=== PATIENT | male | born 1955 | race Caucasian/White ===

== ENCOUNTER 2018-10-18 09:00 | Inpatient (IN) ==
--- NOTE | 2018-10-17 10:58 | Anesthesiology Consultation ---
Date of Service October 17, 2018 Assessment & Plan (1) Encounter for pre-operative examination: History Surgery Operation Date: 10/18/18 11:25 Proposed Procedures p Left Femoral Posterior Tibial Bypass, Left Embolization of Popliteal Artery - Carlos Blunt MD Height/Weight Height: 5 ft 10 in Weight: 90.718 kg Allergies Allergy/AdvReac Type Severity Reaction Status Date / Time Penicillins Allergy Severe Rash Verified 10/17/18 08:18 Medications Home Medications Medication Instructions Recorded Confirmed Last Taken Black Berg 1 tab PO BID 10/17/18 Unknown apixaban [Eliquis] 10 mg PO BID 10/17/18 10/17/18 Unknown aspirin [Aspirin Low Dose] 81 mg PO QAM 10/17/18 10/17/18 Unknown echinacea 500 mg PO BID 10/17/18 10/17/18 Unknown esomeprazole magnesium [Nexium] 40 mg PO HS 10/17/18 10/17/18 Unknown ibuprofen [Motrin IB] 600 mg PO BID PRN 10/17/18 10/17/18 Unknown oxycodone-acetaminophen [Percocet] 1 tab PO Q4H PRN 10/17/18 10/17/18 Unknown sulfamethoxazole-trimethoprim 1 tab PO BID 10/17/18 10/17/18 Unknown [Bactrim DS] Past Medical History Medical History Anxiety FEAR OF [facility] AND HOSPITALS. GERD (gastroesophageal reflux disease) Hand trauma AGE 17, MISSING PART OF LEFT HAND Osteoarthritis Poor circulation TAKES ELIQUIS. Past Surgical History Surgical History H/O hand surgery FROM LEFT HAND TRAUMA AND PART OF HAND WAS CUT OFF. History of arthroscopy RIGHT KNEE CARTILAGE REPAIR Social History Smoking Status: Former smoker tobacco type: cigarettes Do You Dip or Chew Tobacco: No Smoking End Date: 10/10/18 Hx Alcohol Use: Yes Alcohol type: beer alcohol intake frequency: 0-2 drinks per day Hx Substance Use: Yes substance use type: prescription drug
[~2018-10-18 09:00] MED LIST: CLINDAMYCIN 600 MG/54 ML BAG IV SCH; LR 15ML/HR IV SCH; SODIUM CHLORIDE 0.9% 1000ML IV SCH
[2018-10-18 10:05] LABS: BUN Creatinine Ratio 13.3 (10-20); Calcium 8.1 mg/dl (8.5-10.1); Creatinine Clr Calc Pharmacy 138.4 ml/min; Est GFR (African American) 121.5; Est GFR (Non-African American) 104.8; Potassium 4.2 mmol/L (3.5-5.1)
--- NOTE | 2018-10-18 10:06 | XRay Report ---
XR chest 1V portable CLINICAL HISTORY: PREOPERATIVE EXAM COMPARISON STUDY: No previous studies for comparison. FINDINGS: The bones soft tissues and hemidiaphragms are normal. The cardiomediastinal silhouette is n ormal. The lungs are clear. The pulmonary vasculature is normal. IMPRESSION: Negative chest. The above report was generated using voice recognition software. It may contain grammatical, syntax or spelling errors. Electronically signed by: Moose Hdez M.D. 10/18/2018 10:04 AM
[2018-10-18] MEDS ORDERED: CEFAZOLIN 250 MG/ML 1 GM VIAL ONE (10:43)
[2018-10-18] MEDS ORDERED: HEPARIN (PORCINE) 1000 UNIT/ML 10 ML (CATH LAB USE ONLY) ONE (10:43)
[2018-10-18] MEDS ORDERED: PAPAVERINE HCL INJ 30 MG/ML 2 ML VIAL ONE (10:43)
[2018-10-18] MEDS ORDERED: IODIXANOL (VISIPAQUE) 270 MG/ML 50ML ONE (10:43)
[2018-10-18] MEDS ORDERED: LIDOCAINE HCL 1% 20 ML VIAL ONE (10:43)
[2018-10-18] MEDS ORDERED: THROMBIN 5000 UNITS KIT ONE (10:43)
[2018-10-18] MEDS ORDERED: BUPIVACAINE/EPINEPHRINE 0.5% MPF 1:200,000 30 ML VIAL ONE (10:43)
[2018-10-18] MEDS ORDERED: GELATIN SPONGE SZ 100 ONE (10:44)
[2018-10-18] MEDS ORDERED: ACETAMINOPHEN 325 MG TAB PO PRN (12:35)
[2018-10-18] MEDS ORDERED: IBUPROFEN 200 MG TAB PO PRN (12:40)
--- NOTE | 2018-10-18 12:43 | Communication Note ---
Date of Service: October 18, 2018 Surgery postponed till tuesday due to hyponatremia. Admitted for correcting his hyponatremia.
[2018-10-18] MEDS ORDERED: SODIUM CHLORIDE 0.9% 500 ML IV SCH (12:45)
--- NOTE | 2018-10-18 13:15 | Consultation ---
Addendum entered and electronically signed by Juanita Parada PA-C 10/18/18 15:34: Addendum (Blank) Addendum October 18, 2018 15:33 PVD - Pt was started on eliquis 10 mg BID and by vascular surgery on 10/16. 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 Blunt on board and plans for revascularization on 10/20/18 -Discussed with [place] - will also check for DM with chronic nonhealing foot wound, psychogenic polydipsia likely decreased glucose on PRP, will check A1C -Wound consulted -Pain control with morphine sulfate IV for now we will also order tramadol. Patient may benefit from additional agent such as gabapentin for nerve pain. (3) Osteoarthritis: - Continue percocet for severe pain. (4) GERD (gastroesophageal reflux disease): - Continue esomeprazole 40 mg HS (5) Anxiety: - Controlled currently, can consider hydroxyzine if needed for anxiety. (6) History of tobacco use: -Patient was previously smoking 2-3 packs/day x 40 years, stopped about 1 week ago when diagnosed with a popliteal aneurysm. - encouraged to stop smoking as well -Nicotine patch offered but patient declined Supervising Physician Co-Signing Physician Notes Pt seen/examined in conjunction with BISHNU Parada. Orders and additional evaluation formaulated with TOMER. Pt is admitted for L fem bypass and embolization of popliteal a. He was in the OR, however, labs returned with a sodium of 125. Surgery was delayed for correction therefore. He does not normally see and MD and would not know if he had HLD, DM or HTN. BP has been high in the hospital and Glu is mildly elevated. He has an extensive smoking histroy. He has no complaints aside for pain in his L leg and a nonhealing ulcer. Labs are notable for hyponatremia. OE AAO x 3 S1,2 R CTAB NT, ND No deficits Pulses are present on the R - cannot discern on L Shallow ulcer present on L foot P: As we would like to stratify him for surgery, we have ordered an A1C, fasting lipid profile, UA. An EKG did not provided evidence of ischemic injury. However, considering his PAD, we would presume there is a degree of CAD as well. We will make a decision AM if we would like to proceed with a card consult prior to this high risk procedure. Reg his low Na, we are providing IVF and have placed him on fluid restriction. We will obtain urine lytes. He states that he is on a new diet where he drinks a lot of water so that polydipsia may be the cause. The pt states he quit smoking 10 days ago. We wish him success in tis endeavor. History of Present Illness Reason for Consultation: Hyponatremia Requesting Physician: Dr. Blunt Attending Physician: Carlos Blunt MD History of Present Illness This is a 63 yo M with PMHx of PVD, anxiety, gerd, osteoarthritis, and recent history of tobacco use and cessation, who was scheduled for a left femoral popliteal, posterior tib bypass surgery and embolization of the popliteal artery on 10/[address] Blunt. Upon check of PRP the patient was found be hyponatremic with Na+ of 125. Patient has not followed with her PCP in the past 40 years, he is extremely terrified of doctors and hospitals. Patient reports that he has had a chronic left foot wound for about 1 year and was seen by esl teacher about 2 weeks ago due to increased pain, redness, swelling and difficulty with walking. At that appointment is 1 he was placed on Bactrim DS BID for a 10d course, and when vascular surgery was consulted due to poor pulses. 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 Patient was scheduled for a follow-up/surgical procedure on 10/[address] Blunt however patient deferred surgery due to his anxiety. In regards to hyponatremia: He has been drinking 15-20, 16oz cups of free water daily for the past 2-3 weeks and restricting all salt. He has not eaten well over the past 2 weeks. Patient also took 2 magnesium tablets due to his bowels not moving well on 10/15 and 10/16. Allergies Allergy/AdvReac Type Severity Reaction Status Date / Time Penicillins Allergy Severe Rash Verified 10/18/18 09:39 Home Medications Home Medications Medication Instructions Recorded Confirmed Type Black Berg 1 tab PO BID 10/17/18 10/18/18 History apixaban [Eliquis] 10 mg PO BID 10/17/18 10/18/18 History aspirin [Aspirin Low Dose] 81 mg PO QAM 10/17/18 10/18/18 History echinacea 500 mg PO BID 10/17/18 10/18/18 History esomeprazole magnesium [Nexium] 40 mg PO HS 10/17/18 10/18/18 History ibuprofen [Motrin IB] 600 mg PO BID PRN 10/17/18 10/18/18 History oxycodone-acetaminophen [Percocet] 1 tab PO Q4H PRN 10/17/18 10/18/18 History sulfamethoxazole-trimethoprim 1 tab PO BID 10/17/18 10/18/18 History [Bactrim DS] Patient History Medical History PVD (peripheral vascular disease) History of tobacco use Anxiety GERD (gastroesophageal reflux disease) Osteoarthritis Hyponatremia Anxiety FEAR OF [facility] AND HOSPITALS. GERD (gastroesophageal reflux disease) Hand trauma AGE 17, MISSING PART OF LEFT HAND Osteoarthritis Poor circulation TAKES ELIQUIS. Surgical History H/O hand surgery FROM LEFT HAND TRAUMA AND PART OF HAND WAS CUT OFF. History of arthroscopy RIGHT KNEE CARTILAGE REPAIR Social History Current Living Situation: Spouse Other Information That Helps Us Care for You: No Feels Safe at Home: Yes Safety Concerns: Feels Safe At This Time Smoking Status: Former smoker Tobacco Type: cigarettes Do You Dip or Chew Tobacco: No Smoking End Date: 10/10/18 Hx Alcohol Use: Yes Alcohol type: beer Alcohol Intake Frequency: 0-2 drinks per day Hx Substance Use: Yes substance use type: prescription drug Beliefs That Will Affect Care: None Preferred Language: Setswana Communication Ability: Effective Pharmacy Sales Assistant Required: No Review of Systems Constitutional: No fever, sweats or chills Eyes: No diplopia, no worsening or blurred vision ENT: normal hearing, no trouble swallowing Respiratory: No cough, sputum, dyspnea at rest or on exertion Cardiovascular: No chest pain, tightness or palpitations Abdomen: No pain, nausea, vomiting, diarrhea or constipation Musculoskeletal: + L foot pain, calf pain, swelling and erythema with multiple areas of broken skin along the plantar surface of foot. + Pain with light touch. Neurologic: +numbness/tingling which is significant in the left foot, + uses a cane to assist with ambulation, or balance problems Psychiatric: No anxiety or depression Skin: No rash or itch Physical Exam 2 Vital Signs (Past 24 Hours): Last Vital Signs Temp 36.6 C 10/18/18 09:50 Pulse 80 10/18/18 09:50 Resp 20 10/18/18 09:50 BP 169/93 H 10/18/18 09:50 Pulse Ox 95 10/18/18 09:50 Physical Exam: General: awake, alert, no apparent distress Head: Normocephalic, atraumatic ENT: PERRL, EOMI, no pharyngeal exudate, mucous membranes moist Chest: Clear to auscultation, on room air, no adventitious breath sounds Cardiac: Regular rate and rhythm, no murmur, no JVD, normal peripheral pulses, good capillary refill Abdominal: NABS x 4 quadrants, soft, nontender to palpation, no rebound, guarding or tenderness Extremities: LLE with chronic ulcerations, erythema, multiple areas of skin lesions, left plantar surface ulceration of the great toe with black eschar, no purulence, + significant pain with any palpation, L sided skin tear between third and fourth toe. R Lower extremity without erythema or edema. Pulses of the LLE are faintly palpable. R Calf without tenderness, not palpated on the left. 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 Psych: Anxious mood and affect Neuro: AAO x 3, strength intact bilaterally and related 5/5, no motor deficits, speech is clear, no peripheral sensory deficits Results & Data ECG Additional Comments: 18-OCT-2018 09:33:32 [facility] Sinus rhythm with 1st degree A-V block with Premature supraventricular complexes Otherwise normal ECG No previous ECGs available Vent. rate 82 BPM MA interval 222 ms QRS duration 86 ms QT/QTc 374/436 ms P-R-T axes -22 17 12
[2018-10-18] MEDS ORDERED: TRAMADOL HCL 50 MG TABLET PO PRN ×2 (14:10→15:23)
[2018-10-18] MEDS ORDERED: MoRPHine SULFATE 2 MG/ML CARP IV PRN (14:10)
[2018-10-18] MEDS ORDERED: IBUPROFEN 600 MG TAB PO PRN (15:30)
[2018-10-18] MEDS: MoRPHine SULFATE 2 MG/ML CARP IV PRN ×2 (16:01→20:40)
[2018-10-18] MEDS: SODIUM CHLORIDE 0.9% 1000ML 1,000 ML IV SCH (16:05)
[2018-10-18] MEDS: SULFAMETHOXAZOLE/TRIMETHOPRIM DS 800/160MG TAB PO SCH ×2 (16:18→20:41)
[2018-10-18] MEDS: LABETALOL HCL 100 MG TAB PO SCH (18:54)
[2018-10-18 19:57] LABS: Appearance Urine Clear (Clear); Bacteria Urine Automated Negative (Negative); Bilirubin Urine Negative (Negative); Blood Urine 1+ (Negative); Cast Urine Automated 0 /lpf (0-5); Color Urine Yellow; Glucose Urine UA Negative (Negative); Ketones Urine Negative (Negative); Leukocyte Esterase Urine Negative (Negative); Nitrite Urine Negative (Negative); Protein Urine Negative (Negative); Specific Gravity Urine 1.012 (1.000-1.030); Urobilinogen Urine Negative (Negative); pH Urine 7.5 (4.5-7.5)
[2018-10-18] MEDS: LORazepam 1 MG TAB PO PRN (20:40)
[2018-10-18] MEDS: PANTOprazole 40 MG TAB PO SCH (20:41)
[2018-10-18] MEDS ORDERED: SULFAMETHOXAZOLE/TRIMETHOPRIM DS 800/160MG TAB PO SCH (21:00)
[2018-10-18] MEDS ORDERED: PANTOprazole 40 MG TAB PO SCH (21:00)
[2018-10-18] MEDS ORDERED: BLACK CHERRY PO SCH (21:00)
[2018-10-18] MEDS ORDERED: ECHINACEA 500 MG PO SCH (21:00)
[2018-10-18] MEDS: OXYCODONE/ACETAMINOPHEN 5mg/325mg TAB PO PRN (23:32)
[2018-10-19] MEDS: SODIUM CHLORIDE 0.9% 1000ML 1,000 ML IV SCH ×2 (01:30→15:30)
[2018-10-19] MEDS: MoRPHine SULFATE 2 MG/ML CARP IV PRN ×4 (03:40→20:57)
[2018-10-19] MEDS: LABETALOL HCL 100 MG TAB PO SCH ×2 (05:24→17:39)
[2018-10-19 05:32] LABS: Hematocrit (blood only) 36.5 % (42-52); Hemoglobin 12.9 g/dL (14.0-18.0); Mean Corpuscular Hgb Conc 35.3 g/dL (32-36); Mean Corpuscular Volume 92.6 fL (80-100); Platelet Count 286 K/uL (130-400); RDW Coefficient of Variation 13.5 % (11.5-14.5); Red Blood Count 3.94 M/uL (4.7-6.1); White Blood Count 8.53 K/uL (4.8-10.8)
[2018-10-19 05:58] LABS: BUN Creatinine Ratio 17.7 (10-20); Calcium 7.6 mg/dl (8.5-10.1); Creatinine Clr Calc Pharmacy 150.7 ml/min; Est GFR (African American) 125.8; Est GFR (Non-African American) 108.5; Potassium 4.2 mmol/L (3.5-5.1)
[2018-10-19 06:00] LABS: Albumin Globulin Ratio 0.5 (0.9-2); Bilirubin,Total 0.6 mg/dl (0.2-1)
[2018-10-19 07:00] LABS: Estimated Average Glucose 123 mg/dl; Hemoglobin A1C 5.9 % (4.5-5.6)
[2018-10-19] MEDS ORDERED: ASPIRIN 81 MG ECTAB PO SCH (09:00)
[2018-10-19] MEDS: ASPIRIN 81 MG ECTAB PO SCH ×2 (09:24→11:38)
[2018-10-19] MEDS ORDERED: CLINDAMYCIN 600 MG/54 ML BAG IV SCH (11:00)
--- NOTE | 2018-10-19 11:34 | Surgery Progress Note ---
Date of Service October 19, 2018 Assessment & Plan (1) PVD (peripheral vascular disease): At this point we will plan on going ahead with the femoral-popliteal bypass of the left lower extremity for his popliteal artery aneurysm. (2) Hyponatremia: We will continue the current treatment to correct his sodium. Subjective Patient is doing better with his left foot pain. Physical Exam 2 Vital Signs (Past 24 Hours): Last Vital Signs Temp 36.7 C 10/19/18 08:00 Pulse 62 10/19/18 08:00 Resp 18 10/19/18 08:00 BP 168/96 H 10/19/18 08:00 Pulse Ox 93 10/19/18 08:00 I examined the erythema in the left foot is less as well as the edema. His neuro status of his left lower extremity is unchanged.
--- NOTE | 2018-10-19 12:28 | Nephrology Consultation ---
Date of Consultation October 19, 2018 Assessment & Plan (1) Hyponatremia: Patric is a 63 y o M History of smoking, peripheral vascular disease, anxiety depression was to arthritis admitted the hospital for elective vascular procedure. He was found to have hyponatremia with relatively high urine osmolality. Sodium has been 125-126. Urine osmolality 360. Has been getting IV normal saline at 125 a.m. per hour since admission. There is report excessive free water intake however he reports he has been drinking much less. No history of thyroid disease or adrenal insufficiency. Has not been thiazide diuretics.. Differentials for hyponatremia include at home possibly some component of SIADH with ongoing pain. Is blood pressure running there is no evidence volume depletion. --check serum sodium and osmolality --discontinue IV normal saline, can be given if needed during surgery tomorrow --fluid restriction to less than 1200 mL per day --liberalize salt in diet -- Lasix 40 mg IV x 1 dose now and continue 20 mg daily --avoid thiazide type diuretics --check TSH, random cortisol -- age-appropriate screening Thank you for allowing me to participate in your patient's care. It was a pleasure to see Patric (2) PVD (peripheral vascular disease): (3) Anxiety: (4) GERD (gastroesophageal reflux disease): History of Present Illness Reason for Consultation: Evaluation for hyponatremia. Attending Physician: Joie Rai MD History of Present Illness Patric Ortega is a 63 year gentlemen past medical history significant for peripheral vascular disease, anxiety, depression, osteoarthritis hypertension admitted to the hospital for left femoral popliteal bypass. Nephrology consult was requested as his found to have hyponatremia on admission. Medical records including labs and imaging are reviewed in detail during patient's visit. Patric was admitted yesterday electively for left femoropopliteal bypass. On admission his serum sodium was 125 with no prior history of hyponatremia. Sodium slightly improved to 126 this morning. Urine osmolality elevated at 360. Has history of anxiety and depression there is concern for excessive free water intake. Long history of smoking just quit recently. No personal history of malignancy. No history of thyroid disorder. Has not been on any thiazide diuretics. No history of chronic NSAID use. No significant hypotensive episode. He does report pain in his left lower extremity. Currently denies any symptom except pain in the left lower extremity and he repeatedly keep seeing that he has been frustrated and confused with many different directions for fluid intake. Reports he drank only 250 mL of water since yesterday. Allergies Allergy/AdvReac Type Severity Reaction Status Date / Time Penicillins Allergy Severe Rash Verified 10/18/18 09:39 Home Medications Home Medications Medication Instructions Recorded Confirmed Type Black Berg 1 tab PO BID 10/17/18 10/18/18 History apixaban [Eliquis] 10 mg PO BID 10/17/18 10/18/18 History aspirin [Aspirin Low Dose] 81 mg PO QAM 10/17/18 10/18/18 History echinacea 500 mg PO BID 10/17/18 10/18/18 History esomeprazole magnesium [Nexium] 40 mg PO HS 10/17/18 10/18/18 History ibuprofen [Motrin IB] 600 mg PO BID PRN 10/17/18 10/18/18 History oxycodone-acetaminophen [Percocet] 1 tab PO Q4H PRN 10/17/18 10/18/18 History sulfamethoxazole-trimethoprim 1 tab PO BID 10/17/18 10/18/18 History [Bactrim DS] Patient History Medical History PVD (peripheral vascular disease) History of tobacco use Anxiety GERD (gastroesophageal reflux disease) Osteoarthritis Hyponatremia Anxiety FEAR OF [facility]OSP[facility]. GERD (gastroesophageal reflux disease) Hand trauma AGE 17, MISSING PART OF LEFT HAND Osteoarthritis Poor circulation TAKES ELIQUIS. Surgical History H/O hand surgery FROM LEFT HAND TRAUMA AND PART OF HAND WAS CUT OFF. History of arthroscopy RIGHT KNEE CARTILAGE REPAIR Social History Current Living Situation: Spouse Other Information That Helps Us Care for You: No Feels Safe at Home: Yes Safety Concerns: Feels Safe At This Time Smoking Status: Former smoker Tobacco Type: cigarettes Do You Dip or Chew Tobacco: No Smoking End Date: 10/10/18 Hx Alcohol Use: Yes Alcohol type: beer Alcohol Intake Frequency: 0-2 drinks per day Hx Substance Use: Yes substance use type: prescription drug Beliefs That Will Affect Care: None Preferred Language: Yoruba Communication Ability: Effective Harness Cutter Required: No Review of Systems DEtail ROS was negative. Physical Exam 2 Vital Signs (Past 24 Hours): Last Vital Signs Temp 36.7 C 10/19/18 08:00 Pulse 62 10/19/18 08:00 Resp 18 01/17/19 08:00 BP 168/96 H 10/19/18 08:00 Pulse Ox 93 10/19/18 08:00 Physical Exam: GENERAL: middle aged male, AAA x 3, pleasant, healthy-appearing, not in any distress. HEENT: Atraumatic, normocephalic. NECK: Supple, no JVD, no carotid bruit appreciated. ENT: No sinus tenderness MOUTH and THROAT: Moist oral mucosa, no oral ulcer or pharyngeal erythema RESPIRATORY: Normal breathing efforts, no accessory muscle use, clear to auscultation bilaterally, no wheezes or rales. CARDIOVASCULAR: S1, S2 normal, rate rhythm regular. ABDOMEN: Soft, nontender, positive bowel sound. MUSCULOSKELETAL: No CVA tenderness. No joint swelling, erythema or tenderness. Normal range of motion. SKIN: No skin rash EXTREMITY: No lower extremity edema NEURO: No gross focal neurological deficit, speech fluent. PSYCHIATRY: Normal mood and judgment
[2018-10-19] MEDS ORDERED: FUROSEMIDE 40 MG in SYRINGE 0 ML IV ONE (12:45)
--- NOTE | 2018-10-19 13:45 | Anesthesiology Consultation ---
Date of Service October 19, 2018 The patient's surgery was delayed until tomorrow due to hyponatremia. Nephrology is following the patient and managing his sodium levels. His sodium level is 126 today which is up from 123. Assessment & Plan (1) Encounter for pre-operative examination: Chart Review Chart Review: Acceptable Risk for Surgery (pending acceptable sodium levels on the day of procedure) and Patient NOT seen in Pre Admission Testing Consults Requested none Nephrology has been consulted on the patient. NPO Date Last Intake of Fluids: 10/17/18 Time Last Intake of Fluids: 21:00 Date Last Intake of Solids: 10/17/18 Time Last Intake of Solids: 18:30 History Surgery Operation Date: 10/18/18 11:25 Proposed Procedures p Left Femoral Posterior Tibial Bypass, Left Embolization of Popliteal Artery - Carlos Blunt MD Operation Date: 10/20/18 10:20 Proposed Procedures p Left Femoral Posterior Tibial Bypass, Embolization of Left Popliteal Artery - Carlos Blunt MD Operation Date: 10/20/18 11:50 Proposed Procedures p Left Femoral Posterior Tibial Bypass, Left Embolization of Popliteal Artery - Carlos Blunt MD Height/Weight Height: 5 ft 10 in Weight: 93 kg Allergies Allergy/AdvReac Type Severity Reaction Status Date / Time Penicillins Allergy Severe Rash Verified 10/18/18 09:39 Medications Home Medications Medication Instructions Recorded Confirmed Last Taken Black Berg 1 tab PO BID 10/17/18 10/18/18 10/11/18 08:00 apixaban [Eliquis] 10 mg PO BID 10/17/18 10/18/18 10/16/18 08:00 aspirin [Aspirin Low Dose] 81 mg PO QAM 10/17/18 10/18/18 10/17/18 08:00 echinacea 500 mg PO BID 10/17/18 10/18/18 10/11/18 08:00 esomeprazole magnesium [Nexium] 40 mg PO HS 10/17/18 10/18/18 10/16/18 20:00 ibuprofen [Motrin IB] 600 mg PO BID PRN 10/17/18 10/18/18 Unknown oxycodone-acetaminophen [Percocet] 1 tab PO Q4H PRN 10/17/18 10/18/18 10/18/18 05:00 sulfamethoxazole-trimethoprim 1 tab PO BID 10/17/18 10/18/18 10/17/18 20:00 [Bactrim DS] Active Medications Generic Name Dose Route Start Last Admin Trade Name Freq PRN Reason Stop Dose Admin Aspirin 81 mg 10/19/18 09:00 10/19/18 11:38 Ecotrin Ectab PO 11/18/18 08:59 81 mg QAM JUDAH Administration Sodium Chloride 1,000 mls @ 80 mls/hr 10/18/18 14:30 10/19/18 01:30 Nss 1000ml IV 11/17/18 14:29 80 mls/hr .[id number] JUDAH Administration Labetalol HCl 50 mg 10/18/18 17:30 10/19/18 05:24 Normodyne PO 11/17/18 17:29 50 mg Q12@0600,1800 JUDAH Administration Lorazepam 1 mg 10/18/18 16:52 10/18/18 20:40 Ativan PO 11/17/18 16:51 1 mg Q8H PRN Administration Anxiety Morphine Sulfate 2 mg 10/18/18 15:23 10/19/18 12:54 Morphine Sulfate IV 11/01/18 14:09 2 mg Q2H PRN Administration Pain Oxycodone/Acetaminophen 1 tab 10/18/18 12:40 10/18/18 23:32 Percocet 5mg/325mg PO 11/01/18 12:39 1 tab Q4H PRN Administration Pain Pantoprazole Sodium 40 mg 10/18/18 21:00 10/18/18 20:41 Protonix PO 11/17/18 20:59 40 mg HS JUDAH Administration Past Medical History Medical History PVD (peripheral vascular disease) History of tobacco use Anxiety GERD (gastroesophageal reflux disease) Osteoarthritis Hyponatremia Anxiety FEAR OF [facility]ALS. GERD (gastroesophageal reflux disease) Hand trauma AGE 17, MISSING PART OF LEFT HAND Osteoarthritis Poor circulation TAKES ELIQUIS. Past Surgical History Surgical History H/O hand surgery FROM LEFT HAND TRAUMA AND PART OF HAND WAS CUT OFF. History of arthroscopy RIGHT KNEE CARTILAGE REPAIR Social History Smoking Status: Former smoker tobacco type: cigarettes Do You Dip or Chew Tobacco: No Smoking End Date: 10/10/18 Hx Alcohol Use: Yes Alcohol type: beer alcohol intake frequency: 0-2 drinks per day Hx Substance Use: Yes substance use type: prescription drug Physical Exam Vital Signs Last Vital Signs Temp 36.7 C 10/19/18 08:00 Pulse 62 10/19/18 08:00 Resp 18 10/19/18 08:00 BP 168/96 H 10/19/18 08:00 Pulse Ox 93 10/19/18 08:00 Testing Electrocardiogram Date: 10/18/18 Findings: + NSR @ (82 with 1st degree AV block and premature supraventricular contractions) Chest X-Ray Date: 10/18/18 Findings: + NAD Laboratory Results 10/19/18 05:15 10/19/18 05:15 Blood Type O Negative 10/18/18 09:40 Antibody Screen NEGATIVE 10/18/18 09:40 Hemoglobin A1c 5.9 % (4.5-5.6) H 10/18/18 16:28 Urine Color Yellow 10/18/18 19:30 Urine Appearance Clear (Clear) 10/18/18 19:30 Urine pH 7.5 (4.5-7.5) 10/18/18 19:30 Ur Specific [place] 1.012 (1.000-1.030) 10/18/18 19:30 Urine Protein Negative (Negative) 10/18/18 19:30 Urine Glucose (UA) Negative (Negative) 10/18/18 19:30 Urine Ketones Negative (Negative) 10/18/18 19:30 Urine Nitrite Negative (Negative) 10/18/18 19:30 Ur Leukocyte Esterase Negative (Negative) 10/18/18 19:30 Urine WBC (Auto) 1-5 /hpf (0-5) 10/18/18 19:30 Urine RBC (Auto) 5-10 /hpf (0-4) H 10/18/18 19:30 U Hyaline Cast (Auto) 0 /lpf (0-5) 10/18/18 19:30 U Epithel Cells (Auto) 5-10 /lpf (0-5) H 10/18/18 19:30 Urine Bacteria (Auto) Negative (Negative) 10/18/18 19:30
[2018-10-19] MEDS: OXYCODONE/ACETAMINOPHEN 5mg/325mg TAB PO PRN (14:43)
[2018-10-19 15:42] LABS: BUN Creatinine Ratio 12.6 (10-20); Calcium 7.6 mg/dl (8.5-10.1); Creatinine Clr Calc Pharmacy 108.2 ml/min; Est GFR (African American) 109.8; Est GFR (Non-African American) 94.7; Potassium 3.8 mmol/L (3.5-5.1)
--- NOTE | 2018-10-19 19:29 | Hospitalist Progress Note ---
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 however no baseline to compare to as he has not seen a doctor in 40 years: By history he was drinking excessive free water, drinking 15-20, 16 oz cups of water daily and restricting all sodium -This is most likely chronic as he has no symptoms whatsoever of hyponatremia -He is euvolemic -He received 3-4 L of fluid in last 24 hours and therefore his sodium has remained almost the exactly the same at 125 today -His urine sodium is 71, urine osmolality 390, serum osmolality was not performed -Nephrology following and recommends; discontinuation of IV fluids and which I am in agreement with, further fluid restrict to 1200 mL's/day (he received 3-4 L of normal saline on the day 1 of hospitalization), received IV Lasix 40 mg once today and will continue with 20 mg daily after that -Liberalize salt in diet -Follow BMP in the morning -Check TSH in the morning and a.m. cortisol level -Avoid all potentially sodium altering medications i.e. SSRIs, tramadol, NSAIDs (2) PVD (peripheral vascular disease): -With severe PAD of the left lower extremity and ulceration of the left plantar surface of the foot -Dr. Blunt on board and plans for revascularization and repair of left popliteal artery aneurysm on 10/20/18 -Screen for DM with chronic nonhealing foot wound, but a hgb A1C is in the prediabetic range at 5.9% -Wound consulted -Pain control with morphine sulfate IV, oxycodone as needed -Patient may benefit from additional agent such as gabapentin for nerve pain. -Is on aspirin 81 mg daily-and ideally should be on a statin as well although his cholesterol does show that he is very poor nutrition, also with elevated LFTs as below (3) Osteoarthritis: - Continue percocet for severe pain. (4) GERD (gastroesophageal reflux disease): - Continue esomeprazole 40 mg HS (5) Anxiety: - Controlled currently, can consider hydroxyzine if needed for anxiety. (6) History of tobacco use: -Patient was previously smoking 2-3 packs/day x 40 years, stopped about 1 week ago when diagnosed with a popliteal aneurysm. -Nicotine patch offered but patient declined -Needs PFTs as outpatient (7) Elevated LFTs: Mildly elevated LFTs here, could have fatty liver, is negative for hepatitis C on screening. Is asymptomatic, no abdominal pain. Not an alcohol abuser. -Follow LFTs -Check liver ultrasound nonurgently either after surgery or as an outpatient (8) Prediabetes: Hemoglobin A1c on screening here was elevated at 5.9% -Needs dietary and lifestyle changes, no medications -Should be followed as an outpatient (9) HTN (hypertension), benign: Blood pressure significantly elevated here, will start on labetalol 50 mg p.o. twice daily -Increase labetalol 100 mg p.o. twice daily -Follow -Continue aspirin (10) DVT prophylaxis: None for now due to severe PAD and impending surgery -Recommend starting subcutaneous heparin after surgery when okay with vascular surgery Disposition-remain on medical/surgical floor Subjective Patient very frustrated with the delaying his surgery and is distressed and doctors as he tells me. Denies headache or lightheadedness, denies chest pain or shortness of breath. Denies fatigue. The only complaint he has is pain in the left foot which is improved with pain medicine here. He reports his left foot was very red and swollen twice the size that is now 2 weeks ago but this significantly improved with treating with Bactrim. He denies abdominal pain or nausea. He reports he only drinks alcohol occasionally and never is an alcohol abuser. He does not use illicit drugs. He has never been told he has a liver problem but has not seen a doctor in 40 years. I discussed the case with vascular surgery. He is not to be on Eliquis at this time. Review of Systems All systems reviewed & are unremarkable except as noted in HPI & below Physical Exam 2 Vital Signs (Past 24 Hours): Last Vital Signs Temp 36.6 C 10/19/18 15:00 Pulse 76 10/19/18 17:38 Resp 18 10/19/18 15:00 BP 152/83 H 10/19/18 17:38 Pulse Ox 93 10/19/18 08:00 Constitutional: WD/WN, vitals as above Eyes: PERRL, conjunctivae normal, anicteric sclerae ENMT: external ear and nose normal, oropharynx normal Neck: trachea midline, no thyromegaly Respiratory: normal respiratory effort, lungs clear to auscultation Cardiovascular: RRR, no murmur, no edema Extremities: no calf tenderness and no pedal edema (Nonpalpable left pedal pulses, 2+ right dorsalis pedis pulse ) Gastrointestinal (Abdomen): normal bowel sounds, soft, nontender, no hepatosplenomegaly Musculoskeletal: Extremities: + extremities abnormal to inspection (Left hand missing third fourth and fifth fingers; left foot with mild erythema and with ulceration on the right plantar surface of MTP joint), no cyanosis and no clubbing Skin: no rashes, warm and dry Neurologic: moves all extremities and awake; no focal motor deficits Psychiatric: A+Ox3, euthymic affect Results & Data Laboratory Results 10/19/18 10/19/18 10/19/18 Range/Units 17:45 14:49 05:15 Sodium 125 L (136-145) mmol/L Potassium 3.8 (3.5-5.1) mmol/L Chloride 90 L (98-107) mmol/L Carbon Dioxide 28 (21-32) mmol/L Anion Gap 7.0 (3-11) BUN 10 (7-18) mg/dl Creatinine 0.78 (0.6-1.4) mg/dl Est Cr Clr Drug Dosing 108.2 ml/min Est GFR ( Amer) 109.8 Est GFR (Non-Af Amer) 94.7 BUN/Creatinine Ratio 12.6 (10-20) Glucose 107 H (70-99) mg/dl Calcium 7.6 L (8.5-10.1) mg/dl Urine Osmolality 382 L (500-800) mOsm/kg Hepatitis C Ab Screen Neg (Neg)
[2018-10-19] MEDS: LORazepam 1 MG TAB PO PRN (20:56)
[2018-10-19] MEDS: PANTOprazole 40 MG TAB PO SCH (20:58)
[2018-10-20] MEDS: MoRPHine SULFATE 4 MG/ML 1 ML CARP\\VIAL IV PRN ×2 (03:46→06:58)
[2018-10-20] MEDS: OXYCODONE/ACETAMINOPHEN 5mg/325mg TAB PO PRN ×2 (04:04→08:44)
[2018-10-20] MEDS ORDERED: CLINDAMYCIN 600 MG/54 ML BAG IV SCH ×2 (06:00)
[2018-10-20] MEDS: LABETALOL HCL 100 MG TAB PO SCH ×2 (06:32→20:40)
[2018-10-20] MEDS ORDERED: LABETALOL HCL 100 MG TAB PO ONE (07:20)
[2018-10-20 07:39] LABS: Hematocrit (blood only) 38.1 % (42-52); Hemoglobin 13.8 g/dL (14.0-18.0); Mean Corpuscular Hgb Conc 36.2 g/dL (32-36); Mean Platelet Volume 7.9 fL (7.4-10.4); Platelet Count 288 K/uL (130-400); RDW Coefficient of Variation 13.5 % (11.5-14.5); RDW Standard Deviation 45.2 fL (36.4-46.3); Red Blood Count 4.14 M/uL (4.7-6.1); White Blood Count 10.18 K/uL (4.8-10.8)
[2018-10-20 08:04] LABS: Albumin Level 2.1 gm/dl (3.4-5.0); BUN Creatinine Ratio 14.9 (10-20); Bilirubin Direct 0.3 mg/dl (0-0.2); Calcium 7.8 mg/dl (8.5-10.1); Creatinine Clr Calc Pharmacy 145.5 ml/min; Potassium 4.1 mmol/L (3.5-5.1)
[2018-10-20 08:14] LABS: Bilirubin,Total 0.7 mg/dl (0.2-1); Total Protein 6.3 gm/dl (6.4-8.2)
[2018-10-20] MEDS ORDERED: TOLVAPTAN 15 MG TABLET PO ONE (08:49)
[2018-10-20] MEDS ORDERED: FUROSEMIDE 20 MG in SYRINGE 0 ML IV SCH (09:00)
--- NOTE | 2018-10-20 10:33 | Hospitalist Progress Note ---
Date of Service October 20, 2018 Assessment & Plan (1) Hyponatremia: Sodium 123 on 10/16 and remains fairly stable at 124 today although he has not received adequate fluid restriction in the last 1-2 days. There was concern for psychogenic polydipsia as he was drinking significantly large amount of free water in the last few weeks, however he was fairly asymptomatic with his hyponatremia. His urine osmolality is in the 300s which is not consistent with polydipsia. His urine sodium is 71, urine osmolality 390, serum osmolality low at 257. Perhaps he has SIADH from severe pain. He is also a smoker and could have used malignancy? It is impossible to tell how long this been going on as he has not seen a doctor in 40 years and we have no baseline laboratory values to go off of TSH and a.m. cortisol are normal. He is euvolemic. Discussed the case at length with nephrology today. -Tolvaptan was given as a one-time dose on the morning of 10/20 -Due to giving tolvaptan, his fluid restriction will be lifted, and he should be allowed to drink freely after his surgery today to avoid an acute rise in his sodium levels -Check sodium level at 1400 today and again at 1800 this evening and adjust IV fluids as per nephrology recommendations based on levels -Was given 1 dose of IV Lasix 40 mg on 10/19, and 20 mill grams IV on 10/20- nephrology recommends holding off on further Lasix and reassessing on a daily basis depending on what sodium levels and urine output show -Liberalize salt in diet -Follow BMP in the morning at serial sodiums as above -Avoid all potentially sodium altering medications i.e. SSRIs, tramadol, NSAIDs -As far as his hyponatremia goes, this does not preclude him from proceeding with his revascularization surgery today as per my discussion with nephrology. He will need to be watched closely afterwards and perhaps placed on a telemetry unit in the postoperative period for closer monitoring. I did discuss his case with anesthesia, Dr. Ortiz, today. (2) PVD (peripheral vascular disease): -With severe PAD of the left lower extremity and ulceration of the left plantar surface of the foot-causing severe pain in the foot -Dr. Blunt on board and plans for revascularization with femoropopliteal- posterior tibial bypass on 10/20/18 -Screened for DM with chronic nonhealing foot wound, but a hgb A1C is in the prediabetic range at 5.9% -Wound consulted -Pain control with morphine sulfate IV, oxycodone as needed -Continue aspirin 81 mg daily - ideally should be on a statin as well although his cholesterol is quite low and does show that he is with very poor nutrition; also with elevated LFTs as below -Follow postoperative CBC tomorrow (3) Osteoarthritis: - Continue percocet for severe pain. -Avoid NSAIDs due to hyponatremia (4) GERD (gastroesophageal reflux disease): -We will hold off on his PPI as this can also contribute to hyponatremia -Replace with ranitidine 150 mg p.o. twice daily (5) Anxiety: -Long-standing but worsened by being in the hospital and has anxiety over this -Continue Ativan as needed (6) History of tobacco use: -Patient was previously smoking 2-3 packs/day x 40 years, stopped about 1 week prior to admission when diagnosed with a popliteal aneurysm. -Nicotine patch offered but patient declined -Needs PFTs as outpatient -Also qualifies for low-dose CT of the chest for lung cancer screening (7) Elevated LFTs: Mildly elevated LFTs here, could have fatty liver, is negative for hepatitis C on screening. Is asymptomatic, no abdominal pain. Not an alcohol abuser. LFTs are improved today -Check liver ultrasound nonurgently either after surgery or as an outpatient (8) Prediabetes: Hemoglobin A1c on screening here was elevated at 5.9%-discussed with the patient and his who is a nurse at the bedside -Needs dietary and lifestyle changes, no medications -Should be followed as an outpatient (9) HTN (hypertension), benign: Blood pressure significantly elevated here, remains elevated today-was started on labetalol this admission -Continue labetalol 100 mg p.o. twice daily which was just increased -Follow -Continue aspirin (10) DVT prophylaxis: None for now due to severe PAD and impending surgery -Recommend starting subcutaneous heparin after surgery when okay with vascular surgery Disposition-consider transfer to telemetry after surgery because of elevated blood pressures and severe hyponatremia Subjective Patient still having a lot of pain in the leg and just took Percocet and morphine earlier this morning. He received Ativan overnight. He says he feels a lot calmer today and apologizes for his frustrations he expressed last night. I discussed the case with anesthesia today. His sodium is still low at 124. He denies headache or lightheadedness, denies chest pain or shortness of breath , denies nausea or abdominal pain. Blood pressures have been quite elevated. Review of Systems All systems reviewed & are unremarkable except as noted in HPI & below Physical Exam 2 Vital Signs (Past 24 Hours): Last Vital Signs Temp 37.3 C 10/20/18 07:45 Pulse 69 10/20/18 07:45 Resp 20 10/20/18 07:45 BP 170/93 H 10/20/18 07:45 Pulse Ox 94 10/20/18 07:45 Constitutional: WD/WN, vitals as above (Drowsy but wakes up easily to answer questions and follows all commands) Eyes: PERRL, conjunctivae normal, anicteric sclerae ENMT: Ears: no hearing impairment Mouth: no oral mucosal abnormality ( Edentulous) Neck: trachea midline, no thyromegaly Respiratory: normal respiratory effort, lungs clear to auscultation Cardiovascular: RRR, no murmur, no edema Extremities: no calf tenderness and no pedal edema (Nonpalpable left pedal pulses, 2+ right dorsalis pedis pulse ) Gastrointestinal (Abdomen): normal bowel sounds, soft, nontender, no hepatosplenomegaly Musculoskeletal: Extremities: + extremities abnormal to inspection (Left hand missing third fourth and fifth fingers; left foot with mild erythema and with ulceration on the right plantar surface of MTP joint), no cyanosis and no clubbing Skin: + erythema (Left foot with mild erythema; left plantar surface of the first MTP with 1.5 cm crusted ulcer) Neurologic: moves all extremities and awake; no focal motor deficits Psychiatric: Orientation: alert and oriented x 3 Results & Data Laboratory Results 10/20/18 10/20/18 10/20/18 Range/Units 07:17 07:17 07:17 WBC 10.18 (4.8-10.8) K/uL RBC 4.14 L (4.7-6.1) M/uL Hgb 13.8 L (14.0-18.0) g/dL Hct 38.1 L (42-52) % MCV 92.0 (80-100) fL MCH 33.3 (25-34) pg MCHC 36.2 H (32-36) g/dL RDW Std Deviation 45.2 (36.4-46.3) fL RDW Coeff of Argelia 13.5 (11.5-14.5) % Plt Count 288 (130-400) K/uL MPV 7.9 (7.4-10.4) fL Sodium (136-145) mmol/L Potassium (3.5-5.1) mmol/L Chloride (98-107) mmol/L Carbon Dioxide (21-32) mmol/L Anion Gap (3-11) BUN (7-18) mg/dl Creatinine (0.6-1.4) mg/dl Est Cr Clr Drug Dosing ml/min Est GFR ( Amer) Est GFR (Non-Af Amer) BUN/Creatinine Ratio (10-20) Glucose (70-99) mg/dl Osmolality 257 L (280-300) mOsm/kg Calcium (8.5-10.1) mg/dl Total Bilirubin (0.2-1) mg/dl Direct Bilirubin (0-0.2) mg/dl AST (15-37) U/L ALT (12-78) U/L Alkaline Phosphatase (45-117) U/L Total Protein (6.4-8.2) gm/dl Albumin (3.4-5.0) gm/dl TSH (0.300-4.500) uIu/ml Cortisol AM Sample 21.70 (4.3-22.4) mcg/dl Urine Osmolality (500-800) mOsm/kg 10/20/18 10/19/18 10/19/18 Range/Units 07:17 17:45 14:49 WBC (4.8-10.8) K/uL RBC (4.7-6.1) M/uL Hgb (14.0-18.0) g/dL Hct (42-52) % MCV (80-100) fL MCH (25-34) pg MCHC (32-36) g/dL RDW Std Deviation (36.4-46.3) fL RDW Coeff of Argelia (11.5-14.5) % Plt Count (130-400) K/uL MPV (7.4-10.4) fL Sodium 124 L 125 L (136-145) mmol/L Potassium 4.1 3.8 (3.5-5.1) mmol/L Chloride 91 L 90 L (98-107) mmol/L Carbon Dioxide 25 28 (21-32) mmol/L Anion Gap 8.0 7.0 (3-11) BUN 9 10 (7-18) mg/dl Creatinine 0.58 L 0.78 (0.6-1.4) mg/dl Est Cr Clr Drug Dosing 145.5 108.2 ml/min Est GFR ( Amer) 124.0 109.8 Est GFR (Non-Af Amer) 107.0 94.7 BUN/Creatinine Ratio 14.9 12.6 (10-20) Glucose 102 H 107 H (70-99) mg/dl Osmolality (280-300) mOsm/kg Calcium 7.8 L 7.6 L (8.5-10.1) mg/dl Total Bilirubin 0.7 (0.2-1) mg/dl Direct Bilirubin 0.3 H (0-0.2) mg/dl AST 59 H (15-37) U/L ALT 89 H (12-78) U/L Alkaline Phosphatase 252 H (45-117) U/L Total Protein 6.3 L (6.4-8.2) gm/dl Albumin 2.1 L (3.4-5.0) gm/dl TSH 0.576 (0.300-4.500) uIu/ml Cortisol AM Sample (4.3-22.4) mcg/dl Urine Osmolality 382 L (500-800) mOsm/kg
--- NOTE | 2018-10-20 10:42 | Nephrology Progress Note ---
Date of Service October 20, 2018 Assessment & Plan (1) Hyponatremia: Patric is a 63 y o M History of smoking, peripheral vascular disease, anxiety depression was to arthritis admitted the hospital for popliteal aneurysm repair and L LE revascualarization He was found to have hyponatremia with relatively high urine osmolality. Sodium has been 125-126. Urine osmolality 360. Has been getting IV normal saline at 125 a.m. per hour since admission. There is report excessive free water intake however he reports he has been drinking much less. No history of thyroid disease or adrenal insufficiency. Has not been thiazide diuretics. TSH, random cortisol normal. Differentials for hyponatremia include at possibly some component of SIADH with ongoing pain and excessive free water intake. --Tolavaptan 15 mg po x 1 dose now, encourage po intake once done with surgery. Will need to monitor Na closely --liberalize salt in diet -- Lasix 40 mg IV x 1 dose now and continue 20 mg daily --avoid thiazide type diuretics -- although we do not have prior record it is possible hyponatremia is chronic, he does not have any symptom, OK to proceed with surgery -- family will arrange for age-appropriate screening once discharged Will follow (2) PVD (peripheral vascular disease): (3) Anxiety: (4) GERD (gastroesophageal reflux disease): Subjective Patric was seen and examined with family at bedside. Over all feeling about the same. Denies SOB, confusion. BP has been high. Na remain low at 124. Review of Systems Detail ROS was negative Physical Exam 2 Vital Signs (Past 24 Hours): Last Vital Signs Temp 37.3 C 10/20/18 07:45 Pulse 69 10/20/18 07:45 Resp 20 10/20/18 07:45 BP 170/93 H 10/20/18 07:45 Pulse Ox 94 10/20/18 07:45 Constitutional: WD/WN, vitals as above Respiratory: normal respiratory effort, lungs clear to auscultation Cardiovascular: RRR, no murmur, no edema Neurologic: moves all extremities and awake Psychiatric: A+Ox3, euthymic affect
--- NOTE | 2018-10-20 10:43 | History & Physical Bridge Note ---
Date of Service October 20, 2018 History & Physical Bridge Note Patient is here for a femoral to posterior tibial bypass for his left popliteal aneurysm. I have discussed the risks options and benefits of the procedure with the patient. The patient understands the risks options and benefits and agrees to the procedure. I have examined the patient, reviewed the History & Physical and in the interval since the performance of the History & Physical I have noted the following changes of clinical significance: no changes noted
[2018-10-20] MEDS ORDERED: MIDAZOLAM HCL 1 MG/ML 2ML VIAL ONE (10:49)
[2018-10-20] MEDS ORDERED: fentaNYL citrate 100 MCG/2 ML VIAL ONE ×3 (10:49→16:06)
[2018-10-20] MEDS ORDERED: LARYING-O-JET KIT (LTA) ONE (10:55)
[2018-10-20] MEDS ORDERED: HEPARIN (PORCINE) 1000 UNIT/ML 10 ML (CATH LAB USE ONLY) ONE (10:58)
[2018-10-20] MEDS ORDERED: LIDOCAINE HCL 1% 20 ML VIAL ONE (10:58)
[2018-10-20] MEDS ORDERED: PAPAVERINE HCL INJ 30 MG/ML 2 ML VIAL ONE (10:58)
[2018-10-20] MEDS ORDERED: GELATIN SPONGE SZ 100 ONE (10:59)
[2018-10-20] MEDS ORDERED: THROMBIN 5000 UNITS KIT ONE (10:59)
[2018-10-20] MEDS ORDERED: BUPIVACAINE/EPINEPHRINE 0.5% MPF 1:200,000 30 ML VIAL ONE (10:59)
[2018-10-20] MEDS ORDERED: IODIXANOL (VISIPAQUE) 270 MG/ML 50ML ONE (10:59)
[2018-10-20] MEDS ORDERED: CEFAZOLIN 250 MG/ML 1 GM VIAL ONE (10:59)
[2018-10-20] MEDS ORDERED: THROMBIN FOR SOLN 20000 UNIT KIT ONE (11:40)
[2018-10-20] MEDS ORDERED: HYDROmorphone INJ 1 MG/ML SYRINGE IV PRN (12:04)
[2018-10-20] MEDS ORDERED: ONDANSETRON INJ 2 MG/ML 2 ML VIAL IV PRN ×2 (12:04→18:36)
[2018-10-20] MEDS ORDERED: ATROPINE SULFATE 0.1 MG/ML 10ML SYR IV PRN (12:04)
[2018-10-20] MEDS ORDERED: LABETALOL HCL IV 5 MG/ML 20ML IV PRN (12:04)
[2018-10-20] MEDS ORDERED: fentaNYL citrate 100 MCG/2 ML VIAL IV PRN (12:04)
[2018-10-20] MEDS ORDERED: MEPERIDINE HCL 25 MG/ML CARP IV PRN (12:04)
[2018-10-20] MEDS ORDERED: PHENYLEPHRINE 100MCG/ML 5ML SYR IV PRN (12:04)
[2018-10-20] MEDS ORDERED: ePHEDrine sulfate 50 MG/ML AMP IV PRN (12:04)
[2018-10-20] MEDS ORDERED: HEPARIN SOD (PORCINE) 1000 UNIT/ML 10 ML VIAL ONE (12:24)
[2018-10-20] MEDS ORDERED: DEXAMETHASONE SOD INJ 4 MG/ML VIAL ONE (12:25)
[2018-10-20] MEDS ORDERED: LIDOCAINE HCL 2% 2 ML VIAL/AMP(20MG/ML) INFIL ONE (12:25)
[2018-10-20] MEDS ORDERED: ROCURONIUM BROMIDE 10 MG/ML 5 ML VIAL ONE (12:25)
[2018-10-20] MEDS ORDERED: PROPOFOL IV EMULSION 10 MG/ML 20 ML VIAL IV ONE ×2 (12:25→15:55)
[2018-10-20 14:03] LABS: Hematocrit (blood only) 34.7 % (42-52); Hemoglobin 12.5 g/dL (14.0-18.0)
[2018-10-20] MEDS ORDERED: ALBUMIN HUMAN 5% 12.5 GM/250 ML VIAL IV ONE (14:33)
[2018-10-20] MEDS ORDERED: PHENYLEPHRINE HCL 10 MG/ML VIAL ONE (14:38)
--- NOTE | 2018-10-20 15:41 | Post Operative Brief Note ---
Immediate Post Op Note v1 Date of Surgery October 20, 2018 Pre & Post Diagnosis Operation Date: 10/18/18 11:25 <No data on this case meets the specified criteria> Operation Date: 10/20/18 10:20 <No data on this case meets the specified criteria> Operation Date: 10/20/18 11:50 Pre-Op Diagnosis: Left Popliteal Artery Aneurysm Post-Op Diagnosis: Left Popliteal Artery Aneurysm Procedure Operation Date: 10/18/18 11:25 <No data on this case meets the specified criteria> Operation Date: 10/20/18 10:20 <No data on this case meets the specified criteria> Operation Date: 10/20/18 11:50 Actual Procedures p Left Femoral Posterior Tibial Bypass, Inside tube Bypasss and Embolization of left popliteal Aneurysm(Left) - Carlos Blunt MD Surgeon Carlos Blunt MD Title Insurance Agent Deisi Espinosa, PAC Estimated Blood Loss 750 Findings Consistent with Post-Op Diagnosis Drains Michael Catheter Anesthesia Type General Complications none Disposition Accompanied Patient To Recovery: No Disposition: Recovery Room
[2018-10-20 16:52] LABS: Basophils # (auto) 0.03 K/uL (0-0.2); Basophils % (auto) 0.2 %; Eosinophils # (auto) 0.01 K/uL (0-0.5); Eosinophils % (auto) 0.1 %; Hemoglobin 11.2 g/dL (14.0-18.0); Immature Granulocytes # (auto) 0.04 K/uL (0.00-0.02); Immature Granulocytes % (auto) 0.3 %; Lymphocytes # (auto) 0.66 K/uL (1.2-3.4); Lymphocytes % (auto) 5.2 %; Monocytes # (auto) 0.38 K/uL (0.11-0.59); Neutrophils # (auto) 11.63 K/uL (1.4-6.5); Neutrophils % (auto) 91.2 %; Platelet Count 371 K/uL (130-400); RDW Coefficient of Variation 13.6 % (11.5-14.5); Red Blood Count 3.44 M/uL (4.7-6.1); White Blood Count 12.75 K/uL (4.8-10.8)
[2018-10-20] MEDS ORDERED: ePHEDrine sulfate 50 MG/ML AMP ONE (17:06)
[2018-10-20 17:18] LABS: BUN Creatinine Ratio 16.1 (10-20); Creatinine Clr Calc Pharmacy 124.1 ml/min; Est GFR (African American) 116.2; Est GFR (Non-African American) 100.2
--- NOTE | 2018-10-20 17:47 | Anesthesiology Progress Note ---
Date of Service October 20, 2018 Anesthesia Post Procedure Vital Signs Vital Signs: Temp Pulse Pulse Resp BP BP BP 10/20/18 17:30 92 H 21 90/40 L 100/57 L 10/20/18 17:20 96 H 17 107/50 L 90/59 L 10/20/18 17:10 86 18 107/50 L 85/37 L 10/20/18 17:00 85 22 76/49 L 83/36 L 10/20/18 16:50 87 17 107/50 L 79/37 L 10/20/18 16:40 88 17 86/56 L 10/20/18 16:30 97 H 20 94/65 L 10/20/18 16:20 90 14 78/53 L 10/20/18 16:13 36.2 C L 90 12 78/53 L 10/20/18 11:04 36.7 C 70 16 158/86 H 10/20/18 07:45 37.3 C 69 20 170/93 H 10/20/18 06:30 71 196/99 H 10/20/18 00:15 75 174/99 H 10/19/18 22:31 37.5 C 76 18 175/93 H Pulse Ox 10/20/18 17:30 92 10/20/18 17:20 95 10/20/18 17:10 96 10/20/18 17:00 97 10/20/18 16:50 97 10/20/18 16:40 97 10/20/18 16:30 99 10/20/18 16:20 97 10/20/18 16:13 97 10/20/18 11:04 95 10/20/18 07:45 94 10/20/18 06:30 10/20/18 00:15 10/19/18 22:31 94 Pain Intensity Left Foot: Pain Intensity: 8 Left Leg: Pain Intensity: 2 Notes Mental Status: alert / awake / arousable and participated in evaluation Patient Amnestic to Procedure: Yes Nausea / Vomiting: adequately controlled Pain: adequately controlled Airway Patency, RR, SpO2: stable & adequate BP & HR: see Notes below Hydration State: stable & adequate Anesthetic Complications: no major complications apparent, see Notes below and Pt Satisfied with anesthetic care Notes: Patient with relative hypotension in the PACU despite fluid and vasoactive medications given. Post-op CBC completed and it was above the 10/30 threshold that I would consider replacing with pRBCs. Patient is awake and conversant with minimal complaints of pain. His LLE is somewhat dusky in appearance but surgeon aware. Given these findings I felt it was best that he be transferred to the ICU. I spoke with his attending hospitalist, Dr. Rai, and she agreed. I then spoke to the ICU team, Dr. Trinidad, and he agreed to accept the patient. Report was given and questions answered.
[2018-10-20] MEDS ORDERED: MoRPHine SULFATE 4 MG/ML 1 ML CARP\\VIAL IV PRN (18:36)
[2018-10-20 18:58] LABS: Basophils # (auto) 0.01 K/uL (0-0.2); Basophils % (auto) 0.1 %; Hematocrit (blood only) 30.8 % (42-52); Immature Granulocytes # (auto) 0.04 K/uL (0.00-0.02); Immature Granulocytes % (auto) 0.3 %; Lymphocytes # (auto) 0.56 K/uL (1.2-3.4); Mean Corpuscular Hgb Conc 35.7 g/dL (32-36); Mean Corpuscular Volume 93.6 fL (80-100); Mean Platelet Volume 7.5 fL (7.4-10.4); Monocytes # (auto) 0.45 K/uL (0.11-0.59); Monocytes % (auto) 3.2 %; Neutrophils % (auto) 92.4 %; Platelet Count 302 K/uL (130-400); RDW Coefficient of Variation 13.5 % (11.5-14.5); RDW Standard Deviation 46.2 fL (36.4-46.3); Red Blood Count 3.29 M/uL (4.7-6.1); White Blood Count 14.16 K/uL (4.8-10.8)
[2018-10-20 19:14] LABS: BUN Creatinine Ratio 16.9 (10-20); Creatinine Clr Calc Pharmacy 102.9 ml/min; Est GFR (African American) 107.6; Est GFR (Non-African American) 92.8; Potassium 4.8 mmol/L (3.5-5.1)
--- NOTE | 2018-10-20 19:16 | Critical Care Consultation ---
Date of Consultation October 20, 2018 Supervising Physician Co-Signing Physician Notes Reason Critically Ill: 63-year-old male with hyponatremia with relative hypotension postoperative day 0 PLAN: Neuro: Lower extremity pain -Significantly decreased since operative procedure Resp: Tobacco abuse CV: Hypotension -Limited bedside echo does not reveal significant wall motion abnormality -Hyperdynamic aspects will volume expand Fluids/Renal: Normal saline at 125 Hyponatremia -Reviewed nephrology notes ID: Per vascular surgery GI/Nutrition: Regular diet -Liberalize salt intake Heme: Anemia secondary to acute blood loss DVT prophylaxis: Heparin Endocrine: ICU hyperglycemia protocol Vascular access: Peripheral IVs Code Status: Full I have personally spent 40 minutes of critical care time in the direct management of this patient. This is a life/limb threatening event. This includes time spent evaluating patient, direct bedside care, chart review, placing orders, interpretation of diagnostic studies, discussion with consultants, patient, and/or family members regarding treatment decisions, as well as other required patient management activities. This time is exclusive of all separately billable procedures, and teaching time and separate from and in addition to any other critical care service time. History of Present Illness Attending Physician: Joie Rai MD Patient is a 63-year-old male who has largely not seen a physician in 40 years. 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 He was found to be hyponatremic. There is report that the patient drinks 2-3 beers daily he has decreased his alcohol consumption recently. Is being worked up for etiologies of hyponatremia. He was transferred to the ICU postoperatively for relative hypotension. Postoperatively he received a bolus of crystalloid and was given 1 stress dose of steroids over concern for possible adrenal insufficiency his cortisol response was marginal according to records therefore I felt one dose of hydrocortisone would be appropriate. I completed a limited bedside echocardiogram which did not demonstrate significant wall motion abnormalities adequate squeeze I was unable to visualize the IVC and felt that the patient was probably preload dependent and needed volume expansion. Allergies Allergy/AdvReac Type Severity Reaction Status Date / Time Penicillins Allergy Severe Rash Verified 10/18/18 09:39 Home Medications Home Medications Medication Instructions Recorded Confirmed Type [place] 1 tab PO BID 10/17/18 10/18/18 History apixaban [Eliquis] 10 mg PO BID 10/17/18 10/18/18 History aspirin [Aspirin Low Dose] 81 mg PO QAM 10/17/18 10/18/18 History echinacea 500 mg PO BID 10/17/18 10/18/18 History esomeprazole magnesium [Nexium] 40 mg PO HS 10/17/18 10/18/18 History ibuprofen [Motrin IB] 600 mg PO BID PRN 10/17/18 10/18/18 History oxycodone-acetaminophen [Percocet] 1 tab PO Q4H PRN 10/17/18 10/18/18 History sulfamethoxazole-trimethoprim 1 tab PO BID 10/17/18 10/18/18 History [Bactrim DS] Patient History Medical History HTN (hypertension), benign Prediabetes Elevated LFTs PVD (peripheral vascular disease) History of tobacco use Anxiety GERD (gastroesophageal reflux disease) Osteoarthritis Hyponatremia Anxiety FE[facility] OF [facility]. GERD (gastroesophageal reflux disease) Hand trauma AGE 17, MISSING PART OF LEFT HAND Osteoarthritis Poor circulation TAKES ELIQUIS. Surgical History H/O hand surgery FROM LEFT HAND TRAUMA AND PART OF HAND WAS CUT OFF. History of arthroscopy RIGHT KNEE CARTILAGE REPAIR Social History marital status: Current Living Situation: Spouse Other Information That Helps Us Care for You: No Feels Safe at Home: Yes Safety Concerns: Feels Safe At This Time Smoking Status: Former smoker Tobacco Type: cigarettes Do You Dip or Chew Tobacco: No Smoking End Date: 10/10/18 Hx Alcohol Use: Yes Alcohol type: beer Alcohol Intake Frequency: 0-2 drinks per day Hx Substance Use: No Beliefs That Will Affect Care: None Communication Ability: Effective Physical Exam 2 Vital Signs (Past 24 Hours): Last Vital Signs Temp 35.9 C L 10/20/18 18:36 Pulse 93 H 10/20/18 18:36 Resp 18 10/20/18 18:36 BP 84/54 L 10/20/18 18:36 Pulse Ox 94 10/20/18 18:36 General: Thin male appears his stated age I have reviewed the recorded vital signs Neurological: RASS score: +1, Moves all 4 extremities, Psychological: GCS 15 following complex commands Eyes: Pupils are equal, round and reactive to light, anicteric sclera. Symmetrical lids. HENT: [Oropharynx Clear/ Oropharynx obscured by endotracheal tube], [Moist Mucous Membranes/ Dry mucous membranes] . Neck: Supple. Symmetric. trachea midline. No thyromegaly. [CVL] Cardiovascular: Normal peripheral perfusion. Distal pulses and capillary refill intact. No JVD. Respiratory: Respirations are non-labored, no accessory muscle use. Breath sounds are equal. Gastrointestinal: Soft. Non-distended. Lymphatic: No cervical lymphadenopathy. Musculoskeletal: No deformity. No clubbing nor cyanosis.
[2018-10-20] MEDS: CLINDAMYCIN 600 MG in DEXTROSE 5% 50 ML IV SCH (19:24)
[2018-10-20] MEDS ORDERED: SODIUM CHLORIDE 0.9% 1000ML 1,000 ML IV ONE (20:30)
[2018-10-20] MEDS ORDERED: HYDROCORTISONE SOD 100 MG in SYRINGE 0 ML IV STA (20:34)
[2018-10-20] MEDS: SODIUM CHLORIDE 0.9% 1000ML 1,000 ML IV SCH (21:33)
[2018-10-20] MEDS ORDERED: SODIUM CHLORIDE 1 GM TABLET PO ONE (21:45)
[2018-10-21 00:06] LABS: BUN Creatinine Ratio 22.6 (10-20); Calcium 7.5 mg/dl (8.5-10.1); Creatinine Clr Calc Pharmacy 125.9 ml/min; Est GFR (African American) 116.9; Est GFR (Non-African American) 100.8; Potassium 4.6 mmol/L (3.5-5.1)
[2018-10-21] MEDS: CLINDAMYCIN 600 MG in DEXTROSE 5% 50 ML IV SCH ×2 (04:00→11:22)
[2018-10-21] MEDS: LABETALOL HCL 100 MG TAB PO SCH ×2 (04:41→17:52)
[2018-10-21] MEDS: SODIUM CHLORIDE 0.9% 1000ML 1,000 ML IV SCH (04:41)
[2018-10-21 05:15] LABS: Basophils # (auto) 0.01 K/uL (0-0.2); Basophils % (auto) 0.1 %; Hematocrit (blood only) 25.9 % (42-52); Hemoglobin 9.3 g/dL (14.0-18.0); Immature Granulocytes # (auto) 0.04 K/uL (0.00-0.02); Immature Granulocytes % (auto) 0.3 %; Lymphocytes # (auto) 0.77 K/uL (1.2-3.4); Lymphocytes % (auto) 6.6 %; Mean Corpuscular Hgb Conc 35.9 g/dL (32-36); Mean Corpuscular Volume 92.8 fL (80-100); Mean Platelet Volume 7.6 fL (7.4-10.4); Monocytes # (auto) 0.82 K/uL (0.11-0.59); Neutrophils # (auto) 10.07 K/uL (1.4-6.5); Platelet Count 226 K/uL (130-400); RDW Coefficient of Variation 13.5 % (11.5-14.5); RDW Standard Deviation 45.5 fL (36.4-46.3); Red Blood Count 2.79 M/uL (4.7-6.1); White Blood Count 11.71 K/uL (4.8-10.8)
[2018-10-21 05:40] LABS: BUN Creatinine Ratio 23.5 (10-20); Calcium 7.5 mg/dl (8.5-10.1); Creatinine Clr Calc Pharmacy 136.1 ml/min; Est GFR (African American) 120.7; Est GFR (Non-African American) 104.1; Potassium 4.5 mmol/L (3.5-5.1)
[2018-10-21] MEDS: ASPIRIN 81 MG ECTAB PO SCH (07:54)
--- NOTE | 2018-10-21 08:40 | Surgery Progress Note ---
Date of Service October 21, 2018 Assessment & Plan (1) PVD (peripheral vascular disease): At this point his foot is viable. It is getting flow from the bypass via collateralization. We will start PT OT and transfer the patient to the floor. (2) Hyponatremia: His sodium today is 127 and slowly improving. Subjective This patient is postoperative day 1 from a left femoral posterior tibial in situ and embolization of his large aneurysm. Left foot pain is markedly improved. Just intermittent at this point in time prior to surgery it was constant. Physical Exam 2 Vital Signs (Past 24 Hours): Last Vital Signs Temp 36.4 C L 10/21/18 06:26 Pulse 73 10/21/18 04:20 Resp 15 10/21/18 04:20 BP 124/67 10/21/18 04:00 Pulse Ox 96 10/21/18 04:20 His dressings are intact his left lower extremity. His foot is warm to touch. There may be a very faint dorsalis pedis Doppler which is audible. There is a palpable pulse still present in the bypass graft.
--- NOTE | 2018-10-21 10:21 | Nephrology Progress Note ---
Date of Service October 21, 2018 Assessment & Plan (1) Hyponatremia: Mr. Ortega is a 63 yo white male w/ a history of smoking, peripheral vascular disease, anxiety depression was to arthritis. He was admitted the hospital for popliteal aneurysm repair and L LE revascualarization He was found to have hyponatremia with relatively high urine osmolality. Sodium has been 125-126. Urine osmolality 360. There is report excessive free water intake however he reports he has been drinking much less. No history of thyroid disease or adrenal insufficiency. Has not been thiazide diuretics. TSH , random cortisol normal. Differentials for hyponatremia include at possibly some component of SIADH with ongoing pain and excessive free water intake. -- Serum sodium has improved from 124 to 127 mmol/L over last 24 hours following Tolvaptan therapy -- Patient is A&O x 3. He appears neurologically intact -- Stop Tolvaptan -- Start NaCl 1 g po BID and Furosemide 20 mg po BID -- Will recheck PRP and urine osmolality in am -- Family will arrange for age-appropriate screening once discharged (CXR negative, will check FOBT and PSA) (2) PVD (peripheral vascular disease): (3) Anxiety: (4) GERD (gastroesophageal reflux disease): Subjective Mr. Ortega was seen & examined in the ICU this morning. He reports that he is tolerating a regular diet. He received one dose of Tolvaptan yesterday. His Michael catheter remains in place. Physical Exam 2 Vital Signs (Past 24 Hours): Last Vital Signs Temp 36.4 C L 10/21/18 06:26 Pulse 73 10/21/18 04:20 Resp 15 10/21/18 04:20 BP 124/67 10/21/18 04:00 Pulse Ox 96 10/21/18 04:20 Eyes: PERRL, conjunctivae normal, anicteric sclerae Neck: trachea midline, no thyromegaly Respiratory: normal respiratory effort, lungs clear to auscultation Cardiovascular: RRR, no murmur, no edema Gastrointestinal (Abdomen): normal bowel sounds, soft, nontender, no hepatosplenomegaly Results & Data Laboratory Results Laboratory Tests 10/19/18 10/21/18 10/21/18 17:45 05:06 05:06 WBC 11.71 H Hgb 9.3 L Hct 25.9 L Plt Count 226 Sodium 127 L Potassium 4.5 Chloride 98 Carbon Dioxide 25 BUN 15 Creatinine 0.62 Glucose 136 H Calcium 7.5 L Urine Osmolality 382 L
[2018-10-21] MEDS ORDERED: FUROSEMIDE 20 MG in SYRINGE 0 ML IV ONE (10:30)
[2018-10-21] MEDS: SODIUM CHLORIDE 1 GM TABLET PO SCH ×2 (11:22→20:52)
[2018-10-21] MEDS: OXYCODONE/ACETAMINOPHEN 5mg/325mg TAB PO PRN ×3 (12:10→21:48)
--- NOTE | 2018-10-21 15:07 | Anesthesiology Progress Note ---
Date of Service October 21, 2018 Anesthesia Post Procedure Vital Signs Vital Signs: Temp Pulse Pulse Pulse Resp BP BP 10/21/18 11:50 36.4 C L 78 16 10/21/18 11:00 77 18 123/58 L 10/21/18 10:30 73 13 117/45 L 10/21/18 10:00 70 12 116/53 L 10/21/18 09:30 69 15 115/55 L 10/21/18 09:00 75 19 124/51 L 10/21/18 08:30 72 16 118/54 L 10/21/18 08:00 36.6 C 83 19 116/55 L 10/21/18 07:30 81 17 112/54 L 10/21/18 07:00 73 17 116/60 10/21/18 06:26 36.4 C L 10/21/18 04:20 73 15 10/21/18 04:10 86 23 10/21/18 04:00 36.8 C 73 15 124/67 10/21/18 03:50 73 14 10/21/18 03:40 73 10 L 10/21/18 03:30 72 11 L 116/59 L 10/21/18 03:20 74 11 L 10/21/18 03:10 80 20 10/21/18 03:00 74 15 122/65 10/21/18 02:50 75 17 10/21/18 02:40 75 14 10/21/18 02:30 73 15 137/63 10/21/18 02:20 74 17 10/21/18 02:10 74 12 10/21/18 02:00 70 23 140/63 10/21/18 01:50 74 12 10/21/18 01:40 75 11 L 10/21/18 01:30 74 18 114/68 10/21/18 01:20 76 16 10/21/18 01:10 73 12 10/21/18 01:00 79 18 116/64 10/21/18 00:44 36.6 C 76 15 120/61 10/21/18 00:40 76 15 10/21/18 00:30 74 13 120/61 10/21/18 00:20 78 20 10/21/18 00:10 78 19 10/21/18 00:00 77 12 139/65 10/20/18 23:50 76 13 10/20/18 23:40 90 15 10/20/18 23:30 75 13 129/63 10/20/18 23:20 73 11 L 10/20/18 23:10 73 13 10/20/18 23:00 76 12 110/61 10/20/18 22:50 77 12 10/20/18 22:40 74 12 10/20/18 22:30 74 14 121/51 L 10/20/18 22:20 74 16 10/20/18 22:10 76 14 10/20/18 22:00 76 11 L 102/63 10/20/18 21:50 78 13 10/20/18 21:40 86 17 10/20/18 21:30 78 15 101/54 L 10/20/18 21:20 74 17 10/20/18 21:10 71 13 10/20/18 21:00 72 19 116/63 10/20/18 20:50 75 14 10/20/18 20:40 73 20 10/20/18 20:30 79 14 10/20/18 20:21 77 14 108/57 L 10/20/18 20:20 86 23 10/20/18 20:10 90 27 H 10/20/18 20:04 83 18 76/45 L 10/20/18 20:02 91 H 16 74/45 L 10/20/18 20:00 90 18 69/41 L 10/20/18 19:50 91 H 17 10/20/18 19:40 85 17 10/20/18 19:36 36.6 C 85 14 77/32 L 10/20/18 19:30 89 24 10/20/18 19:20 90 15 10/20/18 19:11 91 H 24 92/49 L 10/20/18 19:02 95 H 14 90/48 L 10/20/18 18:50 88 17 10/20/18 18:40 91 H 18 10/20/18 18:36 35.9 C L 93 H 18 84/54 L 10/20/18 18:30 89 19 10/20/18 18:25 84/54 L 10/20/18 18:10 91 H 23 103/43 L 10/20/18 18:00 90 20 98/41 L 10/20/18 17:50 92 H 19 90/48 L 10/20/18 17:40 36.4 C L 94 H 17 112/49 L 10/20/18 17:30 92 H 21 90/40 L 10/20/18 17:20 96 H 17 107/50 L 10/20/18 17:10 86 18 107/50 L 10/20/18 17:00 85 22 76/49 L 10/20/18 16:50 87 17 107/50 L 10/20/18 16:40 88 17 86/56 L 10/20/18 16:30 97 H 20 94/65 L 10/20/18 16:20 90 14 78/53 L 10/20/18 16:13 36.2 C L 90 12 78/53 L BP Pulse Ox 10/21/18 11:50 121/72 97 10/21/18 11:00 96 10/21/18 10:30 95 10/21/18 10:00 95 10/21/18 09:30 96 10/21/18 09:00 97 10/21/18 08:30 95 10/21/18 08:00 95 10/21/18 07:30 97 10/21/18 07:00 96 10/21/18 06:26 10/21/18 04:20 96 10/21/18 04:10 96 10/21/18 04:00 97 10/21/18 03:50 98 10/21/18 03:40 96 10/21/18 03:30 98 10/21/18 03:20 97 10/21/18 03:10 98 10/21/18 03:00 98 10/21/18 02:50 99 10/21/18 02:40 99 10/21/18 02:30 98 10/21/18 02:20 98 10/21/18 02:10 99 10/21/18 02:00 99 10/21/18 01:50 99 10/21/18 01:40 99 10/21/18 01:30 99 10/21/18 01:20 88 L 10/21/18 01:10 92 10/21/18 01:00 94 10/21/18 00:44 93 10/21/18 00:40 93 10/21/18 00:30 93 10/21/18 00:20 91 10/21/18 00:10 92 10/21/18 00:00 94 10/20/18 23:50 94 10/20/18 23:40 94 10/20/18 23:30 95 10/20/18 23:20 94 10/20/18 23:10 94 10/20/18 23:00 93 10/20/18 22:50 95 10/20/18 22:40 94 10/20/18 22:30 96 10/20/18 22:20 95 10/20/18 22:10 93 10/20/18 22:00 95 10/20/18 21:50 90 10/20/18 21:40 94 10/20/18 21:30 96 10/20/18 21:20 93 10/20/18 21:10 95 10/20/18 21:00 95 10/20/18 20:50 96 10/20/18 20:40 95 10/20/18 20:30 10/20/18 20:21 10/20/18 20:20 87 L 10/20/18 20:10 82 L 10/20/18 20:04 90 10/20/18 20:02 91 10/20/18 20:00 86 L 10/20/18 19:50 10/20/18 19:40 94 10/20/18 19:36 76/45 L 10/20/18 19:30 86 L 10/20/18 19:20 79 L 10/20/18 19:11 96 10/20/18 19:02 94 10/20/18 18:50 95 10/20/18 18:40 87 L 10/20/18 18:36 108/56 L 94 10/20/18 18:30 95 10/20/18 18:25 97 10/20/18 18:10 90/57 L 94 10/20/18 18:00 90/57 L 94 10/20/18 17:50 88/62 L 94 10/20/18 17:40 103/65 94 10/20/18 17:30 100/57 L 92 10/20/18 17:20 90/59 L 95 10/20/18 17:10 85/37 L 96 10/20/18 17:00 83/36 L 97 10/20/18 16:50 79/37 L 97 10/20/18 16:40 97 10/20/18 16:30 99 01/18/19 16:20 97 10/20/18 16:13 97 Pain Intensity Left Foot: Pain Intensity: 8 Left Leg: Pain Intensity: 2 Notes Mental Status: alert / awake / arousable and participated in evaluation Nausea / Vomiting: adequately controlled Pain: adequately controlled Airway Patency, RR, SpO2: stable & adequate BP & HR: stable & adequate Hydration State: stable & adequate
[2018-10-21] MEDS: LORazepam 1 MG TAB PO PRN (21:48)
--- NOTE | 2018-10-22 00:47 | Hospitalist Progress Note ---
Date of Service October 21, 2018 Assessment & Plan (1) PVD (peripheral vascular disease): POD #1, s/p left femoral-pos tib bypass. cont asa, pain control, etc. management per vascular surgery. needs to stay smoke-free moving forward. (2) HTN (hypertension), benign: controlled with BB (3) Prediabetes: counseling provided earlier this admission dietary control for now (4) Elevated LFTs: repeat later this admission HepC serology was negative fatty liver? (5) History of tobacco use: quit prior to admission needs to stay smoke-free if possible (6) Hyponatremia: suspected SIADH cont fluid restriction, salt tabs did receive tolvaptan and lasix previously BMP in am slowly improving will need cancer w/u after discharge (7) DVT prophylaxis: selection of agent per vascular (8) Acute blood loss anemia: H/H mildly low follow Fe at discharge Subjective pt w/ c/o mild left leg pain only denies fever, chills, dyspnea, cp, abd pain +flatus eating well Respiratory: no dyspnea Cardiovascular: no chest pain Gastrointestinal: no abdominal pain Physical Exam 2 Vital Signs (Past 24 Hours): Last Vital Signs Temp 36.8 C 10/21/18 23:15 Pulse 73 10/21/18 23:15 Resp 18 10/21/18 23:15 BP 109/70 10/21/18 23:15 Pulse Ox 98 10/21/18 23:15 Constitutional: well developed and well nourished; no acute distress ENMT: external ear and nose normal, oropharynx normal Respiratory: normal respiratory effort, lungs clear to auscultation Cardiovascular: Rate/Rhythm: regular rate and regular rhythm Heart Sounds: normal S1 and normal S2; no murmur Vessels: posterior tibial pulses present and dorsalis pedis pulses present; no JVD Chest (Breasts): Additional Comments: barrel chested Gastrointestinal (Abdomen): normal bowel sounds, soft, nontender, no hepatosplenomegaly Skin: dressings intact to left leg Psychiatric: Orientation: alert and oriented x 3 Results & Data Laboratory Results Laboratory Results - last 24 hr 10/18/18 10/21/18 10/21/18 09:40 05:06 05:06 WBC 11.71 H RBC 2.79 L Hgb 9.3 L Hct 25.9 L MCV 92.8 MCH 33.3 MCHC 35.9 RDW Std Deviation 45.5 RDW Coeff of [place]gel[place] 13.5 Plt Count 226 MPV 7.6 Immature Gran % (Auto) 0.3 Neut % (Auto) 86.0 Lymph % (Auto) 6.6 [place] % (Auto) 7.0 Eos % (Auto) 0.0 Baso % (Auto) 0.1 Immature Gran # (Auto) 0.04 H Neut # (Auto) 10.07 H Lymph # (Auto) 0.77 L [place] # (Auto) 0.82 H Eos # (Auto) 0.00 Baso # (Auto) 0.01 Sodium 127 L Potassium 4.5 Chloride 98 Carbon Dioxide 25 Anion Gap 4.0 BUN 15 Creatinine 0.62 Est Cr Clr Drug Dosing 136.1 Est GFR ( Amer) 120.7 Est GFR (Non-Af Amer) 104.1 BUN/Creatinine Ratio 23.5 H Glucose 136 H Calcium 7.5 L Magnesium 2.0 Crossmatch See Detail
[2018-10-22] MEDS: LABETALOL HCL 100 MG TAB PO SCH ×2 (06:18→17:33)
[2018-10-22 06:50] LABS: Hematocrit (blood only) 23.3 % (42-52); Hemoglobin 8.1 g/dL (14.0-18.0); Mean Corpuscular Hgb Conc 34.8 g/dL (32-36); Mean Corpuscular Volume 93.2 fL (80-100); Mean Platelet Volume 7.9 fL (7.4-10.4); Platelet Count 199 K/uL (130-400); RDW Coefficient of Variation 13.8 % (11.5-14.5); RDW Standard Deviation 47.4 fL (36.4-46.3); White Blood Count 8.77 K/uL (4.8-10.8)
[2018-10-22 07:27] LABS: Albumin Level 1.8 gm/dl (3.4-5.0); BUN Creatinine Ratio 25.4 (10-20); Bilirubin Direct 0.2 mg/dl (0-0.2); Bilirubin,Total 0.4 mg/dl (0.2-1); Creatinine Clr Calc Pharmacy 93.8 ml/min; Est GFR (African American) 103.5; Est GFR (Non-African American) 89.3; Potassium 4.3 mmol/L (3.5-5.1); Prostate Specific Antigen 2.18 ng/ml (0-4)
[2018-10-22] MEDS: SODIUM CHLORIDE 1 GM TABLET PO SCH ×2 (09:04→20:42)
[2018-10-22] MEDS: ASPIRIN 81 MG ECTAB PO SCH (09:04)
[2018-10-22] MEDS: OXYCODONE/ACETAMINOPHEN 5mg/325mg TAB PO PRN ×3 (09:04→20:42)
--- NOTE | 2018-10-22 10:45 | Nephrology Progress Note ---
Date of Service October 22, 2018 Assessment & Plan (1) Hyponatremia: Mr. Ortega is a 63 yo white male w/ a history of smoking, peripheral vascular disease, anxiety depression was to arthritis. He was admitted the hospital for popliteal aneurysm repair and L LE revascualarization He was found to have hyponatremia with relatively high urine osmolality. Sodium has been 125-126. Urine osmolality 360. There is report excessive free water intake however he reports he has been drinking much less. No history of thyroid disease or adrenal insufficiency. Has not been thiazide diuretics. TSH , random cortisol normal. Differentials for hyponatremia include at possibly some component of SIADH with ongoing pain and excessive free water intake. -- Serum sodium has improved to 130 mmol/L -- Patient is A&O x 3. He appears neurologically intact -- Continue NaCl 1 g po BID and Furosemide 20 mg po BID -- Will recheck PRP and urine osmolality in am -- Family will arrange for age-appropriate screening once discharged (CXR negative, PSA - wnl, FOBT - pending. Will order chest CT due to h/o tobacco use ) (2) PVD (peripheral vascular disease): (3) Anxiety: (4) GERD (gastroesophageal reflux disease): Subjective Mr. Ortega was seen & examined in his hospital room this morning. His was present at bedside. Mr. Ortega reports that he is tolerating NaCl tablets without GI upset. His reports that the patient was previously a heavy smoker. Physical Exam 2 Vital Signs (Past 24 Hours): Last Vital Signs Temp 36.8 C 10/22/18 07:57 Pulse 75 10/22/18 07:57 Resp 18 10/22/18 07:57 BP 93/55 L 10/22/18 07:57 Pulse Ox 94 10/22/18 07:57 Eyes: PERRL, conjunctivae normal, anicteric sclerae Neck: trachea midline, no thyromegaly Respiratory: normal respiratory effort, lungs clear to auscultation Cardiovascular: RRR, no murmur, no edema Gastrointestinal (Abdomen): normal bowel sounds, soft, nontender, no hepatosplenomegaly Results & Data Laboratory Results Laboratory Tests 10/22/18 10/22/18 06:27 06:27 WBC 8.77 Hgb 8.1 L Hct 23.3 L Plt Count 199 Sodium 130 L Potassium 4.3 Chloride 98 Carbon Dioxide 25 BUN 23 H D Creatinine 0.90
[2018-10-22] MEDS: MULTIVITAMIN TAB PO SCH (10:54)
[2018-10-22] MEDS: FERROUS SULFATE 325 MG TAB PO SCH ×2 (10:55→17:33)
--- NOTE | 2018-10-22 12:33 | CT Scan Report ---
CT chest wo con CT DOSE: 384.33 mGy.cm HISTORY: smoking hx, hyponatremia, evaluated for lung mass TECHNIQUE: Multiaxial CT images of the chest were performed without contrast. A dose lowering techni que was utilized adhering to the principles of ALARA. COMPARISON: Chest 10/18/2018. FINDINGS: No pneumothorax. No pleural effusions. The central airways are patent. Bibasilar linear den sities favor subsegmental atelectasis. Mild elevation the left hemidiaphragm. No focal lung consolida tions to suggest pneumonia. No evidence for pulmonary edema. Mild to moderate emphysema. No suspiciou s lytic or blastic osseous lesions. Normal esophagus. No mediastinal or hilar lymphadenopathy. The he art is normal in size. Mild calcified plaque within the normal caliber thoracic aorta. Hepatic steato sis. The visualized spleen and adrenal glands are unremarkable. IMPRESSION: 1. Mild to moderate emphysema. 2. No masses identified within the chest. 3. Mild elevation the left hemidiaphragm. 4. Bibasilar linear densities favor subsegmental atelectasis. 5. Hepatic steatosis. Electronically signed by: Bib Amaya M.D. 10/22/2018 12:31 PM
[2018-10-22] MEDS: LORazepam 1 MG TAB PO PRN ×2 (13:12→20:43)
--- NOTE | 2018-10-22 21:02 | Hospitalist Progress Note ---
Date of Service October 22, 2018 Assessment & Plan (1) PVD (peripheral vascular disease): POD #2, s/p left femoral-pos tib bypass. cont asa, pain control, etc. management per vascular surgery. tobacco cessation. lipids checked earlier this stay -- LDL was <50; in light of low LDL and abnormal LFTs statin deferred. I spoke with Dr. Blunt today and appearance of left foot toes is similar to what was seen shortly post-op. (2) HTN (hypertension), benign: controlled with BB; in fact BPs are low-normal; may need to hold BB for now due to acute blood loss anemia. (3) Prediabetes: counseling provided earlier this admission dietary control for now (4) Elevated LFTs: continues to improve. etiology? fatty liver seen on imaging hep C negative (5) History of tobacco use: quit prior to admission needs to stay smoke-free if possible (6) Hyponatremia: suspected SIADH continues to improve cont fluid restriction, salt tabs did receive tolvaptan and lasix previously BMP in am slowly improving will need cancer w/u after discharge CT chest/abd/pelvis without obvious masses,cancer patient now beginning to look mildly volume contracted (pt reports thirst, BUN and Cr [place] overnight); loosen fluid restriction?? 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 he is drinking the full amount of fluids up to the restriction level (1500cc). he has had mild dizziness today. concerned that he looks pale. c/o mild left heel pain but no worse than yesterday. the patient and his both feel that the left foot toes, although dusky, are actually "better" post-op than the condition of the toes pre-op. denies any significant PAD rest pain. Constitutional: no fever Respiratory: no cough and no dyspnea Cardiovascular: no chest pain Gastrointestinal: no abdominal pain Physical Exam 2 Vital Signs (Past 24 Hours): Last Vital Signs Temp 36.8 C 10/22/18 15:01 Pulse 80 10/22/18 17:20 Resp 19 10/22/18 15:01 BP 113/66 10/22/18 17:20 Pulse Ox 96 10/22/18 15:01 Constitutional: well developed and well nourished; no acute distress ENMT: external ear and nose normal, oropharynx normal Respiratory: normal respiratory effort, lungs clear to auscultation Cardiovascular: Rate/Rhythm: regular rate and regular rhythm Heart Sounds: normal S1 and normal S2; no murmur Vessels: posterior tibial pulses present and dorsalis pedis pulses present (2+ on right; left -- less than 1+; cap refill about 3 seconds on all toes, left foot; dusky appearance of all toes left foot along with cool temperature to touch. ); no JVD Gastrointestinal (Abdomen): normal bowel sounds, soft, nontender, no hepatosplenomegaly Skin: + pallor ulcer, metatarsal head region, plantar aspect Psychiatric: Orientation: alert and oriented x 3 Results & Data Laboratory Results Laboratory Results - last 24 hr 10/22/18 10/22/18 10/22/18 06:27 06:27 16:30 WBC 8.77 RBC 2.50 L Hgb 8.1 L Hct 23.3 L MCV 93.2 MCH 32.4 MCHC 34.8 RDW Std Deviation 47.4 H RDW Coeff of [place] 13.8 Plt Count 199 MPV 7.9 Sodium 130 L Potassium 4.3 Chloride 98 Carbon Dioxide 25 Anion Gap 7.0 BUN 23 H D Creatinine 0.90 Est Cr Clr Drug Dosing 93.8 Est GFR ( Amer) 103.5 Est GFR (Non-Af Amer) 89.3 BUN/Creatinine Ratio 25.4 H Glucose 95 Calcium 7.0 L Total Bilirubin 0.4 Direct Bilirubin 0.2 AST 58 H ALT 62 Alkaline Phosphatase 168 H Total Protein 5.0 L D Albumin 1.8 L Prostate Specific Ag 2.180 Urine Osmolality 685
[2018-10-23] MEDS: OXYCODONE/ACETAMINOPHEN 5mg/325mg TAB PO PRN ×4 (00:44→23:42)
[2018-10-23] MEDS: LABETALOL HCL 100 MG TAB PO SCH ×2 (05:49→17:28)
[2018-10-23 06:25] LABS: Hematocrit (blood only) 23.2 % (42-52); Mean Corpuscular Hgb Conc 34.5 g/dL (32-36); Mean Corpuscular Volume 93.9 fL (80-100); Mean Platelet Volume 7.7 fL (7.4-10.4); Platelet Count 187 K/uL (130-400); RDW Coefficient of Variation 13.9 % (11.5-14.5); RDW Standard Deviation 47.6 fL (36.4-46.3); Red Blood Count 2.47 M/uL (4.7-6.1)
[2018-10-23 06:51] LABS: BUN Creatinine Ratio 22.3 (10-20); Calcium 7.2 mg/dl (8.5-10.1); Creatinine Clr Calc Pharmacy 131.8 ml/min; Est GFR (African American) 119.1; Est GFR (Non-African American) 102.7; Potassium 4.5 mmol/L (3.5-5.1)
[2018-10-23 06:55] LABS: Ferritin 807.4 ng/ml (8-388)
[2018-10-23 08:45] LABS: Folate (Folic Acid) 5.01 ng/ml (>5.38)
--- NOTE | 2018-10-23 08:48 | Anesthesiology Progress Note ---
Date of Service October 23, 2018 Anesthesia Post Procedure Vital Signs Vital Signs: Temp Pulse Pulse Resp BP BP Pulse Ox 10/23/18 07:50 36.9 C 73 18 120/70 95 10/23/18 05:47 36.8 C 75 14 126/68 95 10/22/18 23:16 36.8 C 71 18 128/75 95 10/22/18 17:20 80 113/66 10/22/18 15:01 36.8 C 76 19 102/58 L 96 Notes Mental Status: alert / awake / arousable and participated in evaluation Patient Amnestic to Procedure: Yes Nausea / Vomiting: adequately controlled Pain: adequately controlled Airway Patency, RR, SpO2: stable & adequate BP & HR: stable & adequate Hydration State: stable & adequate Anesthetic Complications: no major complications apparent and Pt Satisfied with anesthetic care
[2018-10-23] MEDS: FERROUS SULFATE 325 MG TAB PO SCH ×2 (08:59→17:26)
[2018-10-23] MEDS: SODIUM CHLORIDE 1 GM TABLET PO SCH ×2 (08:59→19:58)
[2018-10-23] MEDS: MULTIVITAMIN TAB PO SCH (09:00)
[2018-10-23] MEDS: ASPIRIN 81 MG ECTAB PO SCH (09:00)
--- NOTE | 2018-10-23 09:49 | Surgery Progress Note ---
Date of Service October 23, 2018 Assessment & Plan (1) S/P femoral-tibial bypass: Pt doing well post op. Significant improvement in pain level, even with minimal outflow from BPG. Incisions healing well, moderate serous drainage from L distal wounds. dry dressings to leg only necessary when OOB. 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 Will need yamilka boot and outpt follow up for wound care. Present on Admission?: Yes Subjective 63 yo m with multiple medical problems, POD #3 after LLE femoral-post tib in situ bypass, seen in f/u today. Pt admits pain in L toes and heel, but states is significantly improved compared to preop. Admits fatigue and edema of LLE. Denies NASCIMENTO, fever, chills, chest pain, SOB, N/V, other complaints. Physical Exam 2 Vital Signs (Past 24 Hours): Last Vital Signs Temp 36.9 C 10/23/18 07:50 Pulse 73 10/23/18 07:50 Resp 18 10/23/18 07:50 BP 120/70 10/23/18 07:50 Pulse Ox 95 10/23/18 07:50 Constitutional: WD/WN, vitals as above (NAD) well developed, well nourished and + ill appearing Cardiovascular: Vessels: femoral pulses present; + abnormal peripheral pulses (LLE nonpalpable distal pulses. + good doppler signal ant tib at ankle and peroneal. Toes pale, dusky. + cap refill 4tha dn 5th toes. plantar ulcers unchanged.) Extremities: + edema
--- NOTE | 2018-10-23 09:53 | Nephrology Progress Note ---
Date of Service October 23, 2018 Assessment & Plan (1) Hyponatremia: Mr. Ortega is a 63 yo white male w/ a history of smoking, peripheral vascular disease, anxiety depression was to arthritis. He was admitted the hospital for popliteal aneurysm repair and L LE revascualarization He was found to have hyponatremia with relatively high urine osmolality. Sodium has been 125-126. Urine osmolality 360. There is report excessive free water intake however he reports he has been drinking much less. No history of thyroid disease or adrenal insufficiency. Has not been thiazide diuretics. TSH , random cortisol normal. Differentials for hyponatremia include at possibly some component of SIADH with ongoing pain and excessive free water intake. -- Serum sodium remains stable at 129 mmol/L -- Continue NaCl 1 g po BID -- Maintain 1.5 L daily fluid restriction -- Will recheck PRP and urine osmolality in am -- CT reviewed with patient and his today: emphysematous changes, [place] -- Family will arrange for age-appropriate screening once discharged (CXR negative, PSA - wnl, CT chest chronic changes of COPD) (2) PVD (peripheral vascular disease): -- Discussed plan of care with vascular surgery -- Clinically improving following surgery (3) Anxiety: (4) GERD (gastroesophageal reflux disease): Subjective Mr. Ortega was seen & examined in his hospital room this morning. His was present at bedside. Mr. Ortega reports that he is tolerating NaCl tablets without GI upset. However, he is not happy about his fluid restriction. He denies significant pain. PT is scheduled this morning. Plan of care was discussed with Dr. Myers. Review of Systems All systems reviewed & are unremarkable except as noted in HPI & below Physical Exam 2 Vital Signs (Past 24 Hours): Last Vital Signs Temp 36.9 C 10/23/18 07:50 Pulse 73 10/23/18 07:50 Resp 18 10/23/18 07:50 BP 120/70 10/23/18 07:50 Pulse Ox 95 10/23/18 07:50 Constitutional: WD/WN, vitals as above Eyes: PERRL, conjunctivae normal, anicteric sclerae ENMT: external ear and nose normal, oropharynx normal Neck: trachea midline, no thyromegaly Respiratory: normal respiratory effort, lungs clear to auscultation Cardiovascular: RRR, no murmur, no edema Gastrointestinal (Abdomen): normal bowel sounds, soft, nontender, no hepatosplenomegaly Musculoskeletal: no cyanosis or clubbing, extremities motor strength 5/5 Skin: no rashes, warm and dry Neurologic: moves all extremities and awake Psychiatric: A+Ox3, euthymic affect Results & Data Laboratory Results Laboratory Results - last 24 hr 10/22/18 10/23/18 10/23/18 16:30 06:11 06:11 WBC 8.00 RBC 2.47 L Hgb 8.0 L Hct 23.2 L MCV 93.9 MCH 32.4 MCHC 34.5 RDW Std Deviation 47.6 H RDW Coeff of Argelia 13.9 Plt Count 187 MPV 7.7 Sodium 129 L Potassium 4.5 Chloride 95 L Carbon Dioxide 28 Anion Gap 7.0 BUN 14 Creatinine 0.64 Est Cr Clr Drug Dosing 131.8 Est GFR ( Amer) 119.1 Est GFR (Non-Af Amer) 102.7 BUN/Creatinine Ratio 22.3 H Glucose 93 Calcium 7.2 L Iron 37 TIBC 142 L Ferritin 807.4 H Vitamin B12 Folate Urine Osmolality 685 10/23/18 06:11 WBC RBC Hgb Hct MCV MCH MCHC RDW Std Deviation RDW Coeff of Argelia Plt Count MPV Sodium Potassium Chloride Carbon Dioxide Anion Gap BUN Creatinine Est Cr Clr Drug Dosing Est GFR ( Amer) Est GFR (Non-Af Amer) BUN/Creatinine Ratio Glucose Calcium Iron TIBC Ferritin Vitamin B12 1916 H Folate 5.01 L Urine Osmolality
[2018-10-23] MEDS ORDERED: CLOPIDOGREL BISULFATE 75 MG TAB PO ONE (11:00)
--- NOTE | 2018-10-23 14:04 | Hospitalist Progress Note ---
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 CTs of chest/a/p were all negative for masses, but concerning for an occult malignancy. - Continue salt tabs and fluid restriction of 1.5L - Monitor BMP - Nephrology following - appreciate assistance (2) Acute blood loss anemia: Baseline hgb is 12-13. After surgery, hgb dropped to 9.3, then has come down to 8.0 by 10/23. B12/folate were normal on 10/23. Ferritin elevated, iron low-normal, and TIBC low. Appears to be anemia of chronic disease. - Started iron supplement - Monitor surgical site and any other signs of bleeding (3) PVD (peripheral vascular disease): S/p left femoral-pos tib bypass and popliteal artery aneurysm embolization on 10/[address] Blunt. Per vascular surgery team, flow through bypass is then travelling through collaterals. If bypass occludes, likely would require a BKA. 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 - Discuss with nursing re: ongoing care - Wound boot per vascular surgery (5) HTN (hypertension), benign: BP well-controlled over last 48 hours with range of 90/50-120/60. - Continue labetalol 100mg PO BID (6) Prediabetes: A1c was 5.9% on 10/21. Counseling provided earlier this admission. - Dietary control for now (7) Elevated LFTs: Possibly due to fatty liver which was seen on CT a/p on 10/16. Hepatitis C was tested and negative. - On admission AST/ALT/alk phos/Tbili were 78/101/251/0.6, then on 10/22 improved to 58/62/168/0.4. - Outpatient follow up (8) History of tobacco use: Quit prior to admission. Needs to stay smoke-free if possible. - Cessation encouraged (9) DVT prophylaxis: selection of agent per vascular Subjective 63yo M w/ hx of PAD who presented with left foot ischemia, now s/p femoral-pos tib bypass on 10/20 for a left popliteal artery bypass. Reports being thirsty. Notes left foot hurts again today. Reports no fevers/ chills, chest pain, shortness of breath, abdominal pain, nausea, or vomiting. Physical Exam 2 Vital Signs (Past 24 Hours): Last Vital Signs Temp 36.9 C 10/23/18 07:50 Pulse 73 10/23/18 07:50 Resp 18 10/23/18 07:50 BP 120/70 10/23/18 07:50 Pulse Ox 95 10/23/18 10:13 Constitutional: WD/WN, vitals as above Eyes: EOM intact bilaterally; no conjunctival abnormality ENMT: external ear and nose normal, oropharynx normal Neck: trachea midline, no thyromegaly normal visual inspection Respiratory: normal respiratory effort, lungs clear to auscultation no respiratory distress Cardiovascular: RRR, no murmur, no edema Gastrointestinal (Abdomen): Inspection/Auscultation: abdomen normal to inspection; abdomen not distended Musculoskeletal: no cyanosis or clubbing, extremities motor strength 5/5 Skin: Two incisions on left leg that are well-opposed and healing. Has multiple ulcers on the left foot with some small blue-abner discoloration. Neurologic: moves all extremities and awake Psychiatric: Orientation: alert, oriented to person and cooperative
[2018-10-23 17:27] LABS: BUN Creatinine Ratio 23.3 (10-20); Calcium 7.4 mg/dl (8.5-10.1); Creatinine Clr Calc Pharmacy 145.5 ml/min; Potassium 4.7 mmol/L (3.5-5.1)
[2018-10-23] MEDS: LORazepam 1 MG TAB PO PRN (23:42)
[2018-10-24] MEDS: LABETALOL HCL 100 MG TAB PO SCH ×2 (06:09→20:07)
[2018-10-24 06:28] LABS: Hematocrit (blood only) 23.3 % (42-52); Mean Corpuscular Hgb Conc 34.3 g/dL (32-36); Mean Corpuscular Volume 93.6 fL (80-100); Mean Platelet Volume 7.6 fL (7.4-10.4); Platelet Count 202 K/uL (130-400); RDW Coefficient of Variation 13.9 % (11.5-14.5); RDW Standard Deviation 46.9 fL (36.4-46.3); Red Blood Count 2.49 M/uL (4.7-6.1); White Blood Count 7.93 K/uL (4.8-10.8)
[2018-10-24 07:03] LABS: Albumin Level 1.9 gm/dl (3.4-5.0); Calcium 7.6 mg/dl (8.5-10.1); Creatinine Clr Calc Pharmacy 138.3 ml/min; Est GFR (African American) 121.5; Est GFR (Non-African American) 104.8; Phosphorus 3.2 mg/dl (2.5-4.9); Potassium 4.2 mmol/L (3.5-5.1)
[2018-10-24] MEDS: FERROUS SULFATE 325 MG TAB PO SCH ×2 (09:00→16:24)
[2018-10-24] MEDS: ASPIRIN 81 MG ECTAB PO SCH (09:00)
[2018-10-24] MEDS: MULTIVITAMIN TAB PO SCH (09:00)
[2018-10-24] MEDS: SODIUM CHLORIDE 1 GM TABLET PO SCH ×2 (09:00→20:07)
[2018-10-24] MEDS: CLOPIDOGREL BISULFATE 75 MG TAB PO SCH (09:00)
--- NOTE | 2018-10-24 09:18 | Surgery Progress Note ---
Date of Service October 24, 2018 Assessment & Plan (1) S/P femoral-tibial bypass: Pt doing well post op. Significant improvement in pain level, even with minimal outflow from BPG. Incisions healing well, moderate serous drainage from L distal wounds. Pt's L toes cool, may require TMA in future, however, will allow for better demarcation before intervention, possibly next week. 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 Will need yamilka boot and outpt follow up for wound care. Subjective 63 yo m with multiple medical problems, POD #4 after LLE femoral-post tib in situ bypass and embolization of large pop aneurysm, seen in f/u today. Pt admits pain in L toes and heel, but states is significantly improved compared to preop. Admits fatigue and edema of LLE. Denies NASCIMENTO, fever, chills, chest pain, SOB, N/V, other complaints. Physical Exam 2 Vital Signs (Past 24 Hours): Last Vital Signs Temp 36.6 C 10/24/18 08:00 Pulse 78 10/24/18 08:00 Resp 16 10/24/18 08:00 BP 104/66 10/24/18 08:00 Pulse Ox 97 10/24/18 08:00 Constitutional: WD/WN, vitals as above (NAD) well developed, well nourished and + ill appearing Cardiovascular: Vessels: femoral pulses present; + abnormal peripheral pulses (LLE nonpalpable distal pulses. + good doppler signal ant tib at ankle and peroneal. Toes pale, dusky. + cap refill 4tha dn 5th toes. plantar ulcers unchanged.) Extremities: + edema
--- NOTE | 2018-10-24 09:54 | Nephrology Progress Note ---
Date of Service October 24, 2018 Assessment & Plan (1) Hyponatremia: Mr. Ortega is a 63 yo white male w/ a history of smoking, significant alcohol use, peripheral vascular disease, anxiety depression was to arthritis. He was admitted the hospital for a popliteal aneurysm repair and L LE revascualarization He was found to have hyponatremia with relatively high urine osmolality. Sodium has been 125-126. Urine osmolality 360. There is report excessive free water intake (alcohol intake reported at 3-6 beers per day for the past several years). No history of thyroid disease or adrenal insufficiency. Has not been thiazide diuretics. TSH, random cortisol normal. Differentials for hyponatremia include at possibly some component of SIADH with ongoing pain and excessive free water intake. -- Serum sodium remains stable at 129 mmol/L -- Continue NaCl 1 g po BID -- Maintain 2.5 L daily fluid restriction -- Will recheck CMP this afternoon -- Family will arrange for age-appropriate screening once discharged (CXR negative, PSA - wnl, CT chest chronic changes of COPD) and the importance of regular follow up with a physician was stressed -- We discussed the health risks of excessive alcohol intake in detail today (2) PVD (peripheral vascular disease): -- Clinically improving following surgery -- Smoking cessation encouraged (3) Anxiety: (4) GERD (gastroesophageal reflux disease): Subjective Mr. Ortega was seen & examined in his hospital room this morning. His was present at bedside. Mr. Ortega reports that he is tolerating NaCl tablets without GI upset. However, he is not happy about his fluid restriction. He denies significant pain. PT is scheduled this morning. Plan of care was discussed with Dr. Myers. Physical Exam 2 Vital Signs (Past 24 Hours): Last Vital Signs Temp 36.6 C 10/24/18 08:00 Pulse 78 10/24/18 08:00 Resp 16 10/24/18 08:00 BP 104/66 10/24/18 08:00 Pulse Ox 97 10/24/18 08:00 Constitutional: WD/WN, vitals as above Eyes: PERRL, conjunctivae normal, anicteric sclerae ENMT: external ear and nose normal, oropharynx normal Neck: trachea midline, no thyromegaly Respiratory: normal respiratory effort, lungs clear to auscultation Cardiovascular: RRR, no murmur, no edema Gastrointestinal (Abdomen): normal bowel sounds, soft, nontender, no hepatosplenomegaly Musculoskeletal: no cyanosis or clubbing, extremities motor strength 5/5 Skin: no rashes, warm and dry Neurologic: moves all extremities and awake Psychiatric: A+Ox3, euthymic affect Results & Data Laboratory Results Laboratory Results - last 24 hr 10/23/18 10/23/18 10/24/18 09:55 16:48 06:12 WBC 7.93 RBC 2.49 L Hgb 8.0 L Hct 23.3 L MCV 93.6 MCH 32.1 MCHC 34.3 RDW Std Deviation 46.9 H RDW Coeff of [place]gelia 13.9 Plt Count 202 MPV 7.6 Sodium 127 L Potassium 4.7 Chloride 96 L Carbon Dioxide 31 Anion Gap 0 L BUN 14 Creatinine 0.58 L Est Cr Clr Drug Dosing 145.5 Est GFR ( Amer) 124.0 Est GFR (Non-Af Amer) 107.0 BUN/Creatinine Ratio 23.3 H Glucose 89 Calcium 7.4 L Phosphorus Albumin Urine Osmolality 657 Stool Occult Bld Scrn 10/24/18 10/24/18 10/24/18 06:12 08:25 Unknown WBC RBC Hgb Hct MCV MCH MCHC RDW Std Deviation RDW Coeff of [place]gelia Plt Count MPV Sodium 129 L Potassium 4.2 Chloride 94 L Carbon Dioxide 29 Anion Gap 6.0 BUN 10 Creatinine 0.61 Est Cr Clr Drug Dosing 138.3 Est GFR ( Amer) 121.5 Est GFR (Non-Af Amer) 104.8 BUN/Creatinine Ratio 17.0 Glucose 94 Calcium 7.6 L Phosphorus 3.2 Albumin 1.9 L Urine Osmolality 642 Stool Occult Bld Scrn Negative
--- NOTE | 2018-10-24 09:59 | Nephrology Progress Note ---
Date of Service October 24, 2018 Assessment & Plan (1) Hyponatremia: Mr. Ortega is a 63 yo white male w/ a history of smoking, significant alcohol use, peripheral vascular disease, anxiety depression and arthritis. He was admitted the hospital for a popliteal aneurysm repair and L LE revascualarization He was found to have hyponatremia with relatively high urine osmolality. Sodium was 125-126. Urine osmolality 360. There is report excessive free water intake (alcohol intake reported at 3-6 beers per day for the past several years). No history of thyroid disease or adrenal insufficiency. Has not been thiazide diuretics. TSH, random cortisol normal. Differentials for hyponatremia include at possibly some component of SIADH with ongoing pain and excessive free water intake. -- Serum sodium remains stable at 129 mmol/L -- Continue NaCl 1 g po BID -- Maintain 2.5 L daily fluid restriction -- Will recheck CMP this afternoon -- Family will arrange for age-appropriate screening once discharged (CXR negative, PSA - wnl, CT chest chronic changes of COPD) and the importance of regular follow up with a physician was stressed -- We discussed the health risks of excessive alcohol intake in detail today (2) PVD (peripheral vascular disease): -- Clinically improving following surgery -- Smoking cessation encouraged (3) Anxiety: (4) GERD (gastroesophageal reflux disease): -- PPI therapy Subjective Mr. Ortega was seen & examined in his hospital room this morning. His was present at bedside. Mr. Ortega admits that he has been drinking in excess of fluid restriction. Appetite is good but limited due to severe GERD symptoms. He feels that he is tolerating oral NaCl therapy. He is frustrated by his continued hospitalization. Overall, he feels well. He reports some constipation. Pain is well controlled. Plan of care was discussed with Dr. Myers. Respiratory: no cough and no dyspnea Cardiovascular: no chest pain, no palpitations and no edema Gastrointestinal: + heartburn and + constipation; no abdominal pain, no early satiety, no vomiting and no dysphagia Physical Exam 2 Vital Signs (Past 24 Hours): Last Vital Signs Temp 36.6 C 10/24/18 08:00 Pulse 78 10/24/18 08:00 Resp 16 10/24/18 08:00 BP 104/66 10/24/18 08:00 Pulse Ox 97 10/24/18 08:00 Constitutional: WD/WN, vitals as above Eyes: PERRL, conjunctivae normal, anicteric sclerae ENMT: external ear and nose normal, oropharynx normal Neck: trachea midline, no thyromegaly Respiratory: normal respiratory effort, lungs clear to auscultation Cardiovascular: RRR, no murmur, no edema Gastrointestinal (Abdomen): normal bowel sounds, soft, nontender, no hepatosplenomegaly Musculoskeletal: no cyanosis or clubbing, extremities motor strength 5/5 Skin: no rashes, warm and dry Neurologic: moves all extremities and awake Psychiatric: A+Ox3, euthymic affect Results & Data Laboratory Results Laboratory Results - last 24 hr 10/23/18 10/23/18 10/24/18 09:55 16:48 06:12 WBC 7.93 RBC 2.49 L Hgb 8.0 L Hct 23.3 L MCV 93.6 MCH 32.1 MCHC 34.3 RDW Std Deviation 46.9 H RDW Coeff of [place]gel[place] 13.9 Plt Count 202 MPV 7.6 Sodium 127 L Potassium 4.7 Chloride 96 L Carbon Dioxide 31 Anion Gap 0 L BUN 14 Creatinine 0.58 L Est Cr Clr Drug Dosing 145.5 Est GFR ( Amer) 124.0 Est GFR (Non-Af Amer) 107.0 BUN/Creatinine Ratio 23.3 H Glucose 89 Calcium 7.4 L Phosphorus Albumin Urine Osmolality 657 Stool Occult Bld Scrn 10/24/18 10/24/18 10/24/18 06:12 08:25 Unknown WBC RBC Hgb Hct MCV MCH MCHC RDW Std Deviation RDW Coeff of [place]gelia Plt Count MPV Sodium 129 L Potassium 4.2 Chloride 94 L Carbon Dioxide 29 Anion Gap 6.0 BUN 10 Creatinine 0.61 Est Cr Clr Drug Dosing 138.3 Est GFR ( Amer) 121.5 Est GFR (Non-Af Amer) 104.8 BUN/Creatinine Ratio 17.0 Glucose 94 Calcium 7.6 L Phosphorus 3.2 Albumin 1.9 L Urine Osmolality 642 Stool Occult Bld Scrn Negative
[2018-10-24 15:31] LABS: Albumin Level 1.8 gm/dl (3.4-5.0); BUN Creatinine Ratio 19.6 (10-20); Calcium 7.4 mg/dl (8.5-10.1); Creatinine Clr Calc Pharmacy 165.4 ml/min; Est GFR (African American) 130.7; Est GFR (Non-African American) 112.8; Potassium 3.9 mmol/L (3.5-5.1)
[2018-10-24 15:33] LABS: Albumin Globulin Ratio 0.5 (0.9-2); Bilirubin,Total 0.4 mg/dl (0.2-1); Globulin 3.6 gm/dl (2.5-4.0); Total Protein 5.4 gm/dl (6.4-8.2)
[2018-10-24] MEDS: OXYCODONE/ACETAMINOPHEN 5mg/325mg TAB PO PRN ×2 (16:25→20:37)
--- NOTE | 2018-10-24 17:29 | Hospitalist Progress Note ---
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 CTs of chest/a/p were all negative for masses, but concerning for an occult malignancy. - Continue salt tabs - Liberalize water restriction per nephrology - Monitor BMP - Nephrology following - appreciate assistance (2) Acute blood loss anemia: Baseline hgb is 12-13. After surgery, hgb dropped to 9.3, then has come down to 8.0 by 10/24. B12/folate were normal on 10/23. Ferritin elevated, iron low-normal, and TIBC low. Appears to be anemia of chronic disease. - Started iron supplement - Monitor surgical site and any other signs of bleeding (3) PVD (peripheral vascular disease): S/p left femoral-pos tib bypass and popliteal artery aneurysm embolization on 10/[address] Blunt. Per vascular surgery team, flow through bypass is then travelling through collaterals. If bypass occludes, likely would require a BKA. - Continue ASA & Plavix - Post-op management per vascular surgery - Discussed on 10/24 with Ms. 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 Other recs for other areas are in chart. - Wound boot per vascular surgery (5) HTN (hypertension), benign: BP well-controlled over last 48 hours with range of 90/50-120/60. - Continue labetalol 100mg PO BID (6) Prediabetes: A1c was 5.9% on 10/21. Counseling provided earlier this admission. - Dietary control for now (7) Elevated LFTs: Possibly due to fatty liver which was seen on CT a/p on 10/16. Hepatitis C was tested and negative. - On admission AST/ALT/alk phos/Tbili were 78/101/251/0.6, then on 10/22 improved to 58/62/168/0.4. - Rechecked on 10/24, and they are back up to similar prior levels - Outpatient follow up (8) History of tobacco use: Quit prior to admission. Needs to stay smoke-free if possible. - Cessation encouraged (9) DVT prophylaxis: Holding after vascular surgery Subjective 63yo M w/ hx of PAD who presented with left foot ischemia, now s/p femoral-pos tib bypass on 10/20 for a left popliteal artery bypass. Notes left foot hurts today. Thirst is mildly improved with increased water limit. Reports no fevers/chills, chest pain, shortness of breath, abdominal pain , nausea, or vomiting. Physical Exam 2 Vital Signs (Past 24 Hours): Last Vital Signs Temp 36.7 C 10/24/18 14:45 Pulse 87 10/24/18 14:45 Resp 18 10/24/18 14:45 BP 115/57 L 10/24/18 14:45 Pulse Ox 96 10/24/18 14:45 Constitutional: WD/WN, vitals as above Eyes: EOM intact bilaterally; no conjunctival abnormality ENMT: external ear and nose normal, oropharynx normal Neck: trachea midline, no thyromegaly normal visual inspection Respiratory: normal respiratory effort, lungs clear to auscultation no respiratory distress Cardiovascular: RRR, no murmur, no edema Gastrointestinal (Abdomen): Inspection/Auscultation: abdomen normal to inspection; abdomen not distended Musculoskeletal: no cyanosis or clubbing, extremities motor strength 5/5 Neurologic: moves all extremities and awake Psychiatric: Orientation: alert, oriented to person and cooperative
[2018-10-24] MEDS: DOCUSATE SODIUM/SENNA 50/8.6MG TAB PO SCH (20:07)
[2018-10-25] MEDS: OXYCODONE/ACETAMINOPHEN 5mg/325mg TAB PO PRN ×4 (04:05→21:56)
[2018-10-25] MEDS: LABETALOL HCL 100 MG TAB PO SCH ×2 (05:49→19:30)
[2018-10-25 07:31] LABS: Hematocrit (blood only) 22.6 % (42-52); Hemoglobin 7.8 g/dL (14.0-18.0); Mean Corpuscular Hgb Conc 34.5 g/dL (32-36); Mean Corpuscular Volume 93.4 fL (80-100); Mean Platelet Volume 7.4 fL (7.4-10.4); Platelet Count 204 K/uL (130-400); RDW Standard Deviation 48.1 fL (36.4-46.3); Red Blood Count 2.42 M/uL (4.7-6.1); White Blood Count 7.71 K/uL (4.8-10.8)
[2018-10-25 08:01] LABS: Albumin Level 1.8 gm/dl (3.4-5.0); BUN Creatinine Ratio 18.4 (10-20); Calcium 7.4 mg/dl (8.5-10.1); Creatinine Clr Calc Pharmacy 165.4 ml/min; Est GFR (African American) 130.7; Est GFR (Non-African American) 112.8; Phosphorus 2.9 mg/dl (2.5-4.9)
[2018-10-25] MEDS: FERROUS SULFATE 325 MG TAB PO SCH ×2 (09:01→16:42)
[2018-10-25] MEDS: ASPIRIN 81 MG ECTAB PO SCH (09:01)
[2018-10-25] MEDS: MULTIVITAMIN TAB PO SCH (09:01)
[2018-10-25] MEDS: DOCUSATE SODIUM/SENNA 50/8.6MG TAB PO SCH ×2 (09:01→20:30)
[2018-10-25] MEDS: CLOPIDOGREL BISULFATE 75 MG TAB PO SCH (09:01)
[2018-10-25] MEDS: SODIUM CHLORIDE 1 GM TABLET PO SCH ×2 (09:01→20:30)
--- NOTE | 2018-10-25 09:49 | Nephrology Progress Note ---
Date of Service October 25, 2018 Assessment & Plan (1) Hyponatremia: Mr. Ortega is a 63 yo white male w/ a history of smoking, significant alcohol use, peripheral vascular disease, anxiety depression and arthritis. He was admitted the hospital for a popliteal aneurysm repair and L LE revascualarization He was found to have hyponatremia with relatively high urine osmolality. Sodium was ~125 on admission with a urine osmolality 360. There is report excessive free water intake (alcohol intake reported at 3-6 beers per day for the past several years). Oral solute intake has been low No history of thyroid disease or adrenal insufficiency. Has not been thiazide diuretics. TSH, random cortisol normal. Differentials for hyponatremia include at possibly some component of SIADH with ongoing pain and excessive free water intake. -- Serum sodium remains fairly stable at 128 mmol/L -- Continue NaCl 1 g po BID -- Maintain 2.5 L daily fluid restriction -- Monitor metabolic profile q 12 hours -- Serum albumin markedly low -- Electrolytes otherwise acceptable -- AST/ALT remain elevated (noted steatosis on CT scan and chronic alcohol use) - transaminases prohibit use of vaptans -- We reviewed the health risks of excessive alcohol intake in detail today (2) PVD (peripheral vascular disease): -- Clinically improving following surgery -- Smoking cessation encouraged (3) Anxiety: -- Importance of regular follow up with physicians as outpatient stressed -- Approximately 30 minutes of counseling provided to patient and his today (4) GERD (gastroesophageal reflux disease): -- PPI therapy Subjective Mr. Ortega was seen & examined in his hospital room this morning. His was present at bedside. Overnight he struggled with some leg pain. The patient 's is worried about increasing weakness. Edema in the lower extremity is stable. Appetite is good. He continues tolerating oral NaCl therapy. He is frustrated by his continued hospitalization. Overall, he feels well. He reports some continued constipation but notes that this improved once fluid restriction was liberalized. Respiratory: no problem reported Cardiovascular: no problem reported Musculoskeletal: + swelling Physical Exam 2 Vital Signs (Past 24 Hours): Last Vital Signs Temp 36.6 C 10/25/18 07:26 Pulse 68 10/25/18 07:26 Resp 16 10/25/18 07:26 BP 111/58 L 10/25/18 07:26 Pulse Ox 97 10/25/18 07:26 Constitutional: WD/WN, vitals as above Eyes: PERRL, conjunctivae normal, anicteric sclerae ENMT: external ear and nose normal, oropharynx normal Neck: trachea midline, no thyromegaly Respiratory: normal respiratory effort, lungs clear to auscultation Cardiovascular: RRR, no murmur, no edema Gastrointestinal (Abdomen): normal bowel sounds, soft, nontender, no hepatosplenomegaly Musculoskeletal: no cyanosis or clubbing, extremities motor strength 5/5 Skin: no rashes, warm and dry Neurologic: moves all extremities and awake Psychiatric: A+Ox3, euthymic affect Results & Data Laboratory Results Laboratory Results - last 24 hr 10/24/18 10/24/18 10/25/18 08:25 14:54 07:14 WBC RBC Hgb Hct MCV MCH MCHC RDW Std Deviation RDW Coeff of Argelia Plt Count MPV Sodium 128 L 128 L Potassium 3.9 4.0 Chloride 95 L 95 L Carbon Dioxide 28 29 Anion Gap 5.0 4.0 BUN 10 9 Creatinine 0.51 L 0.51 L Est Cr Clr Drug Dosing 165.4 165.4 Est GFR ( Amer) 130.7 130.7 Est GFR (Non-Af Amer) 112.8 112.8 BUN/Creatinine Ratio 19.6 18.4 Glucose 124 H 97 Calcium 7.4 L 7.4 L Phosphorus 2.9 Total Bilirubin 0.4 AST 83 H ALT 88 H Alkaline Phosphatase 215 H Total Protein 5.4 L Albumin 1.8 L 1.8 L Globulin 3.6 Albumin/Globulin Ratio 0.5 L Urine Osmolality 642 10/25/18 07:14 WBC 7.71 RBC 2.42 L Hgb 7.8 L Hct 22.6 L MCV 93.4 MCH 32.2 MCHC 34.5 RDW Std Deviation 48.1 H RDW Coeff of Argelia 14.0 Plt Count 204 MPV 7.4 Sodium Potassium Chloride Carbon Dioxide Anion Gap BUN Creatinine Est Cr Clr Drug Dosing Est GFR ( Amer) Est GFR (Non-Af Amer) BUN/Creatinine Ratio Glucose Calcium Phosphorus Total Bilirubin AST ALT Alkaline Phosphatase Total Protein Albumin Globulin Albumin/Globulin Ratio Urine Osmolality
--- NOTE | 2018-10-25 10:54 | Surgery Progress Note ---
Date of Service October 25, 2018 Assessment & Plan (1) S/P femoral-tibial bypass: Pt doing well post op. Significant improvement in pain level, even with minimal outflow from BPG. Incisions healing well, less drainage and edema. Pt 's L toes cool, will likely require TMA soon, however, will allow for better demarcation before surgery. If inadequate bleeding noted during TMA, will plan on performing LLE angio as well. 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 Will need yamilka boot and outpt follow up for wound care. Heel wound per wound care. Subjective 63 yo m with multiple medical problems, POD #5 after LLE femoral-post tib in situ bypass and embolization of large pop aneurysm, seen in f/u today. Pt admits pain in L toes and heel, but feels this is improving. Less drainage from incisions per family. Did have lightheadedness when PT attempted to work with him today. Physical Exam 2 Vital Signs (Past 24 Hours): Last Vital Signs Temp 36.6 C 10/25/18 07:26 Pulse 91 H 10/25/18 10:33 Resp 16 10/25/18 07:26 BP 93/60 L 10/25/18 10:33 Pulse Ox 97 10/25/18 07:26 Constitutional: WD/WN, vitals as above (NAD) well developed, well nourished and + ill appearing Cardiovascular: Vessels: femoral pulses present; + abnormal peripheral pulses (LLE nonpalpable distal pulses. + good doppler signal ant tib at ankle and peroneal. Toes pale, dusky. plantar ulcers unchanged.) Extremities: + edema (improved)
--- NOTE | 2018-10-25 14:23 | Hospitalist Progress Note ---
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 CTs of chest/a/p were all negative for masses, but concerning for an occult malignancy. Will arrange further appropriate screenings as outpatient. Dr. Holcomb also reports that he may have some level of hyponatremia from undiagnosed cirrhosis (does have history of 3-6 beers/day drinking). - Continue salt tabs - Liberalizing water restriction per nephrology - Monitor BMP - Nephrology following - appreciate assistance (2) Acute blood loss anemia: Baseline hgb is 12-13. After surgery, hgb dropped to 9.3, then down to 8.0 by 10/24. B12/folate were normal on 10/23. Ferritin elevated, iron low- normal, and TIBC low. Appears to be anemia of chronic disease. - Started iron supplement - Monitor surgical site and any other signs of bleeding - As of 10/25, is stable at 7.8. (3) PVD (peripheral vascular disease): S/p left femoral-pos tib bypass and popliteal artery aneurysm embolization on 10/[address] Blunt. Per vascular surgery team, flow through bypass is then travelling through collaterals. If bypass occludes, likely would require a BKA. - Continue ASA & Plavix - Tobacco cessation - Post-op management per vascular surgery - Discussed on 10/25 with vascular team who have concern he will need a transmetatarsal amputation next week. 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 Other recs for other areas are in chart. - Wound care recs per wound RN (5) HTN (hypertension), benign: BP well-controlled over last 48 hours with range of 90/50-120/60; however , patient was orthostatic on 10/25 with BP 128/55 -> 93/60 with standing. - Continue labetalol 100mg PO BID - Will discuss with nephrology re: orthostasis (6) Prediabetes: A1c was 5.9% on 10/21. Counseling provided earlier this admission. - Dietary control for now (7) Elevated LFTs: Possibly due to fatty liver which was seen on CT a/p on 10/16. Hepatitis C was tested and negative. - On admission AST/ALT/alk phos/Tbili were 78/101/251/0.6, then on 10/22 improved to 58/62/168/0.4. - Rechecked on 10/24, and they are back up to similar prior levels - Outpatient follow up (8) History of tobacco use: Quit prior to admission. Needs to stay smoke-free if possible. - Cessation encouraged (9) DVT prophylaxis: Holding after vascular surgery Subjective 63yo M w/ hx of PAD who presented with left foot ischemia, now s/p femoral-pos tib bypass on 10/20 for a left popliteal artery bypass. Notes left foot hurts today, though not changed dramatically. Feeling somewhat downcast about the possibility of a foot amputation. Reports no fevers/chills, chest pain, shortness of breath, abdominal pain, nausea, or vomiting. Physical Exam 2 Vital Signs (Past 24 Hours): Last Vital Signs Temp 36.6 C 10/25/18 07:26 Pulse 91 H 10/25/18 10:33 Resp 16 10/25/18 07:26 BP 93/60 L 10/25/18 10:33 Pulse Ox 97 10/25/18 07:26 Constitutional: WD/WN, vitals as above Eyes: EOM intact bilaterally; no conjunctival abnormality ENMT: external ear and nose normal, oropharynx normal Neck: trachea midline, no thyromegaly normal visual inspection Respiratory: normal respiratory effort, lungs clear to auscultation no respiratory distress Cardiovascular: RRR, no murmur, no edema Gastrointestinal (Abdomen): Inspection/Auscultation: abdomen normal to inspection; abdomen not distended Musculoskeletal: no cyanosis or clubbing, extremities motor strength 5/5 Neurologic: moves all extremities and awake Psychiatric: Orientation: alert, oriented to person and cooperative
[2018-10-25] MEDS: TRAMADOL HCL 50 MG TABLET PO PRN (15:48)
[2018-10-25 17:30] LABS: BUN Creatinine Ratio 20.6 (10-20); Calcium 7.5 mg/dl (8.5-10.1); Creatinine Clr Calc Pharmacy 168.8 ml/min; Est GFR (African American) 131.8; Est GFR (Non-African American) 113.7; Potassium 4.1 mmol/L (3.5-5.1)
[2018-10-25] MEDS: LORazepam 1 MG TAB PO PRN (20:28)
[2018-10-26] MEDS: OXYCODONE/ACETAMINOPHEN 5mg/325mg TAB PO PRN ×5 (02:31→21:51)
[2018-10-26] MEDS: LABETALOL HCL 100 MG TAB PO SCH ×2 (06:11→19:20)
[2018-10-26 06:26] LABS: Hematocrit (blood only) 22.6 % (42-52); Mean Corpuscular Hgb Conc 35.4 g/dL (32-36); Mean Corpuscular Volume 93.8 fL (80-100); Mean Platelet Volume 7.6 fL (7.4-10.4); Platelet Count 271 K/uL (130-400); RDW Coefficient of Variation 14.3 % (11.5-14.5); RDW Standard Deviation 48.3 fL (36.4-46.3); Red Blood Count 2.41 M/uL (4.7-6.1); White Blood Count 7.42 K/uL (4.8-10.8)
[2018-10-26 07:00] LABS: Albumin Level 1.8 gm/dl (3.4-5.0); BUN Creatinine Ratio 17.3 (10-20); Calcium 7.7 mg/dl (8.5-10.1); Creatinine Clr Calc Pharmacy 165.4 ml/min; Est GFR (African American) 130.7; Est GFR (Non-African American) 112.8; Potassium 4.2 mmol/L (3.5-5.1)
[2018-10-26 07:01] LABS: Phosphorus 3.4 mg/dl (2.5-4.9)
[2018-10-26] MEDS: DOCUSATE SODIUM/SENNA 50/8.6MG TAB PO SCH ×2 (09:14→21:53)
[2018-10-26] MEDS: SODIUM CHLORIDE 1 GM TABLET PO SCH ×3 (09:16→21:54)
[2018-10-26] MEDS: FERROUS SULFATE 325 MG TAB PO SCH ×2 (09:16→16:57)
[2018-10-26] MEDS: CLOPIDOGREL BISULFATE 75 MG TAB PO SCH (09:16)
[2018-10-26] MEDS: MULTIVITAMIN TAB PO SCH (09:16)
[2018-10-26] MEDS: ASPIRIN 81 MG ECTAB PO SCH (09:17)
--- NOTE | 2018-10-26 10:10 | Nephrology Progress Note ---
Date of Service October 26, 2018 Assessment & Plan (1) Hyponatremia: Mr. Ortega is a 63 yo white male w/ a history of smoking, significant alcohol use, peripheral vascular disease, anxiety depression and arthritis. He was admitted the hospital for a popliteal aneurysm repair and L LE revascualarization He was found to have hyponatremia with relatively high urine osmolality. Sodium was ~125 on admission with a urine osmolality 360. There is report excessive free water intake (alcohol intake reported at 3-6 beers per day for the past several years). Oral solute intake has been low No history of thyroid disease or adrenal insufficiency. Has not been thiazide diuretics. TSH, random cortisol normal. Differentials for hyponatremia include at possibly some component of SIADH with ongoing pain and excessive free water intake. -- Serum sodium remains fairly stable at 128 mmol/L -- After fluid restriction was stopped yesterday, sodium dropped to 127 mmol/L -- Volume status appears appropriate, orthostatic changes in BP have resolved -- NaCl increased to 1 g po TID today -- Maintain 2 L daily fluid restriction -- Monitor metabolic profile q 12 hours -- Serum albumin markedly low - patient states that he is not tolerating protein supplements -- Electrolytes otherwise acceptable -- AST/ALT remain elevated (noted steatosis on CT scan and chronic alcohol use) - transaminases prohibit use of vaptans (2) PVD (peripheral vascular disease): (3) Anxiety: (4) GERD (gastroesophageal reflux disease): -- Symptoms controlled Subjective Mr. Ortega was seen & examined in his hospital room this morning. His was present at bedside. Pain control improved. He was out of bed and feeling well this morning. Appetite is good. He is moving his bowels. Orthostatic changes in BP have resolved. Constitutional: no fever and no chills Cardiovascular: no lightheadedness and no syncope Gastrointestinal: + heartburn; no abdominal pain, no early satiety, no vomiting , no dysphagia and no diarrhea/loose stools Musculoskeletal: + swelling Physical Exam 2 Vital Signs (Past 24 Hours): Last Vital Signs Temp 36.4 C L 10/26/18 08:00 Pulse 75 10/26/18 08:00 Resp 18 10/26/18 08:00 BP 136/81 10/26/18 08:00 Pulse Ox 95 10/26/18 08:00 Constitutional: WD/WN, vitals as above Eyes: PERRL, conjunctivae normal, anicteric sclerae ENMT: external ear and nose normal, oropharynx normal Neck: trachea midline, no thyromegaly Respiratory: normal respiratory effort, lungs clear to auscultation Cardiovascular: RRR, no murmur, no edema Gastrointestinal (Abdomen): normal bowel sounds, soft, nontender, no hepatosplenomegaly Musculoskeletal: no cyanosis or clubbing, extremities motor strength 5/5 Skin: no rashes, warm and dry Neurologic: moves all extremities and awake Psychiatric: A+Ox3, euthymic affect Results & Data Laboratory Results Laboratory Results - last 24 hr 10/25/18 10/26/18 10/26/18 17:00 06:00 06:00 WBC 7.42 RBC 2.41 L Hgb 8.0 L Hct 22.6 L MCV 93.8 MCH 33.2 MCHC 35.4 RDW Std Deviation 48.3 H RDW Coeff of Argelia 14.3 Plt Count 271 MPV 7.6 Sodium 127 L 128 L Potassium 4.1 4.2 Chloride 94 L 95 L Carbon Dioxide 27 28 Anion Gap 6.0 5.0 BUN 10 9 Creatinine 0.50 L 0.51 L Est Cr Clr Drug Dosing 168.8 165.4 Est GFR ( Amer) 131.8 130.7 Est GFR (Non-Af Amer) 113.7 112.8 BUN/Creatinine Ratio 20.6 H 17.3 Glucose 98 87 Calcium 7.5 L 7.7 L Phosphorus 3.4 Albumin 1.8 L
--- NOTE | 2018-10-26 15:21 | Hospitalist Progress Note ---
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 CTs of chest/a/p were all negative for masses, but concerning for an occult malignancy. Will arrange further appropriate screenings as outpatient. Dr. Holcomb also reports that he may have some level of hyponatremia from undiagnosed cirrhosis (does have history of 3-6 beers/day drinking). - Continue salt tabs - Fluid restriction per nephrology at 2L - Monitor BMP - Nephrology following - appreciate assistance (2) Acute blood loss anemia: Baseline hgb is 12-13. After surgery, hgb dropped to 9.3, then down to 8.0 by 10/24. B12/folate were normal on 10/23. Ferritin elevated, iron low- normal, and TIBC low. Appears to be anemia of chronic disease. - Started iron supplement - Monitor surgical site and any other signs of bleeding - As of 10/26, is stable at 8. (3) PVD (peripheral vascular disease): S/p left femoral-pos tib bypass and popliteal artery aneurysm embolization on 10/[address] Blunt. Per vascular surgery team, flow through bypass is then travelling through collaterals. If bypass occludes, likely would require a BKA. - Continue ASA & Plavix - Tobacco cessation - Post-op management per vascular surgery - Discussed on 10/25 with vascular team who have concern he will need a transmetatarsal amputation next week; however, foot is improved on 10/26 compared to yesterday. 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 Other recs for other areas are in chart. - Wound care recs per wound RN (5) HTN (hypertension), benign: BP well-controlled over last 48 hours with range of 90/50-120/60; however , patient was orthostatic on 10/25 with BP 128/55 -> 93/60 with standing. - Continued labetalol 100mg PO BID - After liberalizing fluid restriction, on 10/26, no longer orthostatic (6) Prediabetes: A1c was 5.9% on 10/21. Counseling provided earlier this admission. - Dietary control for now (7) Elevated LFTs: Possibly due to fatty liver which was seen on CT a/p on 10/16. Hepatitis C was tested and negative. - On admission AST/ALT/alk phos/Tbili were 78/101/251/0.6, then on 10/22 improved to 58/62/168/0.4. - Rechecked on 10/24, and they are back up to similar prior levels - Outpatient follow up (8) History of tobacco use: Quit prior to admission. Needs to stay smoke-free if possible. - Cessation encouraged (9) DVT prophylaxis: Holding after vascular surgery Subjective 63yo M w/ hx of PAD who presented with left foot ischemia, now s/p femoral-pos tib bypass on 10/20 for a left popliteal artery bypass. Notes left foot hurts today at the stitching site, but only with standing. Feeling optimistic today as the foot is warmer and feels better compared to yesterday. Physical Exam 2 Vital Signs (Past 24 Hours): Last Vital Signs Temp 36.8 C 10/26/18 14:59 Pulse 78 10/26/18 14:59 Resp 18 10/26/18 14:59 BP 123/68 10/26/18 14:59 Pulse Ox 96 10/26/18 14:59 Constitutional: WD/WN, vitals as above Eyes: EOM intact bilaterally; no conjunctival abnormality ENMT: external ear and nose normal, oropharynx normal Neck: trachea midline, no thyromegaly normal visual inspection Respiratory: normal respiratory effort, lungs clear to auscultation no respiratory distress Cardiovascular: RRR, no murmur, no edema Gastrointestinal (Abdomen): Inspection/Auscultation: abdomen normal to inspection; abdomen not distended Musculoskeletal: no cyanosis or clubbing, extremities motor strength 5/5 Neurologic: moves all extremities and awake Psychiatric: Orientation: alert, oriented to person and cooperative
--- NOTE | 2018-10-26 15:25 | Surgery Progress Note ---
Date of Service October 26, 2018 Assessment & Plan (1) S/P femoral-tibial bypass: Pt doing well post op. Significant improvement in pain level, even with minimal outflow from BPG. Incisions healing well, less drainage and edema. Pt to be eval by Dr Blunt tomorrow for possible TMA next week. 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 Continue local wound care. No sign of infection. Subjective 63 yo m with multiple medical problems, s/p LLE femoral-post tib in situ bypass and embolization of large pop aneurysm, seen in f/u today. Pt admits pain in L toes and heel, but feels this is improving. No new complaints. Physical Exam 2 Vital Signs (Past 24 Hours): Last Vital Signs Temp 36.8 C 10/26/18 14:59 Pulse 78 10/26/18 14:59 Resp 18 10/26/18 14:59 BP 123/68 10/26/18 14:59 Pulse Ox 96 10/26/18 14:59 Constitutional: WD/WN, vitals as above (NAD) well developed, well nourished and + ill appearing Cardiovascular: Vessels: femoral pulses present; + abnormal peripheral pulses (LLE nonpalpable distal pulses. + good doppler signal ant tib at ankle and peroneal. + cap refill 4th and 5th toes. plantar ulcers unchanged.) Extremities: + edema (improved)
[2018-10-26] MEDS: LORazepam 1 MG TAB PO PRN (21:51)
[2018-10-27] MEDS: OXYCODONE/ACETAMINOPHEN 5mg/325mg TAB PO PRN ×5 (03:48→21:16)
[2018-10-27] MEDS: LABETALOL HCL 100 MG TAB PO SCH ×2 (05:56→17:01)
[2018-10-27 08:06] LABS: Hemoglobin 8.7 g/dL (14.0-18.0); Mean Corpuscular Hgb Conc 34.8 g/dL (32-36); Mean Corpuscular Volume 96.2 fL (80-100); Mean Platelet Volume 7.5 fL (7.4-10.4); Platelet Count 330 K/uL (130-400); RDW Coefficient of Variation 14.8 % (11.5-14.5); RDW Standard Deviation 50.5 fL (36.4-46.3); White Blood Count 8.03 K/uL (4.8-10.8)
[2018-10-27 08:33] LABS: BUN Creatinine Ratio 14.1 (10-20); Calcium 7.6 mg/dl (8.5-10.1); Creatinine Clr Calc Pharmacy 127.8 ml/min; Est GFR (African American) 117.6; Est GFR (Non-African American) 101.5; Magnesium 2.2 mg/dl (1.8-2.4); Potassium 3.8 mmol/L (3.5-5.1)
[2018-10-27] MEDS: FERROUS SULFATE 325 MG TAB PO SCH ×2 (09:45→17:01)
[2018-10-27] MEDS: MULTIVITAMIN TAB PO SCH (09:45)
[2018-10-27] MEDS: ASPIRIN 81 MG ECTAB PO SCH (09:45)
[2018-10-27] MEDS: CLOPIDOGREL BISULFATE 75 MG TAB PO SCH (09:45)
[2018-10-27] MEDS: SODIUM CHLORIDE 1 GM TABLET PO SCH ×2 (09:45→13:23)
[2018-10-27] MEDS: DOCUSATE SODIUM/SENNA 50/8.6MG TAB PO SCH ×2 (09:45→21:15)
--- NOTE | 2018-10-27 10:40 | Nephrology Progress Note ---
Date of Service October 27, 2018 Assessment & Plan (1) Hyponatremia: Mr. Ortega is a 63 yo white male w/ a history of smoking, significant alcohol use, peripheral vascular disease, anxiety depression and arthritis. He was admitted the hospital for a popliteal aneurysm repair and L LE revascualarization He was found to have hyponatremia with relatively high urine osmolality. Sodium was ~125 on admission with a urine osmolality 360. There is report excessive free water intake (alcohol intake reported at 3-6 beers per day for the past several years). Oral solute intake has been low No history of thyroid disease or adrenal insufficiency. Has not been thiazide diuretics. TSH, random cortisol normal. Differentials for hyponatremia include at possibly some component of SIADH with ongoing pain and excessive free water intake. -- Serum sodium remains stable at 129 mmol/L -- Volume status appears appropriate -- NaCl 2 gm BID today -- Maintain 2 L daily fluid restriction -- Monitor metabolic profile daily -- Serum albumin markedly low - unfortunately not tolerating protein supplements -- Electrolytes otherwise acceptable -- AST/ALT remain elevated (noted steatosis on CT scan and chronic alcohol use) - transaminases prohibit use of vaptans (2) PVD (peripheral vascular disease): -- Plan of care discussed with vascular surgery this AM. No plan for additional surgery pending further monitoring (3) Anxiety: (4) GERD (gastroesophageal reflux disease): Subjective Mr. Ortega was seen & examined in his hospital room this morning. His was present at bedside. Pain control improved. He was out of bed and feeling well this morning. Appetite is good. He is moving his bowels. Orthostatic changes in BP have resolved. Gastrointestinal: + heartburn; no abdominal pain, no early satiety, no vomiting , no dysphagia and no diarrhea/loose stools Musculoskeletal: + swelling Physical Exam 2 Vital Signs (Past 24 Hours): Last Vital Signs Temp 36.3 C L 10/27/18 07:31 Pulse 73 10/27/18 07:31 Resp 18 10/27/18 07:31 BP 122/67 10/27/18 07:31 Pulse Ox 98 10/27/18 07:31 Constitutional: WD/WN, vitals as above Eyes: PERRL, conjunctivae normal, anicteric sclerae ENMT: external ear and nose normal, oropharynx normal Neck: trachea midline, no thyromegaly Respiratory: normal respiratory effort, lungs clear to auscultation Cardiovascular: RRR, no murmur, no edema Gastrointestinal (Abdomen): normal bowel sounds, soft, nontender, no hepatosplenomegaly Musculoskeletal: no cyanosis or clubbing, extremities motor strength 5/5 Skin: no rashes, warm and dry Neurologic: moves all extremities and awake Psychiatric: A+Ox3, euthymic affect Results & Data Laboratory Results Laboratory Results - last 24 hr 10/27/18 10/27/18 07:42 07:42 WBC 8.03 RBC 2.60 L Hgb 8.7 L Hct 25.0 L MCV 96.2 MCH 33.5 MCHC 34.8 RDW Std Deviation 50.5 H RDW Coeff of Argelia 14.8 H Plt Count 330 MPV 7.5 Sodium 129 L Potassium 3.8 Chloride 93 L Carbon Dioxide 29 Anion Gap 7.0 BUN 9 Creatinine 0.66 Est Cr Clr Drug Dosing 127.8 Est GFR ( Amer) 117.6 Est GFR (Non-Af Amer) 101.5 BUN/Creatinine Ratio 14.1 Glucose 95 Calcium 7.6 L Magnesium 2.2
--- NOTE | 2018-10-27 12:05 | Surgery Progress Note ---
Date of Service October 27, 2018 Assessment & Plan (1) PVD (peripheral vascular disease): His toes appear slightly better than they did yesterday. Being that he has no rest pain in the toes at this point and his pain is just intermittent I think the best thing to do would be to continue to observe the toes for demarcation. He most likely will end up with a great toe amputation but there is a chance to the we may be able to save the other 4 toes. We will continue his physical therapy. He was able to ambulate in the jesus about 50 feet today without too much difficulty. (2) Hyponatremia: His sodium is 129 today. Subjective This patient is postoperative from a left femoral posterior tibial in situ and embolization of his large aneurysm. Left foot pain is markedly improved. Just intermittent at this point in time prior to surgery it was constant.He denies any wrist pain in his foot at night.He denies any wrist pain in his foot at night. Physical Exam 2 Vital Signs (Past 24 Hours): Last Vital Signs Temp 36.3 C L 10/27/18 07:31 Pulse 73 10/27/18 07:31 Resp 18 10/27/18 07:31 BP 122/67 10/27/18 07:31 Pulse Ox 98 10/27/18 07:31 Constitutional: WD/WN, vitals as above (NAD) Cardiovascular: Vessels: femoral pulses present; + abnormal peripheral pulses (LLE nonpalpable distal pulses. + good doppler signal ant tib at ankle and peroneal. + cap refill 4th and 5th toes. plantar ulcers unchanged.) Extremities: + edema (improved)
--- NOTE | 2018-10-27 14:46 | Hospitalist Progress Note ---
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 CTs of chest/a/p were all negative for masses, but concerning for an occult malignancy. Will arrange further appropriate screenings as outpatient. Dr. Holcomb also reports that he may have some level of hyponatremia from undiagnosed cirrhosis (does have history of 3-6 beers/day drinking). - Continue salt tabs - Fluid restriction per nephrology at 2L - Monitor BMP - Nephrology following - appreciate assistance (2) Acute blood loss anemia: Baseline hgb is 12-13. After surgery, hgb dropped to 9.3, then down to 8.0 by 10/24. B12/folate were normal on 10/23. Ferritin elevated, iron low- normal, and TIBC low. Appears to be anemia of chronic disease. - Started iron supplement - Monitor surgical site and any other signs of bleeding - As of 10/27, is improving at 8.7. (3) PVD (peripheral vascular disease): S/p left femoral-pos tib bypass and popliteal artery aneurysm embolization on 10/[address] Blunt. Per vascular surgery team, flow through bypass is then travelling through collaterals. If bypass occludes, likely would require a BKA. - Continue ASA & Plavix - Tobacco cessation - Post-op management per vascular surgery - Discussed on 10/25 with vascular team who have concern he will need a transmetatarsal amputation next week; however, foot was improved on 10/27 compared to earlier in the week. 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 Other recs for other areas are in chart. - Wound care recs per wound RN (5) HTN (hypertension), benign: BP well-controlled over last 48 hours with range of 90/50-120/60; however , patient was orthostatic on 10/25 with BP 128/55 -> 93/60 with standing. - Continued labetalol 100mg PO BID - After liberalizing fluid restriction, on 10/26, no longer orthostatic (6) Prediabetes: A1c was 5.9% on 10/21. Counseling provided earlier this admission. - Dietary control for now (7) Elevated LFTs: Possibly due to fatty liver which was seen on CT a/p on 10/16. Hepatitis C was tested and negative. - On admission AST/ALT/alk phos/Tbili were 78/101/251/0.6, then on 10/22 improved to 58/62/168/0.4. - Rechecked on 10/24, and they are back up to similar prior levels - Outpatient follow up (8) History of tobacco use: Quit prior to admission. Needs to stay smoke-free if possible. - Cessation encouraged (9) DVT prophylaxis: Lovenox over weekend; hold on Tuesday for possible surgery Subjective 63yo M w/ hx of PAD who presented with left foot ischemia, now s/p femoral-pos tib bypass on 10/20 for a left popliteal artery bypass. Notes left foot hurts today at the stitching site, but only with standing. Able to walk further with PT today compared to yesterday, so making progress. Physical Exam 2 Vital Signs (Past 24 Hours): Last Vital Signs Temp 36.3 C L 10/27/18 07:31 Pulse 73 10/27/18 07:31 Resp 18 10/27/18 07:31 BP 122/67 10/27/18 07:31 Pulse Ox 98 10/27/18 07:31 Constitutional: WD/WN, vitals as above Eyes: EOM intact bilaterally; no conjunctival abnormality ENMT: external ear and nose normal, oropharynx normal Neck: trachea midline, no thyromegaly normal visual inspection Respiratory: normal respiratory effort, lungs clear to auscultation no respiratory distress Cardiovascular: RRR, no murmur, no edema Gastrointestinal (Abdomen): Inspection/Auscultation: abdomen normal to inspection; abdomen not distended Musculoskeletal: no cyanosis or clubbing, extremities motor strength 5/5 Neurologic: moves all extremities and awake Psychiatric: Orientation: alert, oriented to person and cooperative
[2018-10-27 16:54] LABS: Alpha 1 Globulin 0.3 G/DL (0.2-0.3); Alpha 2 Globulin 0.7 G/DL (0.5-0.9); Beta-1-Globulin 0.3 G/DL (0.4-0.6); Beta-2-Globulin 0.5 G/DL (0.2-0.5); Gamma Globulin 0.9 G/DL (0.8-1.7); Monoclonal Protein Band 1 DNR G/DL (NOT DETECTED); Monoclonal Protein Band 2 DNR G/DL (NOT DETECTED); Monoclonal Protein Band 3 DNR G/DL (NOT DETECTED); Total Protein 4.6 G/DL (6.2-8.3)
[2018-10-27] MEDS: TRAMADOL HCL 50 MG TABLET PO PRN (19:26)
[2018-10-27] MEDS: LORazepam 1 MG TAB PO PRN (21:16)
[2018-10-28] MEDS: OXYCODONE/ACETAMINOPHEN 5mg/325mg TAB PO PRN ×6 (03:29→23:38)
[2018-10-28] MEDS: LABETALOL HCL 100 MG TAB PO SCH ×2 (05:45→17:35)
[2018-10-28] MEDS: SODIUM CHLORIDE 1 GM TABLET PO SCH ×2 (07:41→20:20)
[2018-10-28] MEDS: MULTIVITAMIN TAB PO SCH (07:42)
[2018-10-28] MEDS: FERROUS SULFATE 325 MG TAB PO SCH ×2 (07:42→16:35)
[2018-10-28] MEDS: DOCUSATE SODIUM/SENNA 50/8.6MG TAB PO SCH ×2 (07:42→20:20)
[2018-10-28] MEDS: CLOPIDOGREL BISULFATE 75 MG TAB PO SCH (07:42)
[2018-10-28] MEDS: ASPIRIN 81 MG ECTAB PO SCH (07:42)
[2018-10-28 07:52] LABS: Hematocrit (blood only) 24.9 % (42-52); Hemoglobin 8.5 g/dL (14.0-18.0); Mean Corpuscular Hgb Conc 34.1 g/dL (32-36); Mean Corpuscular Volume 95.4 fL (80-100); Mean Platelet Volume 7.5 fL (7.4-10.4); Platelet Count 272 K/uL (130-400); RDW Coefficient of Variation 15.3 % (11.5-14.5); Red Blood Count 2.61 M/uL (4.7-6.1); White Blood Count 7.59 K/uL (4.8-10.8)
[2018-10-28 08:01] LABS: INR 1.1 (0.9-1.1); Partial Thromboplastin Time 24.7 Seconds (21.0-31.0); Prothrombin Time 10.7 Seconds (9.0-12.0)
[2018-10-28 08:19] LABS: BUN Creatinine Ratio 15.8 (10-20); Calcium 7.7 mg/dl (8.5-10.1); Creatinine Clr Calc Pharmacy 124.1 ml/min; Est GFR (African American) 116.2; Est GFR (Non-African American) 100.2; Magnesium 2.1 mg/dl (1.8-2.4); Potassium 3.9 mmol/L (3.5-5.1)
[2018-10-28] MEDS: ENOXAPARIN INJ 40 MG/0.4 ML SYR SQ SCH (09:33)
--- NOTE | 2018-10-28 10:47 | Nephrology Progress Note ---
Date of Service October 28, 2018 Assessment & Plan (1) Hyponatremia: Mr. Ortega is a 63 yo white male w/ a history of smoking, significant alcohol use, peripheral vascular disease, anxiety depression and arthritis. He was admitted the hospital for a popliteal aneurysm repair and L LE revascualarization He was found to have hyponatremia with relatively high urine osmolality. Sodium was ~125 on admission with a urine osmolality 360. There is report excessive free water intake (alcohol intake reported at 3-6 beers per day for the past several years) as well as poor oral solute intake. No history of thyroid disease or adrenal insufficiency. He had not been on thiazide diuretics. TSH, random cortisol normal. Clinical presentation is consistent with photomania and the patient has demonstrated evidence of complicating SIADH. Earlier this week, serum sodium started to fall after fluid restriction was liberalized beyond 2 L daily. -- Serum sodium remains stable at 130 mmol/L. -- Volume status appears euvolemic (though oral mucosa are slightly more dry this AM). -- Will continue NaCl 2 gm BID -- Maintain 2 L daily fluid restriction. -- Check orthostatic vitals daily. -- Monitor metabolic profile daily. -- Serum albumin low - unfortunately not tolerating protein supplements. Adequate dietary protein encouraged. -- Electrolytes otherwise acceptable. -- AST/ALT have been elevated (noted steatosis on CT scan and chronic alcohol use) - transaminases prohibit use of vaptans. There is certainly evidence of underlying chronic liver disease. (2) PVD (peripheral vascular disease): -- Perfusion of foot is improving. No plan for additional surgery at this time. Vascular is following closely. (3) Anxiety: -- Approximately 30 minutes of counseling provided to patient and his today (4) GERD (gastroesophageal reflux disease): Subjective Mr. Ortega was seen & examined in his hospital room this morning. His was present at bedside. Pain control remains acceptable Appetite is good. He believes that perfusion to his foot is improving. He is in better spirits today. He is tolerating the 2 L daily fluid restriction reasonably well. I discussed the plan of care with Dr. Myers this morning. Constitutional: + weakness; no body aches Gastrointestinal: + heartburn; no abdominal pain, no early satiety, no vomiting , no dysphagia and no diarrhea/loose stools Musculoskeletal: + swelling Physical Exam 2 Vital Signs (Past 24 Hours): Last Vital Signs Temp 36.5 C 10/28/18 07:50 Pulse 76 10/28/18 07:50 Resp 20 10/28/18 07:50 BP 120/58 L 10/28/18 07:50 Pulse Ox 100 10/28/18 07:50 Constitutional: WD/WN, vitals as above Eyes: PERRL, conjunctivae normal, anicteric sclerae ENMT: external ear and nose normal, oropharynx normal Neck: trachea midline, no thyromegaly Respiratory: normal respiratory effort, lungs clear to auscultation Cardiovascular: RRR, no murmur, no edema Gastrointestinal (Abdomen): normal bowel sounds, soft, nontender, no hepatosplenomegaly Musculoskeletal: no cyanosis or clubbing, extremities motor strength 5/5 Skin: no rashes, warm and dry Neurologic: moves all extremities and awake Psychiatric: A+Ox3, euthymic affect Results & Data Laboratory Results Laboratory Results - last 24 hr 10/26/18 10/28/18 10/28/18 06:00 07:33 07:33 WBC 7.59 RBC 2.61 L Hgb 8.5 L Hct 24.9 L MCV 95.4 MCH 32.6 MCHC 34.1 RDW Std Deviation 52.0 H RDW Coeff of Argelia 15.3 H Plt Count 272 MPV 7.5 PT 10.7 INR 1.1 APTT 24.7 PTT Ratio 1.0 Sodium Potassium Chloride Carbon Dioxide Anion Gap BUN Creatinine Est Cr Clr Drug Dosing Est GFR ( Amer) Est GFR (Non-Af Amer) BUN/Creatinine Ratio Glucose Calcium Magnesium Total Protein (PEP) 4.6 L Albumin (PEP) 2.0 L Vdnos-0-Iuxcseipu 0.3 Yolya-3-Hevxlvxwo 0.7 Couu-0-Omwznogh 0.3 L Txus-5-Ugewodqf 0.5 Gamma Globulins 0.9 Monoclonal Peak 3 DNR Ser Monoclonl Protein DNR Ser Monoclonal Prot 2 DNR PEP Interpretation SEE NOTE Serum Immunofixation SEE NOTE 10/28/18 07:33 WBC RBC Hgb Hct MCV MCH MCHC RDW Std Deviation RDW Coeff of Argelia Plt Count MPV PT INR APTT PTT Ratio Sodium 130 L Potassium 3.9 Chloride 96 L Carbon Dioxide 27 Anion Gap 7.0 BUN 11 Creatinine 0.68 Est Cr Clr Drug Dosing 124.1 Est GFR ( Amer) 116.2 Est GFR (Non-Af Amer) 100.2 BUN/Creatinine Ratio 15.8 Glucose 105 H Calcium 7.7 L Magnesium 2.1 Total Protein (PEP) Albumin (PEP) Xmrxq-7-Mazihcfrb Jpopy-5-Lyzccidpc Urex-9-Yfaojmhh Guch-7-Xumjhlei Gamma Globulins Monoclonal Peak 3 Ser Monoclonl Protein Ser Monoclonal Prot 2 PEP Interpretation Serum Immunofixation
[2018-10-28] MEDS: TRAMADOL HCL 50 MG TABLET PO PRN ×2 (11:20→20:19)
--- NOTE | 2018-10-28 14:35 | Hospitalist Progress Note ---
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 CTs of chest/a/p were all negative for masses, but concerning for an occult malignancy. Will arrange further appropriate screenings as outpatient. Dr. Holcomb also reports that he may have some level of hyponatremia from undiagnosed cirrhosis (does have history of 3-6 beers/day drinking). - Continue salt tabs - Fluid restriction per nephrology at 2L - Monitor BMP - Nephrology following - appreciate assistance (2) Acute blood loss anemia: Baseline hgb is 12-13. After surgery, hgb dropped to 9.3, then down to 8.0 by 10/24. B12/folate were normal on 10/23. Ferritin elevated, iron low- normal, and TIBC low. Appears to be anemia of chronic disease. - Started iron supplement - Monitor surgical site and any other signs of bleeding - As of 10/28, stable hemoglobin; still low, but no signs of blood loss (3) PVD (peripheral vascular disease): S/p left femoral-pos tib bypass and popliteal artery aneurysm embolization on 10/[address] Blunt. Per vascular surgery team, flow through bypass is then travelling through collaterals. If bypass occludes, likely would require a BKA. - Continue ASA & Plavix - Tobacco cessation - Post-op management per vascular surgery - Discussed on 10/27 with vascular team who feel like the foot is looking better and that he may only need a toe amputation vs. possible conservative care. 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 Other recs for other areas are in chart. - Wound care recs per wound RN (5) HTN (hypertension), benign: BP well-controlled over last 48 hours with range of 90/50-120/60; however , patient was orthostatic on 10/25 with BP 128/55 -> 93/60 with standing. - Continued labetalol 100mg PO BID - After liberalizing fluid restriction, on 10/26, no longer orthostatic - Still looking slightly dry on 10/28; discussed with Dr. Holcomb who will hold off on changes (6) Prediabetes: A1c was 5.9% on 10/21. Counseling provided earlier this admission. - Dietary control for now (7) Elevated LFTs: Possibly due to fatty liver which was seen on CT a/p on 10/16. Hepatitis C was tested and negative. - On admission AST/ALT/alk phos/Tbili were 78/101/251/0.6, then on 10/22 improved to 58/62/168/0.4. - Rechecked on 10/24, and they are back up to similar prior levels - Outpatient follow up (8) History of tobacco use: Quit prior to admission. Needs to stay smoke-free if possible. - Cessation encouraged (9) DVT prophylaxis: Lovenox over weekend; hold on Tuesday for possible surgery Subjective 63yo M w/ hx of PAD who presented with left foot ischemia, now s/p femoral-pos tib bypass on 10/20 for a left popliteal artery bypass. Working with PT and improving distance. Foot feeling stable/maybe mildly improved. Physical Exam 2 Vital Signs (Past 24 Hours): Last Vital Signs Temp 36.5 C 10/28/18 07:50 Pulse 76 10/28/18 07:50 Resp 20 10/28/18 07:50 BP 120/58 L 10/28/18 07:50 Pulse Ox 100 10/28/18 07:50 Constitutional: WD/WN, vitals as above Eyes: EOM intact bilaterally; no conjunctival abnormality ENMT: external ear and nose normal, oropharynx normal Neck: trachea midline, no thyromegaly normal visual inspection Respiratory: normal respiratory effort, lungs clear to auscultation no respiratory distress Cardiovascular: RRR, no murmur, no edema Gastrointestinal (Abdomen): Inspection/Auscultation: abdomen normal to inspection; abdomen not distended Musculoskeletal: no cyanosis or clubbing, extremities motor strength 5/5 Neurologic: moves all extremities and awake Psychiatric: Orientation: alert, oriented to person and cooperative
[2018-10-28] MEDS: LORazepam 1 MG TAB PO PRN (21:40)
[2018-10-29] MEDS: OXYCODONE/ACETAMINOPHEN 5mg/325mg TAB PO PRN ×5 (03:29→21:27)
[2018-10-29 05:29] LABS: Hemoglobin 8.1 g/dL (14.0-18.0); Mean Corpuscular Hgb Conc 33.8 g/dL (32-36); Mean Corpuscular Volume 95.6 fL (80-100); Mean Platelet Volume 7.6 fL (7.4-10.4); Platelet Count 315 K/uL (130-400); RDW Coefficient of Variation 15.5 % (11.5-14.5); RDW Standard Deviation 53.5 fL (36.4-46.3); Red Blood Count 2.51 M/uL (4.7-6.1); White Blood Count 7.72 K/uL (4.8-10.8)
[2018-10-29 05:44] LABS: Calcium 7.5 mg/dl (8.5-10.1); Est GFR (African American) 123.1; Est GFR (Non-African American) 106.2; Potassium 4.3 mmol/L (3.5-5.1)
[2018-10-29] MEDS: LABETALOL HCL 100 MG TAB PO SCH ×2 (06:11→17:43)
[2018-10-29] MEDS: FERROUS SULFATE 325 MG TAB PO SCH ×2 (08:51→17:42)
[2018-10-29] MEDS: CLOPIDOGREL BISULFATE 75 MG TAB PO SCH (08:52)
[2018-10-29] MEDS: MULTIVITAMIN TAB PO SCH (08:52)
[2018-10-29] MEDS: DOCUSATE SODIUM/SENNA 50/8.6MG TAB PO SCH ×2 (08:53→21:24)
[2018-10-29] MEDS: ASPIRIN 81 MG ECTAB PO SCH (08:53)
[2018-10-29] MEDS: SODIUM CHLORIDE 1 GM TABLET PO SCH (08:53)
[2018-10-29] MEDS: ENOXAPARIN INJ 40 MG/0.4 ML SYR SQ SCH (08:54)
--- NOTE | 2018-10-29 10:02 | Nephrology Progress Note ---
Date of Service October 29, 2018 Assessment & Plan (1) Hyponatremia: Mr. Ortega is a 63 yo white male w/ a history of smoking, significant alcohol use, peripheral vascular disease, anxiety depression and arthritis. He was admitted the hospital for a popliteal aneurysm repair and L LE revascualarization. He was found to have hyponatremia with relatively high urine osmolality. Sodium was ~125 on admission with a urine osmolality 360. Excessive free water intake (alcohol intake reported at 3-6 beers per day for the past several years) as well as poor oral solute intake. No history of thyroid disease or adrenal insufficiency. He had not been on thiazide diuretics. TSH, random cortisol normal. Clinical presentation is consistent with photomania with a component of SIADH. Earlier this week, serum sodium started to fall after fluid restriction was liberalized beyond 2 L daily. Sodium is now rising appropriately after fluid restriction restarted. -- Serum sodium slightly low but acceptable at 131 mmol/L. -- Volume status appears euvolemic. -- Will decreased oral NaCl to 1 gram today. -- Maintain 2 L daily fluid restriction. -- Check orthostatic vitals daily. -- Monitor metabolic profile daily. -- Serum albumin low - unfortunately not tolerating protein supplements. Adequate dietary protein encouraged. -- Electrolytes otherwise acceptable. -- AST/ALT have been elevated (noted steatosis on CT scan and chronic alcohol use) - transaminases prohibit use of vaptans. There is certainly evidence of underlying chronic liver disease. (2) PVD (peripheral vascular disease): -- Perfusion of foot is improving. No plan for additional surgery at this time. Vascular is following closely. (3) Anemia: -- Related to acute blood loss following surgery. -- Hgb stable. -- SPEP demonstrates a faint M-spike with restricted band in B2 microglobulin. Immunofix confirms IgG monoclonal spike. Free light chains pending. Hematology follow up as outpatient for monoclonal gammopathy would be suggested. Clinical findings of MM are not seen otherwise. Subjective Mr. Ortega was seen & examined in his hospital room this morning. His was present at bedside. Pain control remains acceptable but pain markedly limits his ability to stand and ambulate and pain medications continue to cause drowsiness. His is concerned that he will not be able to participate in rehab either due to pain or drowsiness. Appetite is good. Patric is tolerating the 2 L daily fluid restriction reasonably well. He denies significant thirst. Constitutional: + fatigue and + weakness; no fever, no chills and no anorexia Gastrointestinal: + constipation; no abdominal pain, no nausea and no diarrhea/ loose stools Musculoskeletal: + back pain and + swelling Physical Exam 2 Vital Signs (Past 24 Hours): Last Vital Signs Temp 36.9 C 10/29/18 07:15 Pulse 74 10/29/18 07:15 Resp 19 10/29/18 07:15 BP 157/81 H 10/29/18 07:15 Pulse Ox 95 10/29/18 07:15 Constitutional: well developed; no acute distress Eyes: sclerae not anicteric and no corneal abnormality ENMT: Mouth: oral mucous membranes not dry Neck: trachea midline, no thyromegaly Respiratory: normal respiratory effort, lungs clear to auscultation Cardiovascular: Rate/Rhythm: regular rate and regular rhythm Heart Sounds: normal S1 and normal S2; no murmur Gastrointestinal (Abdomen): normal bowel sounds, soft, nontender, no hepatosplenomegaly Musculoskeletal: prominent varicosities bilaterally, left lower extremity with pitting edema, incision intact with tatyana faint bright red blood and serous fluid oozing from incision site, evidence of distal ischemia noted Skin: sallow complex, diffuse ecchymosis of the left lower extremity Neurologic: Motor/Sensory: no tremor and no asterixis Psychiatric: Eye Contact: good eye contact Mood: + depressed mood Results & Data Laboratory Results Laboratory Results - last 24 hr 10/29/18 10/29/18 05:00 05:00 WBC 7.72 RBC 2.51 L Hgb 8.1 L Hct 24.0 L MCV 95.6 MCH 32.3 MCHC 33.8 RDW Std Deviation 53.5 H RDW Coeff of Argelia 15.5 H Plt Count 315 MPV 7.6 Sodium 131 L Potassium 4.3 Chloride 98 Carbon Dioxide 30 Anion Gap 3.0 BUN 11 Creatinine 0.59 L Est Cr Clr Drug Dosing 143.0 Est GFR ( Amer) 123.1 Est GFR (Non-Af Amer) 106.2 BUN/Creatinine Ratio 19.0 Glucose 86 Calcium 7.5 L
--- NOTE | 2018-10-29 16:14 | Hospitalist Progress Note ---
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 CTs of chest/a/p were all negative for masses, but concerning for an occult malignancy. Will arrange further appropriate screenings as outpatient. Dr. Holcomb also reports that he may have some level of hyponatremia from undiagnosed cirrhosis (does have history of 3-6 beers/day drinking). - Continue salt tabs - Fluid restriction per nephrology at 2L - Nephrology following - appreciate assistance - Monitor BMP - As of 10/29, Na up to 131 - Nephrology pleased and no changes. (2) Acute blood loss anemia: Baseline hgb is 12-13. After surgery, hgb dropped to 9.3, then down to 8.0 by 10/24. B12/folate were normal on 10/23. Ferritin elevated, iron low- normal, and TIBC low. Appears to be anemia of chronic disease. - Started iron supplement - Monitor surgical site and any other signs of bleeding - As of 10/29, stable hemoglobin; still low (~8), but no signs of blood loss (3) PVD (peripheral vascular disease): S/p left femoral-pos tib bypass and popliteal artery aneurysm embolization on 10/[address] Blunt. Per vascular surgery team, flow through bypass is then travelling through collaterals. If bypass occludes, likely would require a BKA. - Continue ASA & Plavix - Tobacco cessation - Post-op management per vascular surgery - Discussed on 10/27 with vascular team who feel like the foot is looking better and that he may only need a toe amputation vs. possible conservative care. - Vascular surgery will make final amputation determination on Tuesday, then can either discharge to rehab or will need more surgery. 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 Other recs for other areas are in chart. - Wound care recs per wound RN (5) HTN (hypertension), benign: BP well-controlled over last week with range of 90/50-120/60; however, patient was orthostatic on 10/25 with BP 128/55 -> 93/60 with standing. - Continued labetalol 100mg PO BID - Still looking slightly dry on 10/29 (6) Prediabetes: A1c was 5.9% on 10/21. Counseling provided earlier this admission. - Dietary control for now (7) Elevated LFTs: Possibly due to fatty liver which was seen on CT a/p on 10/16. Hepatitis C was tested and negative. - On admission AST/ALT/alk phos/Tbili were 78/101/251/0.6, then on 10/22 improved to 58/62/168/0.4. - Rechecked on 10/24, and they are back up to similar prior levels - Outpatient follow up (8) History of tobacco use: Quit prior to admission. Needs to stay smoke-free if possible. - Cessation encouraged (9) DVT prophylaxis: Lovenox over weekend; hold on Tuesday for possible surgery Dispo: Vascular surgery will make final amputation determination on Tuesday, then can either discharge to rehab or will need more surgery. Subjective 63yo M w/ hx of PAD who presented with left foot ischemia, now s/p femoral-pos tib bypass on 10/20 for a left popliteal artery bypass. Working with PT and improving distance. Foot swells very easily and causes it to hurt. Reports no fevers/chills, chest pain, shortness of breath, abdominal pain, nausea, or vomiting. Physical Exam 2 Vital Signs (Past 24 Hours): Last Vital Signs Temp 37 C 10/29/18 16:07 Pulse 76 10/29/18 16:07 Resp 16 10/29/18 16:07 BP 128/67 10/29/18 16:07 Pulse Ox 97 10/29/18 16:07 Constitutional: WD/WN, vitals as above Eyes: EOM intact bilaterally; no conjunctival abnormality ENMT: external ear and nose normal, oropharynx normal Neck: trachea midline, no thyromegaly normal visual inspection Respiratory: normal respiratory effort, lungs clear to auscultation no respiratory distress Cardiovascular: RRR, no murmur, no edema Gastrointestinal (Abdomen): Inspection/Auscultation: abdomen normal to inspection; abdomen not distended Musculoskeletal: no cyanosis or clubbing, extremities motor strength 5/5 Neurologic: moves all extremities and awake Psychiatric: Orientation: alert, oriented to person and cooperative
[2018-10-29] MEDS: LORazepam 1 MG TAB PO PRN (21:25)
[2018-10-30] MEDS: OXYCODONE/ACETAMINOPHEN 5mg/325mg TAB PO PRN ×5 (03:30→22:33)
[2018-10-30] MEDS: LABETALOL HCL 100 MG TAB PO SCH ×2 (05:23→18:32)
[2018-10-30 06:32] LABS: Hematocrit (blood only) 25.4 % (42-52); Hemoglobin 8.7 g/dL (14.0-18.0); Mean Corpuscular Hgb Conc 34.3 g/dL (32-36); Mean Corpuscular Volume 96.6 fL (80-100); Mean Platelet Volume 7.2 fL (7.4-10.4); Platelet Count 297 K/uL (130-400); RDW Coefficient of Variation 15.8 % (11.5-14.5); Red Blood Count 2.63 M/uL (4.7-6.1); White Blood Count 7.67 K/uL (4.8-10.8)
[2018-10-30 07:00] LABS: BUN Creatinine Ratio 19.2 (10-20); Creatinine Clr Calc Pharmacy 129.8 ml/min; Est GFR (African American) 118.3; Est GFR (Non-African American) 102.1; Potassium 4.3 mmol/L (3.5-5.1)
[2018-10-30 07:04] LABS: Albumin Globulin Ratio 0.5 (0.9-2); Bilirubin,Total 0.5 mg/dl (0.2-1); Globulin 3.8 gm/dl (2.5-4.0); Total Protein 5.8 gm/dl (6.4-8.2)
[2018-10-30] MEDS: CLOPIDOGREL BISULFATE 75 MG TAB PO SCH (08:31)
[2018-10-30] MEDS: ASPIRIN 81 MG ECTAB PO SCH (08:31)
[2018-10-30] MEDS: ENOXAPARIN INJ 40 MG/0.4 ML SYR SQ SCH (08:31)
[2018-10-30] MEDS: FERROUS SULFATE 325 MG TAB PO SCH ×2 (08:31→16:38)
[2018-10-30] MEDS: DOCUSATE SODIUM/SENNA 50/8.6MG TAB PO SCH ×2 (08:31→20:27)
[2018-10-30] MEDS: MULTIVITAMIN TAB PO SCH (08:31)
--- NOTE | 2018-10-30 11:30 | Nephrology Progress Note ---
Date of Service October 30, 2018 Assessment & Plan (1) Hyponatremia: Mr. Ortega is a 63 yo white male w/ a history of smoking, significant alcohol use, peripheral vascular disease, anxiety depression and arthritis. He was admitted the hospital for a popliteal aneurysm repair and L LE revascualarization. He was found to have hyponatremia with relatively high urine osmolality. Sodium was ~125 on admission with a urine osmolality 360. Excessive free water intake (alcohol intake reported at 3-6 beers per day for the past several years) as well as poor oral solute intake. No history of thyroid disease or adrenal insufficiency. He had not been on thiazide diuretics. TSH, random cortisol normal. 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 Earlier this week, serum sodium started to fall after fluid restriction was liberalized beyond 2 L daily. Sodium is now rising appropriately after fluid restriction restarted. -- Serum sodium slightly low but acceptable at 131 mmol/L. -- Volume status appears euvolemic. -- NaCl supplement is currently being held -- Maintain 2 L daily fluid restriction. -- AST/ALT have been elevated (noted steatosis on CT scan and chronic alcohol use) - transaminases prohibit use of vaptans. There is certainly evidence of underlying chronic liver disease. (2) PVD (peripheral vascular disease): -- L DP pulse by doppler only. Vascular surgery is monitoring (3) Anemia: -- Related to acute blood loss following surgery. -- Hgb stable. Will monitor -- SPEP demonstrates a faint M-spike with restricted band in B2 microglobulin. Immunofix confirms IgG monoclonal spike. Free light chains pending. Hematology follow up as outpatient for monoclonal gammopathy would be suggested. Clinical findings of MM are not seen otherwise. Subjective Mr. Ortega was seen & examined in his hospital room this morning. His was present at bedside. Pain control remains acceptable but pain markedly limits his ability to stand and ambulate and pain medications continue to cause drowsiness. Mr. Ortega is tolerating the 2 L daily fluid restriction reasonably well. He denies significant thirst. Constitutional: + fatigue and + weakness; no fever, no chills and no anorexia Gastrointestinal: no abdominal pain, no nausea and no diarrhea/loose stools Physical Exam 2 Vital Signs (Past 24 Hours): Last Vital Signs Temp 36.4 C L 10/30/18 07:48 Pulse 72 10/30/18 07:48 Resp 16 10/30/18 07:48 BP 132/72 10/30/18 07:48 Pulse Ox 96 10/30/18 07:48 Eyes: PERRL, conjunctivae normal, anicteric sclerae Neck: trachea midline, no thyromegaly Respiratory: normal respiratory effort, lungs clear to auscultation Cardiovascular: RRR, no murmur, no edema L DP pulses by doppler only Gastrointestinal (Abdomen): normal bowel sounds, soft, nontender, no hepatosplenomegaly Results & Data Laboratory Results Laboratory Tests 10/30/18 10/30/18 06:21 06:21 WBC 7.67 Hgb 8.7 L Hct 25.4 L Plt Count 297 Sodium 131 L Potassium 4.3 Chloride 97 L Carbon Dioxide 31 Creatinine 0.65
--- NOTE | 2018-10-30 11:56 | Surgery Progress Note ---
Date of Service October 30, 2018 Assessment & Plan (1) S/P femoral-tibial bypass: Pt doing well post op. Significant improvement in pain level since procedure, even with minimal outflow from BPG. Incisions healing well, less drainage and edema. Pain in LLE possibly combination of reperfusion pain vs neuropathy. Pt's foot remains viable. Will reeval in office next week to determine whether amputation is necessary. Ok for d/c to rehab from vascular standpoint. 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 Continue local wound care. No sign of infection. Subjective 63 yo m with multiple medical problems, s/p LLE femoral-post tib in situ bypass and embolization of large pop aneurysm, seen in f/u today. Pt admits pain in L toes and heel with weight bearing. Is anxious for d/c. Physical Exam 2 Vital Signs (Past 24 Hours): Last Vital Signs Temp 36.4 C L 10/30/18 07:48 Pulse 72 10/30/18 07:48 Resp 16 10/30/18 07:48 BP 132/72 10/30/18 07:48 Pulse Ox 96 10/30/18 07:48 Constitutional: WD/WN, vitals as above (NAD) well developed, well nourished and + ill appearing (chronically) Cardiovascular: Vessels: femoral pulses present; + abnormal peripheral pulses (LLE nonpalpable distal pulses. + good doppler signal ant tib at ankle and peroneal. + cap refill 4th and 5th toes. plantar ulcers unchanged.) Extremities: + edema (+3 LLE)
--- NOTE | 2018-10-30 12:43 | Hospitalist Progress Note ---
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 Today, orthopedic surgeon decide follow-up outpatient 1 week to reevaluation of amputation are not, peripheral vascular disease), POD 10 S/p left femoral-pos tib bypass and popliteal artery aneurysm embolization on with Dr. Blunt. Per vascular surgery team, Significant improvement in pain level since procedure, Will reeval in office next week to determine whether amputation is necessary. Ok for d/c to rehab from vascular standpoint. 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 Continue local wound care. 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 Will need to follow-up with cooler service supervisor, Dr. Holcomb also reports that he may have some level of hyponatremia from undiagnosed cirrhosis (does have history of 3-6 beers /day drinking). 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 HTN, stable, continued labetalol 100mg PO BID Prediabetes: A1c was 5.9% on 10/21. Counseling provided earlier this admission , Dietary control for now abn Elevated LFTs: Possibly due to fatty liver which was seen on CT a/p on . Hepatitis C was tested and negative. Need to have outpatient follow-up with PCP o History of tobacco use: Quit prior to admission. Needs to stay smoke-free if possible, Cessation encouraged DVT prophylaxis: Continue on Lovenox Will improve pain management, and behavioral health case manager for discharge plan Subjective 63yo M w/ hx of PAD admitted because of left foot ischemia, s/p femoral-pos tib bypass on 10/20 for a left popliteal artery bypass. Reported left lower extremity pain is better controlled, 5-6 out of 10, however consented above note side effect from pain medicine which cause is confused , or decreased mental status, no fevers/chills, chest pain, shortness of breath, abdominal pain, nausea, or vomiting. Physical Exam 2 Vital Signs (Past 24 Hours): Last Vital Signs Temp 36.4 C L 10/30/18 07:48 Pulse 72 10/30/18 07:48 Resp 16 10/30/18 07:48 BP 132/72 10/30/18 07:48 Pulse Ox 96 10/30/18 07:48 Physical Exam: General Appearance: Frail, no confused, however is chronically ill looking, WD/WN, conversational, no apparent distress, Eyes: normal inspection, PERRL, EOMI, sclerae normal ENT: normal ENT inspection, hearing grossly normal, pharynx normal Neck: supple, no adenopathy, thyroid normal, no JVD, no carotid bruits, trachea midline Respiratory/Chest: chest non-tender, normal breath sounds, no respiratory distress, no accessory muscle use, breath sounds, rales, wheezing Cardiovascular: regular rate, rhythm, no JVD, no murmur Abdomen: normal bowel sounds, non tender, soft, no organomegaly, Extremities: LLE nonpalpable distal pulses. + good doppler signal ant tib at ankle and peroneal. + cap refill 4th and 5th toes. plantar ulcers unchanged, has 2-3+ edema in left lower extremity, recent procedure place tatyana intact, local skin no erythema no swelling, Neurologic/Psychiatric: hose handler II-XII nml as tested, no motor/sensory deficits, alert, normal mood/affect, oriented x 3 Skin: normal color, warm/dry, no rash Lymphatic: no adenopathy Results & Data Laboratory Results Laboratory Results - last 24 hr 10/30/18 10/30/18 10/30/18 06:21 06:21 11:40 WBC 7.67 RBC 2.63 L Hgb 8.7 L Hct 25.4 L MCV 96.6 MCH 33.1 MCHC 34.3 RDW Std Deviation 55.0 H RDW Coeff of [place] 15.8 H Plt Count 297 MPV 7.2 L Sodium 131 L Potassium 4.3 Chloride 97 L Carbon Dioxide 31 Anion Gap 3.0 BUN 13 Creatinine 0.65 Est Cr Clr Drug Dosing 129.8 Est GFR ( Amer) 118.3 Est GFR (Non-Af Amer) 102.1 BUN/Creatinine Ratio 19.2 Glucose 87 Calcium 8.0 L Total Bilirubin 0.5 AST 52 H ALT 64 Alkaline Phosphatase 223 H Total Protein 5.8 L Albumin 2.0 L Globulin 3.8 Albumin/Globulin Ratio 0.5 L Urine Osmolality 793
[2018-10-30] MEDS ORDERED: fentaNYL 12 MCG/HR TDSY TD SCH (14:00)
[2018-10-30] MEDS: LORazepam 1 MG TAB PO PRN ×2 (14:11→22:33)
[2018-10-30] MEDS: CHECK FENTANYL PATCH PLACEMENT SCH (16:37)
[2018-10-30] MEDS: TRAMADOL HCL 50 MG TABLET PO PRN (18:36)
[2018-10-31] MEDS: CHECK FENTANYL PATCH PLACEMENT SCH ×4 (00:17→23:38)
[2018-10-31] MEDS: TRAMADOL HCL 50 MG TABLET PO PRN ×3 (04:24→21:13)
[2018-10-31] MEDS: LABETALOL HCL 100 MG TAB PO SCH ×2 (05:42→17:26)
[2018-10-31] MEDS: ASPIRIN 81 MG ECTAB PO SCH (08:35)
[2018-10-31] MEDS: FERROUS SULFATE 325 MG TAB PO SCH ×2 (08:35→17:25)
[2018-10-31] MEDS: CLOPIDOGREL BISULFATE 75 MG TAB PO SCH (08:35)
[2018-10-31] MEDS: MULTIVITAMIN TAB PO SCH (08:35)
[2018-10-31] MEDS: ENOXAPARIN INJ 40 MG/0.4 ML SYR SQ SCH (08:36)
[2018-10-31] MEDS: DOCUSATE SODIUM/SENNA 50/8.6MG TAB PO SCH ×2 (08:36→20:15)
[2018-10-31 08:39] LABS: Basophils # (auto) 0.02 K/uL (0-0.2); Basophils % (auto) 0.2 %; Eosinophils # (auto) 0.13 K/uL (0-0.5); Eosinophils % (auto) 1.6 %; Hematocrit (blood only) 25.5 % (42-52); Hemoglobin 8.6 g/dL (14.0-18.0); Immature Granulocytes # (auto) 0.02 K/uL (0.00-0.02); Immature Granulocytes % (auto) 0.2 %; Lymphocytes # (auto) 1.55 K/uL (1.2-3.4); Mean Corpuscular Hgb Conc 33.7 g/dL (32-36); Mean Corpuscular Volume 96.6 fL (80-100); Mean Platelet Volume 7.3 fL (7.4-10.4); Monocytes # (auto) 0.87 K/uL (0.11-0.59); Monocytes % (auto) 10.6 %; Neutrophils # (auto) 5.58 K/uL (1.4-6.5); Neutrophils % (auto) 68.4 %; Platelet Count 282 K/uL (130-400); RDW Standard Deviation 55.3 fL (36.4-46.3); Red Blood Count 2.64 M/uL (4.7-6.1); White Blood Count 8.17 K/uL (4.8-10.8)
[2018-10-31] MEDS: OXYCODONE/ACETAMINOPHEN 5mg/325mg TAB PO PRN ×2 (08:42→19:26)
[2018-10-31 09:11] LABS: RBC Morphology Unremarkable
[2018-10-31 09:24] LABS: BUN Creatinine Ratio 17.6 (10-20); Creatinine Clr Calc Pharmacy 145.5 ml/min; Magnesium 2.2 mg/dl (1.8-2.4); Phosphorus 3.4 mg/dl (2.5-4.9)
--- NOTE | 2018-10-31 09:44 | Nephrology Progress Note ---
Date of Service October 31, 2018 Assessment & Plan (1) Hyponatremia: Mr. Ortega is a 63 yo white male w/ a history of smoking, significant alcohol use, peripheral vascular disease, anxiety depression and arthritis. He was admitted the hospital for a popliteal aneurysm repair and L LE revascualarization. He was found to have hyponatremia with relatively high urine osmolality. Sodium was ~125 on admission with a urine osmolality 360. Excessive free water intake (alcohol intake reported at 3-6 beers per day for the past several years) as well as poor oral solute intake. No history of thyroid disease or adrenal insufficiency. He had not been on thiazide diuretics. TSH, random cortisol normal. 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 Earlier this week, serum sodium started to fall after fluid restriction was liberalized beyond 2 L daily. Sodium is now rising appropriately after fluid restriction restarted. -- Serum sodium slightly low but acceptable at ~ 130 mmol/L. -- Volume status appears euvolemic. -- Resume NaCl 1 g po BID -- Maintain 2 L daily fluid restriction. -- If discharge is anticipated please continue NaCl 1 g po BID, 2 L / day oral fluid restriction. Schedule patient to follow up w/ Dr. Curry in 2 weeks of hospital discharge ([phone]) (2) PVD (peripheral vascular disease): -- L DP pulse by doppler only. Vascular surgery is monitoring (3) Anemia: -- Hgb stable. -- SPEP demonstrates a faint M-spike with restricted band in B2 microglobulin. Immunofix confirms IgG monoclonal spike. Free light chains pending. Hematology follow up as outpatient for monoclonal gammopathy would be suggested. Clinical findings of MM are not seen otherwise. Subjective Mr. Ortega was seen & examined in his hospital room this morning. His was present at bedside. Mr. Ortega is awaiting placement at PT/Rehab facility. He voices no new medical concerns this am. Constitutional: + weakness; no fever Physical Exam 2 Vital Signs (Past 24 Hours): Last Vital Signs Temp 36.9 C 10/31/18 07:00 Pulse 75 10/31/18 07:00 Resp 16 10/31/18 07:00 BP 145/83 H 10/31/18 07:00 Pulse Ox 94 10/31/18 07:00 Eyes: PERRL, conjunctivae normal, anicteric sclerae Neck: trachea midline, no thyromegaly Respiratory: normal respiratory effort, lungs clear to auscultation Cardiovascular: RRR, no murmur, no edema Gastrointestinal (Abdomen): normal bowel sounds, soft, nontender, no hepatosplenomegaly Results & Data Laboratory Results Laboratory Tests 10/31/18 10/31/18 08:22 08:22 WBC 8.17 Hgb 8.6 L Hct 25.5 L Plt Count 282 Sodium 129 L Potassium 4.0 Chloride 95 L Carbon Dioxide 28 BUN 10 Creatinine 0.58 L
[2018-10-31] MEDS: SODIUM CHLORIDE 1 GM TABLET PO SCH ×2 (10:12→20:15)
[2018-10-31 12:29] LABS: Free Kappa/Lambda Ratio 0.91 (0.26-1.65); Free Lambda 31.9 MG/L (5.7-26.3)
--- NOTE | 2018-10-31 16:42 | Hospitalist Progress Note ---
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 Today, orthopedic surgeon decide follow-up outpatient 1 week to reevaluation of amputation are not, peripheral vascular disease, POD 11 S/p left femoral-pos tib bypass and popliteal artery aneurysm embolization on with Dr. Blunt. Per vascular surgery team, Significant improvement in pain level since procedure, Will reeval in office next week to determine whether amputation is necessary. Ok for d/c to rehab from vascular standpoint. Patient is planning to go to rehab Ischemic ulcer of foot due to atherosclerosis of the [place] artery of extremity: cont betadine daily and place dry dressings. Continue local wound care. 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 Will need to follow-up with dicer machine operator, Dr. Holcomb also reports that he may have some level of hyponatremia from undiagnosed cirrhosis (does have history of 3-6 beers /day drinking). Today sodium is 129 from 131 yesterday Continue salt tabs, Fluid restriction per nephrology at 2L, per recs If discharge is anticipated will continue NaCl 1 g po BID, 2 L / day oral fluid restriction. Schedule patient to follow up w/ Dr. 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 HTN, stable, continued labetalol 100mg PO BID Prediabetes: A1c was 5.9% on 10/21. Counseling provided earlier this admission , Dietary control for now abn Elevated LFTs: Possibly due to fatty liver which was seen on CT a/p on . Hepatitis C was tested and negative. Need to have outpatient follow-up with PCP o History of tobacco use: Quit prior to admission. Needs to stay smoke-free if possible, Cessation encouraged DVT prophylaxis: Continue on Lovenox Will improve pain management, and porter sample case for discharge plan Subjective Reported left lower extremity pain is much better controlled after start fentanyl patch And generally feeling better, feeling strength as well No more feeling any confused, Patient has a little unhappy about fluid restriction no fevers/chills, chest pain, shortness of breath, abdominal pain, nausea, or vomiting. Physical Exam 2 Vital Signs (Past 24 Hours): Last Vital Signs Temp 37.1 C 10/31/18 15:10 Pulse 77 10/31/18 15:10 Resp 16 10/31/18 15:10 BP 149/69 H 10/31/18 15:10 Pulse Ox 96 10/31/18 15:10
[2018-10-31] MEDS: LORazepam 1 MG TAB PO PRN (21:14)
[2018-11-01] MEDS: OXYCODONE/ACETAMINOPHEN 5mg/325mg TAB PO PRN ×3 (04:35→21:19)
[2018-11-01] MEDS: LABETALOL HCL 100 MG TAB PO SCH ×2 (05:40→18:19)
[2018-11-01] MEDS: TRAMADOL HCL 50 MG TABLET PO PRN ×2 (07:57→18:24)
[2018-11-01] MEDS: CHECK FENTANYL PATCH PLACEMENT SCH ×2 (07:58→16:04)
[2018-11-01 08:40] LABS: Basophils # (auto) 0.04 K/uL (0-0.2); Basophils % (auto) 0.5 %; Eosinophils # (auto) 0.15 K/uL (0-0.5); Eosinophils % (auto) 1.9 %; Hematocrit (blood only) 27.4 % (42-52); Hemoglobin 9.2 g/dL (14.0-18.0); Immature Granulocytes # (auto) 0.01 K/uL (0.00-0.02); Immature Granulocytes % (auto) 0.1 %; Lymphocytes # (auto) 1.56 K/uL (1.2-3.4); Lymphocytes % (auto) 19.7 %; Mean Corpuscular Hgb Conc 33.6 g/dL (32-36); Mean Corpuscular Volume 97.5 fL (80-100); Mean Platelet Volume 7.6 fL (7.4-10.4); Monocytes # (auto) 0.86 K/uL (0.11-0.59); Monocytes % (auto) 10.8 %; Neutrophils # (auto) 5.31 K/uL (1.4-6.5); Platelet Count 300 K/uL (130-400); RDW Coefficient of Variation 16.1 % (11.5-14.5); RDW Standard Deviation 56.9 fL (36.4-46.3); Red Blood Count 2.81 M/uL (4.7-6.1); White Blood Count 7.93 K/uL (4.8-10.8)
[2018-11-01] MEDS: SODIUM CHLORIDE 1 GM TABLET PO SCH ×2 (08:49→21:19)
[2018-11-01] MEDS: ENOXAPARIN INJ 40 MG/0.4 ML SYR SQ SCH (08:49)
[2018-11-01] MEDS: CLOPIDOGREL BISULFATE 75 MG TAB PO SCH (08:49)
[2018-11-01] MEDS: MULTIVITAMIN TAB PO SCH (08:49)
[2018-11-01] MEDS: FERROUS SULFATE 325 MG TAB PO SCH ×2 (08:49→16:04)
[2018-11-01] MEDS: ASPIRIN 81 MG ECTAB PO SCH (08:50)
[2018-11-01] MEDS: DOCUSATE SODIUM/SENNA 50/8.6MG TAB PO SCH ×2 (08:51→21:19)
[2018-11-01 09:07] LABS: BUN Creatinine Ratio 11.5 (10-20); Calcium 7.8 mg/dl (8.5-10.1); Creatinine Clr Calc Pharmacy 109.6 ml/min; Est GFR (African American) 110.4; Est GFR (Non-African American) 95.2; Magnesium 2.2 mg/dl (1.8-2.4); Phosphorus 3.5 mg/dl (2.5-4.9)
--- NOTE | 2018-11-01 09:08 | Surgery Progress Note ---
Date of Service November 01, 2018 Assessment & Plan (1) S/P femoral-tibial bypass: Pt doing well post op. Significant improvement in pain level since procedure, even with minimal outflow from BPG. Incisions healing well, less drainage and edema. Pain in LLE possibly combination of reperfusion pain vs neuropathy. Pt's foot remains viable. Will reeval in office next week to determine whether amputation is necessary. Ok for d/c to rehab from vascular standpoint. 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 Continue local wound care. No sign of infection. Subjective 63 yo m with multiple medical problems, s/p LLE femoral-post tib in situ bypass and embolization of large pop aneurysm, seen in f/u today. Pt states pain is improving and he is becoming more active. Awaiting d/c to rehab. Physical Exam 2 Vital Signs (Past 24 Hours): Last Vital Signs Temp 36.9 C 11/01/18 07:12 Pulse 73 11/01/18 07:12 Resp 18 11/01/18 07:12 BP 161/78 H 11/01/18 07:12 Pulse Ox 94 11/01/18 07:12 Constitutional: WD/WN, vitals as above (NAD) well developed and well nourished; not ill appearing Cardiovascular: Vessels: femoral pulses present; + abnormal peripheral pulses (LLE nonpalpable distal pulses. + good doppler signal ant tib at ankle and peroneal. + cap refill 4th and 5th toes. plantar ulcers unchanged.) Extremities: + edema (+3 LLE)
--- NOTE | 2018-11-01 09:33 | Nephrology Progress Note ---
Date of Service November 01, 2018 Assessment & Plan (1) Hyponatremia: Mr. Ortega is a 63 yo white male w/ a history of smoking, significant alcohol use, peripheral vascular disease, anxiety depression and arthritis. He was admitted the hospital for a popliteal aneurysm repair and L LE revascualarization. He was found to have hyponatremia with relatively high urine osmolality. Sodium was ~125 on admission with a urine osmolality 360. Excessive free water intake (alcohol intake reported at 3-6 beers per day for the past several years) as well as poor oral solute intake. No history of thyroid disease or adrenal insufficiency. He had not been on thiazide diuretics. TSH, random cortisol normal. 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 Earlier this week, serum sodium started to fall after fluid restriction was liberalized beyond 2 L daily. Sodium is now rising appropriately after fluid restriction restarted. -- Serum sodium improved to 131 mmol/L this am -- Volume status appears euvolemic. -- Continue NaCl 1 g po BID -- Maintain 2 L daily fluid restriction. -- If discharge is anticipated please continue NaCl 1 g po BID, 2 L / day oral fluid restriction. Schedule patient to follow up w/ Dr. Curry in 2 weeks of hospital discharge ([phone]) (2) PVD (peripheral vascular disease): -- L DP pulse by doppler only. Vascular surgery is monitoring (3) Anemia: -- Hgb stable. -- SPEP demonstrates a faint M-spike with restricted band in B2 microglobulin. Immunofix confirms IgG monoclonal spike. Free light chain ration is normal. Hematology follow up as outpatient for monoclonal gammopathy has been suggested. Subjective Mr. Ortega was seen & examined in his hospital room this morning. He is awaiting placement at PT/Rehab facility. He voices no new medical concerns this am. Constitutional: no fever Physical Exam 2 Vital Signs (Past 24 Hours): Last Vital Signs Temp 36.9 C 11/01/18 07:12 Pulse 73 11/01/18 07:12 Resp 18 11/01/18 07:12 BP 161/78 H 11/01/18 07:12 Pulse Ox 94 11/01/18 07:12 Eyes: PERRL, conjunctivae normal, anicteric sclerae Neck: trachea midline, no thyromegaly Respiratory: normal respiratory effort, lungs clear to auscultation Cardiovascular: RRR, no murmur, no edema Gastrointestinal (Abdomen): normal bowel sounds, soft, nontender, no hepatosplenomegaly Results & Data Laboratory Results Laboratory Tests 11/01/18 11/01/18 08:31 08:31 WBC 7.93 Hgb 9.2 L Hct 27.4 L Plt Count 300 Sodium 131 L Potassium 4.0 Chloride 95 L Carbon Dioxide 30 BUN 9 Creatinine 0.77 Glucose 89
[2018-11-01] MEDS: LISINOPRIL 5 MG TAB PO SCH (11:38)
[2018-11-01] MEDS: LORazepam 1 MG TAB PO PRN (21:19)
[2018-11-02] MEDS: CHECK FENTANYL PATCH PLACEMENT SCH ×2 (00:27→09:00)
[2018-11-02] MEDS: LABETALOL HCL 100 MG TAB PO SCH (05:13)
[2018-11-02 08:11] LABS: Basophils # (auto) 0.02 K/uL (0-0.2); Basophils % (auto) 0.2 %; Eosinophils # (auto) 0.11 K/uL (0-0.5); Eosinophils % (auto) 1.3 %; Hematocrit (blood only) 26.1 % (42-52); Hemoglobin 8.8 g/dL (14.0-18.0); Immature Granulocytes # (auto) 0.02 K/uL (0.00-0.02); Immature Granulocytes % (auto) 0.2 %; Lymphocytes # (auto) 1.36 K/uL (1.2-3.4); Lymphocytes % (auto) 16.1 %; Mean Corpuscular Hgb Conc 33.7 g/dL (32-36); Mean Corpuscular Volume 98.1 fL (80-100); Mean Platelet Volume 7.4 fL (7.4-10.4); Monocytes % (auto) 8.3 %; Neutrophils # (auto) 6.24 K/uL (1.4-6.5); Neutrophils % (auto) 73.9 %; Platelet Count 250 K/uL (130-400); RDW Coefficient of Variation 16.4 % (11.5-14.5); RDW Standard Deviation 57.4 fL (36.4-46.3); Red Blood Count 2.66 M/uL (4.7-6.1); White Blood Count 8.45 K/uL (4.8-10.8)
[2018-11-02 08:31] LABS: BUN Creatinine Ratio 15.9 (10-20); Calcium 7.9 mg/dl (8.5-10.1); Creatinine Clr Calc Pharmacy 150.7 ml/min; Est GFR (African American) 125.8; Est GFR (Non-African American) 108.5
[2018-11-02 08:39] LABS: RBC Morphology Unremarkable
[2018-11-02] MEDS: FERROUS SULFATE 325 MG TAB PO SCH (09:00)
[2018-11-02] MEDS: CLOPIDOGREL BISULFATE 75 MG TAB PO SCH (09:15)
[2018-11-02] MEDS: ENOXAPARIN INJ 40 MG/0.4 ML SYR SQ SCH (09:15)
[2018-11-02] MEDS: MULTIVITAMIN TAB PO SCH (09:15)
[2018-11-02] MEDS: SODIUM CHLORIDE 1 GM TABLET PO SCH (09:17)
[2018-11-02] MEDS: DOCUSATE SODIUM/SENNA 50/8.6MG TAB PO SCH (09:17)
[2018-11-02] MEDS: ASPIRIN 81 MG ECTAB PO SCH (09:17)
[2018-11-02] MEDS: LISINOPRIL 5 MG TAB PO SCH (09:18)
[2018-11-02] MEDS: OXYCODONE/ACETAMINOPHEN 5mg/325mg TAB PO PRN (09:33)
--- NOTE | 2018-11-02 09:36 | Nephrology Progress Note ---
Date of Service November 02, 2018 Assessment & Plan (1) Hyponatremia: Mr. Ortega is a 63 yo white male w/ a history of smoking, significant alcohol use, peripheral vascular disease, anxiety depression and arthritis. He was admitted the hospital for a popliteal aneurysm repair and L LE revascualarization. He was found to have hyponatremia with relatively high urine osmolality. Sodium was ~125 on admission with a urine osmolality 360. Excessive free water intake (alcohol intake reported at 3-6 beers per day for the past several years) as well as poor oral solute intake. No history of thyroid disease or adrenal insufficiency. He had not been on thiazide diuretics. TSH, random cortisol normal. 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 Earlier this week, serum sodium started to fall after fluid restriction was liberalized beyond 2 L daily. Sodium is now rising appropriately after fluid restriction restarted. -- Serum sodium improved to 131 mmol/L this am -- Volume status appears euvolemic. -- Continue NaCl 1 g po BID -- Maintain 2 L daily fluid restriction. -- If discharge is anticipated please continue NaCl 1 g po BID, 2 L / day oral fluid restriction. Schedule patient to follow up w/ Dr. Curry in 2 weeks of hospital discharge ([phone]). -- Will sign off. Please call if further Nephrology assistance is needed (2) PVD (peripheral vascular disease): -- L DP pulse by doppler only. Vascular surgery is monitoring (3) Anemia: -- Hgb stable. -- SPEP demonstrates a faint M-spike with restricted band in B2 microglobulin. Immunofix confirms IgG monoclonal spike. Free light chain ration is normal. Hematology follow up as outpatient for monoclonal gammopathy has been suggested. Subjective Mr. Ortega was seen & examined in his hospital room this morning. He is awaiting placement at PT/Rehab facility. He voices no new medical concerns this am. Musculoskeletal: + back pain and + swelling Physical Exam 2 Vital Signs (Past 24 Hours): Last Vital Signs Temp 36.6 C 11/02/18 07:37 Pulse 79 11/02/18 07:37 Resp 17 11/02/18 07:37 BP 153/80 H 11/02/18 07:37 Pulse Ox 94 11/02/18 07:37 Eyes: PERRL, conjunctivae normal, anicteric sclerae Neck: trachea midline, no thyromegaly Respiratory: normal respiratory effort, lungs clear to auscultation Cardiovascular: RRR, no murmur, no edema Gastrointestinal (Abdomen): normal bowel sounds, soft, nontender, no hepatosplenomegaly Results & Data Laboratory Results Laboratory Tests 11/02/18 11/02/18 07:59 07:59 WBC 8.45 Hgb 8.8 L Hct 26.1 L Plt Count 250 Sodium 131 L Potassium 4.0 Chloride 97 L Carbon Dioxide 28 BUN 9 Creatinine 0.56 L
--- NOTE | 2018-11-02 14:57 | Discharge Summary ---
Date of Service November 02, 2018 Principal Diagnosis no Discharge Data Allergies Allergy/AdvReac Type Severity Reaction Status Date / Time Penicillins Allergy Severe Rash Verified 10/18/18 09:39 Consultations 10/18/18 12:35 Consult Hospitalist Routine 10/19/18 10:11 Consult Nephrology Routine 10/19/18 10:20 Consult Vascular Surgery Routine 10/20/18 18:36 Consult Electronic Imager Routine 10/21/18 08:00 Consult Case Management - Discharge Planning Routine Procedures Performed Operation Date: 10/18/18 11:25 <No data on this case meets the specified criteria> Operation Date: 10/20/18 10:20 <No data on this case meets the specified criteria> Operation Date: 10/20/18 11:50 Actual Procedures p Left Femoral Posterior Tibial Bypass, Inside tube Bypasss and Coil Embolisam of left popliteal Aneurysm(Left) - Carlos Ellison MD Ordered Studies 10/20/18 10:51 EV angio LE LT Routine 10/20/18 20:06 US point of care ultrasound Routine 10/22/18 10:39 CT chest wo con Routine Hospital Course (1) Hyponatremia: (2) Acute blood loss anemia: (3) PVD (peripheral vascular disease): (4) 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 orthopedic surgeon decide follow-up outpatient 1 week to reevaluation of amputation are not, peripheral vascular disease, POD 12 S/p left femoral-pos tib bypass and popliteal artery aneurysm embolization on with Dr. Ellison. Per vascular surgery team, Significant improvement in pain level since procedure, Will reeval in office next week to determine whether amputation is necessary. 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 Continue local wound care. 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 Will need to follow-up with filter press tender head, will continue NaCl 1 g po BID, 2 L / day oral fluid restriction. Schedule patient to follow up w/ Dr. 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 HTN, stable, continued labetalol 100mg PO BID Prediabetes: A1c was 5.9% on 10/21. Counseling provided earlier this admission , Dietary control for now abn Elevated LFTs: Possibly due to fatty liver which was seen on CT a/p on . Hepatitis C was tested and negative. Need to have outpatient follow-up with PCP History of tobacco use: Quit prior to admission. Needs to stay smoke-free if possible, Cessation encouraged DVT prophylaxis: Continue on Lovenox Upon discharge instructions include need to be reevaluated by Dr. ellison in office next week to determine whether amputation is necessary. I talked to Dr. Parks Eliquis should be stopped. continue Tobacco cessation Subjective upon discharge, left lower extremity pain is better controlled, no fevers/chills, chest pain, shortness of breath, abdominal pain, nausea, or vomiting. Physical Exam upon discharge General Appearance: Frail, no confused, much pleasant, however is chronically ill looking, WD/WN, conversational, no apparent distress, Eyes: normal inspection, PERRL, EOMI, sclerae normal ENT: normal ENT inspection, hearing grossly normal, pharynx normal Neck: supple, no adenopathy, thyroid normal, no JVD, no carotid bruits, trachea midline Respiratory/Chest: chest non-tender, normal breath sounds, no respiratory distress, no accessory muscle use, breath sounds, rales, wheezing Cardiovascular: regular rate, rhythm, no JVD, no murmur Abdomen: normal bowel sounds, non tender, soft, no organomegaly, Extremities: LLE nonpalpable distal pulses. + good doppler signal ant tib at ankle and peroneal. + cap refill 4th and 5th toes. plantar ulcers unchanged, has 2-3+ edema in left lower extremity, recent procedure place tatyana intact, local skin no erythema no swelling, Neurologic/Psychiatric: vp informatics II-XII nml as tested, no motor/sensory deficits, alert, normal mood/affect, oriented x 3 Skin: normal color, warm/dry, no rash Lymphatic: no adenopathy Lab data upon discharge: Laboratory Results - last 24 hr 11/02/18 11/02/18 07:59 07:59 WBC 8.45 RBC 2.66 L Hgb 8.8 L Hct 26.1 L MCV 98.1 MCH 33.1 MCHC 33.7 RDW Std Deviation 57.4 H RDW Coeff of Argelia 16.4 H Plt Count 250 MPV 7.4 Immature Gran % (Auto) 0.2 Neut % (Auto) 73.9 Lymph % (Auto) 16.1 Greer % (Auto) 8.3 Eos % (Auto) 1.3 Baso % (Auto) 0.2 Immature Gran # (Auto) 0.02 Neut # (Auto) 6.24 Lymph # (Auto) 1.36 Greer # (Auto) 0.70 H Eos # (Auto) 0.11 Baso # (Auto) 0.02 RBC Morphology Unremarkable Sodium 131 L Potassium 4.0 Chloride 97 L Carbon Dioxide 28 Anion Gap 6.0 BUN 9 Creatinine 0.56 L Est Cr Clr Drug Dosing 150.7 Est GFR ( Amer) 125.8 Est GFR (Non-Af Amer) 108.5 BUN/Creatinine Ratio 15.9 Glucose 92 Calcium 7.9 L Total Time Total Time Spent Total Time Spent (In Minutes): 35 Total Time Includes: Examination of the Patient, Discharge Planning, Medication Reconciliation and Communication With Other Providers Discharge Plan Discharge Items Patient Disposition[facility] Reason For Visit: Left Popliteal Artery Aneurysm Discharge Diagnosis: peripheral vascular disease S/p left femoral-pos tib bypass and popliteal artery aneurysm embolization on with Dr. Ellison. Condition: Fair Discharge Goals: Decrease discomfort, Diagnostic testing, Improve disease control, Improve function and Increase independence Activity: Resume your previous activity Non-emergency contact: Primary Care Provider, Surgeon and Specialist Call non-emergency contact if: you have any medication questions Diet: Heart Healthy and Low Sodium (2gm) Addtl Provider Instructions: you have peripheral vascular disease, POD 12 you need to be reevaluated by Dr. ellison in office next week to determine whether amputation is necessary. you need to continue wound care in the Ischemic ulcer of foot, cont betadine daily and place dry dressings. Continue ASA & Plavix I talked to Dr. Ellison, your Eliquis should be stopped. continue Tobacco cessation you have Hyponatremia, need to continue NaCl 1 g po BID, 2 L / day oral fluid restriction. Schedule patient to follow up w/ Dr. Curry in 2 weeks of hospital discharge ([phone]) you need to follow up with your primary care physician in 1 week, - take medication as instructed, never overdose or any misuse, or take with alcohol, because misuse of medicine may cause organ damage or , call me , or your primary care physician if have questions of discharge medicaitons. - call your primary care physician, or go to local emergency room if has any fever/chill, chest pain, shortness of breathing, nausea/vomiting/abdominal pain , facial droop/slurry speech/local weakness, or if has any questions. - fall precaution - diet as instructed - you need to follow up with your subspecialist, such as Dr. Ellison, and Dr Deidra Curry Prescriptions: New multivitamin [Daily-Seth] Tablet 1 tab PO QAM 30 Days Qty: 30 RF: 0 sennosides-docusate sodium [Senna with Docusate Sodium] 8.6-50 mg Tablet 1 tab PO BID PRN (Reason: constiaption) 7 Days Qty: 14 RF: 0 sodium chloride 1 gram Tablet 1 g PO BID 14 Days Qty: 28 RF: 0 clopidogrel 75 mg Tablet 75 mg PO QAM 30 Days Qty: 30 RF: 0 oxycodone-acetaminophen [Percocet] 5-325 mg Tablet 1 tab PO Q6 PRN (Reason: pain>5/10) 3 Days Qty: 10 RF: 0 lisinopril [Zestril] 5 mg Tablet 5 mg PO QAM 30 Days Qty: 30 RF: 0 labetalol 100 mg Tablet 100 mg PO Q12@0600,1800 30 Days Qty: 90 RF: 0 ferrous sulfate 325 mg (65 mg iron) Tablet,Delayed Release (Dr/Ec) 325 mg PO BIDM 30 Days Qty: 60 RF: 0 fentanyl 12 mcg/hr Patch 72 Hour 12 mcg Transdermal Q3D 6 Days Qty: 2 RF: 0 Continue aspirin [Aspirin Low Dose] 81 mg Tablet,Delayed Release (Dr/Ec) 81 mg PO QAM RF: 0 echinacea 500 mg Capsule 500 mg PO BID RF: 0 ibuprofen [Motrin IB] 200 mg Tablet 600 mg PO BID PRN (Reason: Pain) RF: 0 esomeprazole magnesium [Nexium] 20 mg Capsule,Delayed Release(Dr/Ec) 40 mg PO HS RF: 0 Black Berg 1 tab PO BID RF: 0 Discontinued apixaban [Eliquis] 5 mg Tablet 10 mg PO BID RF: 0 sulfamethoxazole-trimethoprim [Bactrim DS] 800-160 mg Tablet 1 tab PO BID RF: 0 oxycodone-acetaminophen [Percocet] 5-325 mg Tablet 1 tab PO Q4H PRN (Reason: Pain) RF: 0 Stand-Alone Forms: [facility] [place], [facility] Discharge Orders: Discharge Order (Routine); Ordered 11/02/18 Ordered By: Sergei Goodman Skilled Items Patient informed of condition?: Yes DNR: No Discharge Level of Care: Skilled Communicable Disease: No Discharge Prognosis: Stable Admission Data Admit Date/Time: 10/18/18 14:08 Attending Provider: Sergei Goodman Admit Provider: Sergei Goodman Primary Care Provider: Sergei Goodman Other Providers: Abelardo Goode ; Teresa Lancaster ; Ellen Posada ; Dave Weiss ; Severo Alas ; Mj Acosta ; Sergei Goodman ; Mitch Law ; Anthony Pretty ; Joie Rai ; Anupama Villa ; Juanita Parada ; Thomas Freeman ; Ivon Harris ; Chace Lamb ; Masha Pathak ; Shwetha Harris ; Adamaris Day ; Geri Melissa ; Hossein Lopez ; Jewels Weiss ; Rae Chacko ; Devonte Roldan ; Carlos Ellison ; Olvin Trinidad ; Yolette Patel ; Quentin Myers. Service: Telemetry Other Interventions: Discharge Summary Assessment (RN) Last Done: 11/02/18 09:38 DC Date/Time DO NOT enter until pt leaves facility: 11/02/18 10:00
--- NOTE | 2018-11-02 15:12 | Hospitalist Progress Note ---
Date of Service November 01, 2018 Assessment & Plan (1) Hyponatremia: (2) Acute blood loss anemia: (3) PVD (peripheral vascular disease): (4) Ischemic ulcer of foot due to atherosclerosis of mcgrath artery of extremity : \ (5) HTN (hypertension), benign: (6) Prediabetes: (7) Elevated LFTs: (8) History of tobacco use: (9) DVT prophylaxis: 63yo M w/ hx of PAD admitted because of left foot ischemia, now s/p femoral-pos tib bypass on 10/20 for a left popliteal artery bypass. orthopedic surgeon decide follow-up outpatient 1 week to reevaluation of amputation are not, peripheral vascular disease, POD 11 S/p left femoral-pos tib bypass and popliteal artery aneurysm embolization on with Dr. Blunt. Per vascular surgery team, Significant improvement in pain level since procedure, Will reeval in office next week to determine whether amputation is necessary. Patient is discharged to longterm, was pending for discharge planning per manager case Ischemic ulcer of foot due to atherosclerosis of mcgrath artery of extremity: Stable, cont betadine daily and place dry dressings. Continue local wound care. 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 Will need to follow-up with thermite welder, will continue NaCl 1 g po BID, 2 L / day oral fluid restriction. Schedule patient to follow up w/ Dr. Curry in 2 weeks of hospital discharge ([phone]) Acute blood loss anemia: Stable hemoglobin is 8.8 today, Ischemic ulcer of foot due to atherosclerosis of mcgrath artery of extremity: Continue wound care with Betadine every day. HTN, stable, continued labetalol 100mg PO BID Prediabetes: A1c was 5.9% on 10/21. Counseling provided earlier this admission , Dietary control for now abn Elevated LFTs: Possibly due to fatty liver which was seen on CT a/p on . Hepatitis C was tested and negative. Need to have outpatient follow-up with PCP History of tobacco use: Quit prior to admission. Needs to stay smoke-free if possible, Cessation encouraged DVT prophylaxis: Continue on Lovenox Subjective left lower extremity pain is much better controlled after start fentanyl patch Generally feeling most variance, appetite is better, Review of Systems Constitutional: Positive weakness, or fatigue Respiratory: Occasional cough, no sputum, wheezing, or dyspnea on exertion Cardiac: No chest pain, No orthopnea, Abdomen: No pain, No nausea, No vomiting, No diarrhea, No constipation, No GI bleeding Musculoskeletal: No joint pain, No muscle pain, No swelling, No calf pain, No problem reported : No dysuria, No urinary frequency, No incontinence, No hematuria Neurologic: No paralysis, No weakness, No numbness/tingling, Psychiatric: No depression symptoms, No anhedonism, No anxiety Heme: No abnormal bleeding/bruising, No clotting problems, Skin: Left lower extremity previous incision tatyana , looks good , no hot or drainage use, nontender,, no itch, No new/changing skin lesions, No color change , No bleeding Physical Exam 2 Vital Signs (Past 24 Hours): Last Vital Signs Temp 36.6 C 11/02/18 09:38 Pulse 76 11/02/18 09:38 Resp 17 11/02/18 09:38 BP 124/64 11/02/18 09:38 Pulse Ox 94 11/02/18 09:38 Physical Exam: Head atraumatic PERRL, conjunctivae normal, anicteric sclerae Neck trachea midline, no thyromegaly Respiratory normal respiratory effort, lungs clear to auscultation Cardiovascular RRR, no murmur, no edema Gastrointestinal normal bowel sounds, soft, nontender, no hepatosplenomegaly Left lower extremity previous incision tatyana , looks good , no hot or drainage use, nontender,,
--- NOTE | 2018-11-03 08:21 | Operative Report ---
Post Operative Report Pre & Post Diagnosis Operation Date: 10/18/18 11:25 <No data on this case meets the specified criteria> Operation Date: 10/20/18 10:20 <No data on this case meets the specified criteria> Operation Date: 10/20/18 11:50 Pre-Op Diagnosis: Left Popliteal Artery Aneurysm Post-Op Diagnosis: Left Popliteal Artery Aneurysm Procedure Operation Date: 10/18/18 11:25 <No data on this case meets the specified criteria> Operation Date: 10/20/18 10:20 <No data on this case meets the specified criteria> Operation Date: 10/20/18 11:50 Actual Procedures p Left Femoral Posterior Tibial Bypass, Inside tube Bypasss and Coil Embolisam of left popliteal Aneurysm(Left) - Carlos Blunt MD Surgeon Carlos Blunt MD Security Messenger Deisi Espinosa PAC Estimated Blood Loss 750 Findings Consistent with Post-Op Diagnosis Specimens None Anesthesia Type General Complications none Disposition Accompanied Patient To Recovery: No Disposition: Recovery Room Indications This is a 63-year-old gentleman enlarged to 6 cm popliteal artery aneurysm the left lower extremity. He has occluded popliteal distally. Bypass was nubia mmended with possible embolization of the aneurysm. I have discussed the risks options and benefits of the procedure with the patient. The patient understands the risks options and benefits and agrees to the procedure. Description of Procedure Patient was taken to the operating placed in the supine position. The left lower extremity then prepped and draped in a sterile manner after general anesthesia was accomplished. Longitudinal groin incision was then made in the left groin. This was carried down to where the common femoral arteries ident ified. Is isolated from the bifurcation. The superficial femoral and profunda femoral arteries were isolated just beyond their origins. The saphenous vein was identified at that level that was of good caliber. We then made an incision down in the medial calf. This carried down through the posterior tibial artery was identified. It was fairly calcified. There is one area which was fairly soft which would use for anastomosis. Saphenous vein located in this area was very usable. The patient was then heparinized. The saphenous vein was then divided at the saphenofemoral junction. The proximal branches were divided and ligated. The compromise then clamped proximally distally. A longitudinal arteriotomy was then made. The saphenous vein was then beveled and anastomosed to the common femoral artery using a 5-0 Prolene suture in usual vascular fashion. The first valve of the saphenous vein was divided under direct vision. The distal saphenous vein was then transected and ligated distally. Using an LeMaitre valve cutters the valves are cut. Excellent flow was seen through the the saphenous vein at that time. We then clamped the posterior tibial artery proximally distally. A longitudinal arteriotomy was then made. Using a Dagoberto catheter we checked the patency of the distal artery. It only went a short distance and then would not travel any further. We then explored the posterior tibial artery at the ankle. There was no lumen at this level. The anterior tibial peroneal arteries were chronically occluded according to the none invasive studies. We decided to sew the graft onto the posterior tibial in the mid calf. This was done after the saphenous vein was trimmed to appropriate length and beveled. An end-to-side anastomosis was accomplished using a 7-0 Prolene suture. Once this was completed clamps were removed. There is actually retrograde flow up into the calf which sounded fairly good to Doppler. We did do a completion angiogram which showed 2 large side branches which were ligated by making 2 small incisions over these areas. The distal anastomosis is widely patent. Of contrast went down a short distance through the posterior tibial but did have retrograde fill up into the proximal calf and down the calf through what appeared to be the peroneal artery. At that point we decided nothing further can be done as far as bypasses. Adequate hemostasis was obtained of all the suture lines in the wounds. We then punctured the femoral artery beyond the anastomosis and placed the 9 [place] sheath. We then passed the 8 [place] glide catheter to the proximal aneurysm. We then placed a 20 Amplatzer plug in the superficial femoral artery right at the origin of the aneurysm sac. Injection done at that time of contrast showed no flow into the sac. The sheath was then pulled and puncture was good closed with a 5-0 Prolene suture. Wounds were then closed in usual fashion using running 3-0 Vicryl suture for the subcutaneous layer and running 2-0 Vicryl for the femoral sheath. [place] were used for all the skin incisions. Sterile dressings were applied to the wounds.The patient left the operation room in satisfactory condition and tolerated the procedure well. All needle and sponge counts were correct at the end of the procedure. Magaly Espinosa Pac assisted due to lack of resident availability and was necessary for positioning, draping, retraction, wound closure deep layers, subcutaneous tissue, and skin closure and was necessary for assisting with the case. I attest to the content of the Intraoperative Record and any orders documented therein. Any exceptions are noted below.
== END 2018-11-02 10:00 | DRG 253 ==
LOC: ASU 09:03 → 2W 14:08 → SUATTDRO 14:08 → SUPCPDRO 14:08 → ASU 15:23 → 1E 10-20 18:35 → 3W 10-21 10:57

== ENCOUNTER 2018-11-14 10:23 | Inpatient (IN) ==
--- NOTE | 2018-11-10 14:35 | Anesthesiology Consultation ---
Date of Service November 10, 2018 Assessment & Plan (1) Encounter for pre-operative examination: Plan: CHECK SODIUM STAT AM DOS. Pt is S/P pop-tib bypass 10/18/18 @ [facility]. MAC 3, ETT 8.0, Grade view I, "smooth IV induction, atraumatic ET intubation." Chart Review Chart Review: Acceptable Risk for Surgery and Patient NOT seen in Pre Admission Testing History Surgery Operation Date: 11/14/18 11:30 Proposed Procedures p Left Transmetatarsal Amputation - Carlos Blunt MD Height/Weight Height: 5 ft 10 in Weight: 93 kg Allergies Allergy/AdvReac Type Severity Reaction Status Date / Time Penicillins Allergy Severe Rash Verified 10/18/18 09:39 Medications Home Medications Medication Instructions Recorded Confirmed Last Taken Black Berg 1 tab PO BID 10/17/18 10/18/18 10/11/18 08:00 aspirin [Aspirin Low Dose] 81 mg PO QAM 10/17/18 10/18/18 10/17/18 08:00 echinacea 500 mg PO BID 10/17/18 10/18/18 10/11/18 08:00 esomeprazole magnesium [Nexium] 40 mg PO HS 10/17/18 10/18/18 10/16/18 20:00 ibuprofen [Motrin IB] 600 mg PO BID PRN 10/17/18 10/18/18 Unknown clopidogrel 75 mg PO QAM 30 Days #30 tab 11/02/18 Unknown ferrous sulfate 325 mg PO BIDM 30 Days #60 tab 11/02/18 Unknown labetalol 100 mg PO Q12@0600,1800 30 Days 11/02/18 Unknown #90 tab lisinopril [Zestril] 5 mg PO QAM 30 Days #30 tab 11/02/18 Unknown multivitamin [Daily-Seth] 1 tab PO QAM 30 Days #30 tab 11/02/18 Unknown sodium chloride 1 g PO BID 14 Days #28 tab 11/02/18 Unknown Past Medical History Medical History HTN (hypertension), benign Prediabetes Elevated LFTs PVD (peripheral vascular disease) S/P femoral posterior tibial bypass with L embolization popliteal artery . On Eliquis. History of tobacco use Anxiety Pt specifically reports fear of doctors/hospitals GERD (gastroesophageal reflux disease) Osteoarthritis Hyponatremia (131) Stable at discharge from [facility] 11/02. 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 Will need to follow-up with bi manager, will continue NaCl 1 g po BID, 2 L / day oral fluid restriction." per discharge summary 11/02. GERD (gastroesophageal reflux disease) Hand trauma AGE 17, MISSING PART OF LEFT HAND Ischemic ulcer of foot Osteoarthritis Past Surgical History Surgical History H/O hand surgery FROM LEFT HAND TRAUMA AND PART OF HAND WAS CUT OFF. History of arthroscopy RIGHT KNEE CARTILAGE REPAIR S/P popliteal-tibial bypass 10/18/[address] Blunt at [facility]. MAC 3, ETT 8.0. Grade view I. "Smooth IV induction, atraumatic ET intubation" Social History Smoking Status: Former smoker tobacco type: cigarettes Hx Alcohol Use: Yes Alcohol type: beer alcohol intake frequency: 0-2 drinks per day Hx Substance Use: No substance use type: does not use Testing Electrocardiogram Date: 10/18/18 Sinus rhythm at 82 bpm with first-degree AV block with premature supraventricular complexes. Chest X-Ray Date: 10/18/18 Findings: + NAD Other Testing Chect CT 10/22/18 1. Mild to moderate emphysema. 2. No masses identified within the chest. 3. Mild elevation the left hemidiaphragm. 4. Bibasilar linear densities favor subsegmental atelectasis. 5. Hepatic steatosis. Laboratory Results Laboratory Tests 11/02/18 11/02/18 07:59 07:59 WBC 8.45 Hgb 8.8 L Hct 26.1 L Plt Count 250 Sodium 131 L Potassium 4.0 Chloride 97 L Carbon Dioxide 28 BUN 9 Creatinine 0.56 L Glucose 92
--- NOTE | 2018-11-13 11:59 | PAT Medication Instructions ---
Medication Instructions Date of Service November 13, 2018 Home Medications Medication Instructions Recorded labetalol 100 mg PO Q12@0600,1800 30 Days 11/02/18 #90 tab Black Berg 1 tab PO BID aspirin [Aspirin Low Dose] 81 mg PO QAM echinacea 500 mg PO BID esomeprazole magnesium [Nexium] 40 mg PO HS ibuprofen [Motrin IB] 600 mg PO BID NEEDED clopidogrel 75 mg PO QAM ferrous sulfate 325 mg PO BIDM labetalol 100 mg PO Q12@0600,1800 lisinopril [Zestril] 5 mg PO QAM multivitamin [Daily-Seth] 1 tab PO QAM sodium chloride 1 g PO BID ASK your surgeon for instructions ibuprofen [Motrin IB] 600 mg PO BID NEEDED ASK your prescriber and surgeon aspirin [Aspirin Low Dose] 81 mg PO QAM clopidogrel 75 mg PO QAM STOP taking 2 weeks before surgery Black Berg 1 tab PO BID echinacea 500 mg PO BID DO NOT take the morning of surgery ferrous sulfate 325 mg PO BIDM lisinopril [Zestril] 5 mg PO QAM multivitamin [Daily-Seth] 1 tab PO QAM sodium chloride 1 g PO BID Take morning of surgery With a small sip of water, OTHERWISE NOTHING TO EAT OR DRINK AFTER MIDNIGHT: labetalol 100 mg PO Q12@0600,1800 Take evening before surgery esomeprazole magnesium [Nexium] 40 mg PO HS ferrous sulfate 325 mg PO BIDM labetalol 100 mg PO Q12@0600,1800 sodium chloride 1 g PO BID Other Notes If you have any questions please call us at [phone] or [phone] or [phone] or [phone]
[~2018-11-14 10:23] MED LIST changes: -SODIUM CHLORIDE 0.9% 1000ML IV SCH
[2018-11-14 11:15] LABS: Hematocrit (blood only) 32.6 % (42-52); Hemoglobin 10.8 g/dL (14.0-18.0)
[2018-11-14 11:40] LABS: BUN Creatinine Ratio 12.9 (10-20); Creatinine Clr Calc Pharmacy 135.1 ml/min; Est GFR (African American) 119.1; Est GFR (Non-African American) 102.7; Potassium 3.2 mmol/L (3.5-5.1)
--- NOTE | 2018-11-14 12:04 | History & Physical Report ---
Date of Service November 14, 2018 Assessment & Plan (1) Ischemic pain of left foot: Patient is admitted for a TMA of the left foot. I have discussed the risks options and benefits of the procedure with the patient. The patient understands the risks options and benefits and agrees to the procedure. 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 A duplex performed at that time showed a 4.4 cm popliteal aneurysm as well as a left- sided popliteal DVT. He was started on Eliquis at that time, and since then has noted that the sensation has returned to his left lower extremity with the character of burning as well as tingling. He notes that the left foot erythema tends to be more white in the morning and then progresses to red within an hour of getting up for the day. The numbness that he experienced on Tuesday was new , although he has had several chronic nonhealing ulcers of that foot, particularly at the base of the first metatarsal head that have been present for the past 4-6 months. The erythema had not started until approximately 2-3 weeks ago, as noted by his . He under went urgent revascularization and emblization of the popliteal artery aneurysm. He continued to have ischemic changes but isolated to the toes of the left foot. He denies particular symptoms of claudication, noting that sometimes walking helps the left lower extremity pain resolve and other times it worsens it. He does have rest pain in the left foot. Allergies Allergy/AdvReac Type Severity Reaction Status Date / Time Penicillins Allergy Severe Rash Verified 11/14/18 11:05 Home Medications Home Medications Medication Instructions Recorded Confirmed Type aspirin [Aspirin Low Dose] 81 mg PO QAM 10/17/18 11/14/18 History esomeprazole magnesium [Nexium] 40 mg PO HS 10/17/18 11/14/18 History labetalol 100 mg PO Q12@0600,1800 30 Days 11/02/18 11/14/18 Rx #90 tab bisacodyl 10 mg [place] DAILY PRN 11/13/18 11/14/18 History clopidogrel [Plavix] 75 mg PO DAILY 11/13/18 11/14/18 History fentanyl 1 patch TRANSDERMAL Q72H 11/13/18 11/14/18 History ferrous sulfate 325 mg PO BID 11/13/18 11/14/18 History ibuprofen 600 mg PO BID PRN 11/13/18 11/14/18 History lisinopril [Zestril] 5 mg PO DAILY 11/13/18 11/14/18 History lorazepam [Ativan] 1 mg PO Q8H PRN 11/13/18 11/14/18 History magnesium hydroxide [Milk of 30 ml PO DAILY PRN 11/13/18 11/14/18 History Magnesia] multivitamin 1 tab PO DAILY 11/13/18 11/14/18 History oxycodone-acetaminophen [Percocet] 1 tab PO Q6H PRN 11/13/18 11/14/18 History rosuvastatin 10 mg PO DAILY 11/13/18 11/14/18 History sennosides [senna] 8.6 mg PO BID PRN 11/13/18 11/14/18 History sodium chloride 1,000 mg PO BID 11/13/18 11/14/18 History sodium phosphates [Fleet Enema] 197 ml [place] UD PRN 11/13/18 11/14/18 History tramadol 50 mg PO Q6H PRN 11/13/18 11/14/18 History Past Med/Surg History Medical History HTN (hypertension), benign Prediabetes Elevated LFTs PVD (peripheral vascular disease) S/P femoral posterior tibial bypass with L embolization popliteal artery . On Eliquis. History of tobacco use STOPPED 10/05/18 Anxiety Pt specifically reports fear of doctors/hospitals GERD (gastroesophageal reflux disease) Osteoarthritis Hyponatremia (131) Stable at discharge from [facility] 11/02. 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 Will need to follow-up with director of land acquisition, will continue NaCl 1 g po BID, 2 L / day oral fluid restriction." per discharge summary 11/02. DVT (deep venous thrombosis) POPLITEAL VEIN GERD (gastroesophageal reflux disease) Hand trauma AGE 17, MISSING PART OF LEFT HAND Ischemic ulcer of foot Osteoarthritis Popliteal aneurysm Surgical History H/O hand surgery FROM LEFT HAND TRAUMA AND PART OF HAND WAS CUT OFF. History of arthroscopy RIGHT KNEE CARTILAGE REPAIR S/P popliteal-tibial bypass 10/18/[address] Blunt at [facility]. MAC 3, ETT 8.0. Grade view I. "Smooth IV induction, atraumatic ET intubation" Social History marital status: Current Living Situation: [facility] Feels Safe at Home: Yes Smoking Status: Former smoker Smoking End Date: 10/05/18 LISTED FROM RIKA RECORS Beliefs That Will Affect Care: None Preferred Language: [place]az[place] Visual Impairment: Limited Review of Systems All systems reviewed & are unremarkable except as noted in HPI & below Physical Exam 2 Vital Signs (Past 24 Hours): Last Vital Signs Temp 36.4 C L 11/14/18 11:45 Pulse 74 11/14/18 11:45 Resp 20 11/14/18 11:45 BP 173/93 H 11/14/18 11:45 Pulse Ox 96 11/14/18 11:45 This is a moderately healthy-appearing elderly male in no acute distress. His sclerae are anicteric, his mucous membranes are moist. There are no carotid bruits noted and his neck was supple. His heart is regular rate and rhythm with no murmurs appreciated. His blood pressure is 144/84 and his pulse is 84. His lungs are clear to auscultation bilaterally. An aortic pulse is noted in the epigastric region, but does not appear enlarged. His abdomen is otherwise soft, nontender, nondistended. He has 2+ femoral pulses bilaterally. He has doppler signeals in his left foot. He has a palpable DP and PT pulse on the right. He has a The left lower extremity has ischemic appearing toes of the foot. There is a chronic nonhealing ulcer at the base of the first metatarsal head on the plantar aspect of the foot, as well as scattered small wounds in various stages of healing along the lateral aspect of the foot and the dorsal surface of the fourth digit. He has no focal neurologic deficits.
--- NOTE | 2018-11-14 12:13 | History & Physical Bridge Note ---
Date of Service November 14, 2018 History & Physical Bridge Note Patient for a left TMA and debridement of left leg today. I have discussed the risks options and benefits of the procedure with the patient. The patient understands the risks options and benefits and agrees to the procedure. I have examined the patient, reviewed the History & Physical and in the interval since the performance of the History & Physical I have noted the following changes of clinical significance: no changes noted
[2018-11-14] MEDS ORDERED: fentaNYL citrate 100 MCG/2 ML VIAL IV STA (12:56)
[2018-11-14] MEDS ORDERED: fentaNYL citrate 100 MCG/2 ML VIAL ONE ×2 (13:01→13:14)
[2018-11-14] MEDS ORDERED: LIDOCAINE HCL 2% 2 ML VIAL/AMP(20MG/ML) INFIL ONE (13:14)
[2018-11-14] MEDS ORDERED: DEXAMETHASONE SOD INJ 4 MG/ML VIAL ONE (13:14)
[2018-11-14] MEDS ORDERED: MIDAZOLAM HCL 1 MG/ML 2ML VIAL ONE (13:14)
[2018-11-14] MEDS ORDERED: PROPOFOL IV EMULSION 10 MG/ML 20 ML VIAL IV ONE (13:14)
[2018-11-14] MEDS ORDERED: ONDANSETRON INJ 2 MG/ML 2 ML VIAL ONE (13:14)
[2018-11-14] MEDS ORDERED: HYDROmorphone INJ 2 MG/ML SYR/VIAL ONE ×2 (13:26→16:23)
[2018-11-14] MEDS ORDERED: LIDOCAINE HCL 1% 20 ML VIAL ONE (13:56)
[2018-11-14] MEDS ORDERED: ATROPINE SULFATE 0.1 MG/ML 10ML SYR IV PRN (13:57)
[2018-11-14] MEDS ORDERED: BUPIVACAINE/EPINEPHRINE 0.5% MPF 1:200,000 30 ML VIAL ONE (13:57)
[2018-11-14] MEDS ORDERED: ePHEDrine sulfate 50 MG/ML AMP IV PRN (13:57)
[2018-11-14] MEDS ORDERED: ONDANSETRON INJ 2 MG/ML 2 ML VIAL IV PRN (13:57)
[2018-11-14] MEDS ORDERED: DexMEDEtomidine HCL IV 100 MCG/ML VIAL ONE (14:04)
[2018-11-14] MEDS ORDERED: SODIUM CHLORIDE 0.9% INJ 10 ML VIAL ONE (14:37)
[2018-11-14] MEDS ORDERED: PHENYLEPHRINE 100MCG/ML 5ML SYR ONE (15:18)
--- NOTE | 2018-11-14 15:52 | Post Operative Brief Note ---
Immediate Post Op Note v1 Date of Surgery November 14, 2018 Pre & Post Diagnosis Operation Date: 11/14/18 12:20 Pre-Op Diagnosis: Ischemic Left Foot & necrotic left leg wound Post-Op Diagnosis: Ischemic Left Foot & necrotic left leg wound Procedure Operation Date: 11/14/18 12:20 Actual Procedures p Left Transmetatarsal Amputation & a[pplication of wound vac; Debridement of left leg wound(Left) - Carlos Blunt MD Surgeon Carlos Blunt MD Hospitality Workers MD Deisi Lujan Minarchick,PAC Estimated Blood Loss 75 Findings Consistent with Post-Op Diagnosis Anesthesia Type General Complications none Disposition Accompanied Patient To Recovery: No Disposition: Recovery Room
[2018-11-14] MEDS ORDERED: BISACODYL 10 MG SUPP PR PRN (16:06)
[2018-11-14] MEDS ORDERED: SOD PHOSPHATE/SOD BIPHOSPHATE ENEMA 132 ML BTL PR PRN (16:06)
[2018-11-14] MEDS ORDERED: SENNA 8.6 MG TAB PO PRN (16:06)
[2018-11-14] MEDS ORDERED: MAGNESIUM HYDROXIDE SUSP 30 ML UDC PO PRN (16:06)
[2018-11-14] MEDS: fentaNYL citrate 100 MCG/2 ML VIAL IV PRN ×2 (16:15→16:20)
--- NOTE | 2018-11-14 16:17 | Operative Report ---
Post Operative Report Pre & Post Diagnosis Operation Date: 11/14/18 12:20 Pre-Op Diagnosis: Ischemic Left Foot & necrotic left leg wound Post-Op Diagnosis: Ischemic Left Foot & necrotic left leg wound Procedure Operation Date: 11/14/18 12:20 Actual Procedures p Left Transmetatarsal Amputation & a[pplication of wound vac; Debridement of left leg wound(Left) - Carlos Blunt MD Surgeon Dr. Jose Raul Carey MD Print Line Feeder MD Deisi Lujan,[facility] Estimated Blood Loss 75 Findings Consistent with Post-Op Diagnosis Patient had viable tissue at the site of the amputation. Specimens Left foot 5 digits Drains None Anesthesia Type General Complications none Disposition Accompanied Patient To Recovery: Yes Disposition: Recovery Room Indications Left foot ischemia with infection of multiple toes Description of Procedure The patient was brought to the operating room and placed on the operating table in the supine position. After adequate induction of anesthesia, the left foot was prepped and draped in a sterile fashion. Using a 10 blade an incision was made around the base of the toes and continued out laterally on the dorsal surface of the foot just proximal to the web spaces and underneath the plantar aspect of the foot in a similar fashion. The incision was continued through the soft tissue down to the shafts of the metatarsal bones. The patient did bleed from the incision. Using periosteal elevator tissue was pushed back over all 5 metatarsal shafts. Using an oscillating saw all 5 metatarsal shafts were divided. The amputation was completed to the plantar flap leaving a healthy flap intact. The specimens were passed off the field. The wound was then inspected and the tendons were pulled back and divided. The capsules were also skeletonized and resected. There was noted to be no purulence. A rongeur was then used on all 5 of the metatarsal shaft divided bones to remove any sharp edges. The wound was then thoroughly irrigated and hemostasis was achieved using a combination of limited electrocautery as well as pressure. The plantar flap was then brought in approximation with the dorsal incision and had no tension on the wound. At that time we discussed the option of placing a wound VAC however after evaluating the wound and the fact that there was no tension on the incision decision was made to use 3-0 nylon sutures in vertical mattress stitches to close the TMA wound. Attention was then turned to the tatyana on the pre-existing medial leg wound where all the tatyana were removed and several areas of skin necrosis were debrided using a 10 blade. The wounds were debrided to healthy viable tissue and after hemostasis was achieved Xeroform was applied over the wounds. A clean , sterile, dry dressing was then applied, and the patient was transferred to recovery in stable condition having tolerated the procedure well. Dr. Blunt was present for the entirety of the procedure I attest to the content of the Intraoperative Record and any orders documented therein. Any exceptions are noted below.
[2018-11-14] MEDS ORDERED: HYDROmorphone INJ 0.5 MG/0.5 ML SYR IV PRN ×2 (16:27→22:35)
[2018-11-14] MEDS ORDERED: LABETALOL HCL IV 5 MG/ML 20ML IV ONE (16:47)
[2018-11-14] MEDS ORDERED: LABETALOL HCL IV 5 MG/ML 20ML IV STA (16:49)
--- NOTE | 2018-11-14 18:24 | Anesthesiology Progress Note ---
Date of Service November 14, 2018 Anesthesia Post Procedure Vital Signs Vital Signs: Temp Pulse Pulse Resp BP BP Pulse Ox 11/14/18 18:19 37.3 C 80 18 146/76 H 96 11/14/18 17:48 36.8 C 77 18 151/80 H 99 11/14/18 17:15 37.1 C 76 15 180/91 H 94 11/14/18 16:59 36.8 C 74 21 169/90 H 97 11/14/18 16:50 36.8 C 77 17 170/88 H 95 11/14/18 16:40 85 14 170/108 H 94 11/14/18 16:30 83 16 177/100 H 97 11/14/18 16:20 87 14 180/101 H 100 11/14/18 16:10 72 16 192/105 H 97 11/14/18 16:02 36.5 C 72 10 L 165/91 H 97 11/14/18 11:45 36.4 C L 74 20 173/93 H 190/99 H 96 Pain Intensity Right Foot: Pain Intensity: 4 Notes Mental Status: alert / awake / arousable and participated in evaluation Patient Amnestic to Procedure: Yes Nausea / Vomiting: adequately controlled Pain: adequately controlled Airway Patency, RR, SpO2: stable & adequate BP & HR: stable & adequate Hydration State: stable & adequate Anesthetic Complications: no major complications apparent and Pt Satisfied with anesthetic care
[2018-11-14] MEDS: LACTATED RINGER'S 1,000 ML IV SCH (18:38)
[2018-11-14] MEDS: HYDROmorphone INJ 1 MG/ML SYRINGE IV PRN ×3 (18:38→23:49)
[2018-11-14] MEDS ORDERED: INFLUENZA ADMINISTRATION CHARGE ONE (19:00)
[2018-11-14] MEDS ORDERED: INFLUENZA VACCINE HIGH DOSE 65+ 0.5 ML SYR IM ONE (19:00)
[2018-11-14] MEDS: LABETALOL HCL 100 MG TAB PO SCH (19:26)
[2018-11-14] MEDS: LORazepam 1 MG TAB PO PRN (20:23)
[2018-11-14] MEDS: FERROUS SULFATE 325 MG TAB PO SCH (20:24)
[2018-11-14] MEDS: SODIUM CHLORIDE 1 GM TABLET PO SCH (20:24)
[2018-11-14] MEDS: PANTOprazole 40 MG TAB PO SCH (20:24)
[2018-11-14] MEDS: OXYCODONE/ACETAMINOPHEN 5mg/325mg TAB PO PRN (21:07)
[2018-11-14] MEDS: CLINDAMYCIN 600 MG in DEXTROSE 5% 50 ML IV SCH (21:23)
[2018-11-14] MEDS: CHECK FENTANYL PATCH PLACEMENT SCH (23:49)
[2018-11-15] MEDS: LACTATED RINGER'S 1,000 ML IV SCH ×2 (01:41→09:57)
[2018-11-15] MEDS: HYDROmorphone INJ 1 MG/ML SYRINGE IV PRN ×3 (02:02→09:16)
[2018-11-15] MEDS: LORazepam 1 MG TAB PO PRN ×3 (04:40→21:59)
[2018-11-15] MEDS: CLINDAMYCIN 600 MG in DEXTROSE 5% 50 ML IV SCH ×2 (05:46→13:47)
[2018-11-15] MEDS: LABETALOL HCL 100 MG TAB PO SCH ×2 (05:46→19:12)
[2018-11-15] MEDS: OXYCODONE/ACETAMINOPHEN 5mg/325mg TAB PO PRN ×2 (05:47→13:53)
[2018-11-15] MEDS: CHECK FENTANYL PATCH PLACEMENT SCH ×2 (09:13→16:00)
[2018-11-15] MEDS: ASPIRIN 81 MG ECTAB PO SCH (09:21)
[2018-11-15] MEDS: MULTIVITAMIN TAB PO SCH (09:21)
[2018-11-15] MEDS: ROSUVASTATIN CALCIUM 10 MG TAB PO SCH (09:21)
[2018-11-15] MEDS: CLOPIDOGREL BISULFATE 75 MG TAB PO SCH (09:22)
[2018-11-15] MEDS: LISINOPRIL 5 MG TAB PO SCH (09:22)
[2018-11-15] MEDS: FERROUS SULFATE 325 MG TAB PO SCH ×2 (09:22→20:06)
[2018-11-15] MEDS: SODIUM CHLORIDE 1 GM TABLET PO SCH ×2 (09:54→20:07)
[2018-11-15] MEDS: TRAMADOL HCL 50 MG TABLET PO PRN (11:28)
--- NOTE | 2018-11-15 14:44 | Surgery Progress Note ---
Date of Service November 15, 2018 Assessment & Plan (1) Ischemic pain of left foot: Will start daily dressing changes to the leg wound. May place a vac on the leg wound later this week. Subjective Patient complaining of left foot pain. It varies from 3 to 12 on a scale of 10. Physical Exam 2 Vital Signs (Past 24 Hours): Last Vital Signs Temp 36.7 C 11/15/18 12:00 Pulse 81 11/15/18 12:00 Resp 16 11/15/18 12:00 BP 142/69 H 11/15/18 12:00 Pulse Ox 93 11/15/18 12:00 Debrided areas are clean. The TMA site is dry and clean. Wound edges are viable. there is no evidence of ischemia of the flap.
[2018-11-15] MEDS: PANTOprazole 40 MG TAB PO SCH (20:06)
[2018-11-15] MEDS ORDERED: HydrALAZINE 10 MG TAB PO PRN (21:30)
[2018-11-16] MEDS: CHECK FENTANYL PATCH PLACEMENT SCH ×4 (00:04→23:52)
[2018-11-16] MEDS: LABETALOL HCL 100 MG TAB PO SCH ×2 (06:02→17:13)
[2018-11-16] MEDS: LORazepam 1 MG TAB PO PRN ×2 (06:02→21:34)
[2018-11-16] MEDS: LACTATED RINGER'S 1,000 ML IV SCH (07:22)
[2018-11-16] MEDS: ASPIRIN 81 MG ECTAB PO SCH (08:13)
[2018-11-16] MEDS: ROSUVASTATIN CALCIUM 10 MG TAB PO SCH (08:13)
[2018-11-16] MEDS: LISINOPRIL 5 MG TAB PO SCH (08:14)
[2018-11-16] MEDS: CLOPIDOGREL BISULFATE 75 MG TAB PO SCH (08:14)
[2018-11-16] MEDS: SODIUM CHLORIDE 1 GM TABLET PO SCH ×2 (08:14→21:33)
[2018-11-16] MEDS: MULTIVITAMIN TAB PO SCH (08:14)
[2018-11-16] MEDS: FERROUS SULFATE 325 MG TAB PO SCH ×2 (08:14→21:33)
[2018-11-16 08:23] LABS: BUN Creatinine Ratio 9.9 (10-20); Calcium 7.7 mg/dl (8.5-10.1); Creatinine Clr Calc Pharmacy 149.7 ml/min; Est GFR (African American) 124.9; Est GFR (Non-African American) 107.8; Magnesium 1.9 mg/dl (1.8-2.4); Potassium 3.2 mmol/L (3.5-5.1)
[2018-11-16] MEDS ORDERED: fentaNYL 25 MCG/HR TDSY TD SCH (09:00)
--- NOTE | 2018-11-16 09:18 | Pain Management Consultation ---
Date of Consultation November 16, 2018 Assessment & Plan (1) S/P popliteal-tibial bypass: 1. Continue Fentanyl patch 25mcg/hr 2. Continue Percocet 5/325mg PO x 6 hours PRN 3. Patient does seem to have underlying anxiety, depression, and alcoholism. He would not be a good candidate for a spinal cord stimulator. 4. IV Dilaudid for PRN breakthrough pain 5. Could consider adding Gabapentin but he does appear moderately drowsy when speaking to him. I would not add it on at this time. (2) Popliteal aneurysm: (3) Ischemic ulcer of foot: History of Present Illness Reason for Consultation: Left foot pain Attending Physician: Carlos Blunt MD History of Present Illness This is a 63 year old white male that is being seen in constulation for left foot pain. Patient is very difficult to understand when talking to him but from I can gather, he reports a 4 year history of pain in the left foot. He describes a burning and numbness pain. The discoloration and numbness was worsening so he was seen at the Emergency Department and found to have a 4.4 cm popliteal aneurysm as well as a left-sided popliteal DVT. Dr. Blunt did perform a Left Transmetatarsal Amputation as well as debridment of the area. Patient has been trialed on several different pain medications over the last 1 1 /2 months and is currently ordered Fentanyl patch 25mcg/hr and Percocet 5/325m PO x 4 hours PRN. Patient states that his pain is fairly controlled with the current regimen. The Percocet provides 2-3 hours of pain relief at a time. He denies any side effects to the medication. No drowsiness, constipation, confusion. He does appear slightly lethargic when speaking to him. He is mumbling and difficult to understand. Patient states that he does not how he got to the hospital, although he does currently know that he is at the [facility]. He has mentioned being 50 days abstinent from alcohol. He was speaking about his dog at home. Patient is crying and appears upset from the long standing pain. I have assured him that he is in the hospital for treatment and his pain will continue to improve. Pain Assessment [facility] Combined Pain Scale: 5-Moderate - Cannot perform normal tasks without increase in pain Allergies Allergy/AdvReac Type Severity Reaction Status Date / Time Penicillins Allergy Severe Rash Verified 11/14/18 11:05 Home Medications Home Medications Medication Instructions Recorded Confirmed Type aspirin [Aspirin Low Dose] 81 mg PO QAM 10/17/18 11/14/18 History esomeprazole magnesium [Nexium] 40 mg PO HS 10/17/18 11/14/18 History labetalol 100 mg PO Q12@0600,1800 30 Days 11/02/18 11/14/18 Rx #90 tab bisacodyl 10 mg NE DAILY PRN 11/13/18 11/14/18 History clopidogrel [Plavix] 75 mg PO DAILY 11/13/18 11/14/18 History fentanyl 1 patch TRANSDERMAL Q72H 11/13/18 11/14/18 History ferrous sulfate 325 mg PO BID 11/13/18 11/14/18 History ibuprofen 600 mg PO BID PRN 11/13/18 11/14/18 History lisinopril [Zestril] 5 mg PO DAILY 11/13/18 11/14/18 History lorazepam [Ativan] 1 mg PO Q8H PRN 11/13/18 11/14/18 History magnesium hydroxide [Milk of 30 ml PO DAILY PRN 11/13/18 11/14/18 History Magnesia] multivitamin 1 tab PO DAILY 11/13/18 11/14/18 History oxycodone-acetaminophen [Percocet] 1 tab PO Q6H PRN 11/13/18 11/14/18 History rosuvastatin 10 mg PO DAILY 11/13/18 11/14/18 History sennosides [senna] 8.6 mg PO BID PRN 11/13/18 11/14/18 History sodium chloride 1,000 mg PO BID 11/13/18 11/14/18 History sodium phosphates [Fleet Enema] 197 ml NE UD PRN 11/13/18 11/14/18 History tramadol 50 mg PO Q6H PRN 11/13/18 11/14/18 History Patient History Medical History Osteoarthritis GERD (gastroesophageal reflux disease) Hand trauma AGE 17, MISSING PART OF LEFT HAND Ischemic ulcer of foot Popliteal aneurysm DVT (deep venous thrombosis) POPLITEAL VEIN HTN (hypertension), benign Prediabetes Elevated LFTs PVD (peripheral vascular disease) S/P femoral posterior tibial bypass with L embolization popliteal artery . On Eliquis. History of tobacco use STOPPED 10/05/18 Anxiety Pt specifically reports fear of doctors/hospitals GERD (gastroesophageal reflux disease) Osteoarthritis Hyponatremia (131) Stable at discharge from [facility] 11/02. 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 Will need to follow-up with terrazzo roller, will continue NaCl 1 g po BID, 2 L / day oral fluid restriction." per discharge summary 11/02. Surgical History History of arthroscopy RIGHT KNEE CARTILAGE REPAIR H/O hand surgery FROM LEFT HAND TRAUMA AND PART OF HAND WAS CUT OFF. S/P popliteal-tibial bypass 10/18/[address] Blunt at [facility]. MAC 3, ETT 8.0. Grade view I. "Smooth IV induction, atraumatic ET intubation" Social History marital status: Current Living Situation: Long-Term Feels Safe at Home: Yes Smoking Status: Former smoker Smoking End Date: 10/05/18 LISTED FROM RIKA RECORS Beliefs That Will Affect Care: None Communication Ability: Effective Review of Systems Denies any constitutional, cardiac, pulmonary, neurological, GI, , extremity, endocrine, neuro, ENT, dermatological, or musculoskeletal complaints other than stated in HPI Denies any thoughts of hurting himself. Physical Exam 2 Vital Signs (Past 24 Hours): Last Vital Signs Temp 37.0 C 11/15/18 22:30 Pulse 93 H 11/16/18 05:28 Resp 18 11/15/18 22:30 BP 192/97 H 11/16/18 05:28 Pulse Ox 94 11/15/18 22:30 Physical Exam: GENERAL: 63 year old white male. Speech is slurred and difficult to understand. He is tearful and anxious. Does not appear in acute distress. LEFT LEG: The left foot is bandaged. Did not visualize wound. NEURO: Awake, alert, and oriented x 3. Does answer questions appropriately.
[2018-11-16] MEDS: TRAMADOL HCL 50 MG TABLET PO PRN ×2 (13:06→19:14)
[2018-11-16] MEDS ORDERED: HydrALAZINE 10 MG TAB PO PRN (15:11)
--- NOTE | 2018-11-16 15:19 | Hospitalist Consultation ---
Date of Consultation November 16, 2018 Assessment & Plan (1) Ischemic pain of left foot: (2) S/P popliteal-tibial bypass: (3) Ischemic ulcer of foot due to atherosclerosis of [place] artery of extremity : (4) Osteoarthritis: (5) GERD (gastroesophageal reflux disease): (6) DVT (deep venous thrombosis): (7) Popliteal aneurysm: 63yo M w/ hx of PAD s/p femoral-pos tib bypass on 10/20 for a left popliteal artery bypass previous admission, per vascular surgeon they readmit the patient for amputation after reevaluated . pt had Left Transmetatarsal Amputation & application of wound vac; Debridement of left leg wound(Left) , the procedure was done the day before which was November 14, 2018, hospitalist service consulted for medical management PAD s/p femoral-pos tib bypass on 10/20 s/p Left Transmetatarsal Amputation & application of wound vac on November 14, 2018 Acute blood loss anemia will be expected, Pain management, DVT prophylaxis PT OT, discharge plan will be per primary team peripheral vascular disease, Continue ASA & Plavix, Tobacco cessation hx Hyponatremia: Stable, suspected SIADH , sodium level was normal this admission has been f/u water treatment plant engineer, 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 Counseling provided earlier this admission , Dietary control for now abn Elevated LFTs: Possibly due to fatty liver which was seen on CT a/p on . Hepatitis C was tested and negative. History of tobacco use: Quit prior to admission. Hospitalist will follow up History of Present Illness Reason for Consultation: Medical management Attending Physician: Carlos Blunt MD History of Present Illness 63yo M w/ hx of PAD s/p femoral-pos tib bypass on 10/20 for a left popliteal artery bypass previous admission, per vascular surgeon they readmit the patient for amputation after reevaluated . pt had Left Transmetatarsal Amputation & application of wound vac; Debridement of left leg wound(Left) , the procedure was done the day before which was November 14, 2018 When I interview with the patient today he is awake alert orientated, pain fairly controlled, no obvious complaint, I know him from previous admission. reported generally feeling ok No more feeling any confused, no fevers/chills, chest pain, shortness of breath, abdominal pain, nausea, or vomiting. Allergies Allergy/AdvReac Type Severity Reaction Status Date / Time Penicillins Allergy Severe Rash Verified 11/14/18 11:05 Home Medications Home Medications Medication Instructions Recorded Confirmed Type aspirin [Aspirin Low Dose] 81 mg PO QAM 10/17/18 11/14/18 History esomeprazole magnesium [Nexium] 40 mg PO HS 10/17/18 11/14/18 History labetalol 100 mg PO Q12@0600,1800 30 Days 11/02/18 11/14/18 Rx #90 tab bisacodyl 10 mg [place] DAILY PRN 11/13/18 11/14/18 History clopidogrel [Plavix] 75 mg PO DAILY 11/13/18 11/14/18 History fentanyl 1 patch TRANSDERMAL Q72H 11/13/18 11/14/18 History ferrous sulfate 325 mg PO BID 11/13/18 11/14/18 History ibuprofen 600 mg PO BID PRN 11/13/18 11/14/18 History lisinopril [Zestril] 5 mg PO DAILY 11/13/18 11/14/18 History lorazepam [Ativan] 1 mg PO Q8H PRN 11/13/18 11/14/18 History magnesium hydroxide [Milk of 30 ml PO DAILY PRN 11/13/18 11/14/18 History Magnesia] multivitamin 1 tab PO DAILY 11/13/18 11/14/18 History oxycodone-acetaminophen [Percocet] 1 tab PO Q6H PRN 11/13/18 11/14/18 History rosuvastatin 10 mg PO DAILY 11/13/18 11/14/18 History sennosides [senna] 8.6 mg PO BID PRN 11/13/18 11/14/18 History sodium chloride 1,000 mg PO BID 11/13/18 11/14/18 History sodium phosphates [Fleet Enema] 197 ml [place] UD PRN 11/13/18 11/14/18 History tramadol 50 mg PO Q6H PRN 11/13/18 11/14/18 History Patient History Medical History Osteoarthritis GERD (gastroesophageal reflux disease) Hand trauma AGE 17, MISSING PART OF LEFT HAND Ischemic ulcer of foot Popliteal aneurysm DVT (deep venous thrombosis) POPLITEAL VEIN HTN (hypertension), benign Prediabetes Elevated LFTs PVD (peripheral vascular disease) S/P femoral posterior tibial bypass with L embolization popliteal artery . On Eliquis. History of tobacco use STOPPED 10/05/18 Anxiety Pt specifically reports fear of doctors/hospitals GERD (gastroesophageal reflux disease) Osteoarthritis Hyponatremia (131) Stable at discharge from [facility] 11/02. 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 Will need to follow-up with water treatment plant engineer, will continue NaCl 1 g po BID, 2 L / day oral fluid restriction." per discharge summary 11/02. Surgical History History of arthroscopy RIGHT KNEE CARTILAGE REPAIR H/O hand surgery FROM LEFT HAND TRAUMA AND PART OF HAND WAS CUT OFF. S/P popliteal-tibial bypass 10/18/[address] Blunt at [facility]. MAC 3, ETT 8.0. Grade view I. "Smooth IV induction, atraumatic ET intubation" Social History marital status: Current Living Situation: Care Home Feels Safe at Home: Yes Smoking Status: Former smoker Smoking End Date: 10/05/18 LISTED FROM RIKA RECOALEXX Beliefs That Will Affect Care: None Communication Ability: Effective Review of Systems Please see HPI otherwise 14 point organ system review were negative Physical Exam 2 Vital Signs (Past 24 Hours): Last Vital Signs Temp 36.5 C 11/16/18 11:15 Pulse 80 11/16/18 11:15 Resp 18 11/16/18 11:15 BP 191/92 H 11/16/18 11:15 Pulse Ox 96 11/16/18 11:15 Physical Exam: Head atraumatic , awake alert oriented x3 PERRL, conjunctivae normal, anicteric sclerae Neck trachea midline, no thyromegaly Respiratory normal respiratory effort, lungs clear to auscultation Cardiovascular RRR, no murmur, no edema Gastrointestinal normal bowel sounds, soft, nontender, no hepatosplenomegaly Left lower extremity in dress and nontender,, Results & Data Laboratory Results Laboratory Results - last 24 hr 11/16/18 07:53 Sodium 137 Potassium 3.2 L Chloride 98 Carbon Dioxide 33 H Anion Gap 5.0 BUN 6 L Creatinine 0.57 L Est Cr Clr Drug Dosing 149.7 Est GFR ( Amer) 124.9 Est GFR (Non-Af Amer) 107.8 BUN/Creatinine Ratio 9.9 L Glucose 113 H Calcium 7.7 L Magnesium 1.9
[2018-11-16] MEDS: OXYCODONE/ACETAMINOPHEN 5mg/325mg TAB PO PRN ×2 (15:45→21:33)
--- NOTE | 2018-11-16 20:21 | Surgery Progress Note ---
Date of Service November 16, 2018 Assessment & Plan (1) Ischemic pain of left foot: Will start PT/OT. May place a vac on the leg wound later this week. Subjective Patient claims foot pain improving. Had some bleeding during the night, Physical Exam 2 Vital Signs (Past 24 Hours): Last Vital Signs Temp 36.7 C 11/16/18 15:35 Pulse 63 11/16/18 15:35 Resp 18 11/16/18 15:35 BP 156/81 H 11/16/18 15:35 Pulse Ox 96 11/16/18 15:35 Leg wounds clean TMA site has small area of necrosis of the wound edge on the dorsum of the foot. Flap looks viable.
[2018-11-16] MEDS: PANTOprazole 40 MG TAB PO SCH (21:33)
[2018-11-17] MEDS: OXYCODONE/ACETAMINOPHEN 5mg/325mg TAB PO PRN ×3 (05:19→20:21)
[2018-11-17] MEDS: LABETALOL HCL 100 MG TAB PO SCH ×2 (05:19→17:32)
[2018-11-17 07:42] LABS: Basophils # (auto) 0.02 K/uL (0-0.2); Basophils % (auto) 0.3 %; Eosinophils # (auto) 0.24 K/uL (0-0.5); Eosinophils % (auto) 3.5 %; Hemoglobin 8.8 g/dL (14.0-18.0); Immature Granulocytes # (auto) 0.01 K/uL (0.00-0.02); Immature Granulocytes % (auto) 0.1 %; Lymphocytes # (auto) 1.46 K/uL (1.2-3.4); Lymphocytes % (auto) 21.3 %; Mean Corpuscular Hgb Conc 32.6 g/dL (32-36); Mean Corpuscular Volume 97.8 fL (80-100); Mean Platelet Volume 8.3 fL (7.4-10.4); Monocytes % (auto) 13.1 %; Neutrophils # (auto) 4.24 K/uL (1.4-6.5); Neutrophils % (auto) 61.7 %; Platelet Count 226 K/uL (130-400); RDW Coefficient of Variation 16.2 % (11.5-14.5); RDW Standard Deviation 58.3 fL (36.4-46.3); Red Blood Count 2.76 M/uL (4.7-6.1); White Blood Count 6.87 K/uL (4.8-10.8)
[2018-11-17 08:05] LABS: RBC Morphology Unremarkable
[2018-11-17 08:14] LABS: BUN Creatinine Ratio 9.6 (10-20); Calcium 7.4 mg/dl (8.5-10.1); Creatinine Clr Calc Pharmacy 164.1 ml/min; Est GFR (African American) 129.7; Est GFR (Non-African American) 111.9; Magnesium 1.8 mg/dl (1.8-2.4); Phosphorus 3.3 mg/dl (2.5-4.9); Potassium 3.1 mmol/L (3.5-5.1)
[2018-11-17 08:38] LABS: Estimated Average Glucose 88 mg/dl
[2018-11-17] MEDS: CHECK FENTANYL PATCH PLACEMENT SCH ×2 (08:47→17:32)
[2018-11-17] MEDS: LISINOPRIL 5 MG TAB PO SCH (08:49)
[2018-11-17] MEDS: MULTIVITAMIN TAB PO SCH (08:49)
[2018-11-17] MEDS: CLOPIDOGREL BISULFATE 75 MG TAB PO SCH (08:49)
[2018-11-17] MEDS: ASPIRIN 81 MG ECTAB PO SCH (08:49)
[2018-11-17] MEDS: SODIUM CHLORIDE 1 GM TABLET PO SCH ×2 (08:50→20:21)
[2018-11-17] MEDS: FERROUS SULFATE 325 MG TAB PO SCH ×2 (08:50→20:21)
[2018-11-17] MEDS: ROSUVASTATIN CALCIUM 10 MG TAB PO SCH (08:50)
[2018-11-17] MEDS ORDERED: POTASSIUM CHLORIDE 20 MEQ TABCR PO STA (08:53)
--- NOTE | 2018-11-17 10:28 | Surgery Progress Note ---
Date of Service November 17, 2018 Assessment & Plan (1) Ischemic pain of left foot: now s/p TMA Present on Admission?: Yes (2) Status post transmetatarsal amputation of left foot: Pt doing well post op. Wound vac to medial ankle wound today. Present on Admission?: No Subjective 63 yo m POD # 3 after LLE TMA and debridement of wounds, seen in f/u today. Pt states pain well controlled currently. No new complaints. Physical Exam 2 Vital Signs (Past 24 Hours): Last Vital Signs Temp 36.8 C 11/17/18 07:29 Pulse 70 11/17/18 07:29 Resp 18 11/17/18 07:29 BP 148/75 H 11/17/18 07:29 Pulse Ox 96 11/17/18 07:29 Constitutional: WD/WN, vitals as above not ill appearing Respiratory: normal respiratory effort, lungs clear to auscultation Cardiovascular: Rate/Rhythm: regular rate and regular rhythm Extremities: + edema (LLE improved) Gastrointestinal (Abdomen): normal bowel sounds, soft, nontender, no hepatosplenomegaly Skin: no rashes, warm and dry + wound (L TMA site intact with tatyana, mild local ecchymosis and bleeding, + refill to foot/skin. Medial ankle wound and medial leg wound with mild slough noted and maceration. )
[2018-11-17] MEDS: TRAMADOL HCL 50 MG TABLET PO PRN ×2 (10:31→17:32)
--- NOTE | 2018-11-17 15:38 | Hospitalist Progress Note ---
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 pt had Left Transmetatarsal Amputation & application of wound vac; Debridement of left leg wound(Left) , the procedure was done the day before which was November 14, 2018, hospitalist service consulted for medical management PAD s/p femoral-pos tib bypass on 10/20 s/p Left Transmetatarsal Amputation & application of wound vac on November 14, 2018 Acute blood loss anemia will be expected, Pain management, DVT prophylaxis PT OT, discharge plan will be per primary team peripheral vascular disease, Continue ASA & Plavix, Tobacco cessation hx Hyponatremia: Stable, suspected SIADH , sodium level was normal this admission, pt does not need 2 g sodium diet, he can have regular diet 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 Counseling provided earlier this admission , Dietary control for now abn Elevated LFTs: Electrolytes such as potassium replaced History of tobacco use: Quit prior to admission. Hospitalist will follow up Subjective Generally feeling good , appetite is better, pain fairly controlled Review of Systems Constitutional: Positive weakness, or fatigue Respiratory: Occasional cough, no sputum, wheezing, or dyspnea on exertion Cardiac: No chest pain, No orthopnea, Abdomen: No pain, No nausea, No vomiting, No diarrhea, No constipation, No GI bleeding Musculoskeletal: Lower extremity in dressing, no muscle pain, No swelling, No calf pain, No problem reported : No dysuria, No urinary frequency, No incontinence, No hematuria Neurologic: No paralysis, No weakness, No numbness/tingling, Psychiatric: No depression symptoms, No anhedonism, No anxiety Heme: No abnormal bleeding/bruising, No clotting problems, Skin: No new/changing skin lesions, No color change, No bleeding Physical Exam 2 Vital Signs (Past 24 Hours): Last Vital Signs Temp 36.7 C 11/17/18 15:23 Pulse 80 11/17/18 15:23 Resp 17 11/17/18 15:23 BP 127/68 11/17/18 15:23 Pulse Ox 94 11/17/18 15:23 Physical Exam: Head atraumatic , awake alert oriented x3 PERRL, conjunctivae normal, anicteric sclerae Neck trachea midline, no thyromegaly Respiratory normal respiratory effort, lungs clear to auscultation Cardiovascular RRR, no murmur, no edema Gastrointestinal normal bowel sounds, soft, nontender, no hepatosplenomegaly Left lower extremity in dress and nontender,, Results & Data Laboratory Results Laboratory Results - last 24 hr 11/17/18 11/17/18 11/17/18 07:05 07:05 07:05 WBC 6.87 RBC 2.76 L Hgb 8.8 L Hct 27.0 L MCV 97.8 MCH 31.9 MCHC 32.6 RDW Std Deviation 58.3 H RDW Coeff of [place] 16.2 H Plt Count 226 MPV 8.3 Immature Gran % (Auto) 0.1 Neut % (Auto) 61.7 Lymph % (Auto) 21.3 [place] % (Auto) 13.1 Eos % (Auto) 3.5 Baso % (Auto) 0.3 Immature Gran # (Auto) 0.01 Neut # (Auto) 4.24 Lymph # (Auto) 1.46 [place] # (Auto) 0.90 H Eos # (Auto) 0.24 Baso # (Auto) 0.02 RBC Morphology Unremarkable Sodium 136 Potassium 3.1 L Chloride 99 Carbon Dioxide 31 Anion Gap 6.0 BUN 5 L Creatinine 0.52 L Est Cr Clr Drug Dosing 164.1 Est GFR ( Amer) 129.7 Est GFR (Non-Af Amer) 111.9 BUN/Creatinine Ratio 9.6 L Glucose 92 Estimat Average Glucose 88 Hemoglobin A1c 4.7 Calcium 7.4 L Phosphorus 3.3 Magnesium 1.8
[2018-11-17] MEDS: IBUPROFEN 600 MG TAB PO PRN (15:48)
[2018-11-17] MEDS: PANTOprazole 40 MG TAB PO SCH (20:21)
[2018-11-17] MEDS: LORazepam 1 MG TAB PO PRN (20:21)
[2018-11-18] MEDS: CHECK FENTANYL PATCH PLACEMENT SCH ×4 (00:43→23:49)
[2018-11-18] MEDS: TRAMADOL HCL 50 MG TABLET PO PRN ×2 (00:47→12:22)
[2018-11-18] MEDS: LABETALOL HCL 100 MG TAB PO SCH ×2 (05:41→18:45)
[2018-11-18 07:40] LABS: Basophils # (auto) 0.02 K/uL (0-0.2); Basophils % (auto) 0.3 %; Eosinophils # (auto) 0.27 K/uL (0-0.5); Eosinophils % (auto) 3.7 %; Hematocrit (blood only) 27.7 % (42-52); Hemoglobin 8.8 g/dL (14.0-18.0); Immature Granulocytes # (auto) 0.01 K/uL (0.00-0.02); Immature Granulocytes % (auto) 0.1 %; Lymphocytes # (auto) 1.46 K/uL (1.2-3.4); Lymphocytes % (auto) 19.9 %; Mean Corpuscular Hgb Conc 31.8 g/dL (32-36); Mean Corpuscular Volume 98.9 fL (80-100); Mean Platelet Volume 8.5 fL (7.4-10.4); Monocytes % (auto) 13.7 %; Neutrophils # (auto) 4.56 K/uL (1.4-6.5); Neutrophils % (auto) 62.3 %; Platelet Count 253 K/uL (130-400); RDW Standard Deviation 58.3 fL (36.4-46.3); White Blood Count 7.32 K/uL (4.8-10.8)
[2018-11-18] MEDS: OXYCODONE/ACETAMINOPHEN 5mg/325mg TAB PO PRN ×2 (07:51→20:11)
[2018-11-18] MEDS: IBUPROFEN 600 MG TAB PO PRN ×2 (07:52→17:23)
[2018-11-18 08:12] LABS: RBC Morphology Unremarkable
[2018-11-18 08:18] LABS: BUN Creatinine Ratio 15.3 (10-20); Calcium 7.4 mg/dl (8.5-10.1); Creatinine Clr Calc Pharmacy 133.3 ml/min; Est GFR (African American) 119.1; Est GFR (Non-African American) 102.7; Magnesium 1.9 mg/dl (1.8-2.4); Phosphorus 3.2 mg/dl (2.5-4.9); Potassium 3.4 mmol/L (3.5-5.1)
[2018-11-18] MEDS: ASPIRIN 81 MG ECTAB PO SCH (09:50)
[2018-11-18] MEDS: MULTIVITAMIN TAB PO SCH (09:50)
[2018-11-18] MEDS: ROSUVASTATIN CALCIUM 10 MG TAB PO SCH (09:50)
[2018-11-18] MEDS: FERROUS SULFATE 325 MG TAB PO SCH ×2 (09:50→20:13)
[2018-11-18] MEDS: LISINOPRIL 5 MG TAB PO SCH (09:51)
[2018-11-18] MEDS: SODIUM CHLORIDE 1 GM TABLET PO SCH ×2 (09:51→20:14)
[2018-11-18] MEDS: CLOPIDOGREL BISULFATE 75 MG TAB PO SCH (09:51)
[2018-11-18] MEDS ORDERED: POTASSIUM CHLORIDE 10 MEQ TABCR PO STA (10:30)
--- NOTE | 2018-11-18 10:31 | Surgery Progress Note ---
Date of Service November 18, 2018 Assessment & Plan (1) Status post transmetatarsal amputation of left foot: Amputation site appears viable. There is been no changes since yesterday. Wound VAC is in place with good seal. We will start him on partial weightbearing and hopefully can discharge on Tuesday back to rehab. Subjective Patient claims foot pain improving. No further bleeding was noted from the amputation site. Physical Exam 2 Vital Signs (Past 24 Hours): Last Vital Signs Temp 36.4 C L 11/18/18 07:38 Pulse 80 11/18/18 07:38 Resp 20 11/18/18 07:38 BP 169/79 H 11/18/18 07:38 Pulse Ox 92 11/18/18 07:38 Wound is dry and clean. The eschar areas remain unchanged. The wound VAC is in place and working well. Flap appears viable and unchanged.
[2018-11-18] MEDS ORDERED: fentaNYL 50 MCG/HR TDSY TD SCH (11:00)
--- NOTE | 2018-11-18 15:32 | Hospitalist Progress Note ---
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 pt had Left Transmetatarsal Amputation & application of wound vac; Debridement of left leg wound(Left) , the procedure was done the day before which was November 14, 2018, hospitalist service consulted for medical management PAD s/p femoral-pos tib bypass on 10/20 s/p Left Transmetatarsal Amputation & application of wound vac on November 14, 2018 Acute blood loss anemia will be expected, Pain management, adjust or increase the fentanyl patch if needed Hypokalemia replaced DVT prophylaxis PT OT, discharge plan will be per primary team peripheral vascular disease, Continue ASA & Plavix, Tobacco cessation hx Hyponatremia: Stable, suspected SIADH , sodium level was normal this admission, pt does not need 2 g sodium diet, he can have 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 Counseling provided earlier this admission , Dietary control for now abn Elevated LFTs: Electrolytes such as potassium replaced History of tobacco use: Quit prior to admission. Hospitalist will follow up Subjective Lethargic, negative because of pain medication, reported today has significant pain required more frequent pain medicine for breakthrough pain Review of Systems Constitutional: Positive weakness, or fatigue Respiratory: Occasional cough, no sputum, wheezing, or dyspnea on exertion Cardiac: No chest pain, No orthopnea, Abdomen: No pain, No nausea, No vomiting, No diarrhea, No constipation, No GI bleeding Musculoskeletal: Lower extremity in dressing, no muscle pain, No swelling, No calf pain, No problem reported : No dysuria, No urinary frequency, No incontinence, No hematuria Neurologic: No paralysis, No weakness, No numbness/tingling, Psychiatric: No depression symptoms, No anhedonism, No anxiety Heme: No abnormal bleeding/bruising, No clotting problems, Skin: No new/changing skin lesions, No color change, No bleeding Physical Exam 2 Vital Signs (Past 24 Hours): Last Vital Signs Temp 37.0 C 11/18/18 15:12 Pulse 76 11/18/18 15:12 Resp 20 11/18/18 15:12 BP 154/71 H 11/18/18 15:12 Pulse Ox 94 11/18/18 15:12 Physical Exam: Head atraumatic , awake alert oriented x3 PERRL, conjunctivae normal, anicteric sclerae Neck trachea midline, no thyromegaly Respiratory normal respiratory effort, lungs clear to auscultation Cardiovascular RRR, no murmur, no edema Gastrointestinal normal bowel sounds, soft, nontender, no hepatosplenomegaly Left lower extremity in dress and nontender, wound VAC is in place and working well. Results & Data Laboratory Results Laboratory Results - last 24 hr 11/18/18 11/18/18 06:59 06:59 WBC 7.32 RBC 2.80 L Hgb 8.8 L Hct 27.7 L MCV 98.9 MCH 31.4 MCHC 31.8 L RDW Std Deviation 58.3 H RDW Coeff of [place] 16.0 H Plt Count 253 MPV 8.5 Immature Gran % (Auto) 0.1 Neut % (Auto) 62.3 Lymph % (Auto) 19.9 [place] % (Auto) 13.7 Eos % (Auto) 3.7 Baso % (Auto) 0.3 Immature Gran # (Auto) 0.01 Neut # (Auto) 4.56 Lymph # (Auto) 1.46 [place] # (Auto) 1.00 H Eos # (Auto) 0.27 Baso # (Auto) 0.02 RBC Morphology Unremarkable Sodium 136 Potassium 3.4 L Chloride 100 Carbon Dioxide 32 Anion Gap 4.0 BUN 10 D Creatinine 0.64 Est Cr Clr Drug Dosing 133.3 Est GFR ( Amer) 119.1 Est GFR (Non-Af Amer) 102.7 BUN/Creatinine Ratio 15.3 Glucose 94 Calcium 7.4 L Phosphorus 3.2 Magnesium 1.9
[2018-11-18] MEDS: PANTOprazole 40 MG TAB PO SCH (20:14)
[2018-11-19] MEDS: LABETALOL HCL 100 MG TAB PO SCH ×2 (06:07→17:55)
[2018-11-19 06:51] LABS: BUN Creatinine Ratio 15.2 (10-20); Bilirubin Direct 0.2 mg/dl (0-0.2); Bilirubin,Total 0.5 mg/dl (0.2-1); Calcium 7.5 mg/dl (8.5-10.1); Creatinine Clr Calc Pharmacy 131.3 ml/min; Est GFR (African American) 118.3; Est GFR (Non-African American) 102.1; Magnesium 1.9 mg/dl (1.8-2.4); Phosphorus 3.2 mg/dl (2.5-4.9); Total Protein 5.8 gm/dl (6.4-8.2)
[2018-11-19] MEDS: CHECK FENTANYL PATCH PLACEMENT SCH ×3 (08:49→23:33)
[2018-11-19] MEDS: MULTIVITAMIN TAB PO SCH (08:52)
[2018-11-19] MEDS: CLOPIDOGREL BISULFATE 75 MG TAB PO SCH (08:52)
[2018-11-19] MEDS: ASPIRIN 81 MG ECTAB PO SCH (08:52)
[2018-11-19] MEDS: SODIUM CHLORIDE 1 GM TABLET PO SCH ×2 (08:52→20:21)
[2018-11-19] MEDS: LISINOPRIL 5 MG TAB PO SCH (08:52)
[2018-11-19] MEDS: FERROUS SULFATE 325 MG TAB PO SCH ×2 (08:52→20:21)
[2018-11-19] MEDS: ROSUVASTATIN CALCIUM 10 MG TAB PO SCH (08:52)
[2018-11-19] MEDS: TRAMADOL HCL 50 MG TABLET PO PRN ×3 (08:59→23:30)
--- NOTE | 2018-11-19 09:50 | Surgery Progress Note ---
Date of Service November 19, 2018 Assessment & Plan (1) Status post transmetatarsal amputation of left foot: Amputation site appears viable. Due to slight redness we will placed him on oral antibiotics for 2 weeks. He will be going to rehab tomorrow as planned. Subjective Patient claims foot pain is improving daily. Denies any further bleeding. He is able to put small amount of weight on his left foot at this point. Physical Exam 2 Vital Signs (Past 24 Hours): Last Vital Signs Temp 36.9 C 11/18/18 22:52 Pulse 72 11/19/18 05:43 Resp 16 11/18/18 22:52 BP 155/73 H 11/19/18 05:43 Pulse Ox 96 11/18/18 22:52 The amputation site is unchanged. There is no drainage seen. The edges are unchanged from yesterday. There is slight erythema present dorsum of the foot but again no drainage is noted.
--- NOTE | 2018-11-19 11:09 | Hospitalist Progress Note ---
Date of Service November 19, 2018 Assessment & Plan (1) Status post transmetatarsal amputation of left foot: (2) GERD (gastroesophageal reflux disease): (3) HTN (hypertension), benign: (4) Anemia: (5) Hyponatremia: 63yo M w/ hx of PAD s/p femoral-pos tib bypass on 10/20 for a left popliteal artery bypass previous admission, per vascular surgeon they readmit the patient for amputation after reevaluated . pt had Left Transmetatarsal Amputation & application of wound vac; Debridement of left leg wound(Left) , the procedure was done the day before which was November 14, 2018, hospitalist service consulted for medical management PAD s/p femoral-pos tib bypass on 10/20 s/p Left Transmetatarsal Amputation & application of wound vac on November 14, 2018 Acute blood loss anemia , hemoglobin related to stable, Pain management, adjust or increase the fentanyl patch if needed Hypokalemia replaced DVT prophylaxis PT OT, discharge plan will be per primary team peripheral vascular disease, Continue ASA & Plavix, Tobacco cessation hx Hyponatremia: Stable, suspected SIADH , sodium level was normal this admission, pt does not need 2 g sodium diet, he can heart healthy diet without any mutation of sodium, 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 Counseling provided earlier this admission , Dietary control for now abn Elevated LFTs: Repeated is in baseline and is in normal range Hospitalist signout Subjective mild lethargic because of pain medication, still have significant pain requires more frequent pain medicine for breakthrough pain Review of Systems Constitutional: Positive weakness, or fatigue Respiratory: Occasional cough, no sputum, wheezing, or dyspnea on exertion Cardiac: No chest pain, No orthopnea, Abdomen: No pain, No nausea, No vomiting, No diarrhea, No constipation, No GI bleeding Musculoskeletal: Lower extremity in dressing, no muscle pain, No swelling, No calf pain : No dysuria, No urinary frequency, No incontinence, No hematuria Neurologic: No paralysis, No weakness, No numbness/tingling, Psychiatric: No depression symptoms, No anhedonism, No anxiety Heme: No abnormal bleeding/bruising, No clotting problems, Skin: No new/changing skin lesions, No color change, No bleeding Physical Exam 2 Vital Signs (Past 24 Hours): Last Vital Signs Temp 36.9 C 11/18/18 22:52 Pulse 72 11/19/18 05:43 Resp 16 11/18/18 22:52 BP 155/73 H 11/19/18 05:43 Pulse Ox 96 11/18/18 22:52 Physical Exam: Head atraumatic , awake alert oriented x3, looks mild tired and lethargic PERRL, conjunctivae normal, anicteric sclerae Neck trachea midline, no thyromegaly Respiratory normal respiratory effort, lungs clear to auscultation Cardiovascular RRR, no murmur, no edema Gastrointestinal normal bowel sounds, soft, nontender, no hepatosplenomegaly Left lower extremity in dress and nontender, Results & Data Laboratory Results Laboratory Results - last 24 hr 11/19/18 06:04 Sodium 137 Potassium 4.0 D Chloride 100 Carbon Dioxide 31 Anion Gap 5.0 BUN 10 Creatinine 0.65 Est Cr Clr Drug Dosing 131.3 Est GFR ( Amer) 118.3 Est GFR (Non-Af Amer) 102.1 BUN/Creatinine Ratio 15.2 Glucose 98 Calcium 7.5 L Phosphorus 3.2 Magnesium 1.9 Total Bilirubin 0.5 Direct Bilirubin 0.2 AST 49 H ALT 41 Alkaline Phosphatase 175 H Total Protein 5.8 L Albumin 2.0 L
[2018-11-19] MEDS: levoFLOXacin 750 MG TAB PO SCH (11:15)
[2018-11-19] MEDS: LORazepam 1 MG TAB PO PRN (16:45)
[2018-11-19] MEDS: IBUPROFEN 600 MG TAB PO PRN (17:55)
[2018-11-19] MEDS: PANTOprazole 40 MG TAB PO SCH (20:20)
[2018-11-20] MEDS: LABETALOL HCL 100 MG TAB PO SCH (05:12)
[2018-11-20 07:35] LABS: Albumin Level 2.1 gm/dl (3.4-5.0); Bilirubin Direct 0.3 mg/dl (0-0.2); Bilirubin,Total 0.7 mg/dl (0.2-1); Total Protein 6.2 gm/dl (6.4-8.2)
[2018-11-20] MEDS: CHECK FENTANYL PATCH PLACEMENT SCH (08:08)
[2018-11-20] MEDS: ASPIRIN 81 MG ECTAB PO SCH (08:11)
[2018-11-20] MEDS: IBUPROFEN 600 MG TAB PO PRN (08:11)
[2018-11-20] MEDS: LISINOPRIL 5 MG TAB PO SCH (08:12)
[2018-11-20] MEDS: CLOPIDOGREL BISULFATE 75 MG TAB PO SCH (08:12)
[2018-11-20] MEDS: ROSUVASTATIN CALCIUM 10 MG TAB PO SCH (08:12)
[2018-11-20] MEDS: SODIUM CHLORIDE 1 GM TABLET PO SCH (08:12)
[2018-11-20] MEDS: MULTIVITAMIN TAB PO SCH (08:12)
[2018-11-20] MEDS: levoFLOXacin 750 MG TAB PO SCH (08:12)
[2018-11-20] MEDS: FERROUS SULFATE 325 MG TAB PO SCH (08:12)
[2018-11-20] MEDS: TRAMADOL HCL 50 MG TABLET PO PRN (09:21)
--- NOTE | 2018-11-20 09:45 | Hospitalist Progress Note ---
Date of Service November 20, 2018 Assessment & Plan (1) Status post transmetatarsal amputation of left foot: (2) GERD (gastroesophageal reflux disease): (3) HTN (hypertension), benign: (4) Anemia: (5) Hyponatremia: 63yo M w/ hx of PAD s/p femoral-pos tib bypass on 10/20 for a left popliteal artery bypass previous admission, per vascular surgeon they readmit the patient for amputation after reevaluated . pt had Left Transmetatarsal Amputation & application of wound vac; Debridement of left leg wound(Left) , the procedure was done November 14, 2018, hospitalist service consulted for medical management PAD s/p femoral-pos tib bypass on 10/20 s/p Left Transmetatarsal Amputation & application of wound vac on November 14, 2018 Acute blood loss anemia , hemoglobin related to stable, Pain management, adjust or increase the fentanyl patch if needed Hypokalemia replaced DVT prophylaxis PT OT, discharge plan will be per primary team peripheral vascular disease, Continue ASA & Plavix, Tobacco cessation hx Hyponatremia: Stable, suspected SIADH , sodium level was normal this admission, pt does not need 2 g sodium diet, he can heart healthy diet without any mutation of sodium, 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 Counseling provided earlier this admission , Dietary control for now abn Elevated LFTs: Repeated is in baseline and is in normal range Subjective Patient was seen prior to going home the presence of his we coordinated wound care to be moved over to [facility] slightly lethargic from pain medicine his is comfortable transporting him Review of Systems ROS: well nourished well developed. No double vision blurry vision No problems with speech or swallowing No palpitations, chest pain or pressure No Wheezing or breathing issues No abdominal pain nausea vomiting diarrhea changes in appetite or weight No burning urine urine frequency or changes in color Minor but diffuse focal joint and muscle pain complaints He has healing wound on his lower extremities wound with wound VAC in place No unusual bruising or bleeding No focused back pain or numbness or loss of strength Physical Exam 2 Vital Signs (Past 24 Hours): Last Vital Signs Temp 36.4 C L 11/20/18 08:06 Pulse 68 11/20/18 08:06 Resp 15 11/20/18 08:06 BP 150/90 H 11/20/18 08:06 Pulse Ox 96 11/20/18 08:06 The patient appeared well nourished and normally developed. Vital signs as documented. Head exam is unremarkable. normocephalic, atraumatic Neck is without jugular venous distension, thyromegaly, or lymphademopathy Lungs are clear to auscultation and percussion. Cardiac exam reveals Rhythm is regular. First and second heart sounds normal. Abdominal exam reveals normal bowel sounds, no masses, no organomegaly
--- NOTE | 2018-11-20 10:11 | Surgery Progress Note ---
Date of Service November 20, 2018 Assessment & Plan (1) Ischemic pain of left foot: now s/p TMA (2) Status post transmetatarsal amputation of left foot: Pt doing well post op. Wound vac changed today. To rehab today if arrangements made for transportation and wound vac at rehab. Subjective 63 yo m Post op after LLE TMA and debridement of wounds, seen in f/u today. Pt states pain well controlled currently. No new complaints. Hoping for d/c to rehab today. Physical Exam 2 Vital Signs (Past 24 Hours): Last Vital Signs Temp 36.4 C L 11/20/18 08:06 Pulse 68 11/20/18 08:06 Resp 15 11/20/18 08:06 BP 150/90 H 11/20/18 08:06 Pulse Ox 96 11/20/18 08:06 Constitutional: WD/WN, vitals as above Respiratory: normal respiratory effort, lungs clear to auscultation Cardiovascular: Rate/Rhythm: regular rate and regular rhythm Extremities: + edema (LLE improved) Gastrointestinal (Abdomen): normal bowel sounds, soft, nontender, no hepatosplenomegaly Skin: no rashes, warm and dry + wound (L TMA site intact with tatyana, + local erythema and necrosis of wound edges. Mediall ankle with excellent granulation. Medial leg with superficial dry necrosis, no erythema. )
--- NOTE | 2018-11-28 08:43 | Discharge Summary ---
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 A duplex performed at that time showed a 4.4 cm popliteal aneurysm as well as a left-sided popliteal DVT. He was started on Eliquis at that time, and since then has noted that the sensation has returned to his left lower extremity with the character of burning as well as tingling. He notes that the left foot erythema tends to be more white in the morning and then progresses to red within an hour of getting up for the day. The numbness that he experienced on Tuesday was new, although he has had several chronic nonhealing ulcers of that foot, particularly at the base of the first metatarsal head that have been present for the past 4-6 months. The erythema had not started until approximately 2-3 weeks ago, as noted by his . He under went urgent revascularization and embliozation of the popliteal artery aneurysm. He continued to have ischemic changes but isolated to the toes of the left foot. He denies particular symptoms of claudication, noting that sometimes walking helps the left lower extremity pain resolve and other times it worsens it. He does have rest pain in the left foot. After allowing time for demarcation, a transmetatarsal amputation and debridement of other surgical wounds was recommended. Pt was agreeable. Admission Exam Per Admitting Provider This is a moderately healthy-appearing elderly male in no acute distress. His sclerae are anicteric, his mucous membranes are moist. There are no carotid bruits noted and his neck was supple. His heart is regular rate and rhythm with no murmurs appreciated. His blood pressure is 144/84 and his pulse is 84. His lungs are clear to auscultation bilaterally. An aortic pulse is noted in the epigastric region, but does not appear enlarged. His abdomen is otherwise soft, nontender, nondistended. He has 2+ femoral pulses bilaterally. He has doppler signeals in his left foot. He has a palpable DP and PT pulse on the right. He has a The left lower extremity has ischemic appearing toes of the foot. There is a chronic nonhealing ulcer at the base of the first metatarsal head on the plantar aspect of the foot, as well as scattered small wounds in various stages of healing along the lateral aspect of the foot and the dorsal surface of the fourth digit. He has no focal neurologic deficits. Principal Diagnosis 1. s/p LLE Transmetatarsal Amputation and debridement of wounds 2. Ischemia and gangrene of L toes 3. 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 Mediall ankle with excellent granulation. Medial leg with superficial dry necrosis, no erythema. ) Discharge Data Allergies Allergy/AdvReac Type Severity Reaction Status Date / Time Penicillins Allergy Severe Rash Verified 11/14/18 11:05 Consultations 11/14/18 16:09 Consult Case Management - Discharge Planning Routine 11/15/18 13:41 Consult Pain Management Routine 11/15/18 20:57 Consult Hospitalist Routine Procedures Performed Operation Date: 11/14/18 12:20 Actual Procedures p Left Transmetatarsal Amputation; Debridement of left leg wound(Left) - Carlos Blunt MD Hospital Course (1) Ischemic pain of left foot: Pt s/p TMA L foot and debridement of other surgical wounds. Improvement in foot noted, especially with wound vac placement to medial ankle. OK for d/c to rehab. (2) Status post transmetatarsal amputation of left foot: Pt doing well post op. Wound vac changed day of d/c. To rehab if arrangements made for transportation and wound vac at rehab. Total Time Total Time Spent Total Time Spent (In Minutes): 30 minutes Total Time Includes: Examination of the Patient, Discharge Planning, Medication Reconciliation and Communication With Other Providers Discharge Plan Discharge Items Patient Disposition: Transfer [facility] Reason For Visit: Rest Pain Left Foot Discharge Diagnosis: 1. s/p L foot transmetatarsal amputation and debridement of L Leg 2. L foot necrosis/ischemia Condition: Good Discharge Goals: Decrease discomfort and Therapeutic intervention Activity: Per 'Additional Instructions' section Lifting: None Bathing Comment: DO NOT get LLE wounds wet during bathing. Exercise/Sports: Gradually increase as tolerated Exercise Comment: WBAT LLE Weightbearing: Left weightbearing and Right weightbearing Non-emergency contact: Primary Care Provider and Surgeon Call non-emergency contact if: you have any medication questions, your pain is worsening, your temperature is above 101, your wound has increased redness and your wound has increased drainage Follow-up/Referrals: Devonte Kemp [Primary Care Provider] - Diet: Heart Healthy Addtl Provider Instructions: 1. Wound Vac to LLE medial ankle wound only, at 125mmHg, change M/W/F. 2. L TMA wound daily dressing: cleanse with saline, then place dry dressing when OOB. 3. L Medial leg wound daily dressing: cleanse with saline, then place xeroform to open area and cover with 4x4 and loose kerlix. 4. MUST wear post op shoe when OOB. 5. Needs appt with Dr Blunt in office within 2 weeks on a vac change day. Prescriptions: New fentanyl 50 mcg/hr Patch 72 Hour 50 mcg Transdermal Q72H 30 Days Qty: 10 RF: 0 levofloxacin 750 mg Tablet 750 mg PO DAILY@1100 10 Days Qty: 10 RF: 0 Continue aspirin [Aspirin Low Dose] 81 mg Tablet,Delayed Release (Dr/Ec) 81 mg PO QAM RF: 0 esomeprazole magnesium [Nexium] 20 mg Capsule,Delayed Release(Dr/Ec) 40 mg PO HS RF: 0 labetalol 100 mg Tablet 100 mg PO Q12@0600,1800 30 Days Qty: 90 RF: 0 multivitamin Tablet 1 tab PO DAILY RF: 0 sennosides [senna] 8.6 mg Tablet 8.6 mg PO BID PRN (Reason: Constipation) RF: 0 sodium chloride 1 gram Tablet 1,000 mg PO BID RF: 0 clopidogrel [Plavix] 75 mg Tablet 75 mg PO DAILY RF: 0 tramadol 50 mg Tablet 50 mg PO Q6H PRN (Reason: Pain) RF: 0 oxycodone-acetaminophen [Percocet] 5-325 mg Tablet 1 tab PO Q6H PRN (Reason: Pain) RF: 0 magnesium hydroxide [Milk of Magnesia] 400 mg/5 mL Suspension 30 ml PO DAILY PRN (Reason: Constipation) RF: 0 bisacodyl 10 mg Suppository 10 mg MD DAILY PRN (Reason: Constipation) RF: 0 ferrous sulfate 325 mg (65 mg iron) Tablet 325 mg PO BID RF: 0 sodium phosphates [Fleet Enema] 19-7 gram/118 mL Enema 197 ml MD UD PRN (Reason: Constipation) RF: 0 lorazepam [Ativan] 1 mg Tablet 1 mg PO Q8H PRN (Reason: Anxiety) RF: 0 ibuprofen 600 mg Tablet 600 mg PO BID PRN (Reason: Pain) RF: 0 rosuvastatin 10 mg Tablet 10 mg PO DAILY RF: 0 lisinopril [Zestril] 5 mg tablet 5 mg PO DAILY RF: 0 Discontinued fentanyl 25 mcg/hr Patch 72 Hour 1 patch TRANSDERMAL Q72H RF: 0 Stand-Alone Forms: [facility] Discharge Orders: Discharge Order (Routine); Ordered 11/20/18 Ordered By: Magaly Espinosa Skilled Items Patient informed of condition?: Yes DNR: No Discharge Level of Care: Acute rehab Communicable Disease: No Discharge Prognosis: Improving Admission Data Admit Date/Time: 11/14/18 16:01 Attending Provider: Carlos Blunt Admit Provider: Carlos Blunt Primary Care Provider: Devonte Kemp Other Providers: Sergei Goodman Jennifer L Service: Surgical Services Other Interventions: Discharge Summary Assessment (RN) Last Done: 11/20/18 12:33 DC Date/Time DO NOT enter until pt leaves facility: 11/20/18 13:18
== END 2018-11-20 13:18 | DRG 240 ==
LOC: ASU 10:23 → 3N 16:01
DX: Z98.890 Other specified postprocedural states; D62 Acute posthemorrhagic anemia; Z79.82 Long term (current) use of aspirin; Z86.718 Personal history of other venous thrombosis and embolism; E22.2 Syndrome of inappropriate secretion of antidiuretic hormone; M19.90 Unspecified osteoarthritis, unspecified site; E87.6 Hypokalemia; I70.222 Atherosclerosis of native arteries of extremities with rest pain, left leg; Z79.02 Long term (current) use of antithrombotics/antiplatelets; Z88.0 Allergy status to penicillin; F10.20 Alcohol dependence, uncomplicated; R73.03 Prediabetes; I70.262 Atherosclerosis of native arteries of extremities with gangrene, left leg; K21.9 Gastro-esophageal reflux disease without esophagitis; Z87.891 Personal history of nicotine dependence; I10 Essential (primary) hypertension; I72.4 Aneurysm of artery of lower extremity; I70.245 Atherosclerosis of native arteries of left leg with ulceration of other part of foot; Z79.899 Other long term (current) drug therapy; L97.529 Non-pressure chronic ulcer of other part of left foot with unspecified severity; F41.9 Anxiety disorder, unspecified; K76.0 Fatty (change of) liver, not elsewhere classified; Z79.891 Long term (current) use of opiate analgesic

== ENCOUNTER 2019-01-22 15:06 | Inpatient (IN) ==
[2019-01-22] MEDS ORDERED: POLYETHYLENE (MIRALAX) 17 GM PACK PO PRN (19:08)
[2019-01-22] MEDS ORDERED: ONDANSETRON INJ 2 MG/ML 2 ML VIAL IV PRN (19:08)
[2019-01-22] MEDS ORDERED: Heparin IV Standard *NO* Bolus IV ONE (19:08)
[2019-01-22] MEDS ORDERED: PIPERACILL/TAZOBAC CONSULT ACTIVE PRN (19:14)
[2019-01-22] MEDS ORDERED: PIPERACILLIN/TAZOBACTAM 4.5 GM in DEXTROSE 5% 100 ML IV STA (19:14)
[2019-01-22] MEDS ORDERED: BISACODYL 10 MG SUPP PR PRN (19:14)
--- NOTE | 2019-01-22 19:25 | History & Physical Report ---
Date of Service January 22, 2019 Assessment & Plan (1) Pain in left foot: Patient with PVD, s/p fem-posterior tibial bypass, s/p TMA of left foot, wound vac in place. ?acute bleeding at wound vac noted by home nurse this AM. Patient with severe pain, ?delirium. Ddx to include ischemic pain vs infection -Admit to medical floor with telemetry -Check LLE arterial doppler to assess for ischemia -Check LLE MRI to assess for possible osteo -Check Lactate, CK total -Pain control with Tylenol IV, Morphine PRN -Bowel regimen -Will hold additional antibiotics for now pending results of laboratory studies and MRI -Monitor dressings - maintain pressure dressing in place overnight. To be assessed by Vascular in AM -Consult Vascular Surgery - appreciate assistance with this case Present on Admission?: Yes (2) Delirium: states patient has not slept since November. Concerned for acute delirium with episodes of confusion and possible hallucination. Patient is oriented x 2 now, nonfocal exam -Check BMP, Mag, Phos, CBC -Check TSH -Delirium prevention strategies with frequent orientation, minimize interruptions to sleep, etc -Vistaril PRN insomnia -Pain control as above Present on Admission?: Yes (3) PVD (peripheral vascular disease): Possibly secondary to tobacco abuse. -Hold ASA and Plavix for now in setting of possible bleeding complication -Vascular surgery consultation as above -Continue Crestor 10 (4) GERD (gastroesophageal reflux disease): Chronic. -Continue Protonix 40mg po daily Present on Admission?: Yes (5) HTN (hypertension), benign: BP high at 172/88 -Pain control as above -Continue Labetalol 100mg po BID -Continue Lisinopril 5mg po qAM -Continue to monitor Present on Admission?: Yes (6) DVT (deep venous thrombosis): Chronic LLE DVT -Noted, monitor Present on Admission?: Yes (7) Anemia: Concern for bleeding from foot. H/H stable at OSH -Check CBC now -Transfuse if Hg < 7, symptomatic anemia or active bleeding F/E/N - NSS at 75mL/hr x 2 liters, monitor electrolytes and replete as needed, Heart healthy diet for dinner, NPO after midnight for possible surgical intervention if needed Ppx - No chemoprophylaxis with concern for bleed, no SCDs d/t PVD Code - Full Dispo - MedSurg with telemetry History of Present Illness Chief Complaint: Left foot pain, ?delirium Primary Care Provider: Devonte Kemp Patric Ortega is a 63yo C male with history of PVD. Patient had a femoral- posterior tibial bypass performed on 10/20 with subsequent left transmetatarsal amputation with application of wound vac. He completed a two week course of Levaquin and has been on Dalvance as well. Last week the patient was hallucinating - thought that he was becoming septic. It was recommended that he go to the ER, however, patient did not wish to go to the ER at that time. Patient's reports that the wound vac shut off at 02:30 this AM and there was bleeding under the dressing. Home nursing removed the wound vac and there was a considerable amount of bleeding and spurting reported. A pressure dressing was applied and the patient was sent to [place] ER. In the ER the patient had a LE doppler performed which redemonstrated the LLE DVT, noted on the study from 10/10/18 as well. He was transferred to [facility]. reports that patient has had change in mental status since November. She reports that he has not slept more than 20 minutes at a time and that his pain has not been well controlled at all. She states that he hallucinates at times and speaks to people that aren't in the room. Patient presently complaining of severe LLE pain, sharp, 10/10 coming in waves. He is unable to ambulate effectively secondary to pain. Allergies Allergy/AdvReac Type Severity Reaction Status Date / Time Penicillins Allergy Severe Rash Verified 12/08/18 06:14 hydromorphone [From Dilaudid] AdvReac Severe HALLUCINATING, Verified 12/08/18 06:14 "WIRED" oxycodone AdvReac Severe Hallucinati Verified 12/08/18 06:14 ng Home Medications Home Medications Medication Instructions Recorded Confirmed Type aspirin [Aspirin Low Dose] 81 mg PO QAM 10/17/18 12/08/18 History esomeprazole magnesium [Nexium] 40 mg PO QAM 10/17/18 12/08/18 History clopidogrel [Plavix] 75 mg PO QAM 11/13/18 12/08/18 History ferrous sulfate 325 mg PO BID 11/13/18 12/08/18 History ibuprofen 600 mg PO BID PRN 11/13/18 12/08/18 History lisinopril [Zestril] 5 mg PO QAM 11/13/18 12/08/18 History lorazepam [Ativan] 1 mg PO Q8H PRN 11/13/18 12/08/18 History multivitamin 1 tab PO DAILY 11/13/18 12/08/18 History rosuvastatin 10 mg PO QPM 11/13/18 12/08/18 History sennosides [senna] 8.6 mg PO BID PRN 11/13/18 12/08/18 History escitalopram oxalate [Lexapro] 10 mg PO QAM 11/30/18 12/08/18 History fentanyl 1 patch TRANSDERMAL Q72H 11/30/18 12/08/18 History labetalol 100 mg PO BID 11/30/18 12/08/18 History Past Med/Surg History Social History Preferred Language: Arabic Communication Ability: Effective Visual Impairment: Limited Cylinder Devalver Required: No Beliefs That Will Affect Care: None marital status: Current Living Situation: Spouse Other Information That Helps Us Care for You: No Feels Safe at Home: Yes Safety Concerns: Feels Safe At This Time Smoking Status: Former smoker Tobacco Type: cigarettes Do You Dip or Chew Tobacco: No Second Hand Exposure: No Tobacco Cessation Education Requested by Patient: No Hx Alcohol Use: No Hx Substance Use: No Review of Systems Review of Systems: All systems reviewed & are unremarkable except as noted in HPI & below Patient denies CP/SOB/palpitations/abdominal pain/nausea/vomiting/diarrhea/constipation Physical Exam Physical Exam: General: patient resting in mild distress secondary to episodic pain, chronically ill in appearance, AA&O to self and location Skin: warm, dry, no rashes/lesions HEENT: NC/AT, PERRL, EOMI, anicteric sclera, conjunctiva without injection, external ear normal to inspection and nontender, nares patent, dry mucus membranes, adentulous, patient not wearing his dentures, no oropharyngeal lesions, neck supple, trachea midline, no LAD, no thyromegaly, no JVD Heart: +S1/S2, regular with ectopy, no m/r/g Lungs: equal air entry bilaterally, no rales/rhonchi/wheezes Abd: +BS, soft, NT/ND, no masses/organomegaly/ascites Ext: warm, surgical absence of left hand, 2+ pulses in UE bilaterally, 1+ pulses in RLE, LLE with pressure dressing in place, no bleeding through the dressing Neuro: nonfocal, patient AA&O x 2, speech difficult to understand without dentures in place, no facial droop, moving all extremities on command with equal strength 5/5 Results & Data Vital Signs (Past 12 Hours) Vital Signs Temp Pulse Pulse Resp BP Pulse Ox 01/22/19 18:07 99 H 01/22/19 17:43 37.2 C 102 H 18 172/88 H 91 01/22/19 17:29 37.3 C 102 H 18 184/101 H 91 Laboratory Results Labs ordered. OSH labs largely unremarkable: Alb=2.8 CA=897 AST=43 Lactate=1.2 PctMNX=[id number] Trop=0.018 INR=1.14 WBC=11.04 Hg=11 Hct=34.2 Qvw=300 Diagnostic Findings US LE VENOUS DUPLEX LEFT: Probable nonocclusive DVT extending from the distal portion of the femoral vein through the distal portion of the popliteal vein. DVT was also seen on 10/10/2018 examination ECG Additional Comments: OSH EKG: NSR at 97bpm, PACs/PVCs, QRS=97, LTb=191, no acute ischemic changes Code Status & VTE Plan Code Status FULL (1) GERD (gastroesophageal reflux disease) Esophagitis presence: without esophagitis Qualified Code(s): K21.9 - Gastro- esophageal reflux disease without esophagitis (2) DVT (deep venous thrombosis) DVT location: lower extremity Affected thrombotic vein of extremity: femoral Chronicity: chronic Laterality: left Qualified Code(s): I82.512 - Chronic embolism and thrombosis of left femoral vein
[2019-01-22 20:18] LABS: Basophils # (auto) 0.03 K/uL (0-0.2); Basophils % (auto) 0.3 %; Eosinophils # (auto) 0.19 K/uL (0-0.5); Eosinophils % (auto) 1.6 %; Hematocrit (blood only) 32.2 % (42-52); Hemoglobin 10.8 g/dL (14.0-18.0); Immature Granulocytes # (auto) 0.03 K/uL (0.00-0.02); Immature Granulocytes % (auto) 0.3 %; Lymphocytes # (auto) 2.75 K/uL (1.2-3.4); Lymphocytes % (auto) 23.4 %; Mean Corpuscular Hgb Conc 33.5 g/dL (32-36); Mean Corpuscular Volume 90.2 fL (80-100); Monocytes # (auto) 1.42 K/uL (0.11-0.59); Monocytes % (auto) 12.1 %; Neutrophils # (auto) 7.33 K/uL (1.4-6.5); Neutrophils % (auto) 62.3 %; Platelet Count 268 K/uL (130-400); RDW Coefficient of Variation 14.5 % (11.5-14.5); RDW Standard Deviation 48.2 fL (36.4-46.3); Red Blood Count 3.57 M/uL (4.7-6.1); White Blood Count 11.75 K/uL (4.8-10.8)
[2019-01-22 20:29] LABS: INR 1.1 (0.9-1.1); Prothrombin Time 11.1 Seconds (9.0-12.0)
[2019-01-22] MEDS: MoRPHine SULFATE 2 MG/ML CARP IV PRN (20:32)
[2019-01-22 20:39] LABS: Albumin Level 2.7 gm/dl (3.4-5.0); BUN Creatinine Ratio 15.9 (10-20); Bilirubin Direct 0.1 mg/dl (0-0.2); Calcium 8.3 mg/dl (8.5-10.1); Creatinine Clr Calc Pharmacy 163.1 ml/min; Est GFR (African American) 128.7; Magnesium 1.9 mg/dl (1.8-2.4); Potassium 4.1 mmol/L (3.5-5.1)
[2019-01-22 20:48] LABS: Bilirubin,Total 0.4 mg/dl (0.2-1); Phosphorus 3.1 mg/dl (2.5-4.9); Total Protein 6.9 gm/dl (6.4-8.2)
[2019-01-22] MEDS ORDERED: HYDROmorphone INJ 1 MG/ML SYRINGE IV STA (22:01)
[2019-01-22] MEDS: ACETAMINOPHEN 1,000 MG/100 ML VIAL IV SCH (22:49)
[2019-01-22] MEDS: LABETALOL HCL 100 MG TAB PO SCH (22:50)
[2019-01-22] MEDS: LACTATED RINGER'S 1,000 ML IV SCH (22:50)
--- NOTE | 2019-01-22 23:04 | Progress Note ---
Date of Service January 22, 2019 Subjective RN called as pt concern about R hand feeling numb/tingly Patient was evaluated - hand is warm and well perfused, 2+ radial pulse, sensation intact and equal over bilateral hand/fingers, R hand dressing C/D/I and loose, has 5/5 strength with finger extension and flexion and able to move arm now (previously reports had difficulty moving arm) Patient was re-assured and nurse notified Results & Data Vital Signs (Past 12 Hours) Vital Signs Temp Pulse Pulse Resp BP Pulse Ox 01/22/19 18:07 99 H 01/22/19 17:43 37.2 C 102 H 18 172/88 H 91 01/22/19 17:29 37.3 C 102 H 18 184/101 H 91 Resident Activity Tracking Resident Involvement: Resident Care Provided Care Provided: Adult Hospital Medicine
--- NOTE | 2019-01-22 23:08 | Ultrasound Report ---
US arterial duplex LE LT CLINICAL HISTORY: 63 years-old Male presenting with left leg pain. TECHNIQUE: Real-time grayscale and color and spectral Doppler ultrasound imaging of the left lower ex tremity arteries was performed. Measurements calculated based on NASCET criteria. COMPARISON: CTA runoff from 10/16/2018. FINDINGS: LEFT: Common femoral artery: Patent. Monophasic waveforms. Peak systolic velocity (PSV) 182 cm/s. Deep femoral artery: Patent. Monophasic waveforms. PSV 124 cm/s. Superficial femoral artery: Patent. Monophasic waveforms. PSV 470 cm/s at the origin/proximal SFA, co nsistent with the site of stenosis. PSV 57-138 cm/s beyond the site of stenosis. No demonstrable flow in the distal SFA. Graft: Patent originating from the common femoral artery and coursing to the calf within the subcutan eous tissue. Monophasic waveforms. PSV 79-240 cm/s. Popliteal artery: Not demonstrably patent possibly due to swelling. Complex collection measuring 4.4 cm in the popliteal fossa. Anterior tibial artery: Not demonstrably patent possibly due to swelling. Posterior tibial artery: Potentially patent. Peroneal artery: Not demonstrably patent possibly due to swelling. IMPRESSION: 1. Apparent left lower extremity graft presumably new since the prior CTA is no graft was evident on that examination. The interrogated presumed graft vessel is patent. 2. [place] vessels in the left lower leg not demonstrably patent though this may part be due to lower extremity swelling and the presence of bandages limiting the acoustic window. 3. Complex collection in the left popliteal fossa. This corresponds to the known popliteal aneurysm, which may be thrombosed on the current exam representing a change from prior. 4. Hemodynamically significant stenosis of the origin/proximal left SFA. Electronically signed by: Abhay Da Silva M.D. 01/22/2019 11:07 PM
[2019-01-22] MEDS ORDERED: HALOPERIDOL LACTATE 5 MG/ML 1 ML VIAL IM STA (23:37)
--- NOTE | 2019-01-22 23:49 | Progress Note ---
Date of Service January 22, 2019 Subjective -Patient was evaluated around 11:30pm. RN had called prior to patient evaluation as MRI was unable to perform imaging due to dressing making foot too big and patient constantly moving and being in significant discomfort. Per RN, morphine had not helped patient's pain. Chart was reviewed and dilaudid 1mg IV was ordered (pt had allergy reported with dilaudid (hallucination) which is not an unusal side effect and small dose of dilaudid was ordered after confirming with supervising doctor, Dr. borges). Dilaudid did not help patient's pain or calm him down. MRI was not able to be completed due to patient constantly moving. However was upset about patient receiving dilaudid and pt/ were visited. -Patient was evaluated and was at bedside -Dressing was intact to L foot and foot is very tender to touch -Patient was constantly moving arms and legs, moaning and pulling NC off -'s attempts at re-orienting patient were not helpful - reports that patient has had change in mental status since November. She reports that he has not slept more than 20 minutes and appears to be in constant discomfort. 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 She states that he hallucinates at times and speaks to people that aren 't in the room. She had noted hallucinations when he had received dilaudid in november during his hospitalization but they appear to have continued at home as well when he was off dilaudid. reports trying ativan 2mg once at home to help him get rest and calm him down which also caused hallucinations and did not help. She stopped it. She is in tears and reports not getting any sleep because "he is constantly making noises and in discomfort from across the room". It is very difficult for her to see him suffering like this and would like to know what is going on. was comforted. I asked if he ever received haldol to help him rest/calm down. She does not recall him taking haldol and is not opposed to trying a small dose to see if it helps him. A 2mg IM dose of haldol was ordered. -MRI will try to take patient later tonight for imaging if he is calmer Results & Data Vital Signs (Past 12 Hours) Vital Signs Temp Pulse Pulse Resp BP Pulse Ox 01/22/19 18:07 99 H 01/22/19 17:43 37.2 C 102 H 18 172/88 H 91 01/22/19 17:29 37.3 C 102 H 18 184/101 H 91 Resident Activity Tracking Resident Involvement: Resident Care Provided Care Provided: Adult [facility] Medicine
[2019-01-23] MEDS ORDERED: METOPROLOL TARTRATE 1 MG/ML VIAL IV STA (00:24)
[2019-01-23] MEDS: ACETAMINOPHEN 1,000 MG/100 ML VIAL IV SCH ×3 (05:59→20:13)
[2019-01-23] MEDS: LACTATED RINGER'S 1,000 ML IV SCH (06:33)
[2019-01-23] MEDS: MoRPHine SULFATE 2 MG/ML CARP IV PRN (06:35)
[2019-01-23 07:02] LABS: Appearance Urine Clear (Clear); Bilirubin Urine Negative (Negative); Blood Urine Negative (Negative); Color Urine Yellow; Glucose Urine UA Negative (Negative); Ketones Urine Trace (Negative); Leukocyte Esterase Urine Negative (Negative); Nitrite Urine Negative (Negative); Protein Urine Negative (Negative); Urobilinogen Urine Negative (Negative); pH Urine 6.5 (4.5-7.5)
--- NOTE | 2019-01-23 07:34 | Family Medicine Progress Note ---
Date of Service January 23, 2019 Assessment & Plan (1) Pain in left foot: Patient with PVD, s/p fem-posterior tibial bypass, s/p TMA of left foot, wound vac in place. ?acute bleeding at wound vac noted by home nurse this AM. Patient with severe pain, ?delirium. Ddx to include ischemic pain vs infection. Lactate and CK on admission were within reason -admitted to Tele -CT LLE consistent with osteomyelitis -Blood cultures were obtained yesterday NGTD -Patient started on empiric vancomycin and Levaquin -qtc 464 prior to initiation -CX'd ID -Initial pain control was with morphine and Tylenol, the patient did not receive adequate relief from this regimen. -Yesterday evening was given a 1 mg dose of Dilaudid and finally able to sleep -Pain regimen converted to 1 mg of Dilaudid every 2 H as needed, with breakthrough morphine -Given chronicity of pts pain consulted PMR appreciate recs -Following vascular surgery recommendations -Patient will need to go to the OR for debridement, but must be medically stabilized first -plan for surgery Tuesday (2) Delirium: states patient has not slept since November. Concerned for acute delirium with episodes of confusion and possible hallucination. Patient is oriented x 2 now, nonfocal exam -BMP, Mag, Phos, CBC unremarkable -Delirium prevention strategies with frequent orientation, minimize interruptions to sleep, etc -Suspect an element of this patient's delirium is secondary to poorly controlled pain, hopefully through optimizing his pain medication, and consulting PMR we s carolineuld be able to gain some control of his pain and hopefully improve the delirium. -Patient's reported that he was a heavy alcoholic, she reported he quit around the time of his previous surgery. He has been using Lorazepam regularly which can prolong "withdrawal". This may be contributing to his agitation and delirium. -placed on alcohol withdrawal protocol -IV Haldol as needed is ordered for severe agitation please contact her primary if given. (3) PVD (peripheral vascular disease): Possibly secondary to tobacco abuse. Burger's disease? -Hold ASA and Plavix for now in setting of possible bleeding complication -Vascular surgery consultation as above -Continue Crestor 10 (4) GERD (gastroesophageal reflux disease): Chronic. -Continue Protonix 40mg po daily (5) HTN (hypertension), benign: BP high at 172/88 suspect this is secondary to pain -Pain control as above -Continue Labetalol 100mg po BID -Continue Lisinopril 5mg po qAM -Continue to monitor (6) DVT (deep venous thrombosis): Chronic LLE DVT -Noted, monitor -No anticoagulation at present given planned surgery (7) Anemia: No bleeding is present at the amputation site. Hemoglobin has been stable -Continue to trend CBC -Transfuse if Hg < 7, symptomatic anemia or active bleeding F/E/N - Heart healthy diet Ppx - No chemoprophylaxis with concern for bleed and plan surgery Code - Full Dispo - MedSurg with telemetry Supervising Physician Co-Signing Physician Notes Patient seen and examined with Dr. Harris and medical student Cecil. Agree with documented history, physica exam, assessment and plan of care as documented. In brief, Mr. Ortega is a 63 year old male with hx of PVD s/p fem-posterior tibial bypass in October and left transmet amputation admitted with delirium and pain in his left foot (noted bleeding in the wound vac by home nursing). 1. Left foot pain with bleeding at surgical site. Ischemic pain vs infection. CCM. LLE arterial doppler showing patent graft vessel, limited findings in nativ e vessels due to LE edema and bandages. ?thrombosed popliteal aneurysm. Hemodynamically significant stenosis of origin/proximal left SFA. LLE CT without contrast (pt unable to sit in the MRI) showing cortical destruction of the exposed bone of the first met c/w osteomyelitis; no osteo noted in the tibia or fibula. WBCs 11.75. Start vanc and levaquin. ID consult for antibiotic management assistance. Pain control with IV Tylenol and dilaudid. Bowel regimen. Vascular surgery consultedplans for OR later this week. Appreciate recommendations. 2. Delirium. Constant reorientation. Avoid anticholinergics. Ok to use IV haldol if reorientation is not sufficient. 3. PVD. Holding ASA and Plavix in the setting of bleeding. Continue Crestor 10mg. 4. chronic pain, ?neuropathic pain. Per , pt has be tried on multiple medications without success or significant side effects. Would appreciate pain management input for acute pain but also recommendations for longer term pain management recommendations. 5. HTN. Continue home labetalol 100mg BID, Lisinopril 5mg. 6. chronic LLE DVT. 7. anemia. Hgb 10.8 (above previous baseline). Monitor in the setting of bleeding. 8. hyponatremia. Na 131. ?is this from SSRI vs acute illness. Appears euvolemic. 9. Hypoalbuminemia. Albumin 2.7. Consider nutrition consult for protein malnutrition. This may be helpful in wound healing. Dipso: pending clinical improvement. Subjective Communication with the patient is difficult as patient is difficult to understand secondary to slurred speech Patient lying in bed this morning being examined by Dr. Blunt this morning. Patient was in significant pain and distress per report since his operation in October. This morning during the exam he exhibited tremors, wincing, and endorsed significant pain. Over the last several months this patient and his have tried several pain regimens both narcotic and nonnarcotic with little success. Dr. Blunt evaluated the patient's leg and determined it required surgery however the patient must be stabilized medically prior to the procedure. Surgery is tentatively scheduled for this Tuesday. Per his has been unable to sleep for the last 20 days. Yesterday evening his pain was unresponsive to morphine so a trial of Dilaudid was given and the patient tolerated it well achieving 7 hours of sleep. Per report both the patient and his have been very distressed since admission. They are concerned his pain was not adequately being addressed or controlled and it appears as if there is some underlying social issues between the and . The primary team received several notifications this morning that the patient was agitated and yelling and that his is yelling and that both of them were crying. In fact the patient's would not allow the medical student into the room this morning to examine him. The primary team including Dr. Melissa, Dr. Lee, Cecil Stanley the medical student, and myself had a lengthy conversation with the patient's to obtain a further history. Per his the patient has a significant smoking and drinking history "drinking beer every night when he came home and smoking roughly 3 packs a day". 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 The patient's brother had previously committed suicide and the patient has vocalized wanting it all to end. The patient's had all of the guns removed from the house and is concerned what the patient would do if he had access to them. The patient's stated that she was nervous one-time when the patient was holding a gun and unloading it. She was concerned for her safety as "he is the type of person who was say you are not staying around to spend my money". She is fearful if he attempted suicide that he would "take her with her". Furthermore she states since the surgery in October she and her have been fighting a lot to the point where he is screaming profanities at her. Yesterday evening when attempting to bring him to the hospital he became very agitated towards her and his brother. When directly asked do you feel safe the patient's responded yes. We advised the patient's that should she at any time feel unsafe or fearful that she has numerous resources to contact including but not limited to the the medical team, her physician, her brother a police sergeant precinct, the local police, and the crisis hotline. As evidenced above the patient's primary issue is vascular in nature however there are multiple comorbid social issues that I believe will complicate this patient's hospital course. The patient denies nausea, vomiting, diarrhea, constipation, headache, fever, chills, sore throat, weakness in his muscles, change in bowel or bladder habit, congestion, or other signs of an acute process. The patient endorses significant pain Physical Exam Physical Exam: General: Elderly gentleman, not groomed well, in significant pain Eyes: EOMI Neck: Trachea midline normal to visual inspection, I did not appreciate JVD, Chest: Scattered wheezes otherwise clear to auscultation bilaterally Cardiac: Regular rate and rhythm, some ectopy present, normal S1-S2, I did not appreciate any murmurs rubs or gallops GI: Normal bowel sounds, soft, nontender, nondistended, MSK: Moves all extremities, left tarsal amputation Skin: Amputation site had a foul stents to it, appeared vascularized, poorly healing, concerning for osteo Neuro: Alert, unable to assess orientation secondary to poor communication, calm, cooperative Psych:A: Disheveled, appearing not well groomed, long fingernails, dirty. B: Erratic towards his , cooperative with staff. S: Slurred barely able to understand. M: Depressed A: Congruent T: Unable to assess Results & Data Vital Signs (Past 12 Hours) Vital Signs Temp Pulse Pulse Resp BP Pulse Ox 01/23/19 00:00 116 H 01/22/19 23:35 38.0 C H 113 H 18 187/93 H 93 01/22/19 23:30 84 L Laboratory Results 01/23/19 07:21 01/23/19 07:21 01/23/19 01/23/19 01/23/19 Range/Units 07:21 07:21 06:35 WBC 11.97 H (4.8-10.8) K/uL RBC 3.44 L (4.7-6.1) M/uL Hgb 10.3 L (14.0-18.0) g/dL Hct 30.6 L (42-52) % MCV 89.0 (80-100) fL MCH 29.9 (25-34) pg MCHC 33.7 (32-36) g/dL RDW Std Deviation 48.4 H (36.4-46.3) fL RDW Coeff of Argelia 14.8 H (11.5-14.5) % Plt Count 223 (130-400) K/uL MPV 8.0 (7.4-10.4) fL Immature Gran % (Auto) 0.3 % Neut % (Auto) 72.8 % Lymph % (Auto) 13.5 % [place] % (Auto) 12.1 % Eos % (Auto) 0.9 % Baso % (Auto) 0.4 % Immature Gran # (Auto) 0.03 H (0.00-0.02) K/uL Neut # (Auto) 8.71 H (1.4-6.5) K/uL Lymph # (Auto) 1.62 (1.2-3.4) K/uL [place] # (Auto) 1.45 H (0.11-0.59) K/uL Eos # (Auto) 0.11 (0-0.5) K/uL Baso # (Auto) 0.05 (0-0.2) K/uL PT (9.0-12.0) Seconds INR (0.9-1.1) Sodium 132 L (136-145) mmol/L Potassium 3.9 (3.5-5.1) mmol/L Chloride 98 (98-107) mmol/L Carbon Dioxide 29 (21-32) mmol/L Anion Gap 5.0 (3-11) BUN 9 (7-18) mg/dl Creatinine 0.49 L (0.6-1.4) mg/dl Est Cr Clr Drug Dosing 176.4 ml/min Est GFR ( Amer) 132.9 Est GFR (Non-Af Amer) 114.7 BUN/Creatinine Ratio 17.8 (10-20) Glucose 94 (70-99) mg/dl Lactate (0.4-2.0) mmol/L Calcium 8.5 (8.5-10.1) mg/dl Phosphorus (2.5-4.9) mg/dl Magnesium (1.8-2.4) mg/dl Total Bilirubin (0.2-1) mg/dl Direct Bilirubin (0-0.2) mg/dl AST (15-37) U/L ALT (12-78) U/L Alkaline Phosphatase (45-117) U/L Total Creatine Kinase (39-308) U/L Total Protein (6.4-8.2) gm/dl Albumin (3.4-5.0) gm/dl TSH (0.300-4.500) uIu/ml Urine Color Yellow Urine Appearance Clear (Clear) Urine pH 6.5 (4.5-7.5) Ur Specific [place] 1.020 (1.000-1.030) Urine Protein Negative (Negative) Urine Glucose (UA) Negative (Negative) Urine Ketones Trace H (Negative) Urine Blood Negative (Negative) Urine Nitrite Negative (Negative) Urine Bilirubin Negative (Negative) Urine Urobilinogen Negative (Negative) Ur Leukocyte Esterase Negative (Negative) 01/22/19 01/22/19 01/22/19 Range/Units 19:55 19:45 19:45 WBC (4.8-10.8) K/uL RBC (4.7-6.1) M/uL Hgb (14.0-18.0) g/dL Hct (42-52) % MCV (80-100) fL MCH (25-34) pg MCHC (32-36) g/dL RDW Std Deviation (36.4-46.3) fL RDW Coeff of Argelia (11.5-14.5) % Plt Count (130-400) K/uL MPV (7.4-10.4) fL Immature Gran % (Auto) % Neut % (Auto) % Lymph % (Auto) % [place] % (Auto) % Eos % (Auto) % Baso % (Auto) % Immature Gran # (Auto) (0.00-0.02) K/uL Neut # (Auto) (1.4-6.5) K/uL Lymph # (Auto) (1.2-3.4) K/uL [place] # (Auto) (0.11-0.59) K/uL Eos # (Auto) (0-0.5) K/uL Baso # (Auto) (0-0.2) K/uL PT 11.1 (9.0-12.0) Seconds INR 1.1 (0.9-1.1) Sodium (136-145) mmol/L Potassium (3.5-5.1) mmol/L Chloride (98-107) mmol/L Carbon Dioxide (21-32) mmol/L Anion Gap (3-11) BUN (7-18) mg/dl Creatinine (0.6-1.4) mg/dl Est Cr Clr Drug Dosing ml/min Est GFR ( Amer) Est GFR (Non-Af Amer) BUN/Creatinine Ratio (10-20) Glucose (70-99) mg/dl Lactate 1.2 (0.4-2.0) mmol/L Calcium (8.5-10.1) mg/dl Phosphorus (2.5-4.9) mg/dl Magnesium (1.8-2.4) mg/dl Total Bilirubin (0.2-1) mg/dl Direct Bilirubin (0-0.2) mg/dl AST (15-37) U/L ALT (12-78) U/L Alkaline Phosphatase (45-117) U/L Total Creatine Kinase (39-308) U/L Total Protein (6.4-8.2) gm/dl Albumin (3.4-5.0) gm/dl TSH Cancelled (0.300-4.500) uIu/ml Urine Color Urine Appearance (Clear) Urine pH (4.5-7.5) Ur Specific [place] (1.000-1.030) Urine Protein (Negative) Urine Glucose (UA) (Negative) Urine Ketones (Negative) Urine Blood (Negative) Urine Nitrite (Negative) Urine Bilirubin (Negative) Urine Urobilinogen (Negative) Ur Leukocyte Esterase (Negative) 01/22/19 01/22/19 Range/Units 19:45 19:45 WBC 11.75 H (4.8-10.8) K/uL RBC 3.57 L (4.7-6.1) M/uL Hgb 10.8 L (14.0-18.0) g/dL Hct 32.2 L (42-52) % MCV 90.2 (80-100) fL MCH 30.3 (25-34) pg MCHC 33.5 (32-36) g/dL RDW Std Deviation 48.2 H (36.4-46.3) fL RDW Coeff of Argelia 14.5 (11.5-14.5) % Plt Count 268 (130-400) K/uL MPV 8.0 (7.4-10.4) fL Immature Gran % (Auto) 0.3 % Neut % (Auto) 62.3 % Lymph % (Auto) 23.4 % [place] % (Auto) 12.1 % Eos % (Auto) 1.6 % Baso % (Auto) 0.3 % Immature Gran # (Auto) 0.03 H (0.00-0.02) K/uL Neut # (Auto) 7.33 H (1.4-6.5) K/uL Lymph # (Auto) 2.75 (1.2-3.4) K/uL [place] # (Auto) 1.42 H (0.11-0.59) K/uL Eos # (Auto) 0.19 (0-0.5) K/uL Baso # (Auto) 0.03 (0-0.2) K/uL PT (9.0-12.0) Seconds INR (0.9-1.1) Sodium 131 L (136-145) mmol/L Potassium 4.1 (3.5-5.1) mmol/L Chloride 98 (98-107) mmol/L Carbon Dioxide 29 (21-32) mmol/L Anion Gap 4.0 (3-11) BUN 9 (7-18) mg/dl Creatinine 0.53 L (0.6-1.4) mg/dl Est Cr Clr Drug Dosing 163.1 ml/min Est GFR ( Amer) 128.7 Est GFR (Non-Af Amer) 111.0 BUN/Creatinine Ratio 15.9 (10-20) Glucose 85 (70-99) mg/dl Lactate (0.4-2.0) mmol/L Calcium 8.3 L (8.5-10.1) mg/dl Phosphorus 3.1 (2.5-4.9) mg/dl Magnesium 1.9 (1.8-2.4) mg/dl Total Bilirubin 0.4 (0.2-1) mg/dl Direct Bilirubin 0.1 (0-0.2) mg/dl AST 38 H (15-37) U/L ALT 33 (12-78) U/L Alkaline Phosphatase 119 H (45-117) U/L Total Creatine Kinase 182 (39-308) U/L Total Protein 6.9 (6.4-8.2) gm/dl Albumin 2.7 L (3.4-5.0) gm/dl TSH 1.160 (0.300-4.500) uIu/ml Urine Color Urine Appearance (Clear) Urine pH (4.5-7.5) Ur Specific [place] (1.000-1.030) Urine Protein (Negative) Urine Glucose (UA) (Negative) Urine Ketones (Negative) Urine Blood (Negative) Urine Nitrite (Negative) Urine Bilirubin (Negative) Urine Urobilinogen (Negative) Ur Leukocyte Esterase (Negative) Medications Administered Current Inpatient Medications Bisacodyl (Dulcolax) 10 mg AR DAILY PRN PRN Reason: Constipation Stop: 02/21/19 19:13 Docusate Sodium (Colace) 100 mg PO BID PRN; Protocol PRN Reason: Constipation Stop: 02/21/19 19:13 Escitalopram Oxalate ([facility]apro) [facility] Stop: 02/22/19 08:59 Last Admin: 01/23/19 09:12 Dose: 10 mg Documented by: Haloperidol Lactate (Haldol) 5 mg IM Q6H PRN PRN Reason: Anxiety/Agitation Stop: 02/22/19 11:27 Hydromorphone HCl (Dilaudid) 1 mg IV Q2H PRN PRN Reason: Pain Stop: 02/06/19 11:19 Acetaminophen (Ofirmev) 1,000 mg in 100 mls @ 400 mls/hr IV Q8H [facility] Stop: 02/21/19 19:59 Last Infusion: 01/23/19 12:34 Dose: Infused Documented by: Lorazepam (Ativan) 1 mg in 2 mls @ 0.5 mls/min IV Q8H PRN PRN Reason: Anxiety/Agitation Stop: 02/22/19 11:21 Vancomycin HCl 2,500 mg/ (Sodium Chloride) 550 mls @ 200 mls/hr IV TODAY@1230 JUDAH; Protocol Stop: 01/23/19 15:14 Last Admin: 01/23/19 13:05 Dose: 200 mls/hr Documented by: Vancomycin HCl 1,750 mg/ (Sodium Chloride) 535 mls @ 200 mls/hr IV Q12H [facility] Stop: 03/07/19 00:00 Labetalol HCl (Normodyne) 100 mg PO BID [facility] Stop: 02/21/19 20:59 Last Admin: 01/23/19 09:11 Dose: 100 mg Documented by: Lisinopril (Zestril) 5 mg PO QAM [facility] Stop: 02/22/19 08:59 Last Admin: 01/23/19 09:11 Dose: 5 mg Documented by: Miscellaneous Information (Consult) 1 ea N/A UD PRN PRN Reason: Consult Stop: 02/22/19 11:36 Ondansetron HCl (Zofran) 4 mg IV Q6H PRN PRN Reason: Nausea Stop: 02/21/19 19:07 Pantoprazole Sodium (Protonix) 40 mg PO DAILY [facility] Stop: 02/22/19 08:59 Last Admin: 01/23/19 09:11 Dose: 40 mg Documented by: Polyethylene Glycol (Miralax Powder Packet) 17 gm PO DAILY PRN PRN Reason: Constipation Stop: 02/21/19 19:07 Rosuvastatin Calcium (Crestor) 10 mg PO QAM [facility] Stop: 02/22/19 08:59 Last Admin: 01/23/19 09:11 Dose: 10 mg Documented by: Resident Activity Tracking Resident Involvement: Resident Care Provided Care Provided: Adult Hospital Medicine (1) DVT (deep venous thrombosis) Affected thrombotic vein of extremity: femoral Chronicity: chronic DVT location: lower extremity Laterality: left Qualified Code(s): I82.512 - Chronic embolism and thrombosis of left femoral vein (2) GERD (gastroesophageal reflux disease) Esophagitis presence: without esophagitis Qualified Code(s): K21.9 - Gastro- esophageal reflux disease without esophagitis
[2019-01-23 08:05] LABS: Basophils # (auto) 0.05 K/uL (0-0.2); Basophils % (auto) 0.4 %; Eosinophils # (auto) 0.11 K/uL (0-0.5); Eosinophils % (auto) 0.9 %; Hematocrit (blood only) 30.6 % (42-52); Hemoglobin 10.3 g/dL (14.0-18.0); Immature Granulocytes # (auto) 0.03 K/uL (0.00-0.02); Immature Granulocytes % (auto) 0.3 %; Lymphocytes # (auto) 1.62 K/uL (1.2-3.4); Lymphocytes % (auto) 13.5 %; Mean Corpuscular Hgb Conc 33.7 g/dL (32-36); Monocytes # (auto) 1.45 K/uL (0.11-0.59); Monocytes % (auto) 12.1 %; Neutrophils # (auto) 8.71 K/uL (1.4-6.5); Neutrophils % (auto) 72.8 %; Platelet Count 223 K/uL (130-400); RDW Coefficient of Variation 14.8 % (11.5-14.5); RDW Standard Deviation 48.4 fL (36.4-46.3); Red Blood Count 3.44 M/uL (4.7-6.1); White Blood Count 11.97 K/uL (4.8-10.8)
[2019-01-23 08:36] LABS: BUN Creatinine Ratio 17.8 (10-20); Calcium 8.5 mg/dl (8.5-10.1); Creatinine Clr Calc Pharmacy 176.4 ml/min; Est GFR (African American) 132.9; Est GFR (Non-African American) 114.7; Potassium 3.9 mmol/L (3.5-5.1)
[2019-01-23] MEDS ORDERED: ESCITALOPRAM OXALATE ORAL SOLN 10 MG/10 ML UDP PO SCH (09:00)
[2019-01-23] MEDS: LABETALOL HCL 100 MG TAB PO SCH ×2 (09:11→20:18)
[2019-01-23] MEDS: PANTOprazole 40 MG TAB PO SCH (09:11)
[2019-01-23] MEDS: ROSUVASTATIN CALCIUM 10 MG TAB PO SCH (09:11)
[2019-01-23] MEDS: LISINOPRIL 5 MG TAB PO SCH (09:11)
[2019-01-23] MEDS: ESCITALOPRAM OXALATE 10 MG TAB PO SCH (09:12)
[2019-01-23] MEDS ORDERED: HYDROmorphone INJ 1 MG/ML SYRINGE IV STA (10:08)
--- NOTE | 2019-01-23 10:59 | Consultation ---
Date of Consultation January 23, 2019 Assessment & Plan (1) History of transmetatarsal amputation of left foot: At this point recommend continuing dressing changes to the foot. We will order CT scan to make sure there is no collections within the foot itself. We will plan on debridement on Tuesday. Thank you very much for letting us participate in the care of this patient. History of Present Illness Reason for Consultation: Bleeding from his transmetatarsal amputation site left foot Attending Physician: Geri Melissa DO History of Present Illness This is a 63-year-old white male who in the past underwent a left femoral to distal vein bypass for occluded popliteal artery aneurysm. He ended up with a transmetatarsal amputation. The site itself was doing well. He was transferred here for change in mental status and bleeding from his amputation site. At this point he is not ambulating much on his amputated foot. His said he is disoriented at times hallucinating and picking at things. Allergies Allergy/AdvReac Type Severity Reaction Status Date / Time Penicillins Allergy Severe Rash Verified 12/08/18 06:14 hydromorphone [From Dilaudid] AdvReac Severe HALLUCINATING, Verified 12/08/18 06:14 "WIRED" oxycodone AdvReac Severe Hallucinati Verified 12/08/18 06:14 ng Home Medications Home Medications Medication Instructions Recorded Confirmed Type aspirin [Aspirin Low Dose] 81 mg PO QAM 10/17/18 12/08/18 History esomeprazole magnesium [Nexium] 40 mg PO QAM 10/17/18 12/08/18 History clopidogrel [Plavix] 75 mg PO QAM 11/13/18 12/08/18 History ferrous sulfate 325 mg PO BID 11/13/18 12/08/18 History ibuprofen 600 mg PO BID PRN 11/13/18 12/08/18 History lisinopril [Zestril] 5 mg PO QAM 11/13/18 12/08/18 History lorazepam [Ativan] 1 mg PO Q8H PRN 11/13/18 12/08/18 History multivitamin 1 tab PO DAILY 11/13/18 12/08/18 History rosuvastatin 10 mg PO QPM 11/13/18 12/08/18 History sennosides [senna] 8.6 mg PO BID PRN 11/13/18 12/08/18 History escitalopram oxalate [Lexapro] 10 mg PO QAM 11/30/18 12/08/18 History fentanyl 1 patch TRANSDERMAL Q72H 11/30/18 12/08/18 History labetalol 100 mg PO BID 11/30/18 12/08/18 History Patient History Social History Preferred Language: Tristanian Communication Ability: Effective Visual Impairment: Limited Hvac Installer Required: No Beliefs That Will Affect Care: None marital status: Current Living Situation: Spouse Other Information That Helps Us Care for You: No Feels Safe at Home: Yes Safety Concerns: Feels Safe At This Time Smoking Status: Former smoker Tobacco Type: cigarettes Do You Dip or Chew Tobacco: No Second Hand Exposure: No Tobacco Cessation Education Requested by Patient: No Hx Alcohol Use: No Hx Substance Use: No Review of Systems Review of Systems: Unobtainable at this time due to the patient's di sorientation. Physical Exam Physical Exam: The patient is awake and alert he is slightly disoriented with hallucinations. Blood pressure is 187/93 and tachycardic at 116. He is febrile at 38 C. On examination of lower extremities at TMA site is granulating. There is necrotic edges. I do not see any cellulitic changes above the site. The medial calf wounds are also granulating well. He does have exposed bone of the first metatarsal which is left. There is no active bleeding noted from the TMA site at this time. Results & Data Vital Signs (Past 12 Hours) Vital Signs Temp Pulse Pulse Resp BP Pulse Ox 01/23/19 00:00 116 H 01/22/19 23:35 38.0 C H 113 H 18 187/93 H 93 01/22/19 23:30 84 L
[2019-01-23] MEDS ORDERED: LORazepam 1 MG/2 ML VIAL IV PRN ×2 (11:22→15:24)
[2019-01-23] MEDS ORDERED: HALOPERIDOL LACTATE 5 MG/ML 1 ML VIAL IM PRN (11:28)
[2019-01-23] MEDS ORDERED: VANCOMYCIN CONSULT ACTIVE PRN (11:37)
[2019-01-23] MEDS ORDERED: VANCOMYCIN HCL 1,000 MG in SODIUM CHLORIDE 0.9% 250 ML IV SCH (11:45)
[2019-01-23] MEDS ORDERED: VANCOMYCIN HCL 2,500 MG in SODIUM CHLORIDE 0.9% 500 ML IV SCH (12:30)
--- NOTE | 2019-01-23 12:42 | Pharmacy Report ---
Pharmacy Abx Initial Consult - Date of Service January 23, 2019 - Pharmacy Dosing Scope Date of Consult: [] Consultation requested by: [] Pharmacy is consulted to initiate [] IV/PO dosing therapy, order appropriate labs and adjust drug dose/frequency. - Subjective The patient is a 63 year old M admitted on 01/22/19 17:31. - Objective Height: 5 ft 10 in Weight: 98 kg Vital Signs (Past 12hrs): Vital Signs Temp Pulse Pulse Resp BP Pulse Ox 01/23/19 11:52 37.7 C H 93 H 18 147/74 H 92 01/23/19 08:00 89 Lab Results (24hrs): Laboratory Tests (24 Hours) 01/23/19 01/23/19 01/22/19 07:21 07:21 19:45 WBC 11.97 H Neut # (Auto) 8.71 H Creatinine 0.49 L 0.53 L Est Cr Clr Drug Dosing 176.4 163.1 Total Creatine Kinase 182 01/22/19 19:45 WBC 11.75 H Neut # (Auto) 7.33 H Creatinine Est Cr Clr Drug Dosing Total Creatine Kinase Micro Results: 01/22/19 19:55 Blood Culture - Pending Blood 01/22/19 19:45 Blood Culture - Pending Blood - Assessment & Plan Assessment * 63 year old patient who had a femoral-posterior tibial bypass performed on 10/20 with subsequent left transmetatarsal amputation with application of wound vac * Completed a two week course of Levaquin and has been on Dalvance as well * Pharmacy consulted on 01/23 to initiate vancomycin therapy * Blood cultures ordered and currently pending Plan Vancomycin IV * Estimated PK Parameters: Vd 0.6 L/kg, Anjum 0.083 hr-1, t1/2 8 hr * Loading dose: 2500 mg (~25 mg/kg) * Maintenance dose: 1750 mg IV (~18 mg/kg) every 12 hours * Goal trough level: 15 to 20 mcg/mL * Trough level ordered for 01/25 @1130 Pharmacy will continue to follow and will adjust dose/frequency as necessary. Thank you.
--- NOTE | 2019-01-23 13:43 | CT Scan Report ---
LEFT LOWER LEG CT CT DOSE: 706.10 mGy.cm HISTORY: Left lower leg ulcerations. Assess for osteomyelitis. TECHNIQUE: Multiaxial CT images of the left lower leg were performed and reformatted in the sagittal and coronal plane without the use of contrast. A dose lowering technique was utilized adhering to e principles of ALARA. COMPARISON: Left lower extremity duplex ultrasound 01/22/2019. FINDINGS: Mild motion artifact. No fracture or dislocation within the left tibia or fibula. The patie nt is status post transmetatarsal amputation. There is a large skin ulceration within the distal foot measuring 2.4 cm. This results in exposure of the bone at the residual base of the first metatarsal with cortical destruction. Therefore, this is consistent with an osteomyelitis. Remaining osseous str uctures within the left lower leg shows no evidence for osteomyelitis. Multiple skin ulceration and s kin thickening along the medial aspect of the left lower leg. Diffuse subcutaneous edema within the l eft lower leg and foot. Small knee effusion. 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 This demonstrates peripheral calcification. There is a graft within the distal superf icial femoral artery. Fatty atrophy within the gastrocnemius muscles. There are surgical clips along the medial aspect of the lower leg. No loculated fluid collections to suggest an abscess. IMPRESSION: 1. The patient is status post transmetatarsal amputation within the left foot. There is a 2.4 cm skin ulceration within the distal foot at the resection site which results in exposure of the bone at the residual base of the first metatarsal with cortical destruction. Therefore, this is consistent with osteomyelitis.. 2. Diffuse skin thickening and subcutaneous edema within the left lower leg and left foot. There are multiple additional scattered skin ulcerations within the medial aspect of the left lower leg. Howeve r, there is no evidence for osteomyelitis within the left tibia or left fibula. 3. 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 Electronically signed by: Bib Amaya M.D. 01/23/2019 1:42 PM
[2019-01-23] MEDS: HYDROmorphone INJ 1 MG/ML SYRINGE IV PRN ×3 (16:00→23:56)
[2019-01-23] MEDS ORDERED: LEVOFLOXACIN/D5W 750 MG/150 ML BAG IV SCH (16:00)
[2019-01-23] MEDS: DOCUSATE SODIUM 100 MG CAP PO PRN (20:21)
[2019-01-23] MEDS: VANCOMYCIN HCL 1,750 MG in SODIUM CHLORIDE 0.9% 500 ML IV SCH (23:34)
[2019-01-24] MEDS: ACETAMINOPHEN 1,000 MG/100 ML VIAL IV SCH ×3 (04:02→19:33)
[2019-01-24] MEDS: HYDROmorphone INJ 1 MG/ML SYRINGE IV PRN ×5 (04:26→22:46)
[2019-01-24] MEDS: ESCITALOPRAM OXALATE 10 MG TAB PO SCH (08:00)
[2019-01-24] MEDS: LISINOPRIL 5 MG TAB PO SCH (08:00)
[2019-01-24] MEDS: ROSUVASTATIN CALCIUM 10 MG TAB PO SCH (08:00)
[2019-01-24] MEDS: PANTOprazole 40 MG TAB PO SCH (08:00)
[2019-01-24] MEDS: LABETALOL HCL 100 MG TAB PO SCH ×2 (08:01→21:33)
--- NOTE | 2019-01-24 08:22 | Family Medicine Progress Note ---
Date of Service January 24, 2019 Assessment & Plan (1) Pain in left foot: Patient with PVD, s/p fem-posterior tibial bypass, s/p TMA of left foot, wound vac in place. ?acute bleeding at wound vac noted prior to admission. Patient with severe pain, ?delirium. Ddx to include ischemic pain vs infection. Lactate and CK on admission were within reason -admitted to Tele -CT LLE consistent with osteomyelitis -Blood cultures were obtained 01/22 NGTD -Patient s/p 1 day of levaquin -CX'd ID -Vanco and meropenum -> pending cx results -Febrile overnight to 37.7 -WBC trend 11.75->11.97 -Initial pain control was with morphine and Tylenol/ -Consulted pain management, following recs -Initiated Tramadol 50mg x 4 hours PRN pain. -Gabapentin 100mg PO TID to further diminish neuropathic pain. -IV Dilaudid for breakthrough pain -Following vascular surgery recommendations -Patient will need to go to the OR for debridement, but must be medically stabilized first -plan for surgery Tuesday (2) Leukocytosis: Patient had elevated white count of 11.75 on admission likely secondary to infection at amputation site. -WBCs trending down, 10.93 today, likely indicating response to antibiotic therapy -See above (3) Delirium: Patient's delirium is much improved today. Patient reports sleeping well overnight I likely think this helped to improve as well as achieving adequate pain control. Today the patient is alert and oriented x4. Patient did report that he usually has difficulties recovering from anesthesia and these last for 3-4 days including delirium and agitation hallucinations ETC -BMP, Mag, Phos, CBC unremarkable -Delirium prevention strategies with frequent orientation, minimize interruptions to sleep, etc -Suspect an element of this patient's delirium is secondary to poorly controlled pain, hopefully through optimizing his pain medication, and consulting pain management we should be able to gain some control of his pain and hopefully improve the delirium. -Patient's reported that he was a daily drinker, she reported he quit around the time of his previous surgery. He has been using Lorazepam regularly which can prolong "withdrawal". This may be contributing to his agitation and delirium. -placed on alcohol withdrawal protocol -IV Haldol as needed is ordered for severe agitation please contact her primary if given. (4) PVD (peripheral vascular disease): Possibly secondary to tobacco abuse. Burger's disease? -Hold ASA and Plavix for now in setting of possible bleeding complication -Vascular surgery consultation as above -Continue Crestor 10 (5) GERD (gastroesophageal reflux disease): Chronic. -Continue Protonix 40mg po daily (6) HTN (hypertension), benign: BP high at 172/88 suspect this is secondary to pain -Pain control as above -Continue Labetalol 100mg po BID -Continue Lisinopril 5mg po qAM -Continue to monitor (7) DVT (deep venous thrombosis): Chronic LLE DVT -Noted, monitor -No anticoagulation at present given planned surgery (8) Anemia: No bleeding is present at the amputation site. Hemoglobin has been stable -Continue to trend CBC -Transfuse if Hg < 7, symptomatic anemia or active bleeding F/E/N - Heart healthy diet Ppx - No chemoprophylaxis with concern for bleed and plan surgery Code - Full Dispo - MedSurg with telemetry Supervising Physician Co-Signing Physician Notes 63 year old male with hx of PVD s/p fem-posterior tibial bypass in October and left transmet amputation admitted with delirium and pain in his left foot (noted bleeding in the wound vac by home nursing). Doing well this morning. Tells us his pain is improved. 1. Left foot osteomyelitis. CCM. LLE arterial doppler showing patent graft vessel, limited findings in [place] vessels due to LE edema and bandages. ?thrombosed popliteal aneurysm. Hemodynamically significant stenosis of origin/proximal left SFA. LLE CT without contrast (pt unable to sit in the MRI) showing cortical destruction of the exposed bone of the first met c/w osteomyelitis; no osteo noted in the tibia or fibula. WBCs 10.93. Started on vanc and Levaquin, but changed to vanc and meropenem. Appreciate ID recs. Pain control with IV Tylenol, tramadol 50mg q4h prn and dilaudid prn breakthrough pain. Bowel regimen. Vascular surgery consultedplans for OR later this week. Appreciate recommendations. 2. Delirium. Constant reorientation. Avoid anticholinergics. Ok to use IV haldol if reorientation is not sufficient. 3. PVD. Holding ASA and Plavix in the setting of bleeding. Continue Crestor 10mg. 4. chronic pain, ?neuropathic pain. Started gabapentin 100mg TID for neuropathic pain. Appreciate pain management recs. 5. HTN. Continue home labetalol 100mg BID, Lisinopril 5mg. 6. chronic LLE DVT. stable. 7. anemia. Hgb 10.8 (above previous baseline). Monitor in the setting of bleeding. 8. hyponatremia. Na 131. ?is this from SSRI vs acute illness. Appears euvolemic. 9. protein malnutrition. Albumin 2.7. appreciate nutrition recommendations. Dipso: pending clinical improvement. Subjective Patient was sitting upright in bed this morning in no acute distress. Reported doing well overnight finally was able to obtain adequate sleep, tolerating his diet. pain was well controlled, voiding appropriately, and stooling. Patient reports market improvement in his pain. Subjectively his demeanor has improved significantly as has his attention. No further reports of audio or visual hallucinations. Patient did alert us that he does not tolerate anesthesia well, remarking that when he comes out he can be quite delirious for several days. Answered all questions no further concerns at present Physical Exam Physical Exam: General: Elderly gentleman in NAD Eyes: EOMI Neck: Trachea midline normal to visual inspection, I did not appreciate JVD, Chest: Scattered wheezes otherwise clear to auscultation bilaterally Cardiac: Regular rate and rhythm, some ectopy present, normal S1-S2, I did not appreciate any murmurs rubs or gallops GI: Normal bowel sounds, soft, nontender, nondistended, MSK: Moves all extremities, left tarsal amputation Skin: Amputation site had a foul stench to it deferred exam 2/2 to bandage Neuro: Alert, unable to assess orientation secondary to poor communication, calm, cooperative Psych:A: put together, well groomed B: cooperative, calm, appropriate S: regular rate and prosody M: "I feel better" A: Congruent T: logical, goal orientated Results & Data Vital Signs (Past 12 Hours) Vital Signs Temp Pulse Pulse Resp BP BP Pulse Ox 01/24/19 05:00 155/80 H 01/24/19 04:16 37.7 C H 84 20 189/84 H 96 01/23/19 23:25 85 Resident Activity Tracking Resident Involvement: Resident Care Provided Care Provided: Adult [facility] (1) DVT (deep venous thrombosis) Affected thrombotic vein of extremity: femoral Chronicity: chronic DVT location: lower extremity Laterality: left Qualified Code(s): I82.512 - Chronic embolism and thrombosis of left femoral vein (2) GERD (gastroesophageal reflux disease) Esophagitis presence: without esophagitis Qualified Code(s): K21.9 - Gastro- esophageal reflux disease without esophagitis
--- NOTE | 2019-01-24 10:21 | Infectious Disease Consult ---
Date of Consultation January 24, 2019 Assessment & Plan (1) Osteomyelitis of foot, left, acute: 63-year-old male with severe peripheral arterial disease status post bypass with open wound left foot with osteomyelitis seen on CT scanning. Patient will be treated with combination of vancomycin and meropenem pending further culture results. Await surgical findings Tuesday. Will follow. History of Present Illness Reason for Consultation: Antibiotic recommendations Attending Physician: Geri Melissa DO History of Present Illness History obtained from medical staff and records as patient unable to provide adequate history. 63-year-old male with history of peripheral arterial disease, recent thrombosis of popliteal aneurysm status post femoropopliteal bypass, status post transmetatarsal amputation of the left foot who was admitted to the hospital with delirium and persistent bleeding from the foot wound. Was found to have exposed bone, and CT scan was obtained which shows evidence of osteomyelitis. Plans for surgical debridement on Tuesday. No report of significant fever or chills. Patient has been started on vancomycin and levofloxacin. Cultures are pending. Allergies Allergy/AdvReac Type Severity Reaction Status Date / Time Penicillins Allergy Severe Rash Verified 12/08/18 06:14 hydromorphone [From Dilaudid] AdvReac Severe HALLUCINATING, Verified 12/08/18 06:14 "WIRED" oxycodone AdvReac Severe Hallucinati Verified 12/08/18 06:14 ng Home Medications Home Medications Medication Instructions Recorded Confirmed Type aspirin [Aspirin Low Dose] 81 mg PO QAM 10/17/18 12/08/18 History esomeprazole magnesium [Nexium] 40 mg PO QAM 10/17/18 12/08/18 History clopidogrel [Plavix] 75 mg PO QAM 11/13/18 12/08/18 History ferrous sulfate 325 mg PO BID 11/13/18 12/08/18 History ibuprofen 600 mg PO BID PRN 11/13/18 12/08/18 History lisinopril [Zestril] 5 mg PO QAM 11/13/18 12/08/18 History lorazepam [Ativan] 1 mg PO Q8H PRN 11/13/18 12/08/18 History multivitamin 1 tab PO DAILY 11/13/18 12/08/18 History rosuvastatin 10 mg PO QPM 11/13/18 12/08/18 History sennosides [senna] 8.6 mg PO BID PRN 11/13/18 12/08/18 History escitalopram oxalate [Lexapro] 10 mg PO QAM 11/30/18 12/08/18 History fentanyl 1 patch TRANSDERMAL Q72H 11/30/18 12/08/18 History labetalol 100 mg PO BID 11/30/18 12/08/18 History Patient History Medical History Osteoarthritis GERD (gastroesophageal reflux disease) Hand trauma AGE 17, MISSING PART OF LEFT HAND Ischemic ulcer of foot Popliteal aneurysm DVT (deep venous thrombosis) POPLITEAL VEIN HTN (hypertension), benign Prediabetes Elevated LFTs PVD (peripheral vascular disease) S/P femoral posterior tibial bypass with L embolization popliteal artery 10/20/18. On Eliquis. History of tobacco use STOPPED 10/05/18 Anxiety Pt specifically reports fear of doctors/hospitals GERD (gastroesophageal reflux disease) Osteoarthritis Hyponatremia (131) Stable at discharge from [facility] 11/02. 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 Will need to follow-up with ball ender, will continue NaCl 1 g po BID, 2 L / day oral fluid restriction." per discharge summary 11/02. Surgical History S/P popliteal-tibial bypass 10/18/[address] Blunt at [facility]. MAC 3, ETT 8.0. Grade view I. "Smooth IV induction, atraumatic ET intubation" History of arthroscopy RIGHT KNEE CARTILAGE REPAIR H/O hand surgery FROM LEFT HAND TRAUMA AND PART OF HAND WAS CUT OFF. History of amputation ALL TOES AMPUTATED FROM LEFT FOOT Social History Preferred Language: [place] Communication Ability: Impaired Visual Impairment: Limited Loom Control Chain Builder Required: No Beliefs That Will Affect Care: None marital status: Current Living Situation: Spouse Other Information That Helps Us Care for You: No Feels Safe at Home: Yes Safety Concerns: Feels Safe At This Time Smoking Status: Former smoker Tobacco Type: cigarettes Do You Dip or Chew Tobacco: No Second Hand Exposure: No Tobacco Cessation Education Requested by Patient: No Hx Alcohol Use: No Hx Substance Use: No Review of Systems Review of Systems: Unobtainable due to cognitive status Physical Exam Constitutional: WD/WN, vitals as above + disheveled and comfortable; no acute distress Eyes: PERRL, conjunctivae normal, anicteric sclerae ENMT: external ear and nose normal, oropharynx normal Neck: trachea midline, no thyromegaly neck nontender Respiratory: normal respiratory effort, lungs clear to auscultation normal percussion; does not use accessory muscles Cardiovascular: Rate/Rhythm: regular rate and regular rhythm Heart Sounds: normal S1 and normal S2; no gallop, no murmur and no cardiac rub Vessels: normal peripheral pulses; no JVD Gastrointestinal (Abdomen): normal bowel sounds, soft, nontender, no hepatosplenomegaly Musculoskeletal: no cyanosis or clubbing, extremities motor strength 5/5 Spine: thoracic spine normal to inspection and lumbar spine normal to inspection; no cervical spinal tenderness Skin: + wound (Large open wound left foot with necrotic edges, somewhat foul smell); no rashes Neurologic: moves all extremities, awake and + confused Psychiatric: Orientation: + not oriented x 3 Apperance: + disheveled Lymphatic: no cervical or axillary lymphadenopathy no inguinal lymphadenopathy Results & Data Vital Signs (Past 12 Hours) Vital Signs Temp Pulse Pulse Resp BP BP Pulse Ox 01/24/19 09:00 37.2 C 89 20 157/73 H 93 01/24/19 08:00 83 01/24/19 05:00 155/80 H 01/24/19 04:16 37.7 C H 84 20 189/84 H 96 01/23/19 23:25 85 Laboratory Results Laboratory Results - last 48 hr 01/22/19 01/22/19 01/22/19 19:45 19:45 19:45 WBC 11.75 H RBC 3.57 L Hgb 10.8 L Hct 32.2 L MCV 90.2 MCH 30.3 MCHC 33.5 RDW Std Deviation 48.2 H RDW Coeff of [place] 14.5 Plt Count 268 MPV 8.0 Immature Gran % (Auto) 0.3 Neut % (Auto) 62.3 Lymph % (Auto) 23.4 [place] % (Auto) 12.1 Eos % (Auto) 1.6 Baso % (Auto) 0.3 Immature Gran # (Auto) 0.03 H Neut # (Auto) 7.33 H Lymph # (Auto) 2.75 [place] # (Auto) 1.42 H Eos # (Auto) 0.19 Baso # (Auto) 0.03 PT 11.1 INR 1.1 Sodium 131 L Potassium 4.1 Chloride 98 Carbon Dioxide 29 Anion Gap 4.0 BUN 9 Creatinine 0.53 L Est Cr Clr Drug Dosing 163.1 Est GFR ( Amer) 128.7 Est GFR (Non-Af Amer) 111.0 BUN/Creatinine Ratio 15.9 Glucose 85 Lactate Calcium 8.3 L Phosphorus 3.1 Magnesium 1.9 Total Bilirubin 0.4 Direct Bilirubin 0.1 AST 38 H ALT 33 Alkaline Phosphatase 119 H Total Creatine Kinase 182 Total Protein 6.9 Albumin 2.7 L TSH 1.160 Urine Color Urine Appearance Urine pH Ur Specific [place] Urine Protein Urine Glucose (UA) Urine Ketones Urine Blood Urine Nitrite Urine Bilirubin Urine Urobilinogen Ur Leukocyte Esterase 01/22/19 01/22/19 01/23/19 19:45 19:55 06:35 WBC RBC Hgb Hct MCV MCH MCHC RDW Std Deviation RDW Coeff of [place] Plt Count MPV Immature Gran % (Auto) Neut % (Auto) Lymph % (Auto) [place] % (Auto) Eos % (Auto) Baso % (Auto) Immature Gran # (Auto) Neut # (Auto) Lymph # (Auto) [place] # (Auto) Eos # (Auto) Baso # (Auto) PT INR Sodium Potassium Chloride Carbon Dioxide Anion Gap BUN Creatinine Est Cr Clr Drug Dosing Est GFR ( Amer) Est GFR (Non-Af Amer) BUN/Creatinine Ratio Glucose Lactate 1.2 Calcium Phosphorus Magnesium Total Bilirubin Direct Bilirubin AST ALT Alkaline Phosphatase Total Creatine Kinase Total Protein Albumin TSH Cancelled Urine Color Yellow Urine Appearance Clear Urine pH 6.5 Ur Specific [place] 1.020 Urine Protein Negative Urine Glucose (UA) Negative Urine Ketones Trace H Urine Blood Negative Urine Nitrite Negative Urine Bilirubin Negative Urine Urobilinogen Negative Ur Leukocyte Esterase Negative 01/23/19 01/23/19 07:21 07:21 WBC 11.97 H RBC 3.44 L Hgb 10.3 L Hct 30.6 L MCV 89.0 MCH 29.9 MCHC 33.7 RDW Std Deviation 48.4 H RDW Coeff of [place] 14.8 H Plt Count 223 MPV 8.0 Immature Gran % (Auto) 0.3 Neut % (Auto) 72.8 Lymph % (Auto) 13.5 [place] % (Auto) 12.1 Eos % (Auto) 0.9 Baso % (Auto) 0.4 Immature Gran # (Auto) 0.03 H Neut # (Auto) 8.71 H Lymph # (Auto) 1.62 [place] # (Auto) 1.45 H Eos # (Auto) 0.11 Baso # (Auto) 0.05 PT INR Sodium 132 L Potassium 3.9 Chloride 98 Carbon Dioxide 29 Anion Gap 5.0 BUN 9 Creatinine 0.49 L Est Cr Clr Drug Dosing 176.4 Est GFR ( Amer) 132.9 Est GFR (Non-Af Amer) 114.7 BUN/Creatinine Ratio 17.8 Glucose 94 Lactate Calcium 8.5 Phosphorus Magnesium Total Bilirubin Direct Bilirubin AST ALT Alkaline Phosphatase Total Creatine Kinase Total Protein Albumin TSH Urine Color Urine Appearance Urine pH Ur Specific [place] Urine Protein Urine Glucose (UA) Urine Ketones Urine Blood Urine Nitrite Urine Bilirubin Urine Urobilinogen Ur Leukocyte Esterase Diagnostic Findings Microbiology 01/22/19 19:55 Blood Blood Culture - Preliminary No growth to date. 01/22/19 19:45 Blood Blood Culture - Preliminary No growth to date. LEFT LOWER LEG CT CT DOSE: 706.10 mGy.cm HISTORY: Left lower leg ulcerations. Assess for osteomyelitis. TECHNIQUE: Multiaxial CT images of the left lower leg were performed and reformatted in the sagittal and coronal plane without the use of contrast. A dose lowering technique was utilized adhering to the principles of ALARA. COMPARISON: Left lower extremity duplex ultrasound 01/22/2019. FINDINGS: Mild motion artifact. No fracture or dislocation within the left tibia or fibula. The patient is status post transmetatarsal amputation. There is a large skin ulceration within the distal foot measuring 2.4 cm. This results in exposure of the bone at the residual base of the first metatarsal with cortical destruction. Therefore, this is consistent with an osteomyelitis. Remaining osseous structures within the left lower leg shows no evidence for osteomyelitis. Multiple skin ulceration and skin thickening along the medial aspect of the left lower leg. Diffuse subcutaneous edema within the left lower leg and foot. Small knee effusion. 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 This demonstrates peripheral calcification. There is a graft within the distal superficial femoral artery. Fatty atrophy within the gastrocnemius muscles. There are surgical clips along the medial aspect of the lower leg. No loculated fluid collections to suggest an abscess. IMPRESSION: 1. The patient is status post transmetatarsal amputation within the left foot. There is a 2.4 cm skin ulceration within the distal foot at the resection site which results in exposure of the bone at the residual base of the first metatarsal with cortical destruction. Therefore, this is consistent with osteomyelitis.. 2. Diffuse skin thickening and subcutaneous edema within the left lower leg and left foot. There are multiple additional scattered skin ulcerations within the medial aspect of the left lower leg. However, there is no evidence for osteomyelitis within the left tibia or left fibula. 3. 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 Electronically signed by: Bib Amaya M.D. 01/23/2019 1:42 PM Dictated: 01/23/19 1332 Transcribed: 01/23/19 1332
[2019-01-24] MEDS: GABAPENTIN 100 MG CAP PO SCH ×3 (10:38→21:33)
[2019-01-24] MEDS: VANCOMYCIN HCL 1,750 MG in SODIUM CHLORIDE 0.9% 500 ML IV SCH ×2 (11:59→23:50)
--- NOTE | 2019-01-24 12:03 | Pain Management Consultation ---
Date of Consultation January 24, 2019 Assessment & Plan (1) Osteomyelitis of foot, left, acute: 1. Initiated Tramadol 50mg x 4 hours PRN pain. 2. Patient has been initiated on Gabapentin 100mg PO TID to further diminish neuropathic pain. 3. Continue IV Dilaudid for breakthrough pain. 4. Patient's delirium has improved and does seem multifactorial. Social issues, insomnia, medications, ect. He does appear to be improving. Present on Admission?: Yes History of Present Illness Attending Physician: Geri Melissa DO History of Present Illness Mr. Ortega is a 63 year old white male with a significant history of pe ripheral vascular disease, left foot osteomyelitis, alcoholism, and tobacco abuse. 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 He did further develop ischemic ulcerations of the distal feet that required a transmetatarsal amputation of the left foot. Patient has been on post operative medications such as Percocet, Fentanyl patches, and most recently Tramadol. On an outpatient basis his pain was well managed with Tramadol. Currently he does have IV Tylenol and IV Dilaudid ordered for pain. The Dilaudid is contributing to his confusion per . states that he has only been able to sleep for 20 minutes at a time since the initial surgery prior to admission. The Dilaudid did calm the patient down to a point where he did sleep for 6 hours straight. He is involved in wound care. He does have a home health nurse that comes by once a day and his is also a home health nurse. Patient rates his pain 5/10 currently. He describes a burning and aching pain along the distal left foot. Patient denies any fevers, chills, nausea, vomiting, abdominal pain, or weakness. Case discussed with Dr. Kelsea Garcia Pain Assessment Full Body Front + Back: 1. [facility] Combined Pain Scale: 5-Moderate - Cannot perform normal tasks without increase in pain Allergies Allergy/AdvReac Type Severity Reaction Status Date / Time Penicillins Allergy Severe Rash Verified 12/08/18 06:14 hydromorphone [From Dilaudid] AdvReac Severe HALLUCINATING, Verified 12/08/18 06:14 "WIRED" oxycodone AdvReac Severe Hallucinati Verified 12/08/18 06:14 ng Home Medications Home Medications Medication Instructions Recorded Confirmed Type aspirin [Aspirin Low Dose] 81 mg PO QAM 10/17/18 12/08/18 History esomeprazole magnesium [Nexium] 40 mg PO QAM 10/17/18 12/08/18 History clopidogrel [Plavix] 75 mg PO QAM 11/13/18 12/08/18 History ferrous sulfate 325 mg PO BID 11/13/18 12/08/18 History ibuprofen 600 mg PO BID PRN 11/13/18 12/08/18 History lisinopril [Zestril] 5 mg PO QAM 11/13/18 12/08/18 History lorazepam [Ativan] 1 mg PO Q8H PRN 11/13/18 12/08/18 History multivitamin 1 tab PO DAILY 11/13/18 12/08/18 History rosuvastatin 10 mg PO QPM 11/13/18 12/08/18 History sennosides [senna] 8.6 mg PO BID PRN 11/13/18 12/08/18 History escitalopram oxalate [Lexapro] 10 mg PO QAM 11/30/18 12/08/18 History fentanyl 1 patch TRANSDERMAL Q72H 11/30/18 12/08/18 History labetalol 100 mg PO BID 11/30/18 12/08/18 History Patient History Medical History Osteoarthritis GERD (gastroesophageal reflux disease) Hand trauma AGE 17, MISSING PART OF LEFT HAND Ischemic ulcer of foot Popliteal aneurysm DVT (deep venous thrombosis) POPLITEAL VEIN HTN (hypertension), benign Prediabetes Elevated LFTs PVD (peripheral vascular disease) S/P femoral posterior tibial bypass with L embolization popliteal artery 10/20/18. On Eliquis. History of tobacco use STOPPED 10/05/18 Anxiety Pt specifically reports fear of doctors/hospitals GERD (gastroesophageal reflux disease) Osteoarthritis Hyponatremia (131) Stable at discharge from [facility] 11/02. 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 Will need to follow-up with public employment mediator, will continue NaCl 1 g po BID, 2 L / day oral fluid restriction." per discharge summary 11/02. Surgical History S/P popliteal-tibial bypass 10/18/[address] Blunt at [facility]. MAC 3, ETT 8.0. Grade view I. "Smooth IV induction, atraumatic ET intubation" History of arthroscopy RIGHT KNEE CARTILAGE REPAIR H/O hand surgery FROM LEFT HAND TRAUMA AND PART OF HAND WAS CUT OFF. History of amputation ALL TOES AMPUTATED FROM LEFT FOOT Social History Preferred Language: Czech Communication Ability: Impaired Visual Impairment: Limited [employer] Required: No Beliefs That Will Affect Care: None marital status: Current Living Situation: Spouse Other Information That Helps Us Care for You: No Feels Safe at Home: Yes Safety Concerns: Feels Safe At This Time Smoking Status: Former smoker Tobacco Type: cigarettes Do You Dip or Chew Tobacco: No Second Hand Exposure: No Tobacco Cessation Education Requested by Patient: No Hx Alcohol Use: No Hx Substance Use: No Physical Exam Physical Exam: GENERAL: 63 year old white male appears older than his stated age. Speech and cognition is intact. Mood and affect is appropriate. In no acute distress. Accompanied by his . HEAD: Normocephalic; atraumatic. EYES: Pupils are round, equal, and reactive to light; EOM intact. ENT: No external ear discharge or lesions. No rhinorrhea or epistaxis. No mucosal lesions. CHEST: Regular chest respiration and excursion. EXTREMITIES: There are several fingers that have been amputated. The left lower leg wound was not been inspected as it is well bandaged. NEURO: CN II-XII grossly intact with no focal deficits noted. AAO x 3.
--- NOTE | 2019-01-24 12:42 | Magnetic Resonance Report ---
MR foot LT w/o con HISTORY: 63 years-old Male ?OSTEOMYELITIS chronic left lower leg and foot ulcerations with concern f or osteomyelitis. COMPARISON: CTA of the left lower leg 01/23/2018 TECHNIQUE: Multiplanar multisequence MRI of the left foot was obtained without the use of IV contrast . FINDINGS: Study is very limited. Only the sagittal T1, sagittal STIR and coronal T1 images were obtained. These sequences are markedly motion degraded. Patient was unable to complete the study the exam was then t erminated. The study is nearly nondiagnostic. There is prior amputation of the foot level of the mid metatarsals . Scattered moderate areas of bone marrow edema noted throughout the imaged foot. Moderate osteoarthr itis about the tibiotalar joint with tibiotalar joint effusion. Soft tissue ulceration adjacent to th e dorsomedial aspect of the first metatarsal stump is noted with adjacent cortical irregularity and j ust a bony erosion. Due to the limitations of the study, evaluation of the bone marrow signal charact eristics in this distribution are unable to be assessed. IMPRESSION: Markedly limited study with limited images submitted, nearly nondiagnostic. Within the limitations of the study, there is a soft tissue skin ulceration noted adjacent to the first metatarsal amputation stump. Evaluation for osteomyelitis cannot be determined on this limited study. Please refer to CT st udy dated 01/23/2019 which better evaluates the underlying bony structures. If of further clinical con cern, a repeat MRI may be considered if the patient is able. The above report was generated using voice recognition software. It may contain grammatical, syntax o r spelling errors. Electronically signed by: Andreas Tucker M.D. 01/24/2019 12:41 PM
[2019-01-24 12:52] LABS: Basophils # (auto) 0.02 K/uL (0-0.2); Basophils % (auto) 0.2 %; Eosinophils # (auto) 0.12 K/uL (0-0.5); Eosinophils % (auto) 1.1 %; Hematocrit (blood only) 28.2 % (42-52); Hemoglobin 9.4 g/dL (14.0-18.0); Immature Granulocytes # (auto) 0.02 K/uL (0.00-0.02); Immature Granulocytes % (auto) 0.2 %; Lymphocytes # (auto) 1.18 K/uL (1.2-3.4); Lymphocytes % (auto) 10.8 %; Mean Corpuscular Hgb Conc 33.3 g/dL (32-36); Mean Corpuscular Volume 89.5 fL (80-100); Mean Platelet Volume 7.7 fL (7.4-10.4); Monocytes # (auto) 1.24 K/uL (0.11-0.59); Monocytes % (auto) 11.3 %; Neutrophils # (auto) 8.35 K/uL (1.4-6.5); Neutrophils % (auto) 76.4 %; Platelet Count 167 K/uL (130-400); RDW Coefficient of Variation 14.7 % (11.5-14.5); RDW Standard Deviation 48.5 fL (36.4-46.3); Red Blood Count 3.15 M/uL (4.7-6.1); White Blood Count 10.93 K/uL (4.8-10.8)
[2019-01-24] MEDS: IMIPENEM/CILASTATIN SODIUM 500 MG in DEXTROSE 5% 100 ML IV SCH ×2 (14:43→20:54)
[2019-01-25] MEDS: HYDROmorphone INJ 1 MG/ML SYRINGE IV PRN ×3 (01:29→21:48)
[2019-01-25] MEDS: IMIPENEM/CILASTATIN SODIUM 500 MG in DEXTROSE 5% 100 ML IV SCH ×4 (02:40→21:41)
[2019-01-25] MEDS: TRAMADOL HCL 50 MG TABLET PO PRN ×5 (03:38→23:34)
[2019-01-25] MEDS: ACETAMINOPHEN 1,000 MG/100 ML VIAL IV SCH ×3 (03:39→19:28)
[2019-01-25 08:40] LABS: Basophils # (auto) 0.02 K/uL (0-0.2); Basophils % (auto) 0.2 %; Eosinophils # (auto) 0.26 K/uL (0-0.5); Eosinophils % (auto) 2.4 %; Hematocrit (blood only) 32.8 % (42-52); Hemoglobin 10.8 g/dL (14.0-18.0); Immature Granulocytes # (auto) 0.02 K/uL (0.00-0.02); Immature Granulocytes % (auto) 0.2 %; Lymphocytes # (auto) 1.88 K/uL (1.2-3.4); Lymphocytes % (auto) 17.1 %; Mean Corpuscular Hgb Conc 32.9 g/dL (32-36); Mean Corpuscular Volume 90.6 fL (80-100); Mean Platelet Volume 7.9 fL (7.4-10.4); Monocytes # (auto) 1.09 K/uL (0.11-0.59); Monocytes % (auto) 9.9 %; Neutrophils # (auto) 7.74 K/uL (1.4-6.5); Neutrophils % (auto) 70.2 %; Platelet Count 207 K/uL (130-400); RDW Coefficient of Variation 14.6 % (11.5-14.5); RDW Standard Deviation 48.4 fL (36.4-46.3); Red Blood Count 3.62 M/uL (4.7-6.1); White Blood Count 11.01 K/uL (4.8-10.8)
[2019-01-25 08:57] LABS: Albumin Level 2.3 gm/dl (3.4-5.0); BUN Creatinine Ratio 15.1 (10-20); Calcium 8.3 mg/dl (8.5-10.1); Creatinine Clr Calc Pharmacy 151.5 ml/min; Est GFR (African American) 124.9; Est GFR (Non-African American) 107.8; Potassium 3.5 mmol/L (3.5-5.1)
[2019-01-25 09:00] LABS: Albumin Globulin Ratio 0.6 (0.9-2); Bilirubin,Total 0.2 mg/dl (0.2-1); Globulin 4.1 gm/dl (2.5-4.0); Total Protein 6.4 gm/dl (6.4-8.2)
--- NOTE | 2019-01-25 09:01 | Family Medicine Progress Note ---
Date of Service January 25, 2019 Assessment & Plan (1) Pain in left foot: Patient with PVD, s/p fem-posterior tibial bypass, s/p TMA of left foot, wound vac in place. ?acute bleeding at wound vac noted by home nurse this AM. Patient with severe pain, ?delirium. Ddx to include ischemic pain vs infection. Lactate and CK on admission were within reason -admitted to Tele -CT LLE consistent with osteomyelitis -Blood cultures were obtained 01/22 continue to be NGTD -Patient s/p 1 day of levaquin 01/23 -CX'd ID -Vanco and meropenum -> pending surgical path results -Febrile overnight to 38.2 -WBC trend 11.75->11.97->10.93->11.01 -Initial pain control was with morphine and Tylenol, the patient did not receive adequate relief from this regimen. -Consulted pain management, following recs -Initiated Tramadol 50mg x 4 hours PRN pain. -Gabapentin 100mg PO TID to further diminish neuropathic pain. -IV Dilaudid for breakthrough pain -Following vascular surgery recommendations -N.p.o. after midnight for planned surgery tomorrow (2) Leukocytosis: Patient had elevated white count of 11.75 on admission likely secondary to infection at amputation site. -WBCs stable, 11.01 today, -See above (3) Delirium: Patient's delirium is much improved today. Patient reports sleeping well overnight I likely think this helped to improve as well as achieving adequate pain control. Today the patient is alert and oriented x4. Patient did report that he usually has difficulties recovering from anesthesia and these last for 3-4 days including delirium and agitation hallucinations ETC -BMP, Mag, Phos, CBC unremarkable -Delirium prevention strategies with frequent orientation, minimize interruptions to sleep, etc -Suspect an element of this patient's delirium is secondary to poorly controlled pain, hopefully through optimizing his pain medication, and consulting PMR we should be able to gain some control of his pain and hopefully improve the delirium. -Patient's reported that he was a heavy alcoholic, she reported he quit around the time of his previous surgery. He has been using Lorazepam regularly which can prolong "withdrawal". This may be contributing to his agitation and delirium. -placed on alcohol withdrawal protocol -IV Haldol as needed is ordered for severe agitation please contact primary team if given. (4) PVD (peripheral vascular disease): Possibly secondary to tobacco abuse. Bergers disease? -Hold ASA and Plavix for now in setting of possible bleeding complication -Vascular surgery consultation as above -Continue Crestor 10 (5) GERD (gastroesophageal reflux disease): Chronic. -Continue Protonix 40mg po daily (6) HTN (hypertension), benign: Has been hypertensive since admission, this morning his blood pressure was 184/94. Likely a component of pain -Pain control as above -Increase Labetalol 200mg po BID -Continue Lisinopril 5mg po qAM -Continue to monitor (7) DVT (deep venous thrombosis): Chronic LLE DVT -Noted, monitor -No anticoagulation at present given planned surgery (8) Anemia: No bleeding is present at the amputation site. Hemoglobin has been stable -Continue to trend CBC -Transfuse if Hg < 7, symptomatic anemia or active bleeding F/E/N - Heart healthy diet Ppx - No chemoprophylaxis with concern for bleed and plan surgery Code - Full Dispo - MedSurg with telemetry Supervising Physician Co-Signing Physician Notes 63 year old male with hx of PVD s/p fem-posterior tibial bypass in October and left transmet amputation admitted with delirium and pain in his left foot (noted bleeding in the wound vac by home nursing). Doing well this morning. Tells us his pain is improved. 1. Left foot osteomyelitis. CCM. LLE arterial doppler showing patent graft vessel, limited findings in [place] vessels due to LE edema and bandages. ?thromb osed popliteal aneurysm. Hemodynamically significant stenosis of origin/proximal left SFA. LLE CT without contrast (pt unable to sit in the MRI) showing cortical destruction of the exposed bone of the first met c/w osteomyelitis; no osteo noted in the tibia or fibula. WBCs 10.93. Started on vanc and Levaquin, but changed to vanc and meropenem. Appreciate ID recs. Pain control with IV Tylenol, tramadol 50mg q4h prn and dilaudid prn breakthrough pain. Bowel regimen. Vascular surgery consultedplans for OR later this week. Appreciate recommendations. 2. Delirium. Constant reorientation. Avoid anticholinergics. Ok to use IV haldol if reorientation is not sufficient. 3. PVD. Holding ASA and Plavix in the setting of bleeding. Continue Crestor 10mg. 4. chronic pain, ?neuropathic pain. Per , pt has be tried on multiple medications without success or significant side effects. Started gabapentin 100mg TID for neuropathic pain. Appreciate pain management recs. 5. HTN. Continue home labetalol 100mg BID, Lisinopril 5mg. 6. chronic LLE DVT. 7. anemia. Hgb 10.8 (above previous baseline). Monitor in the setting of bleeding. 8. hyponatremia. Na 131. ?is this from SSRI vs acute illness. Appears euvolemic. 9. protein malnutrition. Albumin 2.7. appreciate nutrition recommendations. Dipso: pending clinical improvement. Subjective Patient sitting upright in bed this afternoon in no acute distress with his at the bedside. Overnight patient had a mild fever which resolved with medication. Patient has increased tremor today when compared to yesterday but less than the day of presentation. Patient reports pain is well controlled for the most part, and he is able to obtain restful sleep. Patient wanted to use the bedside commode today but advised bedpan was probably better as it had less fall risk. Patient tolerating his diet, voiding and stooling appropriately.no acute concerns at present, we will likely have to assess his mental status postoperatively to see whether his presentation was solely due to pain and lack of sleep or other potential psychiatric factors. Physical Exam Physical Exam: General: Elderly gentleman in NAD Eyes: EOMI Neck: Trachea midline normal to visual inspection, I did not appreciate JVD, Chest: Scattered wheezes otherwise clear to auscultation bilaterally Cardiac: Regular rate and rhythm, some ectopy present, normal S1-S2, I did not appreciate any murmurs rubs or gallops GI: Normal bowel sounds, soft, nontender, nondistended, MSK: Moves all extremities, left tarsal amputation Skin: Amputation site no longer had foul order Neuro: Alert, unable to assess orientation secondary to poor communication, calm, cooperative Results & Data Vital Signs (Past 12 Hours) Vital Signs Temp Pulse Pulse Resp BP Pulse Ox 01/25/19 07:00 36.9 C 79 20 184/94 H 98 01/25/19 04:55 178/82 H 01/25/19 04:39 37.4 C 89 16 178/77 H 94 01/25/19 03:00 38.2 C H 102 H 20 163/85 H 92 01/24/19 23:38 93 H 01/24/19 22:53 37.5 C 94 H 18 152/80 H 91 Laboratory Results 01/25/19 08:20 01/25/19 08:20 01/25/19 01/25/19 01/25/19 Range/Units 11:41 08:20 08:20 WBC 11.01 H (4.8-10.8) K/uL RBC 3.62 L (4.7-6.1) M/uL Hgb 10.8 L (14.0-18.0) g/dL Hct 32.8 L (42-52) % MCV 90.6 (80-100) fL MCH 29.8 (25-34) pg MCHC 32.9 (32-36) g/dL RDW Std Deviation 48.4 H (36.4-46.3) fL RDW Coeff of Argelia 14.6 H (11.5-14.5) % Plt Count 207 (130-400) K/uL MPV 7.9 (7.4-10.4) fL Immature Gran % (Auto) 0.2 % Neut % (Auto) 70.2 % Lymph % (Auto) 17.1 % Hale % (Auto) 9.9 % Eos % (Auto) 2.4 % Baso % (Auto) 0.2 % Immature Gran # (Auto) 0.02 (0.00-0.02) K/uL Neut # (Auto) 7.74 H (1.4-6.5) K/uL Lymph # (Auto) 1.88 (1.2-3.4) K/uL Hale # (Auto) 1.09 H (0.11-0.59) K/uL Eos # (Auto) 0.26 (0-0.5) K/uL Baso # (Auto) 0.02 (0-0.2) K/uL Sodium 134 L (136-145) mmol/L Potassium 3.5 (3.5-5.1) mmol/L Chloride 98 (98-107) mmol/L Carbon Dioxide 32 (21-32) mmol/L Anion Gap 4.0 (3-11) BUN 9 (7-18) mg/dl Creatinine 0.57 L (0.6-1.4) mg/dl Est Cr Clr Drug Dosing 151.5 ml/min Est GFR ( Amer) 124.9 Est GFR (Non-Af Amer) 107.8 BUN/Creatinine Ratio 15.1 (10-20) Glucose 138 H (70-99) mg/dl Calcium 8.3 L (8.5-10.1) mg/dl Total Bilirubin 0.2 (0.2-1) mg/dl AST 52 H (15-37) U/L ALT 48 (12-78) U/L Alkaline Phosphatase 136 H (45-117) U/L Total Protein 6.4 (6.4-8.2) gm/dl Albumin 2.3 L (3.4-5.0) gm/dl Globulin 4.1 H (2.5-4.0) gm/dl Albumin/Globulin Ratio 0.6 L (0.9-2) Vancomycin Trough 10.9 (See Comment) mcg/ml Medications Administered Current Inpatient Medications Bisacodyl (Dulcolax) 10 mg NC DAILY PRN PRN Reason: Constipation Stop: 02/21/19 19:13 Docusate Sodium (Colace) 100 mg PO BID PRN; Protocol PRN Reason: Constipation Stop: 02/21/19 19:13 Last Admin: 01/23/19 20:21 Dose: 100 mg Documented by: Escitalopram Oxalate (Lexapro) 10 mg PO QAM [facility] Stop: 02/22/19 08:59 Last Admin: 01/25/19 09:29 Dose: 10 mg Documented by: Gabapentin (Neurontin) 100 mg PO TID [facility] Stop: 02/23/19 08:59 Last Admin: 01/25/19 14:23 Dose: 100 mg Documented by: Haloperidol Lactate (Haldol) 5 mg IM Q6H PRN PRN Reason: Anxiety/Agitation Stop: 02/22/19 11:27 Hydromorphone HCl (Dilaudid) 1 mg IV Q2H PRN PRN Reason: Pain Stop: 02/06/19 11:19 Last Admin: 01/25/19 04:58 Dose: 1 mg Documented by: Acetaminophen (Ofirmev) 1,000 mg in 100 mls @ 400 mls/hr IV Q8H [facility] Stop: 02/21/19 19:59 Last Infusion: 01/25/19 13:50 Dose: Infused Documented by: Lorazepam (Ativan) 1 mg in 2 mls @ 0.5 mls/min IV Q8H PRN PRN Reason: Anxiety/Agitation Stop: 02/22/19 11:21 Lorazepam (Ativan) 1 mg in 2 mls @ 2 mls/min IV ONE PRN; Protocol PRN Reason: EtoH Withdrawal AWSS 6-10 Stop: 02/22/19 15:23 Imipenem/Cilastatin Sodium 500 (mg/ Dextrose) 110 mls @ 100 mls/hr IV Q6H JUDAH Stop: 03/07/19 10:44 Last Infusion: 01/25/19 16:22 Dose: Infused Documented by: Vancomycin HCl 1,500 mg/ (Sodium Chloride) 530 mls @ 200 mls/hr IV Q8H JUDAH; Protocol Stop: 03/08/19 19:59 Labetalol HCl (Normodyne) 200 mg PO BID [facility] Stop: 02/24/19 20:59 Lisinopril (Zestril) 5 mg PO QAM [facility] Stop: 02/22/19 08:59 Last Admin: 01/25/19 09:30 Dose: 5 mg Documented by: Miscellaneous Information (Consult) 1 ea N/A UD PRN PRN Reason: Consult Stop: 02/22/19 11:36 Ondansetron HCl (Zofran) 4 mg IV Q6H PRN PRN Reason: Nausea Stop: 02/21/19 19:07 Pantoprazole Sodium (Protonix) 40 mg PO DAILY [facility] Stop: 02/22/19 08:59 Last Admin: 01/25/19 09:30 Dose: 40 mg Documented by: Polyethylene Glycol (Miralax Powder Packet) 17 gm PO DAILY PRN PRN Reason: Constipation Stop: 02/21/19 19:07 Rosuvastatin Calcium (Crestor) 10 mg PO QAM [facility] Stop: 02/22/19 08:59 Last Admin: 01/25/19 09:29 Dose: 10 mg Documented by: Tramadol HCl (Ultram) 50 mg PO Q4H PRN PRN Reason: Pain Stop: 02/23/19 08:39 Last Admin: 01/25/19 14:23 Dose: 50 mg Documented by: Resident Activity Tracking Resident Involvement: Resident Care Provided Care Provided: Adult Hospital Medicine (1) DVT (deep venous thrombosis) Affected thrombotic vein of extremity: femoral Chronicity: chronic DVT location: lower extremity Laterality: left Qualified Code(s): I82.512 - Chronic embolism and thrombosis of left femoral vein (2) GERD (gastroesophageal reflux disease) Esophagitis presence: without esophagitis Qualified Code(s): K21.9 - Gastro- esophageal reflux disease without esophagitis
[2019-01-25] MEDS: ESCITALOPRAM OXALATE 10 MG TAB PO SCH (09:29)
[2019-01-25] MEDS: ROSUVASTATIN CALCIUM 10 MG TAB PO SCH (09:29)
[2019-01-25] MEDS: LISINOPRIL 5 MG TAB PO SCH (09:30)
[2019-01-25] MEDS: PANTOprazole 40 MG TAB PO SCH (09:30)
[2019-01-25] MEDS: LABETALOL HCL 100 MG TAB PO SCH ×2 (09:30→20:12)
[2019-01-25] MEDS: GABAPENTIN 100 MG CAP PO SCH ×3 (09:30→20:13)
--- NOTE | 2019-01-25 09:31 | Pain Management Progress Note ---
Date of Service January 25, 2019 Assessment & Plan (1) Osteomyelitis of foot, left, acute: I have had a thorough conversation with the patient regarding his pain treatment options. He is to try taking the oral Tramadol 50mg x 4 hours for pain relief. Dilaudid IV is only for PRN breakthrough pain. He is aware that he must request the Tramadol medication when needed, it is not scheduled. He will attempt to take the Tramadol for pain relief. Subjective Mr. Ortega is a 63 year old white male with a significant history of peripheral vascular disease, left foot osteomyelitis, alcoholism, and tobacco abuse. 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 He did further develop ischemic ulcerations of the distal feet that required a transmetatarsal amputation of the left foot. Patient has received several doses od IV Dilaudid over the last 24 hours which he states is helping the pain. Per notes, he was unable to have an MRI last evening due to increased pain. IV Dilaudid did relieve the pain but caused drowsiness and disorientation. He has tried PO Tramadol once over the last 24 hours. Tramadol was previously prescribed in an outpatient setting and was adequately relieving the pain. Patient rates his pain 2/10 currently. Gabapentin at 100mg TID was initiated yesterday without any side effects. Case discussed with Dr. Kelsea Garcia Pain Assessment Pain Assessment Full Body Front + Back: 1. 2. [facility] Combined Pain Scale: 2-Minimal - Able to engage in pleasures of life with some interference Physical Exam Physical Exam: GENERAL: 63 year old white male appears older than his stated age. Speech and cognition is intact. Mood and affect is appropriate. In no acute distress. HEAD: Normocephalic; atraumatic. EYES: Pupils are round, equal, and reactive to light; EOM intact. ENT: No external ear discharge or lesions. No rhinorrhea or epistaxis. No mucosal lesions. CHEST: Regular chest respiration and excursion. EXTREMITIES: There are several fingers that have been amputated. The left lower leg wound was not been inspected as it is well bandaged. NEURO: CN II-XII grossly intact with no focal deficits noted. AAO x 3.
[2019-01-25] MEDS ORDERED: LABETALOL HCL 100 MG TAB PO ONE (11:05)
[2019-01-25] MEDS ORDERED: VANCOMYCIN TROUGH ONE (11:30)
[2019-01-25] MEDS: VANCOMYCIN HCL 1,750 MG in SODIUM CHLORIDE 0.9% 500 ML IV SCH (11:56)
--- NOTE | 2019-01-25 13:40 | Pharmacy Report ---
Pharmacy Abx Dose Short Note - Date of Service January 25, 2019 - Assessment & Plan Assessment 63 year old M receiving IV vancomycin and imipenem/cilastatin for empiric treatment of osteomyelitis of the left foot Day # 3 of antimicrobial therapy. Plan Patient is scheduled for transmetatarsal amputation of left foot tomorrow (01/26) Blood cultures x 2 show no growth to date, renal function stable, mild leukocytosis noted Vancomycin * Trough level of 10.9 mcg/mL is subtherapeutic * Will change dose to 1500 mg IV every 8 hours for an anticipated trough of approximately 17 (goal is 15-20) * Trough level ordered for tomorrow (01/26) at 1930 Imipenem-cilastatin * Continue 500 mg IV q6h - appropriate based on renal function Pharmacy will continue to follow and will adjust dose/frequency as necessary. Thank you.
--- NOTE | 2019-01-25 13:59 | Infectious Disease Progress Nt ---
Date of Service January 25, 2019 Assessment & Plan (1) Osteomyelitis of foot, left, acute: 63-year-old male with severe peripheral arterial disease status post bypass with open wound left foot with osteomyelitis seen on CT scanning. Patient will be treated with combination of vancomycin and imipenem pending further culture results. Await surgical findings Tuesday. Will follow. Subjective Patient seen in follow-up for left foot infection. Complaining of severe pain currently 8 out of 10 intensity. Remains afebrile. Blood cultures remain negative. Awaiting OR tomorrow. Review of Systems Review of Systems: All systems reviewed & are unremarkable except as noted in HPI & below Physical Exam Constitutional: WD/WN, vitals as above + disheveled and comfortable; no acute distress Eyes: PERRL, conjunctivae normal, anicteric sclerae ENMT: external ear and nose normal, oropharynx normal Neck: trachea midline, no thyromegaly neck nontender Respiratory: normal respiratory effort, lungs clear to auscultation normal percussion; does not use accessory muscles Cardiovascular: Rate/Rhythm: regular rate and regular rhythm Heart Sounds: normal S1 and normal S2; no gallop, no murmur and no cardiac rub Vessels: normal peripheral pulses; no JVD Gastrointestinal (Abdomen): normal bowel sounds, soft, nontender, no hepatosplenomegaly Musculoskeletal: no cyanosis or clubbing, extremities motor strength 5/5 Spine: thoracic spine normal to inspection and lumbar spine normal to inspection; no cervical spinal tenderness Skin: no rashes, warm and dry + wound (Large open wound left foot with necrotic edges, somewhat foul smell); no rashes Neurologic: patellar DTR's 2+ bilat, sensation intact moves all extremities, awake and + confused Psychiatric: A+Ox3, euthymic affect Orientation: + not oriented x 3 Apperance: + disheveled Lymphatic: no cervical or axillary lymphadenopathy no inguinal lymphadenopathy Results & Data Vital Signs (Past 12 Hours) Vital Signs Temp Pulse Resp BP Pulse Ox 01/25/19 11:51 36.7 C 77 18 172/65 H 97 01/25/19 07:00 36.9 C 79 20 184/94 H 98 01/25/19 04:55 178/82 H 01/25/19 04:39 37.4 C 89 16 178/77 H 94 01/25/19 03:00 38.2 C H 102 H 20 163/85 H 92 Laboratory Results Short CBC 01/25/19 Range/Units 08:20 WBC 11.01 H (4.8-10.8) K/uL Hgb 10.8 L (14.0-18.0) g/dL Hct 32.8 L (42-52) % Plt Count 207 (130-400) K/uL BMP 01/25/19 08:20 Sodium 134 L Potassium 3.5 Chloride 98 Carbon Dioxide 32 BUN 9 Creatinine 0.57 L Glucose 138 H Calcium 8.3 L Liver Function 01/25/19 Range/Units 08:20 Total Bilirubin 0.2 (0.2-1) mg/dl AST 52 H (15-37) U/L ALT 48 (12-78) U/L Alkaline Phosphatase 136 H (45-117) U/L Albumin 2.3 L (3.4-5.0) gm/dl Diagnostic Findings Microbiology 01/22/19 19:55 Blood Blood Culture - Preliminary No growth to date. 01/22/19 19:45 Blood Blood Culture - Preliminary No growth to date.
--- NOTE | 2019-01-25 15:45 | Anesthesiology Consultation ---
Date of Service January 25, 2019 Assessment & Plan (1) Encounter for pre-operative examination: Chart Review Chart Review: Acceptable Risk for Surgery and Patient NOT seen in Pre Admission Testing Consults Requested none History Surgery Operation Date: 01/26/19 11:00 Proposed Procedures p Left Foot Transmetatarsal Amputation Debridement - Carlos Blunt MD Height/Weight Height: 5 ft 10 in Weight: 97.7 kg Allergies Allergy/AdvReac Type Severity Reaction Status Date / Time Penicillins Allergy Severe Rash Verified 12/08/18 06:14 hydromorphone [From Dilaudid] AdvReac Severe HALLUCINATING, Verified 12/08/18 06:14 "WIRED" oxycodone AdvReac Severe Hallucinati Verified 12/08/18 06:14 ng Medications Home Medications Medication Instructions Recorded Confirmed Last Taken aspirin [Aspirin Low Dose] 81 mg PO QAM 10/17/18 12/08/18 12/08/18 03:30 esomeprazole magnesium [Nexium] 40 mg PO QAM 10/17/18 12/08/18 12/07/18 08:00 clopidogrel [Plavix] 75 mg PO QAM 11/13/18 12/08/18 12/08/18 03:30 ferrous sulfate 325 mg PO BID 11/13/18 12/08/18 12/07/18 20:00 ibuprofen 600 mg PO BID PRN 11/13/18 12/08/18 12/08/18 03:30 lisinopril [Zestril] 5 mg PO QAM 11/13/18 12/08/18 12/08/18 03:30 lorazepam [Ativan] 1 mg PO Q8H PRN 11/13/18 12/08/18 11/13/18 21:00 multivitamin 1 tab PO DAILY 11/13/18 12/08/18 12/07/18 08:00 rosuvastatin 10 mg PO QPM 11/13/18 12/08/18 12/07/18 20:00 sennosides [senna] 8.6 mg PO BID PRN 11/13/18 12/08/18 12/07/18 08:00 escitalopram oxalate [Lexapro] 10 mg PO QAM 11/30/18 12/08/18 12/08/18 03:30 fentanyl 1 patch TRANSDERMAL Q72H 11/30/18 12/08/18 12/07/18 16:00 labetalol 100 mg PO BID 11/30/18 12/08/18 12/08/18 03:30 Active Medications Generic Name Dose Route Start Last Admin Trade Name Freq PRN Reason Stop Dose Admin Docusate Sodium 100 mg 01/22/19 19:14 01/23/19 20:21 Colace PO 02/21/19 19:13 100 mg BID PRN Administration Constipation Protocol Escitalopram Oxalate 10 mg 01/23/19 09:00 01/25/19 09:29 Lexapro PO 02/22/19 08:59 10 mg QAM JUDAH Administration Gabapentin 100 mg 01/24/19 09:00 01/25/19 14:23 Neurontin PO 02/23/19 08:59 100 mg TID JUDAH Administration Hydromorphone HCl 1 mg 01/23/19 11:20 01/25/19 04:58 Dilaudid IV 02/06/19 11:19 1 mg Q2H PRN Administration Pain Acetaminophen 1,000 mg in 100 mls @ 400 mls/hr 01/22/19 20:00 01/25/19 13:50 Ofirmev IV 02/21/19 19:59 Infused Q8H JUDAH Infusion Imipenem/Cilastatin Sodium 500 110 mls @ 100 mls/hr 01/24/19 14:00 01/25/19 15:08 mg/ Dextrose IV 03/07/19 10:44 100 mls/hr Q6H JUDAH Administration Lisinopril 5 mg 01/23/19 09:00 01/25/19 09:30 Zestril PO 02/22/19 08:59 5 mg QAM JUDAH Administration Pantoprazole Sodium 40 mg 01/23/19 09:00 01/25/19 09:30 Protonix PO 02/22/19 08:59 40 mg DAILY JUDAH Administration Rosuvastatin Calcium 10 mg 01/23/19 09:00 01/25/19 09:29 Crestor PO 02/22/19 08:59 10 mg QAM JUDAH Administration Tramadol HCl 50 mg 01/24/19 08:40 01/25/19 14:23 Ultram PO 02/23/19 08:39 50 mg Q4H PRN Administration Pain Past Medical History Medical History Osteoarthritis GERD (gastroesophageal reflux disease) Hand trauma AGE 17, MISSING PART OF LEFT HAND Ischemic ulcer of foot Popliteal aneurysm DVT (deep venous thrombosis) POPLITEAL VEIN HTN (hypertension), benign Prediabetes Elevated LFTs PVD (peripheral vascular disease) S/P femoral posterior tibial bypass with L embolization popliteal artery 10/20/18. On Eliquis. History of tobacco use STOPPED 10/05/18 Anxiety Pt specifically reports fear of doctors/hospitals GERD (gastroesophageal reflux disease) Osteoarthritis Hyponatremia (131) Stable at discharge from [facility] 11/02. 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 Will need to follow-up with workers' compensation hearings officer, will continue NaCl 1 g po BID, 2 L / day oral fluid restriction." per discharge summary 11/02. Anemia Past Surgical History Surgical History S/P popliteal-tibial bypass 10/18/[address] Blunt at [facility]. MAC 3, ETT 8.0. Grade view I. "Smooth IV induction, atraumatic ET intubation" History of arthroscopy RIGHT KNEE CARTILAGE REPAIR H/O hand surgery FROM LEFT HAND TRAUMA AND PART OF HAND WAS CUT OFF. History of amputation ALL TOES AMPUTATED FROM LEFT FOOT Social History Smoking Status: Former smoker tobacco type: cigarettes Do You Dip or Chew Tobacco: No Hx Alcohol Use: No Alcohol type: beer alcohol intake frequency: 3 or more drinks per day Alcohol Intake Frequency Comment: quit October Hx Substance Use: No substance use type: does not use Physical Exam Vital Signs Last Vital Signs Temp 37.5 C 01/25/19 15:16 Pulse 79 01/25/19 15:46 Resp 16 01/25/19 15:16 BP 144/69 H 01/25/19 15:16 Pulse Ox 92 01/25/19 15:16 Testing Electrocardiogram Date: 01/23/19 Findings: + NSR @ (89) low voltage Chest X-Ray Date: 10/22/[address] CT chest wo con CT DOSE: 384.33 mGy.cm HISTORY: smoking hx, hyponatremia, evaluated for lung mass TECHNIQUE: Multiaxial CT images of the chest were performed without contrast. A dose lowering technique was utilized adhering to the principles of ALARA. COMPARISON: Chest 10/18/2018. FINDINGS: No pneumothorax. No pleural effusions. The central airways are patent. Bibasilar linear densities favor subsegmental atelectasis. Mild elevation the left hemidiaphragm. No focal lung consolidations to suggest pneumonia. No evidence for pulmonary edema. Mild to moderate emphysema. No suspicious lytic or blastic osseous lesions. Normal esophagus. No mediastinal or hilar lymphadenopathy. The heart is normal in size. Mild calcified plaque within the normal caliber thoracic aorta. Hepatic steatosis. The visualized spleen and adrenal glands are unremarkable. IMPRESSION: 1. Mild to moderate emphysema. 2. No masses identified within the chest. 3. Mild elevation the left hemidiaphragm. 4. Bibasilar linear densities favor subsegmental atelectasis. 5. Hepatic steatosis. Electronically signed by: Bib Amaya M.D. 10/22/2018 12:31 PM Laboratory Results 01/25/19 08:20 01/25/19 08:20 PT 11.1 Seconds (9.0-12.0) 01/22/19 19:45 INR 1.1 (0.9-1.1) 01/22/19 19:45 Urine Color Yellow 01/23/19 06:35 Urine Appearance Clear (Clear) 01/23/19 06:35 Urine pH 6.5 (4.5-7.5) 01/23/19 06:35 Ur Specific [place] 1.020 (1.000-1.030) 01/23/19 06:35 Urine Protein Negative (Negative) 01/23/19 06:35 Urine Glucose (UA) Negative (Negative) 01/23/19 06:35 Urine Ketones Trace (Negative) H 01/23/19 06:35 Urine Nitrite Negative (Negative) 01/23/19 06:35 Ur Leukocyte Esterase Negative (Negative) 01/23/19 06:35 01/22/19 19:55 Blood Culture - Preliminary Blood No growth to date. 01/22/19 19:45 Blood Culture - Preliminary Blood No growth to date.
--- NOTE | 2019-01-25 15:45 | Surgery Progress Note ---
Date of Service January 25, 2019 Assessment & Plan (1) History of transmetatarsal amputation of left foot: At this point we plan on debridement of the TMA site as well as removal of the first metatarsal bone. This will be done tomorrow a.m. I have discussed the risks options and benefits of the procedure with the patient. The patient understands the risks options and benefits and agrees to the procedure. Subjective Patient has no complaints today. Physical Exam Physical Exam: Patient is awake and oriented. Is markedly improved with his mental status over the last few days. His left TMA site is basically unchanged. There is ostial present in the remaining first metatarsal per CT scan. Results & Data Vital Signs (Past 12 Hours) Vital Signs Temp Pulse Resp BP Pulse Ox 01/25/19 15:16 37.5 C 80 16 144/69 H 92 01/25/19 11:51 36.7 C 77 18 172/65 H 97 01/25/19 07:00 36.9 C 79 20 184/94 H 98 01/25/19 04:55 178/82 H 01/25/19 04:39 37.4 C 89 16 178/77 H 94
[2019-01-25] MEDS ORDERED: VANCOMYCIN HCL 1,500 MG in SODIUM CHLORIDE 0.9% 500 ML IV SCH (18:00)
[2019-01-25] MEDS: VANCOMYCIN HCL 1,500 MG in SODIUM CHLORIDE 0.9% 500 ML IV SCH (20:11)
[2019-01-25] MEDS: DOCUSATE SODIUM 100 MG CAP PO PRN (20:12)
[2019-01-26] MEDS: IMIPENEM/CILASTATIN SODIUM 500 MG in DEXTROSE 5% 100 ML IV SCH ×5 (02:05→21:59)
[2019-01-26] MEDS: VANCOMYCIN HCL 1,500 MG in SODIUM CHLORIDE 0.9% 500 ML IV SCH ×4 (03:36→23:28)
[2019-01-26] MEDS: ACETAMINOPHEN 1,000 MG/100 ML VIAL IV SCH ×4 (03:37→20:11)
[2019-01-26 06:34] LABS: Basophils # (auto) 0.02 K/uL (0-0.2); Basophils % (auto) 0.2 %; Eosinophils # (auto) 0.34 K/uL (0-0.5); Eosinophils % (auto) 3.4 %; Hematocrit (blood only) 29.5 % (42-52); Hemoglobin 9.8 g/dL (14.0-18.0); Immature Granulocytes # (auto) 0.02 K/uL (0.00-0.02); Immature Granulocytes % (auto) 0.2 %; Lymphocytes # (auto) 1.58 K/uL (1.2-3.4); Lymphocytes % (auto) 15.6 %; Mean Corpuscular Hgb Conc 33.2 g/dL (32-36); Mean Corpuscular Volume 88.6 fL (80-100); Mean Platelet Volume 7.9 fL (7.4-10.4); Monocytes # (auto) 1.27 K/uL (0.11-0.59); Monocytes % (auto) 12.6 %; Neutrophils # (auto) 6.88 K/uL (1.4-6.5); Platelet Count 208 K/uL (130-400); RDW Coefficient of Variation 14.5 % (11.5-14.5); RDW Standard Deviation 47.4 fL (36.4-46.3); Red Blood Count 3.33 M/uL (4.7-6.1); White Blood Count 10.11 K/uL (4.8-10.8)
[2019-01-26 07:10] LABS: BUN Creatinine Ratio 21.1 (10-20); Calcium 8.2 mg/dl (8.5-10.1); Creatinine Clr Calc Pharmacy 170.2 ml/min; Est GFR (African American) 130.7; Est GFR (Non-African American) 112.8; Potassium 3.9 mmol/L (3.5-5.1)
--- NOTE | 2019-01-26 07:26 | Family Medicine Progress Note ---
Date of Service January 26, 2019 Assessment & Plan (1) Pain in left foot: Patient with PVD, s/p fem-posterior tibial bypass, s/p TMA of left foot, wound vac in place. ?acute bleeding at wound vac noted by home nurse this AM. Patient with severe pain, ?delirium. Ddx to include ischemic pain vs infection. Lactate and CK on admission were within reason -admitted to Tele -CT LLE consistent with osteomyelitis -Blood cultures were obtained 01/22 continue to be NGTD -Patient s/p 1 day of levaquin 01/23 -CX'd ID -Vanco day 4 and meropenum day 3 -> pending surgical path results -Afebrile for the last 24 hours -WBC trend 11.75->11.97->10.93->11.01->10.11 -Consulted pain management, following recs -Initiated Tramadol 50mg x 4 hours PRN pain. -Gabapentin 100mg PO TID to further diminish neuropathic pain. -IV Dilaudid for breakthrough pain -Postop day 0 status post left foot transmetatarsal amputation and debridement -Plantar surface of TMA site was debrided, remaining the metatarsal bone was removed, wound was irrigated with bacitracin solution and dressing applied -Routine postop care per vascular surgery (2) Leukocytosis: Patient had elevated white count of 11.75 on admission likely secondary to infection at amputation site. -WBCs stable, 10.11 today, -See above (3) Delirium: Patient's delirium waxes and wanes. I am concerned about him in the immediate postop. Given his previous difficulties with general anesthesia. Patient reports sleeping well overnight I likely think this helped to improve as well as achieving adequate pain control. Today the patient is alert and or iented x4. Patient did report that he usually has difficulties recovering from anesthesia and these last for 3-4 days including delirium and agitation hallucinations ETC -BMP, Mag, Phos, CBC unremarkable -Delirium prevention strategies with frequent orientation, minimize interruptions to sleep, etc -Suspect an element of this patient's delirium is secondary to poorly controlled pain, hopefully through optimizing his pain medication, and consulting PMR we should be able to gain some control of his pain and hopefully improve the delirium. -Patient's reported that he was a heavy alcoholic, she reported he quit around the time of his previous surgery. He has been using Lorazepam regularly which can prolong "withdrawal". This may be contributing to his agitation and delirium. -placed on alcohol withdrawal protocol -IV Haldol as needed is ordered for severe agitation please contact primary team if given. (4) PVD (peripheral vascular disease): Possibly secondary to tobacco abuse. Bergers disease? -Continue holding aspirin and Plavix resume per vascular surgery. -Vascular surgery consultation as above -Continue Crestor 10 (5) GERD (gastroesophageal reflux disease): Chronic. -Continue Protonix 40mg po daily (6) HTN (hypertension), benign: Has been hypertensive since admission, this morning his blood pressure was 184/94. Likely a component of pain. His pressures appeared to improve with an increase of labetalol to 200 mg twice daily, however it is hard to assess as the vast majority of his pressures have been taken in the immediate preop and postop. Where there is likely to be a component of pain and anxiety contributing to his hypertension. Will monitor overnight and throughout the day tomorrow adjustments as indicated. -Pain control as above -Increase Labetalol 200mg po BID -Continue Lisinopril 5mg po qAM -Continue to monitor (7) DVT (deep venous thrombosis): Chronic LLE DVT -Noted, monitor -Resume anticoagulation per vascular surgery (8) Anemia: No bleeding is present at the amputation site. Hemoglobin has been stable -Continue to trend CBC -Transfuse if Hg < 7, symptomatic anemia or active bleeding F/E/N - Heart healthy diet Ppx -Per vascular surgery Code - Full Dispo - MedSurg with telemetry Supervising Physician Co-Signing Physician Notes Attending attestation Pt seen and examined in concert with Dr. Harris. In agreement with the documented findings as noted in the resident documentation with any exceptions or additions as noted here. Seen and evaluated at bedside in PACU, mildly confused following anesthesia but oriented to place and time and feeling well. Left foot bandage C/D/I with mild visible bleeding from operative site. Osteomyelitis, L foot s/p debridement and amputation of MT - vascular surgical and ID c/s appreciated - continue vancomycin and imipenem/cilastatin. Adjust medication for pain as required. Delirium - mild postop confusion at present. Haldol IV ordered if unable to reorient. Avoid anticholinergics. PVD - hold ASA/Plavix 2/2 bleed and procedure. Continue statin therapy Chronic pain - tolerating gabapentin Else see resident documentation as noted. Subjective Patient sitting upright in bed this morning anxious about his upcoming procedure with his at the bedside. Patient did well overnight with no acute events. He has been n.p.o. since midnight, was tolerating his diet, voiding, stooling, and sleeping appropriately. Of note throughout the week the patient's mental status has continued to improve, he no longer displays tremors, is able to have clear logical coherent conversations, and is not had as many outbursts. The medical student evaluated the patient this morning on her own, and noted several concerning thought processes. Per the medical student the patient seemed very paranoid, was convinced his was out to get him, and that people were trying to hurt him. I do not think at this point he requires an inpatient psych consultation. However I would be very appreciative if case management would assist us with arranging for outpatient psychiatric follow-up. I followed up with the patient this afternoon in the PACU. He was quite altered this was expected as he previously reported he has had adverse reactions to anesthesia. With that being said he was AAO x4. His thought process was tangential. Present concerns related to recovering from anesthesia, will continue to monitor. Physical Exam Physical Exam: General: Elderly gentleman in NAD Eyes: EOMI Neck: Trachea midline normal to visual inspection, I did not appreciate JVD, Chest: Scattered wheezes otherwise clear to auscultation bilaterally Cardiac: Regular rate and rhythm, some ectopy present, normal S1-S2, I did not appreciate any murmurs rubs or gallops GI: Normal bowel sounds, soft, nontender, nondistended, MSK: Moves all extremities, left tarsal amputation, left partial hand amputation Skin: Amputation site no longer had foul order Neuro: calm, cooperative Results & Data Vital Signs (Past 12 Hours) Vital Signs Temp Pulse Pulse Resp BP BP Pulse Ox 01/26/19 07:16 37.1 C 74 15 180/85 H 173/94 H 91 01/25/19 23:30 79 01/25/19 22:57 37.1 C 72 16 158/85 H 91 01/25/19 19:57 36.7 C 107 H 21 141/69 H 92 Laboratory Results 01/26/19 06:13 01/26/19 06:13 01/26/19 01/26/19 01/26/19 Range/Units 13:51 06:13 06:13 WBC 10.11 (4.8-10.8) K/uL RBC 3.33 L (4.7-6.1) M/uL Hgb 9.8 L (14.0-18.0) g/dL Hct 29.5 L (42-52) % MCV 88.6 (80-100) fL MCH 29.4 (25-34) pg MCHC 33.2 (32-36) g/dL RDW Std Deviation 47.4 H (36.4-46.3) fL RDW Coeff of [place] 14.5 (11.5-14.5) % Plt Count 208 (130-400) K/uL MPV 7.9 (7.4-10.4) fL Immature Gran % (Auto) 0.2 % Neut % (Auto) 68.0 % Lymph % (Auto) 15.6 % [place] % (Auto) 12.6 % Eos % (Auto) 3.4 % Baso % (Auto) 0.2 % Immature Gran # (Auto) 0.02 (0.00-0.02) K/uL Neut # (Auto) 6.88 H (1.4-6.5) K/uL Lymph # (Auto) 1.58 (1.2-3.4) K/uL [place] # (Auto) 1.27 H (0.11-0.59) K/uL Eos # (Auto) 0.34 (0-0.5) K/uL Baso # (Auto) 0.02 (0-0.2) K/uL Sodium 134 L (136-145) mmol/L Potassium 3.9 (3.5-5.1) mmol/L Chloride 101 (98-107) mmol/L Carbon Dioxide 28 (21-32) mmol/L Anion Gap 5.0 (3-11) BUN 11 (7-18) mg/dl Creatinine 0.51 L (0.6-1.4) mg/dl Est Cr Clr Drug Dosing 170.2 ml/min Est GFR ( Amer) 130.7 Est GFR (Non-Af Amer) 112.8 BUN/Creatinine Ratio 21.1 H (10-20) Glucose 98 (70-99) mg/dl POC Glucose 102 H (70-99) Calcium 8.2 L (8.5-10.1) mg/dl Medications Administered Current Inpatient Medications Atropine Sulfate (Atropine Sulfate) 0.5 mg IV Q1M PRN PRN Reason: PACU Use-HR<40 &/or Bradycardi Stop: 01/26/19 16:02 Bisacodyl (Dulcolax) 10 mg [place] DAILY PRN PRN Reason: Constipation Stop: 02/21/19 19:13 Docusate Sodium (Colace) 100 mg PO BID PRN; Protocol PRN Reason: Constipation Stop: 02/21/19 19:13 Last Admin: 01/25/19 20:12 Dose: 100 mg Documented by: Ephedrine Sulfate (Ephedrine Sulfate) 5 mg IV Q5M PRN PRN Reason: PACU Use Only-SBP<90 mmHg Stop: 01/26/19 16:02 Escitalopram Oxalate (Lexapro) 10 mg PO QAM REPLACED BY [facility] Stop: 02/22/19 08:59 Last Admin: 01/26/19 08:56 Dose: 10 mg Documented by: Fentanyl Citrate (Fentanyl Citrate) 25 mcg IV Q5M PRN PRN Reason: PACU Use Only-Pain Stop: 01/26/19 16:02 Last Admin: 01/26/19 14:20 Dose: 25 mcg Documented by: Gabapentin (Neurontin) 100 mg PO TID REPLACED BY [facility] Stop: 02/23/19 08:59 Last Admin: 01/26/19 15:21 Dose: Not Given Documented by: Haloperidol Lactate (Haldol) 5 mg IM Q6H PRN PRN Reason: Anxiety/Agitation Stop: 02/22/19 11:27 Hydromorphone HCl (Dilaudid) 1 mg IV Q2H PRN PRN Reason: Pain Stop: 02/06/19 11:19 Last Admin: 01/26/19 15:29 Dose: 1 mg Documented by: Acetaminophen (Ofirmev) 1,000 mg in 100 mls @ 400 mls/hr IV Q8H REPLACED BY [facility] Stop: 02/21/19 19:59 Last Infusion: 01/26/19 15:34 Dose: Infused Documented by: Lorazepam (Ativan) 1 mg in 2 mls @ 0.5 mls/min IV Q8H PRN PRN Reason: Anxiety/Agitation Stop: 02/22/19 11:21 Lorazepam (Ativan) 1 mg in 2 mls @ 2 mls/min IV ONE PRN; Protocol PRN Reason: EtoH Withdrawal AWSS 6-10 Stop: 02/22/19 15:23 Imipenem/Cilastatin Sodium 500 (mg/ Dextrose) 110 mls @ 100 mls/hr IV Q6H REPLACED BY [facility] Stop: 03/07/19 10:44 Last Admin: 01/26/19 15:34 Dose: Not Given Documented by: Vancomycin HCl 1,500 mg/ (Sodium Chloride) 530 mls @ 200 mls/hr IV Q8H REPLACED BY [facility]; Protocol Stop: 03/08/19 19:59 Last Admin: 01/26/19 15:25 Dose: Not Given Documented by: Labetalol HCl (Normodyne) 200 mg PO BID REPLACED BY [facility] Stop: 02/24/19 20:59 Last Admin: 01/26/19 08:55 Dose: 200 mg Documented by: Lisinopril (Zestril) [facility] [place] [place] Stop: 02/22/19 08:59 Last Admin: 01/26/19 08:55 Dose: 5 mg Documented by: Miscellaneous Information (Consult) 1 ea N/A UD PRN PRN Reason: Consult Stop: 02/22/19 11:36 Ondansetron HCl (Zofran) 4 mg IV Q6H PRN PRN Reason: Nausea Stop: 02/21/19 19:07 Ondansetron HCl (Zofran) 4 mg IV ONCE PRN PRN Reason: PACU Use Only-Nausea/Vomiting Stop: 01/26/19 16:02 Pantoprazole Sodium (Protonix) 40 mg PO DAILY REPLACED BY [facility] Stop: 02/22/19 08:59 Last Admin: 01/26/19 08:55 Dose: 40 mg Documented by: Polyethylene Glycol (Miralax Powder Packet) 17 gm PO DAILY PRN PRN Reason: Constipation Stop: 02/21/19 19:07 Rosuvastatin Calcium (Crestor) 10 mg PO QAM REPLACED BY [facility] Stop: 02/22/19 08:59 Last Admin: 01/26/19 08:54 Dose: 10 mg Documented by: Tramadol HCl (Ultram) 50 mg PO Q4H PRN PRN Reason: Pain Stop: 02/23/19 08:39 Last Admin: 01/25/19 23:34 Dose: 50 mg Documented by: Resident Activity Tracking Resident Involvement: Resident Care Provided Care Provided: Adult Hospital Medicine (1) DVT (deep venous thrombosis) Affected thrombotic vein of extremity: femoral Chronicity: chronic DVT l ocation: lower extremity Laterality: left Qualified Code(s): I82.512 - Chronic embolism and thrombosis of left femoral vein (2) GERD (gastroesophageal reflux disease) Esophagitis presence: without esophagitis Qualified Code(s): K21.9 - Gastro-esophageal reflux disease without esophagitis
--- NOTE | 2019-01-26 07:32 | History & Physical Bridge Note ---
Date of Service January 26, 2019 History & Physical Bridge Note Patient for debridement of left foot today. I have discussed the risks options and benefits of the procedure with the patient. The patient understands the risks options and benefits and agrees to the procedure. I have examined the patient, reviewed the History & Physical and in the interval since the performance of the History & Physical I have noted the following changes of clinical significance: no changes noted
[2019-01-26] MEDS: ROSUVASTATIN CALCIUM 10 MG TAB PO SCH (08:54)
[2019-01-26] MEDS: GABAPENTIN 100 MG CAP PO SCH ×3 (08:54→20:14)
[2019-01-26] MEDS: LISINOPRIL 5 MG TAB PO SCH (08:55)
[2019-01-26] MEDS: PANTOprazole 40 MG TAB PO SCH (08:55)
[2019-01-26] MEDS: LABETALOL HCL 100 MG TAB PO SCH ×2 (08:55→20:14)
[2019-01-26] MEDS: ESCITALOPRAM OXALATE 10 MG TAB PO SCH (08:56)
[2019-01-26] MEDS: HYDROmorphone INJ 1 MG/ML SYRINGE IV PRN ×2 (09:04→15:29)
[2019-01-26] MEDS ORDERED: ONDANSETRON INJ 2 MG/ML 2 ML VIAL IV PRN (11:02)
[2019-01-26] MEDS ORDERED: ePHEDrine sulfate 50 MG/ML AMP IV PRN (11:02)
[2019-01-26] MEDS ORDERED: ATROPINE SULFATE 0.1 MG/ML 10ML SYR IV PRN (11:02)
[2019-01-26] MEDS ORDERED: MIDAZOLAM HCL 1 MG/ML 2ML VIAL ONE (12:27)
[2019-01-26] MEDS ORDERED: fentaNYL citrate 100 MCG/2 ML VIAL ONE (12:27)
[2019-01-26] MEDS ORDERED: BACITRACIN INJ 50,000 UNIT VIAL ONE (12:42)
[2019-01-26] MEDS ORDERED: LIDOCAINE HCL 1% 20 ML VIAL ONE (12:42)
[2019-01-26] MEDS ORDERED: BUPIVACAINE/EPINEPHRINE 0.5% MPF 1:200,000 30 ML VIAL ONE (12:42)
[2019-01-26] MEDS ORDERED: PROPOFOL IV EMULSION 10 MG/ML 20 ML VIAL IV ONE (13:30)
[2019-01-26] MEDS ORDERED: ONDANSETRON INJ 2 MG/ML 2 ML VIAL ONE (13:30)
[2019-01-26] MEDS ORDERED: LIDOCAINE HCL 2% 2 ML VIAL/AMP(20MG/ML) INFIL ONE (13:30)
[2019-01-26] MEDS ORDERED: PHENYLEPHRINE 100MCG/ML 5ML SYR ONE (13:32)
[2019-01-26] MEDS ORDERED: ePHEDrine sulfate 50 MG/ML AMP ONE (13:37)
[2019-01-26] MEDS ORDERED: SODIUM CHLORIDE 0.9% INJ 10 ML VIAL ONE (13:37)
--- NOTE | 2019-01-26 13:53 | Operative Report ---
Post Operative Report Pre & Post Diagnosis Operation Date: 01/26/19 11:00 Pre-Op Diagnosis: Left Foot Osteomyelitis; Necrotic Left Transmetatarsal Amputation Post-Op Diagnosis: Left Foot Osteomyelitis; Necrotic Left Transmetatarsal Amputation Procedure Operation Date: 01/26/19 11:00 Actual Procedures p Left Foot Transmetatarsal Amputation Debridement(Left) - Carlos Blunt MD Surgeon Carlos Blunt MD Creative Consultant Dez[employer] Estimated Blood Loss 50 Findings Consistent with Post-Op Diagnosis Specimens Left first metatarsal Anesthesia Type General Complications none Disposition Accompanied Patient To Recovery: No Disposition: Recovery Room Indications This is a 63-year-old male who had a transmetatarsal amputation of his left foot. He is returned to the hospital with osteomyelitis of the remaining first metatarsal. He was septic from this. He was treated with antibiotics and now is in need of debridement of his TMA site and first metatarsal removal. I have discussed the risks options and benefits of the procedure with the patient. The patient understands the risks options and benefits and agrees to the procedure. Description of Procedure The patient was taken to the operating room placed in the supine position. After timeout was done and the patient was identified the left TMA site was prepped and draped in a sterile fashion. The skin subcutaneous tissue of the plantar surface of the TMA site was then debrided. This was approximately 10 x 2 cm in size of debridement. Excellent bleeding was seen. We then dressed the metatarsal. The remaining metatarsal bone which was probably about half of the first metatarsal was then removed. It was very friable. The cartilage of the tarsal bone and approximately 5 mm of bone was removed with a ronguer. Again good bleeding was noted. The remaining bone was hard to exam. That point wound was irrigated with bacitracin solution. Bleeding was controlled using electrocautery. Wound was then dressed with Adaptic over the remaining bone followed by Xeroform 4 x 4's and Kerlix over the remaining lesions.The patient left the operation room in satisfactory condition and tolerated the procedure well. All needle and sponge counts were correct at the end of the procedure. Magaly Esipnosa Pac assisted due to lack of resident availability and was necessary for positioning, draping, retraction, wound closure deep layers, subcutaneous tissue, and skin closure and was necessary for assisting with the case. I attest to the content of the Intraoperative Record and any orders documented therein. Any exceptions are noted below.
[2019-01-26] MEDS: fentaNYL citrate 100 MCG/2 ML VIAL IV PRN ×4 (13:55→14:20)
--- NOTE | 2019-01-26 14:29 | Infectious Disease Progress Nt ---
Date of Service January 26, 2019 Assessment & Plan (1) Osteomyelitis of foot, left, acute: 63-year-old male with severe peripheral arterial disease status post bypass with open wound left foot with osteomyelitis seen on CT scanning. Patient now status post debridement of TMA site. Patient should continue on broad-spectrum antibiotics pending further culture results. Will follow. Subjective Patient now status post surgical debridement of left foot. Expected postoperative pain. Remains afebrile, currently stable. No other new complaints. Review of Systems Review of Systems: All systems reviewed & are unremarkable except as noted in HPI & below Physical Exam Constitutional: WD/WN, vitals as above + disheveled and comfortable; no acute distress Eyes: PERRL, conjunctivae normal, anicteric sclerae ENMT: external ear and nose normal, oropharynx normal Neck: trachea midline, no thyromegaly neck nontender Respiratory: normal respiratory effort, lungs clear to auscultation normal percussion; does not use accessory muscles Cardiovascular: Rate/Rhythm: regular rate and regular rhythm Heart Sounds: normal S1 and normal S2; no gallop, no murmur and no cardiac rub Vessels: normal peripheral pulses; no JVD Gastrointestinal (Abdomen): normal bowel sounds, soft, nontender, no hepatosplenomegaly Musculoskeletal: no cyanosis or clubbing, extremities motor strength 5/5 Spine: thoracic spine normal to inspection and lumbar spine normal to inspection; no cervical spinal tenderness Skin: no rashes, warm and dry + wound (Surgical dressing in place left foot l); no rashes Neurologic: patellar DTR's 2+ bilat, sensation intact moves all extremities, awake and + confused Psychiatric: A+Ox3, euthymic affect Orientation: + not oriented x 3 Apperance: + disheveled Lymphatic: no cervical or axillary lymphadenopathy no inguinal lymphadenopathy Results & Data Vital Signs (Past 12 Hours) Vital Signs Temp Pulse Pulse Pulse Resp BP BP 01/26/19 14:25 85 14 173/82 H 01/26/19 14:15 78 24 162/94 H 01/26/19 14:05 82 25 H 178/85 H 01/26/19 13:55 83 23 165/146 H 01/26/19 13:49 36.1 C L 77 17 140/88 01/26/19 10:16 37 C 76 20 152/83 H 01/26/19 07:27 79 01/26/19 07:16 37.1 C 74 15 180/85 H 173/94 H Pulse Ox 01/26/19 14:25 96 01/26/19 14:15 98 01/26/19 14:05 100 01/26/19 13:55 100 01/26/19 13:49 100 01/26/19 10:16 94 01/26/19 07:27 01/26/19 07:16 91 Laboratory Results Short CBC 01/26/19 Range/Units 06:13 WBC 10.11 (4.8-10.8) K/uL Hgb 9.8 L (14.0-18.0) g/dL Hct 29.5 L (42-52) % Plt Count 208 (130-400) K/uL BMP 01/26/19 06:13 Sodium 134 L Potassium 3.9 Chloride 101 Carbon Dioxide 28 BUN 11 Creatinine 0.51 L Glucose 98 Calcium 8.2 L Diagnostic Findings Microbiology 01/22/19 19:55 Blood Blood Culture - Preliminary No growth to date. 01/22/19 19:45 Blood Blood Culture - Preliminary No growth to date.
--- NOTE | 2019-01-26 14:44 | Anesthesiology Progress Note ---
Date of Service January 26, 2019 Anesthesia Post Procedure Vital Signs Vital Signs: Temp Pulse Pulse Pulse Resp BP BP 01/26/19 14:35 36.9 C 78 17 175/80 H 01/26/19 14:25 85 14 173/82 H 01/26/19 14:15 78 24 162/94 H 01/26/19 14:05 82 25 H 178/85 H 01/26/19 13:55 83 23 165/146 H 01/26/19 13:49 36.1 C L 77 17 140/88 01/26/19 10:16 37 C 76 20 152/83 H 01/26/19 07:27 79 01/26/19 07:16 37.1 C 74 15 180/85 H 173/94 H 01/25/19 23:30 79 01/25/19 22:57 37.1 C 72 16 158/85 H 01/25/19 19:57 36.7 C 107 H 21 141/69 H 01/25/19 15:46 79 01/25/19 15:16 37.5 C 80 16 144/69 H Pulse Ox 01/26/19 14:35 96 01/26/19 14:25 96 01/26/19 14:15 98 01/26/19 14:05 100 01/26/19 13:55 100 01/26/19 13:49 100 01/26/19 10:16 94 01/26/19 07:27 01/26/19 07:16 91 01/25/19 23:30 01/25/19 22:57 91 01/25/19 19:57 92 01/25/19 15:46 01/25/19 15:16 92 Pain Intensity Left Leg: Pain Intensity: 2 Notes Mental Status: alert / awake / arousable and participated in evaluation Patient Amnestic to Procedure: Yes Nausea / Vomiting: adequately controlled Pain: adequately controlled Airway Patency, RR, SpO2: stable & adequate BP & HR: stable & adequate Hydration State: stable & adequate Anesthetic Complications: no major complications apparent and Pt Satisfied with anesthetic care
[2019-01-26] MEDS: TRAMADOL HCL 50 MG TABLET PO PRN ×2 (18:05→21:59)
[2019-01-26] MEDS ORDERED: VANCOMYCIN TROUGH ONE (19:30)
[2019-01-27] MEDS: TRAMADOL HCL 50 MG TABLET PO PRN ×4 (02:13→20:58)
[2019-01-27] MEDS: IMIPENEM/CILASTATIN SODIUM 500 MG in DEXTROSE 5% 100 ML IV SCH ×4 (03:30→21:49)
[2019-01-27] MEDS: ACETAMINOPHEN 1,000 MG/100 ML VIAL IV SCH ×3 (03:31→20:26)
[2019-01-27 07:25] LABS: Basophils # (auto) 0.03 K/uL (0-0.2); Basophils % (auto) 0.3 %; Eosinophils # (auto) 0.38 K/uL (0-0.5); Eosinophils % (auto) 4.4 %; Hematocrit (blood only) 29.2 % (42-52); Hemoglobin 9.9 g/dL (14.0-18.0); Immature Granulocytes # (auto) 0.01 K/uL (0.00-0.02); Immature Granulocytes % (auto) 0.1 %; Lymphocytes % (auto) 19.7 %; Mean Corpuscular Hgb Conc 33.9 g/dL (32-36); Mean Corpuscular Volume 88.5 fL (80-100); Mean Platelet Volume 7.5 fL (7.4-10.4); Monocytes # (auto) 1.21 K/uL (0.11-0.59); Monocytes % (auto) 14.1 %; Neutrophils # (auto) 5.28 K/uL (1.4-6.5); Neutrophils % (auto) 61.4 %; Platelet Count 218 K/uL (130-400); RDW Coefficient of Variation 14.5 % (11.5-14.5); White Blood Count 8.61 K/uL (4.8-10.8)
[2019-01-27] MEDS ORDERED: VANCOMYCIN TROUGH ONE (07:30)
[2019-01-27 08:05] LABS: BUN Creatinine Ratio 18.3 (10-20); Calcium 8.3 mg/dl (8.5-10.1); Creatinine Clr Calc Pharmacy 174.5 ml/min; Est GFR (African American) 132.9; Est GFR (Non-African American) 114.7; Potassium 3.9 mmol/L (3.5-5.1)
[2019-01-27] MEDS ORDERED: HydrALAZINE HCL 20 MG/ML VIAL IV STA (08:15)
[2019-01-27] MEDS: VANCOMYCIN HCL 1,500 MG in SODIUM CHLORIDE 0.9% 500 ML IV SCH ×2 (08:27→16:12)
[2019-01-27] MEDS: PANTOprazole 40 MG TAB PO SCH (08:30)
[2019-01-27] MEDS: ROSUVASTATIN CALCIUM 10 MG TAB PO SCH (08:30)
[2019-01-27] MEDS: ESCITALOPRAM OXALATE 10 MG TAB PO SCH (08:30)
[2019-01-27] MEDS: GABAPENTIN 100 MG CAP PO SCH ×3 (08:30→20:58)
[2019-01-27] MEDS: LABETALOL HCL 100 MG TAB PO SCH ×2 (08:30→20:59)
[2019-01-27] MEDS: LISINOPRIL 5 MG TAB PO SCH (08:31)
[2019-01-27] MEDS: POTASSIUM CHLORIDE 20 MEQ TABCR PO STA ×2 (08:33→08:38)
--- NOTE | 2019-01-27 13:33 | Pharmacy Report ---
Pharmacy Abx Dose Short Note - Date of Service January 27, 2019 - Assessment & Plan Assessment 63 year old M receiving Vancomycin for treatment of joint infection Day # 5 of antimicrobial therapy. Laboratory Tests 01/27/19 07:11 Vancomycin Trough 17.0 Plan Vancomycin * Trough level of 17 mcg/mL is therapeutic. * Continue dose of Vancomycin 1500 mg IV every 8 hours * Goal trough level for joint infection: 15 to 20 mcg/mL * Will re-check trough in around 3 days to ensure patient is not accumulating Vanco. Pharmacy will continue to follow and will adjust dose/frequency as necessary. Thank you.
--- NOTE | 2019-01-27 14:06 | Family Medicine Progress Note ---
Date of Service January 27, 2019 Assessment & Plan (1) Pain in left foot: Patient with PVD, s/p fem-posterior tibial bypass, s/p TMA of left foot, wound vac in place. ?acute bleeding at wound vac noted by home nurse this AM. Patient with severe pain, ?delirium. Ddx to include ischemic pain vs infection. Lactate and CK on admission were within reason -admitted to Tele -CT LLE consistent with osteomyelitis -Blood cultures were obtained 01/22 continue to be NGTD -Patient s/p 1 day of levaquin 01/23 -CX'd ID -Vanco day 4 and meropenum day 3 -> pending surgical path results -Afebrile for the last 24 hours -WBC trend 11.75->11.97->10.93->11.01->10.11->8.61 -Consulted pain management, following recs -Initiated Tramadol 50mg x 4 hours PRN pain. -Gabapentin 100mg PO TID to further diminish neuropathic pain. -IV Dilaudid for breakthrough pain -Postop day 1 status post left foot transmetatarsal amputation and debridement -Plantar surface of TMA site was debrided, remaining the metatarsal bone was removed, wound was irrigated with bacitracin solution and dressing applied -Routine postop care per vascular surgery -Surgical pathology pending (2) Leukocytosis: Patient had elevated white count of 11.75 on admission likely secondary to infection at amputation site. -WBCs stable, 8.61 today, -See above (3) Delirium: Patient's delirium waxes and wanes. I am concerned about him in the immediate postop. Given his previous difficulties with general anesthesia. Patient reports sleeping well overnight I likely think this helped to improve as well as achieving adequate pain control. Today the patient is alert and oriented x4. Patient did report that he usually has difficulties recovering from anesthesia and these last for 3-4 days including delirium and agitation hallucinations ETC -BMP, Mag, Phos, CBC unremarkable -Delirium prevention strategies with frequent orientation, minimize interruptions to sleep, etc -Suspect an element of this patient's delirium is secondary to poorly controlled pain, hopefully through optimizing his pain medication, and consulting PMR we should be able to gain some control of his pain and hopefully improve the delirium. -Patient's reported that he was a heavy alcoholic, she reported he quit around the time of his previous surgery. He has been using Lorazepam regularly which can prolong "withdrawal". This may be contributing to his agitation and delirium. -placed on alcohol withdrawal protocol -Likely out of the window at present -IV Haldol as needed is ordered for severe agitation please contact primary team if given. (4) PVD (peripheral vascular disease): Possibly secondary to tobacco abuse. Bergers disease? -Continue holding aspirin and Plavix resume per vascular surgery. -Vascular surgery consultation as above -Continue Crestor 10 (5) GERD (gastroesophageal reflux disease): Chronic. -Continue Protonix 40mg po daily (6) HTN (hypertension), benign: Has been hypertensive since admission, this morning his blood pressure was 184/94. Likely a component of pain. His pressures appeared to improve with an increase of labetalol to 200 mg twice daily, however it is hard to assess as the vast majority of his pressures have been taken in the immediate preop and postop. Where there is likely to be a component of pain and anxiety contributing to his hypertension. Will monitor overnight and throughout the day tomorrow adjustments as indicated. -Pain control as above -Increase Labetalol 200mg po BID -Continue Lisinopril 20mg po qAM, given 15 mg now to bring the total dose for day to 20 -Continue to monitor (7) DVT (deep venous thrombosis): Chronic LLE DVT -Noted, monitor -Resume anticoagulation per vascular surgery (8) Anemia: No bleeding is present at the amputation site. Hemoglobin has been stable -Continue to trend CBC -Transfuse if Hg < 7, symptomatic anemia or active bleeding F/E/N - Heart healthy diet Ppx -Per vascular surgery Code - Full Dispo - MedSurg with telemetry Supervising Physician Co-Signing Physician Notes Attending attestation Pt seen and examined in concert with Dr. Harris. In agreement with the documented findings as noted in the resident documentation with any exceptions or additions as noted here. Resting in bed, easily arousable. Reports residual stiffness and aching of LLE following procedure. Left foot bandage C/D/I. Osteomyelitis, L foot s/p debridement and amputation of MT - vascular surgical and ID c/s appreciated - continue vancomycin and imipenem/cilastatin. Delirium - mild confusion during evaluation but easily redirected. Haldol IV o rdered if unable to reorient. Avoid anticholinergics. PVD - restart ASA/Plavix in AM. Continue statin therapy Chronic pain - tolerating gabapentin, tramadol PRN Else see resident documentation as noted. Subjective Patient sitting up in bed this morning in no acute distress. Overnight was hypertensive to 183/83. Patient reports he is feeling significantly better and his pain is improved, he is concerns are now related to sitting up for rehab and ensuring he has recovered prior to being discharged. Patient is tolerating his diet, voiding, stooling, and sleeping appropriately. So far mental status has remained intact and has had no adverse events related to anesthesia. Surgical pathology results are pending. Answered all questions no concerns at present. She denies fevers chills nausea vomiting diarrhea muscle aches or pains congesti on or other signs or symptoms of acute process Physical Exam Physical Exam: General: Elderly gentleman in NAD Eyes: EOMI Neck: Trachea midline normal to visual inspection, I did not appreciate JVD, Chest: Scattered wheezes otherwise clear to auscultation bilaterally Cardiac: Regular rate and rhythm, some ectopy present, normal S1-S2, I did not appreciate any murmurs rubs or gallops GI: Normal bowel sounds, soft, nontender, nondistended, MSK: Moves all extremities, left tarsal amputation, left partial hand amputation Skin: Surgical site bandaged appropriately some bleeding as expected otherwise clean dry and intact Neuro: calm, cooperative Results & Data Vital Signs (Past 12 Hours) Vital Signs Temp Pulse Pulse Pulse Resp BP BP 01/27/19 11:31 37 C 64 20 160/84 H 01/27/19 10:19 78 167/78 H 01/27/19 07:48 77 01/27/19 07:22 37.2 C 73 18 197/78 H 183/83 H 01/27/19 03:56 37.1 C 77 18 173/84 H Pulse Ox 01/27/19 11:31 96 01/27/19 10:19 01/27/19 07:48 01/27/19 07:22 94 01/27/19 03:56 91 Laboratory Results 01/27/19 07:11 01/27/19 07:11 01/27/19 01/27/19 01/27/19 Range/Units 07:11 07:11 07:11 WBC 8.61 (4.8-10.8) K/uL RBC 3.30 L (4.7-6.1) M/uL Hgb 9.9 L (14.0-18.0) g/dL Hct 29.2 L (42-52) % MCV 88.5 (80-100) fL MCH 30.0 (25-34) pg MCHC 33.9 (32-36) g/dL RDW Std Deviation 47.0 H (36.4-46.3) fL RDW Coeff of Argelia 14.5 (11.5-14.5) % Plt Count 218 (130-400) K/uL MPV 7.5 (7.4-10.4) fL Immature Gran % (Auto) 0.1 % Neut % (Auto) 61.4 % Lymph % (Auto) 19.7 % [place] % (Auto) 14.1 % Eos % (Auto) 4.4 % Baso % (Auto) 0.3 % Immature Gran # (Auto) 0.01 (0.00-0.02) K/uL Neut # (Auto) 5.28 (1.4-6.5) K/uL Lymph # (Auto) 1.70 (1.2-3.4) K/uL [place] # (Auto) 1.21 H (0.11-0.59) K/uL Eos # (Auto) 0.38 (0-0.5) K/uL Baso # (Auto) 0.03 (0-0.2) K/uL Sodium 134 L (136-145) mmol/L Potassium 3.9 (3.5-5.1) mmol/L Chloride 99 (98-107) mmol/L Carbon Dioxide 29 (21-32) mmol/L Anion Gap 6.0 (3-11) BUN 9 (7-18) mg/dl Creatinine 0.49 L (0.6-1.4) mg/dl Est Cr Clr Drug Dosing 174.5 ml/min Est GFR ( Amer) 132.9 Est GFR (Non-Af Amer) 114.7 BUN/Creatinine Ratio 18.3 (10-20) Glucose 94 (70-99) mg/dl Calcium 8.3 L (8.5-10.1) mg/dl Vancomycin Trough 17.0 (See Comment) mcg/ml Medications Administered Current Inpatient Medications Bisacodyl (Dulcolax) 10 mg NE DAILY PRN PRN Reason: Constipation Stop: 02/21/19 19:13 Docusate Sodium (Colace) 100 mg PO BID PRN; Protocol PRN Reason: Constipation Stop: 02/21/19 19:13 Last Admin: 01/25/19 20:12 Dose: 100 mg Documented by: Escitalopram Oxalate (Lexapro) 10 mg PO QAM [facility] Stop: 02/22/19 08:59 Last Admin: 01/27/19 08:30 Dose: 10 mg Documented by: Gabapentin (Neurontin) 100 mg PO TID [facility] Stop: 02/23/19 08:59 Last Admin: 01/27/19 13:59 Dose: 100 mg Documented by: Haloperidol Lactate (Haldol) 5 mg IM Q6H PRN PRN Reason: Anxiety/Agitation Stop: 02/22/19 11:27 Hydralazine HCl (Hydralazine Hcl) 2.5 mg IV Q4H PRN PRN Reason: Hypertension Stop: 02/26/19 12:14 Hydromorphone HCl (Dilaudid) 1 mg IV Q2H PRN PRN Reason: Pain Stop: 02/06/19 11:19 Last Admin: 01/26/19 15:29 Dose: 1 mg Documented by: Acetaminophen (Ofirmev) 1,000 mg in 100 mls @ 400 mls/hr IV Q8H [facility] Stop: 02/21/19 19:59 Last Infusion: 01/27/19 11:24 Dose: Infused Documented by: Lorazepam (Ativan) 1 mg in 2 mls @ 0.5 mls/min IV Q8H PRN PRN Reason: Anxiety/Agitation Stop: 02/22/19 11:21 Lorazepam (Ativan) 1 mg in 2 mls @ 2 mls/min IV ONE PRN; Protocol PRN Reason: EtoH Withdrawal AWSS 6-10 Stop: 02/22/19 15:23 Imipenem/Cilastatin Sodium 500 (mg/ Dextrose) 110 mls @ 100 mls/hr IV Q6H [facility] Stop: 03/07/19 10:44 Last Infusion: 01/27/19 10:47 Dose: Infused Documented by: Vancomycin HCl 1,500 mg/ (Sodium Chloride) 530 mls @ 200 mls/hr IV Q8H [facility]; Protocol Stop: 03/08/19 19:59 Last Infusion: 01/27/19 11:10 Dose: Infused Documented by: Labetalol HCl (Normodyne) 200 mg PO BID [facility] Stop: 02/24/19 20:59 Last Admin: 01/27/19 08:30 Dose: 200 mg Documented by: Lisinopril (Zestril) 5 mg PO QAM [facility] Stop: 02/22/19 08:59 Last Admin: 01/27/19 08:31 Dose: 5 mg Documented by: Miscellaneous Information (Consult) 1 ea N/A UD PRN PRN Reason: Consult Stop: 02/22/19 11:36 Ondansetron HCl (Zofran) 4 mg IV Q6H PRN PRN Reason: Nausea Stop: 02/21/19 19:07 Pantoprazole Sodium (Protonix) 40 mg PO DAILY [facility] Stop: 02/22/19 08:59 Last Admin: 01/27/19 08:30 Dose: 40 mg Documented by: Polyethylene Glycol (Miralax Powder Packet) 17 gm PO DAILY PRN PRN Reason: Constipation Stop: 02/21/19 19:07 Rosuvastatin Calcium (Crestor) 10 mg PO QAM [facility] Stop: 02/22/19 08:59 Last Admin: 01/27/19 08:30 Dose: 10 mg Documented by: Tramadol HCl (Ultram) 50 mg PO Q4H PRN PRN Reason: Pain Stop: 02/23/19 08:39 Last Admin: 01/27/19 06:29 Dose: 50 mg Documented by: Resident Activity Tracking Resident Involvement: Resident Care Provided Care Provided: Adult Hospital Medicine (1) DVT (deep venous thrombosis) Affected thrombotic vein of extremity: femoral Chronicity: chronic DVT location: lower extremity Laterality: left Qualified Code(s): I82.512 - Chronic embolism and thrombosis of left femoral vein (2) GERD (gastroesophageal reflux disease) Esophagitis presence: without esophagitis Qualified Code(s): K21.9 - Gastro- esophageal reflux disease without esophagitis
[2019-01-27] MEDS ORDERED: LISINOPRIL 5 MG TAB PO ONE (14:14)
[2019-01-27] MEDS: HYDROmorphone INJ 1 MG/ML SYRINGE IV PRN (18:32)
[2019-01-28] MEDS: VANCOMYCIN HCL 1,500 MG in SODIUM CHLORIDE 0.9% 500 ML IV SCH ×3 (00:04→15:34)
[2019-01-28] MEDS: TRAMADOL HCL 50 MG TABLET PO PRN ×4 (02:24→20:34)
[2019-01-28] MEDS: IMIPENEM/CILASTATIN SODIUM 500 MG in DEXTROSE 5% 100 ML IV SCH ×4 (04:08→22:10)
[2019-01-28] MEDS: ACETAMINOPHEN 1,000 MG/100 ML VIAL IV SCH ×3 (04:11→20:27)
--- NOTE | 2019-01-28 07:40 | Family Medicine Progress Note ---
Date of Service January 28, 2019 Assessment & Plan (1) Pain in left foot: Patient with PVD, s/p fem-posterior tibial bypass, s/p TMA of left foot, postop day 3 status post left foot transmetatarsal amputation and debridement -admitted to Tele -CT LLE consistent with osteomyelitis -Blood cultures were obtained 01/22 continue to be NGTD -Patient s/p 1 day of levaquin 01/23 -CX'd ID -Vanco day 5 and meropenum day 4 -> pending surgical path results -Afebrile -Consulted pain management, following recs -Initiated Tramadol 50mg x 4 hours PRN pain. -Gabapentin 100mg PO TID to further diminish neuropathic pain. -IV Dilaudid for breakthrough pain -Postop day 3 status post left foot transmetatarsal amputation and debridement -Plantar surface of TMA site was debrided, remaining the metatarsal bone was removed, wound was irrigated with bacitracin solution and dressing applied -Routine postop care per vascular surgery -Surgical pathology pending (2) Leukocytosis: Patient had elevated white count of 11.75 on admission likely secondary to infection at amputation site. -WBC trend 11.75->11.97->10.93->11.01->10.11->8.61->8.39 -See above (3) Delirium: Patient's delirium waxes and wanes. I am concerned about him in the immediate postop. Given his previous difficulties with general anesthesia. Patient reports sleeping well overnight I likely think this helped to improve as well as achieving adequate pain control. Today the patient is alert and oriented x4. Patient did report that he usually has difficulties recovering from anesthesia and these last for 3-4 days including delirium and agitation hallucinations ETC -BMP, Mag, Phos, CBC unremarkable -Delirium prevention strategies with frequent orientation, minimize interruptions to sleep, etc -Suspect an element of this patient's delirium is secondary to poorly controlled pain, hopefully through optimizing his pain medication, and consulting PMR we should be able to gain some control of his pain and hopefully improve the deli rium. -Patient's reported that he was a heavy alcoholic, she reported he quit around the time of his previous surgery. He has been using Lorazepam regularly which can prolong "withdrawal". This may be contributing to his agitation and delirium. -placed on alcohol withdrawal protocol -Likely out of the window at present -IV Haldol as needed is ordered for severe agitation please contact primary team if given. (4) PVD (peripheral vascular disease): Possibly secondary to tobacco abuse. Bergers disease? -Resume aspirin 81 mg every morning and Plavix 75 mg every morning per conversation with Dr. Blunt -Vascular surgery consultation as above -Continue Crestor 10 (5) GERD (gastroesophageal reflux disease): Chronic. -Continue Protonix 40mg po daily (6) HTN (hypertension), benign: Has been hypertensive since admission, this morning his blood pressure was 184/94. Likely a component of pain. His pressures appeared to improve with an increase of labetalol to 200 mg twice daily, however it is hard to assess as the vast majority of his pressures have been taken in the immediate preop and postop. Where there is likely to be a component of pain and anxiety contributing to his hypertension. Will monitor overnight and throughout the day tomorrow adjustments as indicated. -Pain control as above -Increase Labetalol 200mg po BID -Continue Lisinopril 20mg po qAM, today is the first day receiving full dose of 20 mg lisinopril will monitor over next 24 hours and make adjustments as indicated -Continue to monitor (7) DVT (deep venous thrombosis): Chronic LLE DVT -Noted, monitor -Resume DVT prophylaxis with Lovenox 30 mg daily per conversation with Dr. Blunt (8) Anemia: No bleeding is present at the amputation site. Hemoglobin has been stable -Continue to trend CBC -Transfuse if Hg < 7, symptomatic anemia or active bleeding F/E/N - Heart healthy diet Ppx -Lovenox 30 mg daily Code - Full Dispo - MedSurg with telemetry Supervising Physician Co-Signing Physician Notes Attending attestation Pt seen and examined in concert with Dr. Harris. In agreement with the documented findings as noted in the resident documentation with any exceptions or additions as noted here. 63 y/o male h/o PVD, s/p fem-posterior tibial bypass, s/p TMA of left foot. Resting in bed, easily arousable though somewhat delirious and oriented to self and place. Stiffness and achiness of LLE persist, relatively stable. Left foot bandage C/D/I. Osteomyelitis, L foot s/p debridement and amputation of MT - vascular surgical and ID c/s appreciated - continue vancomycin and imipenem/cilastatin awaiting surgical path. Delirium - mild confusion persists, but easily redirected. Haldol IV ordered if unable to reorient. Avoid anticholinergics. PVD - restarted ASA/Plavix. Continue statin therapy Chronic pain - tolerating gabapentin, tramadol PRN Restarted lovenox for DVT PPX today. Else see resident documentation as noted. Subjective Sitting upright in bed this morning in no acute distress. Patient status post dressing change for wound, reports wound looks great however had significant pain with dressing being changed requiring narcotics. Patient is tolerating his diet, voiding, had a bowel movement last night, sleeping appropriately. Patient is eager to learn about discharge planning and surgical pathology results. No acute concerns at present, answered all questions. Patient denies fevers chills nausea vomiting diarrhea constipation muscle aches or pains congestion shortness of breath chest pain or other signs or symptoms of acute process. Physical Exam Physical Exam: General: Elderly gentleman in NAD Eyes: EOMI Neck: Trachea midline normal to visual inspection, I did not appreciate JVD, Chest: Scattered wheezes otherwise clear to auscultation bilaterally Cardiac: Regular rate and rhythm, some ectopy present, normal S1-S2, I did not appreciate any murmurs rubs or gallops GI: Normal bowel sounds, soft, nontender, nondistended, MSK: Moves all extremities, left tarsal amputation, left partial hand amputation Skin: Surgical site bandaged appropriately significantly less oozing today Neuro: calm, cooperative Results & Data Vital Signs (Past 12 Hours) Vital Signs Temp Pulse Pulse Resp BP BP Pulse Ox 01/28/19 07:00 36.8 C 75 20 159/98 H 184/74 H 93 01/28/19 06:58 77 01/28/19 04:00 37.1 C 76 20 180/80 H 166/86 H 90 01/28/19 00:28 158/79 H 01/28/19 00:00 37.1 C 80 18 170/86 H 95 Laboratory Results 01/28/19 01/28/19 Range/Units 07:46 07:46 WBC 8.39 (4.8-10.8) K/uL RBC 3.44 L (4.7-6.1) M/uL Hgb 10.4 L (14.0-18.0) g/dL Hct 30.4 L (42-52) % MCV 88.4 (80-100) fL MCH 30.2 (25-34) pg MCHC 34.2 (32-36) g/dL RDW Std Deviation 46.9 H (36.4-46.3) fL RDW Coeff of [place] 14.5 (11.5-14.5) % Plt Count 261 (130-400) K/uL MPV 8.0 (7.4-10.4) fL Immature Gran % (Auto) 0.2 % Neut % (Auto) 60.6 % Lymph % (Auto) 20.1 % [place] % (Auto) 13.0 % Eos % (Auto) 5.5 % Baso % (Auto) 0.6 % Immature Gran # (Auto) 0.02 (0.00-0.02) K/uL Neut # (Auto) 5.08 (1.4-6.5) K/uL Lymph # (Auto) 1.69 (1.2-3.4) K/uL [place] # (Auto) 1.09 H (0.11-0.59) K/uL Eos # (Auto) 0.46 (0-0.5) K/uL Baso # (Auto) 0.05 (0-0.2) K/uL Sodium 134 L (136-145) mmol/L Potassium 3.8 (3.5-5.1) mmol/L Chloride 101 (98-107) mmol/L Carbon Dioxide 27 (21-32) mmol/L Anion Gap 6.0 (3-11) BUN 11 (7-18) mg/dl Creatinine 0.54 L (0.6-1.4) mg/dl Est Cr Clr Drug Dosing 159.3 ml/min Est GFR ( Amer) 127.7 Est GFR (Non-Af Amer) 110.2 BUN/Creatinine Ratio 19.3 (10-20) Glucose 103 H (70-99) mg/dl Calcium 8.3 L (8.5-10.1) mg/dl Medications Administered Current Inpatient Medications Bisacodyl (Dulcolax) 10 mg [place] DAILY PRN PRN Reason: Constipation Stop: 02/21/19 19:13 Docusate Sodium (Colace) 100 mg PO BID PRN; Protocol PRN Reason: Constipation Stop: 02/21/19 19:13 Last Admin: 01/25/19 20:12 Dose: 100 mg Documented by: Escitalopram Oxalate (Lexapro) 10 mg PO QAM [facility] Stop: 02/22/19 08:59 Last Admin: 01/28/19 07:51 Dose: 10 mg Documented by: Gabapentin (Neurontin) 100 mg PO TID [facility] Stop: 02/23/19 08:59 Last Admin: 01/28/19 07:51 Dose: 100 mg Documented by: Haloperidol Lactate (Haldol) 5 mg IM Q6H PRN PRN Reason: Anxiety/Agitation Stop: 02/22/19 11:27 Hydralazine HCl (Hydralazine Hcl) 2.5 mg IV Q4H PRN PRN Reason: Hypertension Stop: 02/26/19 12:14 Hydromorphone HCl (Dilaudid) 1 mg IV Q2H PRN PRN Reason: Pain Stop: 02/06/19 11:19 Last Admin: 01/28/19 07:58 Dose: 1 mg Documented by: Acetaminophen (Ofirmev) 1,000 mg in 100 mls @ 400 mls/hr IV Q8H [facility] Stop: 02/21/19 19:59 Last Infusion: 01/28/19 04:31 Dose: Infused Documented by: Lorazepam (Ativan) 1 mg in 2 mls @ 0.5 mls/min IV Q8H PRN PRN Reason: Anxiety/Agitation Stop: 02/22/19 11:21 Last Admin: 01/27/19 21:00 Dose: 0.5 mls/min Documented by: Lorazepam (Ativan) 1 mg in 2 mls @ 2 mls/min IV ONE PRN; Protocol PRN Reason: EtoH Withdrawal AWSS 6-10 Stop: 02/22/19 15:23 Imipenem/Cilastatin Sodium 500 (mg/ Dextrose) 110 mls @ 100 mls/hr IV Q6H [facility] Stop: 03/07/19 10:44 Last Infusion: 01/28/19 10:20 Dose: Infused Documented by: Vancomycin HCl 1,500 mg/ (Sodium Chloride) 530 mls @ 200 mls/hr IV Q8H [facility]; Protocol Stop: 03/08/19 19:59 Last Infusion: 01/28/19 10:51 Dose: Infused Documented by: Labetalol HCl (Normodyne) 200 mg PO BID [facility] Stop: 02/24/19 20:59 Last Admin: 01/28/19 07:51 Dose: 200 mg Documented by: Lisinopril (Zestril) 20 mg PO QAM [facility] Stop: 02/27/19 08:59 Last Admin: 01/28/19 07:52 Dose: 20 mg Documented by: Miscellaneous Information (Consult) 1 ea N/A UD PRN PRN Reason: Consult Stop: 02/22/19 11:36 Ondansetron HCl (Zofran) 4 mg IV Q6H PRN PRN Reason: Nausea Stop: 02/21/19 19:07 Pantoprazole Sodium (Protonix) 40 mg PO DAILY [facility] Stop: 02/22/19 08:59 Last Admin: 01/28/19 07:51 Dose: 40 mg Documented by: Polyethylene Glycol (Miralax Powder Packet) 17 gm PO DAILY PRN PRN Reason: Constipation Stop: 02/21/19 19:07 Rosuvastatin Calcium (Crestor) 10 mg PO QAM [facility] Stop: 02/22/19 08:59 Last Admin: 01/28/19 07:51 Dose: 10 mg Documented by: Tramadol HCl (Ultram) 50 mg PO Q4H PRN PRN Reason: Pain Stop: 02/23/19 08:39 Last Admin: 01/28/19 07:50 Dose: 50 mg Documented by: Resident Activity Tracking Resident Involvement: Resident Care Provided Care Provided: Adult Hospital Medicine (1) DVT (deep venous thrombosis) Affected thrombotic vein of extremity: femoral Chronicity: chronic DVT location: lower extremity Laterality: left Qualified Code(s): I82.512 - Chronic embolism and thrombosis of left femoral vein (2) GERD (gastroesophageal reflux disease) Esophagitis presence: without esophagitis Qualified Code(s): K21.9 - Gastro- esophageal reflux disease without esophagitis
[2019-01-28] MEDS: ROSUVASTATIN CALCIUM 10 MG TAB PO SCH (07:51)
[2019-01-28] MEDS: ESCITALOPRAM OXALATE 10 MG TAB PO SCH (07:51)
[2019-01-28] MEDS: GABAPENTIN 100 MG CAP PO SCH ×3 (07:51→20:30)
[2019-01-28] MEDS: LABETALOL HCL 100 MG TAB PO SCH ×2 (07:51→20:31)
[2019-01-28] MEDS: PANTOprazole 40 MG TAB PO SCH (07:51)
[2019-01-28] MEDS: LISINOPRIL 20 MG TAB PO SCH (07:52)
[2019-01-28] MEDS: HYDROmorphone INJ 1 MG/ML SYRINGE IV PRN ×2 (07:58→15:23)
[2019-01-28 08:04] LABS: Basophils # (auto) 0.05 K/uL (0-0.2); Basophils % (auto) 0.6 %; Eosinophils # (auto) 0.46 K/uL (0-0.5); Eosinophils % (auto) 5.5 %; Hematocrit (blood only) 30.4 % (42-52); Hemoglobin 10.4 g/dL (14.0-18.0); Immature Granulocytes # (auto) 0.02 K/uL (0.00-0.02); Immature Granulocytes % (auto) 0.2 %; Lymphocytes # (auto) 1.69 K/uL (1.2-3.4); Lymphocytes % (auto) 20.1 %; Mean Corpuscular Hgb Conc 34.2 g/dL (32-36); Mean Corpuscular Volume 88.4 fL (80-100); Monocytes # (auto) 1.09 K/uL (0.11-0.59); Neutrophils # (auto) 5.08 K/uL (1.4-6.5); Neutrophils % (auto) 60.6 %; Platelet Count 261 K/uL (130-400); RDW Coefficient of Variation 14.5 % (11.5-14.5); RDW Standard Deviation 46.9 fL (36.4-46.3); Red Blood Count 3.44 M/uL (4.7-6.1); White Blood Count 8.39 K/uL (4.8-10.8)
[2019-01-28 08:33] LABS: BUN Creatinine Ratio 19.3 (10-20); Calcium 8.3 mg/dl (8.5-10.1); Creatinine Clr Calc Pharmacy 159.3 ml/min; Est GFR (African American) 127.7; Est GFR (Non-African American) 110.2; Potassium 3.8 mmol/L (3.5-5.1)
[2019-01-28] MEDS ORDERED: POTASSIUM CHLORIDE 20 MEQ TABCR PO STA (08:46)
[2019-01-28] MEDS: ENOXAPARIN INJ 40 MG/0.4 ML SYR SQ SCH (15:26)
[2019-01-28] MEDS: ASPIRIN 81 MG ECTAB PO SCH (15:27)
[2019-01-28] MEDS: CLOPIDOGREL BISULFATE 75 MG TAB PO SCH (15:27)
[2019-01-29] MEDS: VANCOMYCIN HCL 1,500 MG in SODIUM CHLORIDE 0.9% 500 ML IV SCH ×4 (00:11→23:48)
[2019-01-29] MEDS: IMIPENEM/CILASTATIN SODIUM 500 MG in DEXTROSE 5% 100 ML IV SCH ×4 (04:20→21:30)
[2019-01-29] MEDS: ACETAMINOPHEN 1,000 MG/100 ML VIAL IV SCH ×2 (04:20→11:18)
[2019-01-29 06:24] LABS: Basophils # (auto) 0.02 K/uL (0-0.2); Basophils % (auto) 0.2 %; Eosinophils # (auto) 0.43 K/uL (0-0.5); Eosinophils % (auto) 5.2 %; Hemoglobin 10.1 g/dL (14.0-18.0); Immature Granulocytes # (auto) 0.01 K/uL (0.00-0.02); Immature Granulocytes % (auto) 0.1 %; Lymphocytes # (auto) 1.71 K/uL (1.2-3.4); Lymphocytes % (auto) 20.8 %; Mean Corpuscular Hgb Conc 32.6 g/dL (32-36); Mean Corpuscular Volume 89.1 fL (80-100); Monocytes % (auto) 14.6 %; Neutrophils # (auto) 4.86 K/uL (1.4-6.5); Neutrophils % (auto) 59.1 %; Platelet Count 287 K/uL (130-400); RDW Coefficient of Variation 14.7 % (11.5-14.5); RDW Standard Deviation 47.9 fL (36.4-46.3); Red Blood Count 3.48 M/uL (4.7-6.1); White Blood Count 8.23 K/uL (4.8-10.8)
[2019-01-29 06:59] LABS: BUN Creatinine Ratio 17.1 (10-20); Calcium 8.1 mg/dl (8.5-10.1); Creatinine Clr Calc Pharmacy 156.9 ml/min; Est GFR (African American) 126.7; Est GFR (Non-African American) 109.4; Potassium 4.2 mmol/L (3.5-5.1)
[2019-01-29] MEDS: LABETALOL HCL 100 MG TAB PO SCH ×2 (07:54→21:24)
[2019-01-29] MEDS: GABAPENTIN 100 MG CAP PO SCH ×3 (07:54→21:24)
[2019-01-29] MEDS: LISINOPRIL 20 MG TAB PO SCH (07:55)
[2019-01-29] MEDS: ASPIRIN 81 MG ECTAB PO SCH (07:55)
[2019-01-29] MEDS: CLOPIDOGREL BISULFATE 75 MG TAB PO SCH (07:55)
[2019-01-29] MEDS: ROSUVASTATIN CALCIUM 10 MG TAB PO SCH (07:55)
[2019-01-29] MEDS: ESCITALOPRAM OXALATE 10 MG TAB PO SCH (07:55)
[2019-01-29] MEDS: PANTOprazole 40 MG TAB PO SCH (07:55)
--- NOTE | 2019-01-29 09:01 | Family Medicine Progress Note ---
Date of Service January 29, 2019 Assessment & Plan (1) Pain in left foot: Patient with PVD, s/p fem-posterior tibial bypass, s/p TMA of left foot, postop day 3 status post left foot transmetatarsal amputation and debridement -admitted to Tele -CT LLE consistent with osteomyelitis -Blood cultures were obtained 01/22 continue to be NGTD -Patient s/p 1 day of levaquin 01/23 -CX'd ID -Vanco day 5 and meropenum day 4 -> pending surgical path results -Afebrile -Consulted pain management, following recs -Initiated Tramadol 50mg x 4 hours PRN pain. -Gabapentin 100mg PO TID to further diminish neuropathic pain. -IV Dilaudid for breakthrough pain -Postop day 3 status post left foot transmetatarsal amputation and debridement -Plantar surface of TMA site was debrided, remaining the metatarsal bone was removed, wound was irrigated with bacitracin solution and dressing applied -Routine postop care per vascular surgery -Surgical pathology pending (2) Leukocytosis: Patient had elevated white count of 11.75 on admission likely secondary to infection at amputation site. -WBC trend 11.75->11.97->10.93->11.01->10.11->8.61->8.39->8.23 -See above (3) Delirium: Patient's delirium waxes and wanes. I am concerned about him in the immediate postop. Given his previous difficulties with general anesthesia. Patient reports sleeping well overnight I likely think this helped to improve as well as achieving adequate pain control. Today the patient is alert and oriented x4. Patient did report that he usually has difficulties recovering from anesthesia and these last for 3-4 days including delirium and agitation hallucinations ETC -BMP, Mag, Phos, CBC unremarkable -Delirium prevention strategies with frequent orientation, minimize interruptions to sleep, etc -Suspect an element of this patient's delirium is secondary to poorly controlled pain, hopefully through optimizing his pain medication, and consulting PMR we should be able to gain some control of his pain and hopefully improve the delirium. -PT's AMS/delirium worsens with gabaergic drugs. please try to avoid -IV Haldol as needed is ordered for severe agitation please contact primary team if given. (4) PVD (peripheral vascular disease): Possibly secondary to tobacco abuse. Beugers disease? -Resume aspirin 81 mg every morning and Plavix 75 mg every morning per conversation with Dr. Blunt -Vascular surgery consultation as above -Continue Crestor 10 -Consider increasing to high-dose Crestor will talk to patient about history with statins (5) GERD (gastroesophageal reflux disease): Chronic. -Continue Protonix 40mg po daily (6) HTN (hypertension), benign: Has been hypertensive since admission, this morning his blood pressure was 184/94. Likely a component of pain. His pressures appeared to improve with an increase of labetalol to 200 mg twice daily, however it is hard to assess as the vast majority of his pressures have been taken in the immediate preop and postop. Where there is likely to be a component of pain and anxiety contributing to his hypertension. Will monitor overnight and throughout the day tomorrow adjustments as indicated. -Pain control as above -Increase Labetalol 300mg po BID -Increase Lisinopril 40mg po qAM, -Given extra 20 mg lisinopril to bring daily total to 40 mg -Continue to monitor (7) DVT (deep venous thrombosis): Chronic LLE DVT -Noted, monitor -Resume DVT prophylaxis with Lovenox 40 mg daily per conversation with Dr. Blunt (8) Anemia: No bleeding is present at the amputation site. Hemoglobin has been stable -Continue to trend CBC -Transfuse if Hg < 7, symptomatic anemia or active bleeding F/E/N - Heart healthy diet Ppx -Lovenox 30 mg daily Code - Full Dispo - MedSurg with telemetry (9) Depression: Patient has history of anxiety depression related to his chronic medical illness. There is some concern for the safety of himself and his family members at home. Per conversation with there were guns in the house, she remove the guns from the, however she states the patient is the type of individual who would say "you are not spending my money" and " take him with her". No criteria for inpatient psych admission however requires outpatient psych consultation. Supervising Physician Co-Signing Physician Notes I personally examined the patient and verified all abbasi points of history and exam, discussed case, and agree with decision making with Dr Harris. Feeling okay right now, notes that he had a lot of pain with dressing changes earlier. Now pain under better control. In discussing intermediate-term planning, he is more amenable to the idea of maybe needing to go to SNF or rehab for short-term stay as he recovers and gets strengthened and has more antibiotics. We also have extensive discussions on pain control and the interplay of depression and pain. He is willing to give trial to try cyclic. The notes that he was on an SNRI without any benefit for about 3 weeks, but it appears that it was only about 3 to 4 weeks and it was also while his foot was worsening with infection. Vitals noted, in general he is lying in bed pleasant no distress. HEENT normocephalic atraumatic mucous members are moist. Breathing is unlabored no accessory muscle use good effort. Skin shows no rashes no pallor or icterus. Left lower extremity shows no tracking erythema. His foot is dressed. The dressing is clean/dry/intact Osteomyelitis, status post L foot s/p debridement and amputation of MT -continue current antibiotics, await surgical pathology, but more than likely given the extent of the infection and his peripheral vascular disease he is likely to need ongoing IVs for quite a while. Delirium -seems to wax and wane now. Redirection/supportive care. PVD -aspirin and Plavix. Would like to increase statin, just need to review to make sure he has not had any difficulties with higher dosing before. Acute and chronic pain - tolerating gabapentin, tramadol PRN, continue to titrate as needed pain meds as well. DVT prophylaxisLovenox Subjective PT did well overnight, ams has resolved s/p discontinuation of ativan. Pt reported sleeping well, tolerating his diet, voiding on his own and stooling appropriately. His subjective symptoms of pain continue to improve. No acute concerns at present , answered all questions Patient denies fevers chills nausea vomiting diarrhea constipation muscle aches or pains congestion shortness of breath chest pain or other signs or symptoms of acute process. Physical Exam Physical Exam: General: Elderly gentleman in NAD Eyes: EOMI Neck: Trachea midline normal to visual inspection, I did not appreciate JVD, Chest: CTABL Cardiac: Regular rate and rhythm, some ectopy present, normal S1-S2, I did not appreciate any murmurs rubs or gallops GI: Normal bowel sounds, soft, nontender, nondistended, MSK: Moves all extremities, left tarsal amputation, left partial hand amputation Skin: Surgical site bandaged appropriately significantly less oozing today Neuro: calm, cooperative Results & Data Vital Signs (Past 12 Hours) Vital Signs Temp Pulse Pulse Resp BP Pulse Ox 01/29/19 06:55 36.9 C 71 20 181/79 H 95 01/29/19 03:54 37.0 C 66 18 159/73 H 95 01/28/19 22:42 36.9 C 64 18 144/61 H 94 01/28/19 22:24 64 Laboratory Results 01/29/19 01/29/19 Range/Units 05:46 05:46 WBC 8.23 (4.8-10.8) K/uL RBC 3.48 L (4.7-6.1) M/uL Hgb 10.1 L (14.0-18.0) g/dL Hct 31.0 L (42-52) % MCV 89.1 (80-100) fL MCH 29.0 (25-34) pg MCHC 32.6 (32-36) g/dL RDW Std Deviation 47.9 H (36.4-46.3) fL RDW Coeff of [place] 14.7 H (11.5-14.5) % Plt Count 287 (130-400) K/uL MPV 8.0 (7.4-10.4) fL Immature Gran % (Auto) 0.1 % Neut % (Auto) 59.1 % Lymph % (Auto) 20.8 % [place] % (Auto) 14.6 % Eos % (Auto) 5.2 % Baso % (Auto) 0.2 % Immature Gran # (Auto) 0.01 (0.00-0.02) K/uL Neut # (Auto) 4.86 (1.4-6.5) K/uL Lymph # (Auto) 1.71 (1.2-3.4) K/uL [place] # (Auto) 1.20 H (0.11-0.59) K/uL Eos # (Auto) 0.43 (0-0.5) K/uL Baso # (Auto) 0.02 (0-0.2) K/uL Sodium 134 L (136-145) mmol/L Potassium 4.2 (3.5-5.1) mmol/L Chloride 101 (98-107) mmol/L Carbon Dioxide 29 (21-32) mmol/L Anion Gap 4.0 (3-11) BUN 9 (7-18) mg/dl Creatinine 0.55 L (0.6-1.4) mg/dl Est Cr Clr Drug Dosing 156.9 ml/min Est GFR ( Amer) 126.7 Est GFR (Non-Af Amer) 109.4 BUN/Creatinine Ratio 17.1 (10-20) Glucose 95 (70-99) mg/dl Calcium 8.1 L (8.5-10.1) mg/dl Medications Administered Current Inpatient Medications Aspirin (Ecotrin Ectab) 81 mg PO [facility] Stop: 02/27/19 12:59 Last Admin: 01/29/19 07:55 Dose: 81 mg Documented by: Bisacodyl (Dulcolax) 10 mg [place] DAILY PRN PRN Reason: Constipation Stop: 02/21/19 19:13 Clopidogrel Bisulfate (Plavix) 75 mg PO [facility] Stop: 02/27/19 12:59 Last Admin: 01/29/19 07:55 Dose: 75 mg Documented by: Docusate Sodium (Colace) 100 mg PO BID PRN; Protocol PRN Reason: Constipation Stop: 02/21/19 19:13 Last Admin: 01/25/19 20:12 Dose: 100 mg Documented by: Enoxaparin Sodium (Lovenox) 40 mg SQ Q24H [facility] Stop: 02/27/19 13:59 Last Admin: 01/28/19 15:26 Dose: 40 mg Documented by: Escitalopram Oxalate (Lexapro) 10 mg PO QAM [facility] Stop: 02/22/19 08:59 Last Admin: 01/29/19 07:55 Dose: 10 mg Documented by: Gabapentin (Neurontin) 100 mg PO TID [facility] Stop: 02/23/19 08:59 Last Admin: 01/29/19 07:54 Dose: 100 mg Documented by: Haloperidol Lactate (Haldol) 5 mg IM Q6H PRN PRN Reason: Anxiety/Agitation Stop: 02/22/19 11:27 Hydralazine HCl (Hydralazine Hcl) 2.5 mg IV Q4H PRN PRN Reason: Hypertension Stop: 02/26/19 12:14 Hydromorphone HCl (Dilaudid) 1 mg IV Q2H PRN PRN Reason: Pain Stop: 02/06/19 11:19 Last Admin: 01/28/19 15:23 Dose: 1 mg Documented by: Acetaminophen (Ofirmev) 1,000 mg in 100 mls @ 400 mls/hr IV Q8H [facility] Stop: 02/21/19 19:59 Last Infusion: 01/29/19 04:46 Dose: Infused Documented by: Imipenem/Cilastatin Sodium 500 (mg/ Dextrose) 110 mls @ 100 mls/hr IV Q6H [facility] Stop: 03/07/19 10:44 Last Infusion: 01/29/19 08:58 Dose: Infused Documented by: Vancomycin HCl 1,500 mg/ (Sodium Chloride) 530 mls @ 200 mls/hr IV Q8H [facility]; Protocol Stop: 03/08/19 19:59 Last Admin: 01/29/19 07:54 Dose: 200 mls/hr Documented by: Labetalol HCl (Normodyne) 200 mg PO BID [facility] Stop: 02/24/19 20:59 Last Admin: 01/29/19 07:54 Dose: 200 mg Documented by: Lisinopril (Zestril) 20 mg PO QAM [facility] Stop: 02/27/19 08:59 Last Admin: 01/29/19 07:55 Dose: 20 mg Documented by: Miscellaneous Information (Consult) 1 ea N/A UD PRN PRN Reason: Consult Stop: 02/22/19 11:36 Ondansetron HCl (Zofran) 4 mg IV Q6H PRN PRN Reason: Nausea Stop: 02/21/19 19:07 Pantoprazole Sodium (Protonix) 40 mg PO DAILY [facility] Stop: 02/22/19 08:59 Last Admin: 01/29/19 07:55 Dose: 40 mg Documented by: Polyethylene Glycol (Miralax Powder Packet) 17 gm PO DAILY PRN PRN Reason: Constipation Stop: 02/21/19 19:07 Rosuvastatin Calcium (Crestor) 10 mg PO QAM [facility] Stop: 02/22/19 08:59 Last Admin: 01/29/19 07:55 Dose: 10 mg Documented by: Sodium Hypochlorite (Dakin's Half Strength) 1 appln EXT DAILY [facility] Stop: 02/28/19 09:59 Tramadol HCl (Ultram) 50 mg PO Q4H PRN PRN Reason: Pain Stop: 02/23/19 08:39 Last Admin: 01/28/19 20:34 Dose: 50 mg Documented by: Resident Activity Tracking Resident Involvement: Resident Care Provided Care Provided: Adult Hospital Medicine (1) DVT (deep venous thrombosis) Affected thrombotic vein of extremity: femoral Chronicity: chronic DVT location: lower extremity Laterality: left Qualified Code(s): I82.512 - Chronic embolism and thrombosis of left femoral vein (2) GERD (gastroesophageal reflux disease) Esophagitis presence: without esophagitis Qualified Code(s): K21.9 - Gastro- esophageal reflux disease without esophagitis
--- NOTE | 2019-01-29 10:21 | Surgery Progress Note ---
Date of Service January 29, 2019 Assessment & Plan (1) Osteomyelitis of foot, left, acute: Pt now s/p debridement LLE TMA site. Healing well, but tissue infection still present. Recommend Dakin's soln wet to dry dressing to TMA site with daily changes. Continue aquacel and dry dressing to medial ankle and leg wounds. Abx per medicine/ID. Subjective 63 yo m with multiple medical problems, POD #3 after debridement of LLE, seen in f/u today. Pt states pain under better control. Denies any new complaints. Physical Exam Constitutional: WD/WN, vitals as above Skin: + wound (LLE TMA with purulent drainage, good granulation, minimal bleeding) Medial ankle and leg wounds with excellent granulation noted. no drainage. Results & Data Vital Signs (Past 12 Hours) Vital Signs Temp Pulse Pulse Resp BP Pulse Ox 01/29/19 06:55 36.9 C 71 20 181/79 H 95 01/29/19 03:54 37.0 C 66 18 159/73 H 95 01/28/19 22:42 36.9 C 64 18 144/61 H 94 01/28/19 22:24 64
[2019-01-29] MEDS: DAKIN'S SOLN 0.25% HALF STRENGTH 473ML BTL EXT SCH (10:39)
[2019-01-29] MEDS: TRAMADOL HCL 50 MG TABLET PO PRN ×3 (10:42→21:23)
[2019-01-29] MEDS: HydrALAZINE HCL 20 MG/ML VIAL IV PRN (11:18)
[2019-01-29] MEDS: ENOXAPARIN INJ 40 MG/0.4 ML SYR SQ SCH (13:22)
[2019-01-29] MEDS: HYDROmorphone INJ 1 MG/ML SYRINGE IV PRN ×4 (14:01→23:56)
[2019-01-29] MEDS ORDERED: LISINOPRIL 20 MG TAB PO STA (14:48)
--- NOTE | 2019-01-29 15:21 | Infectious Disease Progress Nt ---
Date of Service January 29, 2019 Assessment & Plan (1) Osteomyelitis of foot, left, acute: 63-year-old male with severe peripheral arterial disease status post bypass with open wound left foot with osteomyelitis seen on CT scanning. Patient now status post debridement of TMA site. Patient should continue on broad-spectrum antibiotics. Will follow. Subjective Patient now status post surgical debridement of left foot. Expected postoperati ve pain. Remains afebrile, currently stable. No other new complaints. Review of Systems Review of Systems: All systems reviewed & are unremarkable except as noted in HPI & below Physical Exam Constitutional: WD/WN, vitals as above + disheveled and comfortable; no acute distress Eyes: PERRL, conjunctivae normal, anicteric sclerae ENMT: external ear and nose normal, oropharynx normal Neck: trachea midline, no thyromegaly neck nontender Respiratory: normal respiratory effort, lungs clear to auscultation normal percussion; does not use accessory muscles Cardiovascular: Rate/Rhythm: regular rate and regular rhythm Heart Sounds: normal S1 and normal S2; no gallop, no murmur and no cardiac rub Vessels: normal peripheral pulses; no JVD Gastrointestinal (Abdomen): normal bowel sounds, soft, nontender, no hepatosplenomegaly Musculoskeletal: no cyanosis or clubbing, extremities motor strength 5/5 Spine: thoracic spine normal to inspection and lumbar spine normal to inspection; no cervical spinal tenderness Skin: no rashes, warm and dry + wound (Left foot wound clean and granulating); no rashes Neurologic: patellar DTR's 2+ bilat, sensation intact moves all extremities, awake and + confused Psychiatric: A+Ox3, euthymic affect Orientation: + not oriented x 3 Apperance: + disheveled Lymphatic: no cervical or axillary lymphadenopathy no inguinal lymphadenopathy Results & Data Vital Signs (Past 12 Hours) Vital Signs Temp Pulse Resp BP Pulse Ox 01/29/19 15:08 36.6 C 70 18 153/72 H 96 01/29/19 11:30 36.4 C L 70 18 186/90 H 97 01/29/19 06:55 36.9 C 71 20 181/79 H 95 01/29/19 03:54 37.0 C 66 18 159/73 H 95 Laboratory Results Short CBC 01/29/19 Range/Units 05:46 WBC 8.23 (4.8-10.8) K/uL Hgb 10.1 L (14.0-18.0) g/dL Hct 31.0 L (42-52) % Plt Count 287 (130-400) K/uL BMP 01/29/19 05:46 Sodium 134 L Potassium 4.2 Chloride 101 Carbon Dioxide 29 BUN 9 Creatinine 0.55 L Glucose 95 Calcium 8.1 L Diagnostic Findings Microbiology 01/22/19 19:55 Blood Blood Culture - Final No growth 01/22/19 19:45 Blood Blood Culture - Final No growth
[2019-01-29] MEDS ORDERED: VANCOMYCIN TROUGH ONE (15:30)
--- OUTSIDE RECORDS SUMMARY | 2019-01-29 15:45 | External Medical Summary | Continuity of Care Document ---
:1955 Author Name Jatinder Mejias Address Unavailable Unavailable , Care Team Providers Name Role Phone Amanda Unavailable [email or web address], [email or web address] Unavailable Unavailable Problems PVD (peripheral vascular disease) (443.9) (I73.9) HTN (hypertension) (401.9) (I10) Esophageal reflux (530.81) (K21.9) Constipation (564.00) (K59.00) Prediabetes (790.29) (R73.03) Fatty liver (571.8) (K76.0) Anxiety (300.00) (F41.9) Depression (311) (F32.9) Anemia (285.9) (D64.9) Allergies and Adverse Reactions hydromorphone (Allergy) Reaction: Deliri um Penicillins (Allergy) Reaction: Rash Medications Aspirin 81 MG Oral Tablet Delayed Release; TAKE 1 TABLET MARIA DE JESUS LY. Start: 30-Nov-2018 Refills: 0 Labetalol HCl - 100 MG Oral Tablet; TAKE 1 TABLET EVERY 12 H OURS DAILY. Start: 30-Nov-2018 Refills: 0 Clopidogrel Bisulfate 75 MG Oral Tablet; TAKE 1 TABLET DAILY . Start: 30-Nov-2018 Refills: 0 30 Tablet Bottle Escitalopram Oxalate 10 MG Oral Tablet; TAKE 1 TABLET DAILY. Start: 30-Nov-2018 Refills: 0 Pantoprazole Sodium 40 MG Oral Tablet Delayed Release; TAKE 1 TABLET DAILY. Start: 30-Nov-2018 Quantity: 1 30 Tablet Bottle Refills: 5 Ferrous Sulfate 325 (65 Fe) MG Oral Tabl et; TAKE 1 TABLET TWICE DAILY WITH MEALS. Start: 30-Nov-2018 Refills: 0 Lisinopril 5 MG Oral Tablet; TAKE 1 TABLET DAILY DIRECTED . Start: 30-Nov-2018 Refills: 0 45 Tablet Bottle LORazepam 1 MG Oral Tablet; TAKE 1 TABLET EVERY 8 HOURS N EEDED. Start: 30-Nov-2018 Refills: 0 Multivitamin Adult Oral Tablet; TAKE 1 TABLET DAILY. Start: 30-Nov-2018 Refills: 0 Rosuvastatin Calcium 10 MG Oral Tablet; TAKE 1 TABLET AT BED TIME. Start: 30-Nov-2018 Refills: 0 Senna-Time S 8.6-50 MG Oral Tablet; TAKE 1 TABLET TWICE FAIZA Y. Start: 30-Nov-2018 Refills: 0 Sodium Chloride 1 GM Oral Tablet; 1 tablet daily Start: 30-Nov-2018 Refills: 0 fentaNYL 25 MCG/HR Transdermal Patch 72 Hour; APPLY 1 PATCH EVERY 3 DAYS Start: 30-Nov-2018 Refills: 0 Procedures History of transmetatarsal amputation St atus: Completed 14-Nov-2018 0:00 History of femoropopliteal bypass Status : Completed 20-Oct-2018 0:00 History of Hand Surgery Status: Complete d History of Knee Arthroscopy (Therapeutic) Status: Completed Immunizations Immunizations not documented Family History Mother Family history of pancreatic cancer (V16.0) (Z80.0) Status: Active Family history of Status: Active Father Family history of Status: Active Family history of coronary artery disease (V17.3) (Z82.49) S tatus: Active Family history of prostate cancer (V16.42) (Z80.42) Status: Active Social History - Smoking Status Smoker. current status unknown Plan of Treatment Planned Encounters Appointment; Yolette Patel DO Start: 22-May-2019 14:20 Requ est Planned Observations Planned Goals not documented Results No Known Results Results not documented Encounters Appointment; Yolette Patel DO 22-May-2019 14:20 Encounter Diagnosis: Problem not documented
[2019-01-29] MEDS ORDERED: ACETAMINOPHEN 325 MG TAB PO PRN (18:54)
--- NOTE | 2019-01-29 20:55 | Pharmacy Report ---
Pharmacy Abx Dose Short Note - Date of Service January 29, 2019 - Assessment & Plan Assessment 63 year old M receiving Vancomycin for treatment of joint infection Day # 7 of antimicrobial therapy. Plan Vancomycin Laboratory Tests 01/29/19 15:35 Vancomycin Trough 19.7 * Trough level of 19.7 mcg/mL is therapeutic * Continue dose of 1500 mg IV every 8 hours * Goal trough level for joint infection : 15 to 20 mcg/mL Pharmacy will continue to follow and will adjust dose/frequency as necessary. Thank you.
[2019-01-29] MEDS: AMITRIPTYLINE HCL 50 MG TAB PO SCH (21:23)
[2019-01-30] MEDS: IMIPENEM/CILASTATIN SODIUM 500 MG in DEXTROSE 5% 100 ML IV SCH ×4 (04:03→21:39)
[2019-01-30] MEDS: TRAMADOL HCL 50 MG TABLET PO PRN ×3 (04:39→23:35)
[2019-01-30] MEDS: VANCOMYCIN HCL 1,500 MG in SODIUM CHLORIDE 0.9% 500 ML IV SCH ×3 (08:26→23:35)
[2019-01-30] MEDS: HYDROmorphone INJ 1 MG/ML SYRINGE IV PRN ×4 (08:26→19:22)
[2019-01-30] MEDS: CLOPIDOGREL BISULFATE 75 MG TAB PO SCH (08:27)
[2019-01-30] MEDS: PANTOprazole 40 MG TAB PO SCH (08:27)
[2019-01-30] MEDS: LABETALOL HCL 100 MG TAB PO SCH ×2 (08:27→20:22)
[2019-01-30] MEDS: ASPIRIN 81 MG ECTAB PO SCH (08:28)
[2019-01-30] MEDS: GABAPENTIN 100 MG CAP PO SCH ×3 (08:28→20:23)
[2019-01-30] MEDS: ROSUVASTATIN CALCIUM 10 MG TAB PO SCH (08:28)
[2019-01-30] MEDS: LISINOPRIL 40 MG TAB PO SCH (08:29)
[2019-01-30] MEDS: DAKIN'S SOLN 0.25% HALF STRENGTH 473ML BTL EXT SCH (08:29)
[2019-01-30] MEDS: HydrALAZINE HCL 20 MG/ML VIAL IV PRN (08:31)
[2019-01-30] MEDS ORDERED: HYDROmorphone INJ 1 MG/ML SYRINGE IV STA (09:25)
[2019-01-30 09:52] LABS: Basophils # (auto) 0.05 K/uL (0-0.2); Basophils % (auto) 0.5 %; Eosinophils # (auto) 0.44 K/uL (0-0.5); Eosinophils % (auto) 4.6 %; Hematocrit (blood only) 30.9 % (42-52); Hemoglobin 10.5 g/dL (14.0-18.0); Immature Granulocytes # (auto) 0.02 K/uL (0.00-0.02); Immature Granulocytes % (auto) 0.2 %; Lymphocytes # (auto) 1.54 K/uL (1.2-3.4); Lymphocytes % (auto) 16.2 %; Mean Platelet Volume 7.5 fL (7.4-10.4); Monocytes # (auto) 0.93 K/uL (0.11-0.59); Monocytes % (auto) 9.8 %; Neutrophils % (auto) 68.7 %; Platelet Count 267 K/uL (130-400); RDW Coefficient of Variation 14.6 % (11.5-14.5); RDW Standard Deviation 46.7 fL (36.4-46.3); Red Blood Count 3.51 M/uL (4.7-6.1); White Blood Count 9.48 K/uL (4.8-10.8)
[2019-01-30] MEDS: DOCUSATE SODIUM 100 MG CAP PO PRN (12:27)
--- NOTE | 2019-01-30 13:24 | Medical Student Progress Note ---
Date of Service January 30, 2019 Assessment & Plan (1) Pain in left foot: Patient with PVD, s/p fem-posterior tibial bypass, s/p TMA of left foot, postop day 3 status post left foot transmetatarsal amputation and debridement -admitted to Tele -CT LLE consistent with osteomyelitis -Blood cultures were obtained 01/22 continue to be NGTD -Patient s/p 1 day of levaquin 01/23 -CX'd ID -Vanco day 5 and meropenum day 4 -> pending surgical path results -Afebrile -Consulted pain management, following recs -Initiated Tramadol 50mg x 4 hours PRN pain. -Gabapentin 100mg PO TID to further diminish neuropathic pain. -IV Dilaudid for breakthrough pain -Postop day 3 status post left foot transmetatarsal amputation and debridement -Plantar surface of TMA site was debrided, remaining the metatarsal bone was removed, wound was irrigated with bacitracin solution and dressing applied -Routine postop care per vascular surgery -Surgical pathology pending (2) Leukocytosis: Patient had elevated white count of 11.75 on admission likely secondary to infection at amputation site. -WBC trend 11.75->11.97->10.93->11.01->10.11->8.61->8.39->8.23 -See above (3) Delirium: Patient's delirium waxes and wanes. I am concerned about him in the immediate postop. Given his previous difficulties with general anesthesia. Patient reports sleeping well overnight I likely think this helped to improve as well as achieving adequate pain control. Today the patient is alert and oriented x4. Patient did report that he usually has difficulties recovering from anesthesia and these last for 3-4 days including delirium and agitation hallucinations ETC -BMP, Mag, Phos, CBC unremarkable -Delirium prevention strategies with frequent orientation, minimize interruptions to sleep, etc -Suspect an element of this patient's delirium is secondary to poorly controlled pain, hopefully through optimizing his pain medication, and consulting PMR we should be able to gain some control of his pain and hopefully improve the delirium. -PT's AMS/delirium worsens with gabaergic drugs. please try to avoid -IV Haldol as needed is ordered for severe agitation please contact primary team if given. (4) PVD (peripheral vascular disease): -Patient has a decades long history of smoking 3 PPD, which likely contributed to PVD. 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 Blunt, patient was resumed on ASA 81mg and Plavix 75 mg post-op -After discussion with patient and his , will increase Crestor to 40 mg daily for plaque stabilization in the setting of PVD -Patient quit smoking in Oct 2018, continue to affirm and encourage patient to maintain (5) GERD (gastroesophageal reflux disease): -On esomeprazole Esophagitis presence: without esophagitis Qualified Code(s): K21.9 - Gastro-esophageal reflux disease without esophagitis (6) HTN (hypertension), benign: Has been hypertensive since admission, this morning his blood pressure was 184/94. Likely a component of pain. His pressures appeared to improve with an increase of labetalol to 200 mg twice daily, however it is hard to assess as the vast majority of his pressures have been taken in the immediate preop and postop. Where there is likely to be a component of pain and anxiety contributing to his hypertension. Will monitor overnight and throughout the day tomorrow adjustments as indicated. -Pain control as above -Increase Labetalol 300mg po BID -Increase Lisinopril 40mg po qAM, -Given extra 20 mg lisinopril to bring daily total to 40 mg -Continue to monitor (7) DVT (deep venous thrombosis): Chronic LLE DVT -Noted, monitor -Resume DVT prophylaxis with Lovenox 40 mg daily per conversation with Dr. Blunt Affected thrombotic vein of extremity: femoral Chronicity: chronic DVT location: lower extremity Laterality: left Qualified Code(s): I82.512 - Chronic embolism and thrombosis of left femoral vein (8) Anemia: No bleeding is present at the amputation site. Hemoglobin has been stable -Continue to trend CBC -Transfuse if Hg < 7, symptomatic anemia or active bleeding F/E/N - Heart healthy diet Ppx -Lovenox 30 mg daily Code - Full Dispo - MedSurg with telemetry (9) Depression: Patient has history of anxiety depression related to his chronic medical illness. There is some concern for the safety of himself and his family members at home. Per conversation with there were guns in the house, she remove the guns from the, however she states the patient is the type of individual who would say "you are not spending my money" and " take him with her". No criteria for inpatient psych admission however requires outpatient psych consultation. Supervising Attestation I personally examined the patient and verified all abbasi points of history and exam, discussed case, and agree with decision making with S Aurelio MS2. Resting comfortably. No distress. not present. Vitals noted, in general he is lying in bed sleeping comfortably, in no distress. HEENT normocephalic atraumatic mucous members are moist. Breathing is unlabored no accessory muscle use good effort. Skin shows no rashes no pallor or icterus. Osteomyelitis, status post L foot s/p debridement and amputation of MT -continue current antibiotics, and fortunately after discussion with infectious disease we will likely be able to transition to oral antibiotics in the near future. Delirium -seems to wax and wane now. Redirection/supportive care. PVD -aspirin and Plavix. Increase statin for better plaque stabilization Acute and chronic pain -pain still fairly uncontrolled. Reinitiate fentanyl patch, increase gabapentin. Follow closely. Continue short acting for breakthrough. DVT prophylaxisLovenox Subjective Patient was seen this morning shortly after bathing/dressing change. He appeared to be in severe pain and flinched when touched even just on the shoulder. This was despite having received a dose of tramadol and dilaudid prior to the dressing change. He was given another dose of dilaudid at that point (around 9:30) and had received a third dose around noon, just prior to being evaluated later in the day. was at bedside in the afternoon. Patient drowsy from having just received dilaudid but intermittently able to participate in conversation. Had an extended conversation about Crestor for plaque stabilization given patient's PVD. Patient's stated that they discontinued the Crestor at home when the patient first started having pain in his leg, because she had heard about MSK pain being a side effect of statins and wanted to eliminate that as a variable. Per the , patient's PCP was OK with discontinuing the Crestor. We discussed that patient has been on a low dose of the Crestor (10mg) since coming into the hospital, but that we would like to increase it to 20-40mg since mid-high dosing is ideal for plaque stabilization. and patient are both amenable to this. feels the patients is still sleep-deprived. Even after dilaudid and despite encouragement to try to rest, he is fighting to stay awake. When I asked the patient if his pain is improving or worsening overall, he was unable to answer and began talking about something else. states he often "falls asleep with his eyes open." Physical Exam Vital Signs (Past 24 Hours): Last Vital Signs Temp 36.8 C 01/30/19 11:46 Pulse 77 01/30/19 11:46 Resp 20 01/30/19 11:46 BP 153/71 H 01/30/19 11:46 Pulse Ox 91 01/30/19 11:46 Physical Exam: General - appears drowsy and mildly disheveled, head keeps falling to the side. Eyes - Pupils constricted Skin - warm, mildly diaphoretic Cardiac - RRR, a 2/6 systolic murmur is intermittently heard at the L sternal border Lungs - equal chest rise, breath sounds clear in anterior and axillary gomez bilat Extremities - LLE bandaged with no visible fluid seeping through Psyc - has difficulty following the conversation and intermittently seems to fall asleep Neuro - is somewhat oriented to situation and is able to recall that he did not have any adverse effects from Crestor
[2019-01-30] MEDS: ENOXAPARIN INJ 40 MG/0.4 ML SYR SQ SCH (13:36)
[2019-01-30] MEDS ORDERED: HYDROmorphone INJ 2 MG/ML SYR/VIAL IV PRN (14:19)
--- NOTE | 2019-01-30 14:37 | Infectious Disease Progress Nt ---
Date of Service January 30, 2019 Assessment & Plan (1) Osteomyelitis of foot, left, acute: 63-year-old male with severe peripheral arterial disease status post bypass with open wound left foot with osteomyelitis seen on CT scanning. Patient now status post debridement of TMA site. Hopefully will only require a few more days of IV antibiotics, then transition to oral therapy. Will follow. Subjective Patient seen for left foot infection now status post revision of amputation. Patient drowsy, given analgesics, not participating in conversation. Remains afebrile. Blood cultures remain negative. Review of Systems Review of Systems: Unobtainable due to cognitive status Physical Exam Constitutional: WD/WN, vitals as above + disheveled and comfortable; no acute distress Eyes: PERRL, conjunctivae normal, anicteric sclerae ENMT: external ear and nose normal, oropharynx normal Neck: trachea midline, no thyromegaly neck nontender Respiratory: normal respiratory effort, lungs clear to auscultation normal percussion; does not use accessory muscles Cardiovascular: Rate/Rhythm: regular rate and regular rhythm Heart Sounds: normal S1 and normal S2; no gallop, no murmur and no cardiac rub Vessels: normal peripheral pulses; no JVD Gastrointestinal (Abdomen): normal bowel sounds, soft, nontender, no hepatosplenomegaly Musculoskeletal: no cyanosis or clubbing, extremities motor strength 5/5 Spine: thoracic spine normal to inspection and lumbar spine normal to inspection; no cervical spinal tenderness Skin: no rashes, warm and dry + wound (Left foot wound clean and granulating); no rashes Neurologic: patellar DTR's 2+ bilat, sensation intact moves all extremities, awake and + confused Psychiatric: A+Ox3, euthymic affect Orientation: + not oriented x 3 Apperance: + disheveled Lymphatic: no cervical or axillary lymphadenopathy no inguinal lymphadenopathy Results & Data Vital Signs (Past 12 Hours) Vital Signs Temp Pulse Resp BP Pulse Ox 01/30/19 11:46 36.8 C 77 20 153/71 H 91 01/30/19 07:07 36.7 C 72 20 183/85 H 92 01/30/19 04:22 36.9 C 75 18 158/75 H 91 Laboratory Results Short CBC 01/30/19 Range/Units 09:40 WBC 9.48 (4.8-10.8) K/uL Hgb 10.5 L (14.0-18.0) g/dL Hct 30.9 L (42-52) % Plt Count 267 (130-400) K/uL Diagnostic Findings Microbiology 01/22/19 19:55 Blood Blood Culture - Final No growth 01/22/19 19:45 Blood Blood Culture - Final No growth
[2019-01-30] MEDS ORDERED: fentaNYL 25 MCG/HR TDSY TD SCH (15:00)
[2019-01-30] MEDS: CHECK FENTANYL PATCH PLACEMENT SCH ×2 (15:14→23:36)
[2019-01-30] MEDS: AMITRIPTYLINE HCL 50 MG TAB PO SCH (20:21)
[2019-01-31] MEDS: HYDROmorphone INJ 1 MG/ML SYRINGE IV PRN ×2 (02:17→08:50)
[2019-01-31] MEDS: IMIPENEM/CILASTATIN SODIUM 500 MG in DEXTROSE 5% 100 ML IV SCH ×4 (03:29→22:09)
[2019-01-31] MEDS: TRAMADOL HCL 50 MG TABLET PO PRN ×2 (04:37→08:51)
--- NOTE | 2019-01-31 06:57 | Medical Student Progress Note ---
Date of Service January 31, 2019 Assessment & Plan (1) Pain in left foot: -Pain appears improved today after adding fentanyl and increasing gabapentin. -Had long discussion with patient about limitations to his mobility and need for acute rehab. -Will have case management discuss the patient's options with him. -Patient has been in severe pain secondary to ischemic ulcers and osteomyelitis in the L foot requiring transmetatarsal/first metatarsal amputation and debridement -This pain was likely exacerbating sleep deprivation, delirium, and depression -Patient has been receiving tramadol 50 mg q4h PRN and Dilaudid just before dressing changes, but this did not seem to be adequately controlling the patient's pain -Added Fentanyl 25 mcg transdermal patch and increased gabapentin to 100 mg TID on 01/30. Continue tramadol/Dilaudid for breakthrough pain. -Had previously added amitriptyline to augment -Will continue to assess for adequate pain control -Consulted pain management, following recs -Initiated Tramadol 50mg x 4 hours PRN pain. -Gabapentin 100mg PO TID to further diminish neuropathic pain. -IV Dilaudid for breakthrough pain (2) Leukocytosis: -White count today 9.98. -He has remained afebrile. Will continue to monitor -WBC trend 11.75 (on admission)->11.97->10.93->11.01->10.11->8.61->8.39->8.23->9.48->9.98 (today 01/31) (3) Delirium: Patient initially presented to the ED with waxing and waning delirium in the setting of LLE ischemia and osteomyelitis. Likely due to infection as well as sleep deprivation for months secondary to pain. Mental status has improved significantly since starting tramadol/Dilaudid for pain and abx for infection. He is usually AAOx4 and able to participate in decision-making regarding his care, with the exception of immediately receiving Dilaudid, when he becomes drowsy. He recovered well after anesthesia. Of note, a trial of Ativan acute worsened his delirium. -Encourage sleep and minimize interruptions -[place] frequently. Monitor mental status -Avoid Ativan -Continue pain control -Haldol PRN if patient becomes severely agitated. Please contact primary team if it needs to be administered. (4) PVD (peripheral vascular disease): -Patient has a decades long history of smoking 3 PPD, which likely contributed to PVD. Quit smoking and drinking in Oct 2018, will continue to affirm and encourage patient to maintain. -Crestor increased to 40 mg on 01/30/19. -He is now POD 5 from amputation of the first metatarsal and debridement of the L foot -He is also s/p fem-posterior tibial bypass with popliteal artery aneurysm repair (Oct 2018) and a L transmetatarsal amputation with debridement (Nov 2018) -Per team's previous conversation with Dr. Blunt, patient was resumed on ASA 81mg and Plavix 75 mg post-op (5) GERD (gastroesophageal reflux disease): -Continue pantoprazole 40 mg PO (normally on esomeprazole 40 mg at home) Esophagitis presence: without esophagitis Qualified Code(s): K21.9 - Gastro-esophageal reflux disease without esophagitis (6) HTN (hypertension), benign: -Most recent BP 150/67 -Much improved from 184/94 on admission. -Currently on Labetolol 300 mg PO BID and Lisinopril 40 mg PO qAM -Continue to treat pain and provide reassurance to help manage anxiety. Attempt bp readings at times other than immediately before/after dressing changes to get better picture of his baseline when he is not anxious/in pain (7) DVT (deep venous thrombosis): -Non-occlusive LLE DVT seen on U/S done at [facility] on 10/10/2018 extending from the distal portion of femoral vein through distal portion of popliteal vein -Patient was previously restarted on Lovenox 40 mg daily per team's previous conversation with Dr. Blunt. Given that this DVT is several months old and asymptomatic, will continue patient on this prophylactic dose. -Continue to monitor vital signs for tachycardia, hypoxia and monitor patient for dyspnea and chest pain Affected thrombotic vein of extremity: femoral Chronicity: chronic DVT location: lower extremity Laterality: left Qualified Code(s): I82.512 - Chronic embolism and thrombosis of left femoral vein (8) Anemia: -H/H has been stable, most recent 10.2/30.8 on 01/31 -There is no apparent bleeding at surgical site -Will continue to trend CBC and monitor -Consider transfusion in the case of active bleeding if Hg < 7 or symptomatic anemia F/E/N - Heart healthy diet Ppx -Lovenox 40 mg daily Code - Full Dispo - MedSurg (9) Depression: -Patient with hx of anxiety/depression; likely exacerbated by current illness, recent amputations, and resultant loss of mobility/independence -Switched from Lexapro 10 mg to amitriptyline 50 mg HS on 01/29 to provide adjunctive pain relief in addition to anti-depressant. Thus far no adverse effects noted by patient or . -Patient's mood appears to be improving. He appears more talkative and less argumentative with his . -Has also previously tried Cymbalta -When patient was first admitted, there were concerns raised for the safety of the patient and his family members. At the time, disclosed there were guns in the home and stated that she would remove them. She stated the patient is the type of individual who would say "you're not staying here to spend my money" and would "take me with him." Patient's was asked and has been asked frequently since then if she feels she is in danger. She is adamant that she feels safe and does not need support in leaving her living situation. She states they have a "wonderful" daughter and grandchildren who live a few miles from them and she states "his kids and grandkids love him" and that she feels the pain and sleep deprivation have made him "meaner" more recently, but she is not concerned for her safety. -Patient has been very resistant to inpatient psychiatric consultation. However, he has recently become more amenable and now agrees to outpatient psychiatric follow-up. He has been very amenable to anti-depressant adjustments to achieve better control of his depression. -No criteria currently for inpatient psych admission. When asked on 01/26, patient stated he would never hurt himself or his . (10) Osteomyelitis of foot, left, acute: -Osteomyelitis confirmed on surgical pathology of first metatarsal of L foot -Patient had remained afebrile and hemodynamically stable, but continues to have pain -On day 7 of vancomycin and day 8 of imipenem/cilastatin -ID is following, hoping to transition to oral abx tomorrow if patient continues to improve -Blood cultures were obtained 01/22 continue to be NGTD -POD 5 s/p left foot transmetatarsal/first metatarsal amputation and debridement -Plantar surface of TMA site was debrided, the remaining metatarsal bone was removed, wound was irrigated with bacitracin solution -Continue routine postop care and wound care -Vascular surgery following Present on Admission?: Yes Supervising Attestation I personally examined the patient and verified all abbasi points of history and exam, discussed case, and agree with decision making with Dayo DIAZ. Pain control significantly better. He even tolerated a dressing change with tolerable degrees of pain. He does not appear to be too sedated. We discussed starting to work towards discharge planning. Discussed with infectious disease, hopefully we will be a transition to oral antibiotics tomorrow. Vitals noted, sitting up in a chair no distress, conversing pleasantly. Breathing is unlabored no accessory muscle use good effort. Left foot is dressed dressing is clean dry and intact. When his foot accidentally slides off of the foot stool, he does not show any significant pain. Osteomyelitis, status post L foot s/p debridement and amputation of MT -continue current antibiotics, likely to be on a switch to oral by tomorrow Delirium -overall seems much improved PVD -aspirin and Plavix. Increased statin for better plaque stabilization Acute and chronic pain -with reinstitution of fentanyl patch and the increase in gabapentin, he is doing much better. Can continue to titrate amitriptyline as tolerated as well. Continue short acting for breakthrough. DVT prophylaxisLovenox Dispositionhe will likely need some form of rehab, hopefully he will be able to be transferred there by the next 1 to 2 days. Subjective 0743 - Patient sleeping comfortably. 1130 - Patient seen with Dr. Alas and Dr. Harris. Patient stated his pain during dressing change was much improved today after the addition of fentanyl patch and increase in gabapentin. He transiently felt significant pain only when the wound itself was being significantly touched/manipulated. Had an extended discussion about acute rehab. When asked if he feels he could get to the bathroom or the kitchen at home with only his around to help him, patient states "I don't think so." Discussed with patient that it would be prudent to begin thinking early about discharging to an acute rehab to improve his strength and functionality and ultimately make his recovery and return home more successful. He stated he was amenable and also informed us his would be in later if we wanted to discuss with her as well. Physical Exam Vital Signs (Past 24 Hours): Last Vital Signs Temp 37.5 C 01/31/19 04:00 Pulse 80 01/31/19 04:00 Resp 20 01/31/19 04:00 BP 175/96 H 01/31/19 04:00 Pulse Ox 93 01/31/19 04:00 Physical Exam: 0743- Patient's eyes are partially open but he appears to be sleeping; quietly snoring and intermittently twitches. Breathing nonlabored with equal chest rise. Skin warm and dry. 1130 - General: Patients is sitting up in recliner, sipping iced tea and watching TV. He has his L leg elevated on a pillow. He does appear mildly disheveled and his whole body flinches in pain when his foot slips from where it is elevated. Other than when his foot slips, patient appears comfortable and more alert and active than he has in the last 2 days. Respiratory: Breathing is non-labored with equal chest rise. Neurologic: AAOx4. Psych: Speech is regular rate and rhythm. Patient often mumbles, which is baseline. He does not show obvious signs of delusions or hallucinations and is able to participate in conversation regarding his care. Extremities: L foot, ankle, and distal leg are bandaged with no obvious seepage of fluids. No obvious edema or erythema proximal to the bandaged area. At baseline, his left hand is missing several fingers. Results & Data Laboratory Results 01/31/19 01/31/19 Range/Units 06:48 06:48 WBC 9.98 (4.8-10.8) K/uL RBC 3.47 L (4.7-6.1) M/uL Hgb 10.2 L (14.0-18.0) g/dL Hct 30.8 L (42-52) % MCV 88.8 (80-100) fL MCH 29.4 (25-34) pg MCHC 33.1 (32-36) g/dL RDW Std Deviation 48.1 H (36.4-46.3) fL RDW Coeff of [place]gelia 14.9 H (11.5-14.5) % Plt Count 323 (130-400) K/uL MPV 7.9 (7.4-10.4) fL Immature Gran % (Auto) 0.2 % Neut % (Auto) 55.8 % Lymph % (Auto) 23.0 % [place] % (Auto) 14.6 % Eos % (Auto) 5.9 % Baso % (Auto) 0.5 % Immature Gran # (Auto) 0.02 (0.00-0.02) K/uL Neut # (Auto) 5.56 (1.4-6.5) K/uL Lymph # (Auto) 2.30 (1.2-3.4) K/uL [place] # (Auto) 1.46 H (0.11-0.59) K/uL Eos # (Auto) 0.59 H (0-0.5) K/uL Baso # (Auto) 0.05 (0-0.2) K/uL Sodium 135 L (136-145) mmol/L Potassium 4.1 (3.5-5.1) mmol/L Chloride 101 (98-107) mmol/L Carbon Dioxide 30 (21-32) mmol/L Anion Gap 4.0 (3-11) BUN 11 (7-18) mg/dl Creatinine 0.60 (0.6-1.4) mg/dl Est Cr Clr Drug Dosing 142.6 ml/min Est GFR ( Amer) 122.3 Est GFR (Non-Af Amer) 105.5 BUN/Creatinine Ratio 17.6 (10-20) Glucose 91 (70-99) mg/dl Calcium 8.4 L (8.5-10.1) mg/dl Medications Administered Current Inpatient Medications Acetaminophen (Tylenol) 650 mg PO Q4H PRN PRN Reason: Pain Stop: 02/28/19 18:53 Amitriptyline HCl (Elavil) 50 mg PO [facility] Stop: 02/28/19 20:59 Last Admin: 01/30/19 20:21 Dose: 50 mg Documented by: Aspirin (Ecotrin Ectab) 81 mg PO [facility] Stop: 02/27/19 12:59 Last Admin: 01/31/19 08:52 Dose: 81 mg Documented by: Bisacodyl (Dulcolax) 10 mg [place] DAILY PRN PRN Reason: Constipation Stop: 02/21/19 19:13 Clopidogrel Bis[facility]ate (Plavix) [facility] [place]: 02/27/19 12:59 Last Admin: 01/31/19 08:52 Dose: 75 mg Documented by: Docusate Sodium (Colace) 100 mg PO BID PRN; Protocol PRN Reason: Constipation Stop: 02/21/19 19:13 Last Admin: 01/30/19 12:27 Dose: 100 mg Documented by: Enoxaparin Sodium (Lovenox) 40 mg SQ Q24H [facility] Stop: 02/27/19 13:59 Last Admin: 01/30/19 13:36 Dose: 40 mg Documented by: Fentanyl (Duragesic) 25 mcg TD Q3D@1500 [facility] Stop: 02/13/19 14:59 Last Admin: 01/30/19 15:14 Dose: 25 mcg Documented by: Gabapentin (Neurontin) 100 mg PO TID [facility] Stop: 02/23/19 08:59 Last Admin: 01/31/19 08:52 Dose: 100 mg Documented by: Haloperidol Lactate (Haldol) 5 mg IM Q6H PRN PRN Reason: Anxiety/Agitation Stop: 02/22/19 11:27 Hydralazine HCl (Hydralazine Hcl) 2.5 mg IV Q4H PRN PRN Reason: Hypertension Stop: 02/26/19 12:14 Last Admin: 01/30/19 08:31 Dose: 2.5 mg Documented by: Hydromorphone HCl (Dilaudid) 1 mg IV Q2H PRN PRN Reason: Pain Stop: 02/06/19 11:19 Last Admin: 01/31/19 08:50 Dose: 1 mg Documented by: Imipenem/Cilastatin Sodium 500 (mg/ Dextrose) 110 mls @ 100 mls/hr IV Q6H [facility] Stop: 03/07/19 10:44 Last Infusion: 01/31/19 10:16 Dose: Infused Documented by: Vancomycin HCl 1,500 mg/ (Sodium Chloride) 530 mls @ 200 mls/hr IV Q8H [facility]; Pr otocol Stop: 03/08/19 19:59 Last Admin: 01/31/19 08:50 Dose: 200 mls/hr Documented by: Labetalol HCl (Normodyne) 300 mg PO BID [facility] Stop: 02/28/19 20:59 Last Admin: 01/31/19 08:52 Dose: 300 mg Documented by: Lisinopril (Zestril) 40 mg PO QAM [facility] Stop: 03/01/19 08:59 Last Admin: 01/31/19 08:52 Dose: 40 mg Documented by: Miscellaneous (Fentanyl Patch Check Placement) 1 ea N/A QS [facility] Stop: 03/01/19 15:59 Last Admin: 01/31/19 08:51 Dose: 1 ea Documented by: Miscellaneous (Fentanyl Patch Remove & Waste) 1 ea N/A Q3D@1459 [facility] Stop: 03/01/19 14:58 Last Admin: 01/30/19 15:09 Dose: Not Given Documented by: Miscellaneous Information (Consult) 1 ea N/A UD PRN PRN Reason: Consult Stop: 02/22/19 11:36 Ondansetron HCl (Zofran) 4 mg IV Q6H PRN PRN Reason: Nausea Stop: 02/21/19 19:07 Pantoprazole Sodium (Protonix) 40 mg PO DAILY [facility] Stop: 02/22/19 08:59 Last Admin: 01/31/19 08:52 Dose: 40 mg Documented by: Polyethylene Glycol (Miralax Powder Packet) 17 gm PO DAILY PRN PRN Reason: Constipation Stop: 02/21/19 19:07 Last Admin: 01/30/19 19:22 Dose: 17 gm Documented by: Rosuvastatin Calcium (Crestor) 40 mg PO QAM [facility] Stop: 03/02/19 08:59 Last Admin: 01/31/19 08:52 Dose: 40 mg Documented by: Sodium Hypochlorite (Dakin's Half Strength) 1 appln EXT DAILY [facility] Stop: 02/28/19 09:59 Last Admin: 01/31/19 08:51 Dose: 1 appln Documented by: Tramadol HCl (Ultram) 50 mg PO Q4H PRN PRN Reason: Pain Stop: 02/23/19 08:39 Last Admin: 01/31/19 08:51 Dose: 50 mg Documented by:
[2019-01-31 07:35] LABS: Basophils # (auto) 0.05 K/uL (0-0.2); Basophils % (auto) 0.5 %; Eosinophils # (auto) 0.59 K/uL (0-0.5); Eosinophils % (auto) 5.9 %; Hematocrit (blood only) 30.8 % (42-52); Hemoglobin 10.2 g/dL (14.0-18.0); Immature Granulocytes # (auto) 0.02 K/uL (0.00-0.02); Immature Granulocytes % (auto) 0.2 %; Mean Corpuscular Hgb Conc 33.1 g/dL (32-36); Mean Corpuscular Volume 88.8 fL (80-100); Mean Platelet Volume 7.9 fL (7.4-10.4); Monocytes # (auto) 1.46 K/uL (0.11-0.59); Monocytes % (auto) 14.6 %; Neutrophils # (auto) 5.56 K/uL (1.4-6.5); Neutrophils % (auto) 55.8 %; Platelet Count 323 K/uL (130-400); RDW Coefficient of Variation 14.9 % (11.5-14.5); RDW Standard Deviation 48.1 fL (36.4-46.3); Red Blood Count 3.47 M/uL (4.7-6.1); White Blood Count 9.98 K/uL (4.8-10.8)
[2019-01-31 08:10] LABS: BUN Creatinine Ratio 17.6 (10-20); Calcium 8.4 mg/dl (8.5-10.1); Creatinine Clr Calc Pharmacy 142.6 ml/min; Est GFR (African American) 122.3; Est GFR (Non-African American) 105.5; Potassium 4.1 mmol/L (3.5-5.1)
[2019-01-31] MEDS: VANCOMYCIN HCL 1,500 MG in SODIUM CHLORIDE 0.9% 500 ML IV SCH ×3 (08:50→23:57)
[2019-01-31] MEDS: CHECK FENTANYL PATCH PLACEMENT SCH ×2 (08:51→15:35)
[2019-01-31] MEDS: DAKIN'S SOLN 0.25% HALF STRENGTH 473ML BTL EXT SCH (08:51)
[2019-01-31] MEDS: GABAPENTIN 100 MG CAP PO SCH ×3 (08:52→20:44)
[2019-01-31] MEDS: LABETALOL HCL 100 MG TAB PO SCH ×2 (08:52→20:44)
[2019-01-31] MEDS: CLOPIDOGREL BISULFATE 75 MG TAB PO SCH (08:52)
[2019-01-31] MEDS: PANTOprazole 40 MG TAB PO SCH (08:52)
[2019-01-31] MEDS: LISINOPRIL 40 MG TAB PO SCH (08:52)
[2019-01-31] MEDS: ASPIRIN 81 MG ECTAB PO SCH (08:52)
[2019-01-31] MEDS: ROSUVASTATIN CALCIUM 20 MG TAB PO SCH (08:52)
[2019-01-31] MEDS: ENOXAPARIN INJ 40 MG/0.4 ML SYR SQ SCH (14:00)
--- NOTE | 2019-01-31 16:02 | Infectious Disease Progress Nt ---
Date of Service January 31, 2019 Assessment & Plan (1) Osteomyelitis of foot, left, acute: 63-year-old male with severe peripheral arterial disease status post bypass with open wound left foot with osteomyelitis seen on CT scanning. Patient now status post debridement of TMA site. Hopefully will be able to transition to oral antibiotics tomorrow. We will continue to follow. Subjective Patient seen in follow-up for left foot infection now status post further debridement of TMA. Patient more comfortable with adjustment of analgesics. Remains afebrile. No other new complaints. Review of Systems Review of Systems: All systems reviewed & are unremarkable except as noted in HPI & below Physical Exam Constitutional: WD/WN, vitals as above + disheveled and comfortable; no acute distress Eyes: PERRL, conjunctivae normal, anicteric sclerae ENMT: external ear and nose normal, oropharynx normal Neck: trachea midline, no thyromegaly neck nontender Respiratory: normal respiratory effort, lungs clear to auscultation normal percussion; does not use accessory muscles Cardiovascular: Rate/Rhythm: regular rate and regular rhythm Heart Sounds: normal S1 and normal S2; no gallop, no murmur and no cardiac rub Vessels: normal peripheral pulses; no JVD Gastrointestinal (Abdomen): normal bowel sounds, soft, nontender, no hepatosplenomegaly Musculoskeletal: no cyanosis or clubbing, extremities motor strength 5/5 Spine: thoracic spine normal to inspection and lumbar spine normal to inspection; no cervical spinal tenderness Skin: no rashes, warm and dry + wound (Left foot wound clean and granulating); no rashes Neurologic: patellar DTR's 2+ bilat, sensation intact moves all extremities, awake and + confused Psychiatric: A+Ox3, euthymic affect Orientation: + not oriented x 3 Apperance: + disheveled Lymphatic: no cervical or axillary lymphadenopathy no inguinal lymphadenopathy Results & Data Vital Signs (Past 12 Hours) Vital Signs Temp Pulse Resp BP Pulse Ox 01/31/19 15:22 36.7 C 70 18 125/63 95 01/31/19 07:00 36.8 C 69 20 150/67 H 96 Laboratory Results Short CBC 01/31/19 Range/Units 06:48 WBC 9.98 (4.8-10.8) K/uL Hgb 10.2 L (14.0-18.0) g/dL Hct 30.8 L (42-52) % Plt Count 323 (130-400) K/uL BMP 01/31/19 06:48 Sodium 135 L Potassium 4.1 Chloride 101 Carbon Dioxide 30 BUN 11 Creatinine 0.60 Glucose 91 Calcium 8.4 L Diagnostic Findings Microbiology 01/22/19 19:55 Blood Blood Culture - Final No growth 01/22/19 19:45 Blood Blood Culture - Final No growth
[2019-01-31] MEDS: AMITRIPTYLINE HCL 50 MG TAB PO SCH (20:44)
[2019-02-01] MEDS: CHECK FENTANYL PATCH PLACEMENT SCH ×2 (00:24→07:11)
[2019-02-01] MEDS: TRAMADOL HCL 50 MG TABLET PO PRN (03:07)
[2019-02-01] MEDS: IMIPENEM/CILASTATIN SODIUM 500 MG in DEXTROSE 5% 100 ML IV SCH ×2 (04:10→09:10)
[2019-02-01] MEDS: LISINOPRIL 40 MG TAB PO SCH (07:10)
[2019-02-01] MEDS: DAKIN'S SOLN 0.25% HALF STRENGTH 473ML BTL EXT SCH (07:10)
[2019-02-01] MEDS: CLOPIDOGREL BISULFATE 75 MG TAB PO SCH (07:10)
[2019-02-01] MEDS: PANTOprazole 40 MG TAB PO SCH (07:10)
[2019-02-01] MEDS: LABETALOL HCL 100 MG TAB PO SCH (07:10)
[2019-02-01] MEDS: GABAPENTIN 100 MG CAP PO SCH ×2 (07:11→12:53)
[2019-02-01] MEDS: ASPIRIN 81 MG ECTAB PO SCH (07:11)
[2019-02-01] MEDS: ROSUVASTATIN CALCIUM 20 MG TAB PO SCH (07:11)
--- NOTE | 2019-02-01 07:26 | Medical Student Progress Note ---
Date of Service February 01, 2019 Assessment & Plan (1) Pain in left foot: Update today: pain appears well-controlled. Will continue current regimen. Patient aware of his functional limitations and agrees to acute rehab. Summary to date: -Patient had been in severe pain secondary to ischemic ulcers and osteomyelitis in the L foot requiring transmetatarsal/first metatarsal amputation and debridement -This pain was likely exacerbating sleep deprivation, delirium, and depression -Patient has been receiving tramadol 50 mg q4h PRN and Dilaudid just before dressing changes, but this did not seem to be adequately controlling the patient's pain -Added Fentanyl 25 mcg transdermal patch and increased gabapentin to 100 mg TID on 01/30. Continue tramadol/Dilaudid for breakthrough pain. -Had previously added amitriptyline to augment -Will continue to assess for adequate pain control (2) Leukocytosis: Resolved - white count has been normal since 01/26. Pt remains afebrile. (3) Delirium: Update today: AAOx4, mental status has been stable. Delirium resolved. Continue pain control and avoid Ativan. Summary to date: Patient initially presented to the ED with waxing and waning delirium in the setting of LLE ischemia and osteomyelitis. Likely due to infection as well as sleep deprivation for months secondary to pain. Mental status has improved significantly since starting tramadol/Dilaudid for pain and abx for infection. He is usually AAOx4 and able to participate in decision- making regarding his care, with the exception of immediately receiving Dilaudid, when he becomes drowsy. He recovered well after anesthesia. Of note, a trial of Ativan acute worsened his delirium. -Encourage sleep and minimize interruptions -Jaroso frequently. Monitor mental status -Avoid Ativan -Continue pain control -Haldol PRN if patient becomes severely agitated. Please contact primary team if it needs to be administered. (4) PVD (peripheral vascular disease): Update today: continue ASA 81 mg, Plavix 75 mg, and Crestor 40 mg. POD 6 from amputation of the first metatarsal and debridement of the L foot Summary to date: -Patient has a decades long history of smoking 3 PPD, which likely contributed to PVD. Quit smoking and drinking in Oct 2018, will continue to affirm and encourage patient to maintain. -Crestor increased to 40 mg on 01/30/19. -s/p fem-posterior tibial bypass with popliteal artery aneurysm repair (Oct 2018) and a L transmetatarsal amputation with debridement (Nov 2018) and amputation of the first metatarsal and debridement of the L foot (Jan 2019) -Per team's previous conversation with Dr. Blunt, patient was resumed on ASA 81mg and Plavix 75 mg post-op (5) GERD (gastroesophageal reflux disease): -Continue pantoprazole 40 mg PO while in hospital, switch back to home esomeprazole 40 mg when he returns home Esophagitis presence: without esophagitis Qualified Code(s): K21.9 - Gastro-esophageal reflux disease without esophagitis (6) HTN (hypertension), benign: Update today: Some spikes up to systolic 170s overnight. BP control still suboptimal. Add HCTZ 25 mg daily and f/u with PCP. Summary to date: -Hypertensive 184/94 on admission. -Some improvement on Labetolol 300 mg PO BID and Lisinopril 40 mg PO qAM -Downgraded from tele on 01/30 -Continue to treat pain and provide reassurance to help manage anxiety. Attempt bp readings at times other than immediately before/after dressing changes to get better picture of his baseline when he is not anxious/in pain (7) DVT (deep venous thrombosis): Update today: Continue Lovenox 40mg and monitor for symptoms of DVT/PE. Summary to date: -Non-occlusive LLE DVT seen on U/S done at [facility] on 10/10/2018 extending from the distal portion of femoral vein through distal portion of popliteal vein -Patient was previously restarted on Lovenox 40 mg daily per team's previous conversation with Dr. Blunt. Given that this DVT is several months old and asymptomatic, will continue patient on this prophylactic dose. 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 (8) Anemia: Update today: H/H has been stable, most recent 10.2/30.8 on 01/31 -There is no apparent bleeding at surgical site -Will continue to trend CBC and monitor -Consider transfusion in the case of active bleeding if Hg < 7 or symptomatic anemia F/E/N - Heart healthy diet Ppx -Lovenox 40 mg daily Code - Full Dispo - MedSurg (9) Depression: -Patient with hx of anxiety/depression; likely exacerbated by current illness, recent amputations, and resultant loss of mobility/independence -Switched from Lexapro 10 mg to amitriptyline 50 mg HS on 01/29 to provide adjunctive pain relief in addition to anti-depressant. Thus far no adverse effects noted by patient or . -Patient's mood appears to be improving. He appears more talkative and less argumentative with his . -Has also previously tried Cymbalta -When patient was first admitted, there were concerns raised for the safety of the patient and his family members. At the time, disclosed there were guns in the home and stated that she would remove them. She stated the patient is the type of individual who would say "you're not staying here to spend my money" and would "take me with him." Patient's was asked and has been asked frequently since then if she feels she is in danger. She is adamant that she feels safe and does not need support in leaving her living situation. She states they have a "wonderful" daughter and grandchildren who live a few miles from them and she states "his kids and grandkids love him" and that she feels the pain and sleep deprivation have made him "meaner" more recently, but she is not concerned for her safety. -Patient has been very resistant to inpatient psychiatric consultation. However, he has recently become more amenable and now agrees to outpatient psychiatric follow-up. He has been very amenable to anti-depressant adjustments to achieve better control of his depression. -No criteria currently for inpatient psych admission. When asked on 01/26, patient stated he would never hurt himself or his . (10) Osteomyelitis of foot, left, acute: -Osteomyelitis confirmed on surgical pathology of first metatarsal of L foot -Patient had remained afebrile and hemodynamically stable, but continues to have pain -On day 7 of vancomycin and day 8 of imipenem/cilastatin -ID is following, hoping to transition to oral abx tomorrow if patient continues to improve -Blood cultures were obtained 01/22 continue to be NGTD -POD 5 s/p left foot transmetatarsal/first metatarsal amputation and debridement -Plantar surface of TMA site was debrided, the remaining metatarsal bone was removed, wound was irrigated with bacitracin solution -Continue routine postop care and wound care -Vascular surgery following Subjective 0800 - Patient states his pain is better today. Pain is a bit worse when he first wakes up in the morning. He slept well. He is amenable to acute rehab. He states "I don't like things changing too fast" and appears to have some anxiety about discharge. He states his mood has been better and he feels is interactions with his have also been calmer. 1130 - Patient understands that he will likely be going to [place] this afternoon. He states he will call his to give her a heads up Physical Exam Vital Signs (Past 24 Hours): Last Vital Signs Temp 37.2 C 02/01/19 07:16 Pulse 75 02/01/19 07:16 Resp 20 02/01/19 07:16 BP 147/67 H 02/01/19 07:16 Pulse Ox 92 02/01/19 07:16 Physical Exam: General - Laying comfortably in bed, appears a bit disheveled. Is able to adjust his leg on the pillow without pain. Eyes - tracks well Card - RRR, no murmurs Resp - non-labored breathing, equal chest rise, scattered ronchi in anterior lung gomez Extremities - L foot, ankle, and distal half of huynh bandaged. Hyperpigmentation with blue- brown discoloration of the L leg just proximal to the bandage. Strong pt pulse in the L foot. No warmth, erythema, or tenderness in the L leg proximal to the bandage. 2+ dp and pt pulses in the R leg, no tenderness, warmth or erythema in the R leg.
[2019-02-01] MEDS ORDERED: VANCOMYCIN TROUGH ONE (07:30)
[2019-02-01 07:36] LABS: Basophils # (auto) 0.04 K/uL (0-0.2); Basophils % (auto) 0.4 %; Eosinophils # (auto) 0.55 K/uL (0-0.5); Eosinophils % (auto) 5.9 %; Hematocrit (blood only) 29.5 % (42-52); Hemoglobin 9.8 g/dL (14.0-18.0); Immature Granulocytes # (auto) 0.03 K/uL (0.00-0.02); Immature Granulocytes % (auto) 0.3 %; Lymphocytes # (auto) 2.06 K/uL (1.2-3.4); Lymphocytes % (auto) 21.9 %; Mean Corpuscular Hgb Conc 33.2 g/dL (32-36); Mean Corpuscular Volume 88.3 fL (80-100); Mean Platelet Volume 7.9 fL (7.4-10.4); Monocytes # (auto) 1.18 K/uL (0.11-0.59); Monocytes % (auto) 12.6 %; Neutrophils # (auto) 5.54 K/uL (1.4-6.5); Neutrophils % (auto) 58.9 %; Platelet Count 276 K/uL (130-400); RDW Coefficient of Variation 14.7 % (11.5-14.5); RDW Standard Deviation 47.8 fL (36.4-46.3); Red Blood Count 3.34 M/uL (4.7-6.1)
[2019-02-01 08:12] LABS: BUN Creatinine Ratio 22.4 (10-20); Calcium 7.9 mg/dl (8.5-10.1); Creatinine Clr Calc Pharmacy 156.1 ml/min; Est GFR (African American) 126.7; Est GFR (Non-African American) 109.4; Potassium 4.2 mmol/L (3.5-5.1)
[2019-02-01] MEDS: VANCOMYCIN HCL 1,500 MG in SODIUM CHLORIDE 0.9% 500 ML IV SCH (08:20)
--- NOTE | 2019-02-01 09:53 | Pharmacy Report ---
Pharmacy Abx Dose Short Note - Date of Service February 01, 2019 - Assessment & Plan Assessment 63 year old M receiving vancomycin/imipenem for osteomyelitis Day # 10 of antimicrobial therapy. Plan Vancomycin * Trough level came back supratherapeutic at 24 mcg/ml (goal 15-20 mcg/ml for osteomyelitis / closer to 20 preferred) * 0800 dose this morning already infusing - contacted nurse to have taken down due to higher trough level (only ran for about 30 mins) * Based upon level estimated kinetics: t 1/2~8.45 hrs, ke~0.082, CrCl >100 ml/min * Will adjust vancomycin dosing to 1500 mg iv q 10 hrs to achieve a slightly lower trough level - will begin new dosing regimen once estimated level closer to 15 mcg/ml * ID following patient - plan to likely change to oral abx in near future Pharmacy will continue to follow and will adjust dose/frequency as necessary. Thank you.
--- NOTE | 2019-02-01 10:39 | Infectious Disease Progress Nt ---
Date of Service February 01, 2019 Assessment & Plan (1) Osteomyelitis of foot, left, acute: 63-year-old male with severe peripheral arterial disease status post bypass with open wound left foot with osteomyelitis seen on CT scanning. Patient now status post debridement of TMA site. Feel the patient can be transitioned to oral antibiotics, and suggest combination of Bactrim and levofloxacin for 2 weeks. Subjective Patient seen in follow-up for left foot infection status post surgical debridement. Pain better controlled. Remains afebrile. No new complaints. Review of Systems Review of Systems: All systems reviewed & are unremarkable except as noted in HPI & below Physical Exam Constitutional: WD/WN, vitals as above + disheveled and comfortable; no acute distress Eyes: PERRL, conjunctivae normal, anicteric sclerae ENMT: external ear and nose normal, oropharynx normal Neck: trachea midline, no thyromegaly neck nontender Respiratory: normal respiratory effort, lungs clear to auscultation normal percussion; does not use accessory muscles Cardiovascular: Rate/Rhythm: regular rate and regular rhythm Heart Sounds: normal S1 and normal S2; no gallop, no murmur and no cardiac rub Vessels: normal peripheral pulses; no JVD Gastrointestinal (Abdomen): normal bowel sounds, soft, nontender, no hepatosplenomegaly Musculoskeletal: no cyanosis or clubbing, extremities motor strength 5/5 Spine: thoracic spine normal to inspection and lumbar spine normal to inspection; no cervical spinal tenderness Skin: no rashes, warm and dry + wound (Left foot wound clean and granulating); no rashes Neurologic: patellar DTR's 2+ bilat, sensation intact moves all extremities, awake and + confused Psychiatric: A+Ox3, euthymic affect Orientation: + not oriented x 3 Apperance: + disheveled Lymphatic: no cervical or axillary lymphadenopathy no inguinal lymphadenopathy Results & Data Vital Signs (Past 12 Hours) Vital Signs Temp Pulse Resp BP Pulse Ox 02/01/19 07:16 37.2 C 75 20 147/67 H 92 01/31/19 23:00 37.2 C 74 18 125/64 Laboratory Results Short CBC 02/01/19 Range/Units 07:24 WBC 9.40 (4.8-10.8) K/uL Hgb 9.8 L (14.0-18.0) g/dL Hct 29.5 L (42-52) % Plt Count 276 (130-400) K/uL BMP 02/01/19 07:24 Sodium 133 L Potassium 4.2 Chloride 99 Carbon Dioxide 28 BUN 12 Creatinine 0.55 L Glucose 101 H Calcium 7.9 L Diagnostic Findings Microbiology 01/22/19 19:55 Blood Blood Culture - Final No growth 01/22/19 19:45 Blood Blood Culture - Final No growth
[2019-02-01] MEDS: ENOXAPARIN INJ 40 MG/0.4 ML SYR SQ SCH (12:53)
[2019-02-01] MEDS ORDERED: VANCOMYCIN HCL 1,500 MG in SODIUM CHLORIDE 0.9% 500 ML IV SCH (14:00)
--- NOTE | 2019-02-01 18:10 | Discharge Summary ---
Date of Service February 01, 2019 Admission HPI Per Admitting Provider Patric Ortega is a 63yo C male with history of PVD. Patient had a femoral- posterior tibial bypass performed on 10/20 with subsequent left transmetatarsal amputation with application of wound vac. He completed a two week course of Levaquin and has been on Dalvance as well. Last week the patient was hallucinating - thought that he was becoming septic. It was recommended that he go to the ER, however, patient did not wish to go to the ER at that time. Patient's reports that the wound vac shut off at 02:30 this AM and there was bleeding under the dressing. Home nursing removed the wound vac and there was a considerable amount of bleeding and spurting reported. A pressure dressing was applied and the patient was sent to [place] ER. In the ER the patient had a LE doppler performed which redemonstrated the LLE DVT, noted on the study from 10/10/18 as well. He was transferred to [facility]. reports that patient has had change in mental status since November. She reports that he has not slept more than 20 minutes at a time and that his pain has not been well controlled at all. She states that he hallucinates at times and speaks to people that aren't in the room. Patient presently complaining of severe LLE pain, sharp, 10/10 coming in waves. He is unable to ambulate effectively secondary to pain. Principal Diagnosis osteomyelitis of the foot Discharge Exam gen - pleasant nad, heent nc at mmm. breathing unlabored no pallor or icterus. neuro shows cn 2-12 grossly intact gross motor/sensory intact Discharge Data Allergies Allergy/AdvReac Type Severity Reaction Status Date / Time Penicillins Allergy Severe Rash Verified 12/08/18 06:14 oxycodone AdvReac Severe Hallucinati Verified 12/08/18 06:14 ng lorazepam [From Ativan] AdvReac Intermediate Confusion Verified 01/28/19 15:18 Consultations 01/22/19 19:10 Consult Vascular Surgery Routine 01/23/19 11:22 Consult Pain Management Routine 01/23/19 15:19 Consult Infectious Diseases Routine Procedures Performed Operation Date: 01/26/19 11:00 Actual Procedures p Left Foot Transmetatarsal Amputation Debridement(Left) - Carlos Blunt MD Ordered Studies 01/22/19 19:38 US arterial duplex LE LT Urgent 01/23/19 MR foot LT w/o con Routine 01/23/19 13:03 CT lower leg LT wo con Routine Hospital Course (1) Pain in left foot: Patient with PVD, s/p fem-posterior tibial bypass, s/p TMA of left foot, wound vac in place. ?acute bleeding at wound vac noted prior to admission. Patient with severe pain, ?delirium. Ddx to include ischemic pain vs infection. Lactate and CK on admission were within reason -admitted to Tele -CT LLE consistent with osteomyelitis -Blood cultures were obtained 01/22 negative -Patient s/p 1 day of levaquin -CX'd ID -on IV abx transition to PO today as per ID recs - an additional 2wks -pain better controlled - continue current regimen for now, wean as possible (would probably keep gabapentin and amitryptilline longer than narcotics) (2) Leukocytosis: -improved. periodic f/u as outpt. (3) Delirium: improved. (4) PVD (peripheral vascular disease): post vascular surgery. continue BP control, antiplatelets, high dose statin (5) GERD (gastroesophageal reflux disease): Chronic. -Continue Protonix 40mg po daily (6) HTN (hypertension), benign: continue current meds, follow BP (7) DVT (deep venous thrombosis): -Non-occlusive LLE DVT seen on U/S done at [facility] on 10/10/2018 extending from the distal portion of femoral vein through distal portion of popliteal vein -Patient was previously restarted on Lovenox 40 mg daily per team's previous conversation with Dr. Blunt. Given that this DVT is several months old and asymptomatic, will continue patient on this prophylactic dose. -Continue to monitor vital signs for tachycardia, hypoxia and monitor patient for dyspnea and chest pain (8) Anemia: follow periodically (9) Depression: (10) Osteomyelitis of foot, left, acute: Total Time Total Time Spent Total Time Spent (In Minutes): <30 Discharge Plan Discharge Items Patient Disposition: Transfer Group Home Fac Reason For Visit: DVT W/BLEEDING FOOT WOUND (LEFT) Discharge Diagnosis: Left foot osteomyelitis requiring surgical incision and drainage and transmetatarsal amputation Discharge Goals: Decrease discomfort, Improve disease control, Improve function, Increase independence and Therapeutic intervention Activity: Resume your previous activity Activity Comment: As tolerated Non-emergency contact: Primary Care Provider Call non-emergency contact if: you have any medication questions, your symptoms worsen, your pain is worsening and your temperature is above 100.5 Follow-up/Referrals: Devonte Kemp [Primary Care Provider] - Diet: Heart Healthy Addtl Provider Instructions: Care instructions: You were admitted to [facility] for treatment of Left foot osteomyelitis requiring surgical incision and drainage and transmetatarsal amputation . A discharge summary will be sent to your primary care physician to ensure continuity of care.Please bring this discharge summary with you to your next office appointment so that your provider can review it at that time. LEFT FOOT CARE -Please complete a 2 week course of antibiotics consisting of bactrim and levofloxacin see med rec below -After discharge from your prior hospital you experienced severe pain and did not alert anybody to this. This caused you not to sleep to become severely agitated and delirious towards his family. Please ensure adequate analgesia, fentanyl can be weaned as tolerated. -Patient experiences PTSD type symptoms from cleaning and debridement of his wound, he is very stoic in nature and will not let onto the amount of pain he is in. However oftentimes would find him weeping for hours afterward and severe pain. -Please assist the patient in regaining his strength and with strategies to achieve ADLs. -Gabapentin 300 mgs 3 times daily Peripheral vascular disease -Crestor was increased to 40 mg please continue -Continue aspirin 81 mg and Plavix 75 mg HX of DVT -Prophylactic Lovenox while hospitalized -Continue prophylactic Lovenox 40 mg daily at rehab. Depression/PSYCH -Recommend referral to outpatient psych -Elavil 50 mg daily for sleep, antidepressant, and pain -Continue Home medications Follow-up appointments: - Keep all your follow-up appointments as already scheduled. If you cannot make an appointment, notify your provider. - Please call to request a follow-up appointment with your primary care physician within one week of discharge. Please let us know if you are unable to obtain an appointment Follow-up labs: - Please go to a lab nearest you and obtain the requested lab work. Please have this completed at least 3 hours before your doctors appointment (or the day before your appointment if possible). Medications: - Your medication list has been reviewed and reconciled upon discharge to ensure accuracy and continuity of care. - You are provided with a list of all your current medications at this time. Please review this list closely and make note of any changes. - Please take all of your medications exactly as prescribed. - Tell your primary care provider if you cannot afford your medications. - Call your primary care provider if you are having any side effects or any other problems. - Call your primary care provider before taking any over the counter medications or supplements, including herbals and vitamins, because some of these may interact with your current medications and/or make your symptoms worse. Symptoms: Please call your primary care provider for symptoms including, but not limited to: fevers (temperatures greater than 100.4), chills, intractable nausea or vomiting, diarrhea, rash, shortness of breath, bleeding, pain, or if you experience any worsening of the symptoms that brought you to the hospital. For EMERGENCY and VERY SERIOUS health-related issues, such as chest pain, shortness of breath, or sudden onset of the symptoms that brought you to the hospital, you may need to call 911 or go directly to the Emergency Room It has been our privilege to take care of you during your hospital stay. And Above All Else Fell Better! Best Wishes, Rex Harris MD PGY1 Resident, Family & Community Medicine [facility] Residency at [facility] - [address], [address] : [place] [address] Prescriptions: New lisinopril [Zestril] 40 mg Tablet 40 mg PO QAM 30 Days Qty: 30 RF: 0 labetalol 300 mg tablet 300 mg PO BID 30 Days Qty: 60 RF: 0 rosuvastatin 40 mg tablet 40 mg PO QAM 30 Days Qty: 30 RF: 0 tramadol 50 mg Tablet 50 mg PO Q4H PRN (Reason: pain) 30 Days Qty: 180 RF: 0 amitriptyline 50 mg Tablet 50 mg PO HS 30 Days Qty: 30 RF: 0 HySept 0.25 % Solution 1 applic EXT DAILY 30 Days Qty: 473 RF: 0 gabapentin 300 mg capsule 300 mg PO TID 30 Days Qty: 90 RF: 2 enoxaparin 40 mg/0.4 mL Syringe 40 mg subcut Q24H 30 Days Qty: 12 RF: 0 sulfamethoxazole-trimethoprim [Bactrim DS] 800-160 mg tablet 1 tab PO BID 14 Days Qty: 28 RF: 0 levofloxacin [Levaquin] 750 mg tablet 750 mg PO DAILY 14 Days Qty: 14 RF: 0 Continued aspirin [Aspirin Low Dose] 81 mg Tablet,Delayed Release (Dr/Ec) 81 mg PO QAM RF: 0 esomeprazole magnesium [Nexium] 20 mg Capsule,Delayed Release(Dr/Ec) 40 mg PO QAM RF: 0 multivitamin Tablet 1 tab PO DAILY RF: 0 sennosides [senna] 8.6 mg Tablet 8.6 mg PO BID PRN (Reason: Constipation) RF: 0 clopidogrel [Plavix] 75 mg Tablet 75 mg PO QAM RF: 0 ferrous sulfate 325 mg (65 mg iron) Tablet 325 mg PO BID RF: 0 lorazepam [Ativan] 1 mg Tablet 1 mg PO Q8H PRN (Reason: Anxiety) RF: 0 ibuprofen 600 mg Tablet 600 mg PO BID PRN (Reason: Pain) RF: 0 rosuvastatin 10 mg Tablet 10 mg PO QPM RF: 0 escitalopram oxalate [Lexapro] 10 mg Tablet 10 mg PO QAM RF: 0 fentanyl 25 mcg/hr Patch 72 Hour 1 patch TRANSDERMAL Q72H Qty: 10 RF: 0 Discontinued lisinopril [Zestril] 5 mg tablet 5 mg PO QAM RF: 0 labetalol 100 mg tablet 100 mg PO BID RF: 0 Stand-Alone Forms: [facility] Discharge Orders: Discharge Order (Routine); Ordered 02/01/19 Ordered By: Rex Harris Skilled Items Patient informed of condition?: Yes DNR: No Discharge Level of Care: Skilled Communicable Disease: No Discharge Prognosis: Stable Admission Data Admit Date/Time: 01/22/19 17:31 Attending Provider: Severo Alas Admit Provider: Ivon Harris Primary Care Provider: Devonte Kemp Other Providers: Kathy Chavez ; Hossein Lopez ; Carlos Blunt ; Bartolome Madden ; Hill Hubbard Service: Medical Other Interventions: Discharge Summary Assessment (RN) Last Done: 02/01/19 12:34 DC Date/Time DO NOT enter until pt leaves facility: 02/01/19 15:23
== END 2019-02-01 15:23 | DRG 240 ==
LOC: 2W 17:31 → SUATTDRO 17:31
DX: E87.1 Hypo-osmolality and hyponatremia; Z88.0 Allergy status to penicillin; D64.9 Anemia, unspecified; D72.829 Elevated white blood cell count, unspecified; Z79.82 Long term (current) use of aspirin; Z88.5 Allergy status to narcotic agent; K21.9 Gastro-esophageal reflux disease without esophagitis; E46 Unspecified protein-calorie malnutrition; I10 Essential (primary) hypertension; I73.9 Peripheral vascular disease, unspecified; I82.401 Acute embolism and thrombosis of unspecified deep veins of right lower extremity; Z87.891 Personal history of nicotine dependence; E88.09 Other disorders of plasma-protein metabolism, not elsewhere classified; R41.0 Disorientation, unspecified

== ENCOUNTER 2019-02-07 13:45 | Inpatient (IN) ==
--- NOTE | 2019-02-07 14:58 | Emergency Department Note ---
Entered by David Santoro acting as a scribe for Austin Conway MD History of Present Illness General Chief complaint: Confusion Time Seen by Provider: 02/07/19 14:10 Source: family () History of Present Illness Onset (ago): month(s) (past few) Location: head (global) Pain Consistency: + other (progressively worsening) Quality: + other (altered mental status) Exacerbated By: + other (femoral-tibial bypass, metatarsal amputation complicated by osteomyelitis) Associated symptoms: + other (agitation, mumbling, sleep deprivation) The patient is a 63 year old male who presents to the Emergency Room with progressively worsening altered mental status. The reports that the patient has had multiple surgeries and medical issues over the past few months, including femoral-tibial bypass in October and left metatarsal amputation in November complicated by osteomyelitis. She states that the patient was admitted here from January 22 to February 01, and then he was taken to [facility]. She reports that he was seen by outpatient Neurology yesterday, and it was suggested that he had toxic metabolic encephalopathy. An outpatient CT was ordered but has not yet been taken. The states that she was called this morning with instructions to report to the ER. She reports that the patients mental status has been progressively declining since November, including agitation, mumbling/rambling, hallucinations, sleep deprivation, and a lack of purposeful movement. She states that this morning the patient did not know her name, which has not occurred over the past few months. She reports that the patient used to drink two cases of beer per week, but he has not had alcohol since October. The thinks that the patients left leg currently appears relatively well. She states that he has also been eating well. The states that she has raised the concerns for his mental status numerous times, stating "no one is helping him, they all say it's an infection." Home Medications Home Medications Medication Instructions Recorded Confirmed Type aspirin [Aspirin Low Dose] 81 mg PO QAM 10/17/18 02/07/19 History enoxaparin 40 mg SUBCUT Q24H 30 Days #12 ml 02/01/19 02/07/19 Rx acetaminophen [Tylenol] 650 mg PO Q4 PRN 02/07/19 02/07/19 History atorvastatin 80 mg PO DAILY 02/07/19 02/07/19 History bisacodyl 10 mg [place] DAILY PRN 02/07/19 02/07/19 History clopidogrel [Plavix] 75 mg PO DAILY 02/07/19 02/07/19 History docusate sodium 100 mg PO BID 02/07/19 02/07/19 History fentanyl 1 patch TRANSDERMAL Q72H 02/07/19 02/07/19 History ferrous sulfate 325 mg PO BID 02/07/19 02/07/19 History gabapentin 300 mg PO Q12 02/07/19 02/07/19 History labetalol 300 mg PO Q12 02/07/19 02/07/19 History levofloxacin [Levaquin] 750 mg PO DAILY 02/07/19 02/07/19 History lisinopril 40 mg PO DAILY 02/07/19 02/07/19 History lorazepam 1 mg PO Q8 PRN 02/07/19 02/07/19 History magnesium hydroxide [Milk of 30 ml PO DAILY PRN 02/07/19 02/07/19 History Magnesia] multivitamin 1 tab PO DAILY 02/07/19 02/07/19 History pantoprazole 40 mg PO DAILY 02/07/19 02/07/19 History polyethylene glycol 3350 [Miralax] 17 g PO DAILYBL 02/07/19 02/07/19 History sennosides-docusate sodium 1 tab PO DAILYBL PRN 02/07/19 02/07/19 History [Senokot-S] sodium hypochlorite 1 applic TOPICAL DAILY 02/07/19 02/07/19 History sulfamethoxazole-trimethoprim 1 tab PO Q12 02/07/19 02/07/19 History [Bactrim DS] thiamine HCl (vitamin B1) 100 mg PO DAILY 02/07/19 02/07/19 History tramadol [Ultram] 50 mg PO Q4 PRN 02/07/19 02/07/19 History tramadol [Ultram] 100 mg PO DAILY PRN 02/07/19 02/07/19 History Allergies Allergy/AdvReac Type Severity Reaction Status Date / Time Penicillins Allergy Severe Rash Verified 02/07/19 15:14 oxycodone AdvReac Severe Hallucinati Verified 02/07/19 15:14 ng lorazepam [From Ativan] AdvReac Intermediate Confusion Verified 02/07/19 15:14 hydromorphone AdvReac Unknown Unknown Verified 02/07/19 20:23 Past Med/Surg History Medical History Osteoarthritis GERD (gastroesophageal reflux disease) Hand trauma AGE 17, MISSING PART OF LEFT HAND Ischemic ulcer of foot Popliteal aneurysm DVT (deep venous thrombosis) POPLITEAL VEIN HTN (hypertension), benign Prediabetes Elevated LFTs PVD (peripheral vascular disease) S/P femoral posterior tibial bypass with L embolization popliteal artery 10/20/18. On Eliquis. History of tobacco use STOPPED 10/05/18 Anxiety Pt specifically reports fear of doctors/hospitals GERD (gastroesophageal reflux disease) Osteoarthritis Hyponatremia (131) Stable at discharge from [facility] 11/02. 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 Will need to follow-up with tariff inspector, will continue NaCl 1 g po BID, 2 L / day oral fluid restriction." per discharge summary 11/02. Anemia Surgical History S/P popliteal-tibial bypass 10/18/[address] Blunt at [facility]. MAC 3, ETT 8.0. Grade view I. "Smooth IV induction, atraumatic ET intubation" History of arthroscopy RIGHT KNEE CARTILAGE REPAIR H/O hand surgery FROM LEFT HAND TRAUMA AND PART OF HAND WAS CUT OFF. History of amputation ALL TOES AMPUTATED FROM LEFT FOOT Social History Preferred Language: Bahraini Communication Ability: Impaired Visual Impairment: Limited [employer] Police Required: No Beliefs That Will Affect Care: None marital status: Current Living Situation: Rehab Current Living Situation Comment: Per reports has been at [facility] Other Information That Helps Us Care for You: No Feels Safe at Home: Yes Smoking Status: Former smoker Tobacco Type: cigarettes Do You Dip or Chew Tobacco: No Second Hand Exposure: No Hx Alcohol Use: No (Former drinker. None since October 2018 per reports.) Review of Systems See HPI for pertinent positives & negatives. and A total of 10 systems reviewed and were otherwise negative Physical Exam Vital Signs Vital Signs - 24 hr 02/07/19 13:45 02/07/19 13:49 02/07/19 14:00 Temperature Temperature Source Sepsis Recent Fever Within 48 Hours Sepsis New/Unexplained Change in Mental Status Sepsis Action Taken by Nursing Pulse Rate 77 86 78 Pulse Rate [Right Ear Lobe] Pulse Rate from SpO2 Sensor 78 82 81 Pulse Rhythm [Right Ear Lobe] Pulse Strength [Right Ear Lobe] Respiratory Rate 23 28 H 24 Respiratory Effort / Characteristics Respiratory Depth Respiratory Pattern Blood Pressure 113/69 Blood Pressure [Left Arm] Blood Pressure Mean 83 Blood Pressure Mean [Left Arm] Blood Pressure Position [Left Arm] Pulse Oximetry 92 91 90 Pulse Oximetry [Forehead] Oxygen Delivery Method Oxygen Delivery Method [Forehead] Oxygen Flow Rate Oxygen Flow Rate [Forehead] 02/07/19 14:04 02/07/19 14:15 02/07/19 14:30 Temperature 37.1 C Temperature Source Oral Sepsis Recent Fever Within 48 Hours No Sepsis New/Unexplained Change in Mental Status No Sepsis Action Taken by Nursing No Action Required Pulse Rate 93 H 113 H 104 H Pulse Rate [Right Ear Lobe] Pulse Rate from SpO2 Sensor 103 H 101 H Pulse Rhythm [Right Ear Lobe] Pulse Strength [Right Ear Lobe] Respiratory Rate 20 26 H 19 Respiratory Effort / Characteristics Non-Labored Spontaneous Respiratory Depth Normal Respiratory Pattern Blood Pressure 113/69 Blood Pressure [Left Arm] Blood Pressure Mean 83 Blood Pressure Mean [Left Arm] Blood Pressure Position [Left Arm] Pulse Oximetry 93 89 L 78 L Pulse Oximetry [Forehead] Oxygen Delivery Method Room Air Oxygen Delivery Method [Forehead] Oxygen Flow Rate Oxygen Flow Rate [Forehead] 02/07/19 14:45 02/07/19 15:00 02/07/19 15:15 Temperature Temperature Source Sepsis Recent Fever Within 48 Hours Sepsis New/Unexplained Change in Mental Status Sepsis Action Taken by Nursing Pulse Rate 103 H 104 H Pulse Rate [Right Ear Lobe] Pulse Rate from SpO2 Sensor 105 H 103 H 95 H Pulse Rhythm [Right Ear Lobe] Pulse Strength [Right Ear Lobe] Respiratory Rate 29 H 23 26 H Respiratory Effort / Characteristics Respiratory Depth Respiratory Pattern Blood Pressure Blood Pressure [Left Arm] Blood Pressure Mean Blood Pressure Mean [Left Arm] Blood Pressure Position [Left Arm] Pulse Oximetry 88 L 85 L 59 L Pulse Oximetry [Forehead] Oxygen Delivery Method Room Air Oxygen Delivery Method [Forehead] Oxygen Flow Rate Oxygen Flow Rate [Forehead] 02/07/19 15:18 02/07/19 15:21 02/07/19 15:22 Temperature Temperature Source Sepsis Recent Fever Within 48 Hours Sepsis New/Unexplained Change in Mental Status Sepsis Action Taken by Nursing Pulse Rate 123 H 105 H 102 H Pulse Rate [Right Ear Lobe] Pulse Rate from SpO2 Sensor 106 H 103 H Pulse Rhythm [Right Ear Lobe] Pulse Strength [Right Ear Lobe] Respiratory Rate 20 19 24 Respiratory Effort / Characteristics Respiratory Depth Respiratory Pattern Blood Pressure 75/59 L 97/68 L Blood Pressure [Left Arm] Blood Pressure Mean 64 77 Blood Pressure Mean [Left Arm] Blood Pressure Position [Left Arm] Pulse Oximetry 96 94 Pulse Oximetry [Forehead] Oxygen Delivery Method Oxygen Delivery Method [Forehead] Oxygen Flow Rate Oxygen Flow Rate [Forehead] 02/07/19 15:30 02/07/19 15:32 02/07/19 15:45 Temperature Temperature Source Sepsis Recent Fever Within 48 Hours Sepsis New/Unexplained Change in Mental Status Sepsis Action Taken by Nursing Pulse Rate 100 H 101 H 100 H Pulse Rate [Right Ear Lobe] Pulse Rate from SpO2 Sensor 103 H 100 H 99 H Pulse Rhythm [Right Ear Lobe] Pulse Strength [Right Ear Lobe] Respiratory Rate 25 H 16 19 Respiratory Effort / Characteristics Respiratory Depth Respiratory Pattern Blood Pressure 105/58 L Blood Pressure [Left Arm] Blood Pressure Mean 73 Blood Pressure Mean [Left Arm] Blood Pressure Position [Left Arm] Pulse Oximetry 95 93 94 Pulse Oximetry [Forehead] Oxygen Delivery Method Oxygen Delivery Method [Forehead] Oxygen Flow Rate Oxygen Flow Rate [Forehead] 02/07/19 15:46 02/07/19 16:00 02/07/19 16:15 Temperature Temperature Source Sepsis Recent Fever Within 48 Hours Sepsis New/Unexplained Change in Mental Status Sepsis Action Taken by Nursing Pulse Rate 101 H 101 H Pulse Rate [Right Ear Lobe] Pulse Rate from SpO2 Sensor 100 H 101 H 102 H Pulse Rhythm [Right Ear Lobe] Pulse Strength [Right Ear Lobe] Respiratory Rate 21 14 18 Respiratory Effort / Characteristics Respiratory Depth Respiratory Pattern Blood Pressure 93/60 L Blood Pressure [Left Arm] Blood Pressure Mean 71 Blood Pressure Mean [Left Arm] Blood Pressure Position [Left Arm] Pulse Oximetry 93 95 92 Pulse Oximetry [Forehead] Oxygen Delivery Method Oxygen Delivery Method [Forehead] Oxygen Flow Rate Oxygen Flow Rate [Forehead] 02/07/19 16:16 02/07/19 16:30 02/07/19 16:31 Temperature Temperature Source Sepsis Recent Fever Within 48 Hours Sepsis New/Unexplained Change in Mental Status Sepsis Action Taken by Nursing Pulse Rate Pulse Rate [Right Ear Lobe] Pulse Rate from SpO2 Sensor 101 H 101 H 101 H Pulse Rhythm [Right Ear Lobe] Pulse Strength [Right Ear Lobe] Respiratory Rate 17 20 16 Respiratory Effort / Characteristics Respiratory Depth Respiratory Pattern Blood Pressure 110/67 76/69 L Blood Pressure [Left Arm] Blood Pressure Mean 81 71 Blood Pressure Mean [Left Arm] Blood Pressure Position [Left Arm] Pulse Oximetry 91 93 91 Pulse Oximetry [Forehead] Oxygen Delivery Method Oxygen Delivery Method [Forehead] Oxygen Flow Rate Oxygen Flow Rate [Forehead] 02/07/19 16:32 02/07/19 16:45 02/07/19 16:46 Temperature Temperature Source Sepsis Recent Fever Within 48 Hours Sepsis New/Unexplained Change in Mental Status Sepsis Action Taken by Nursing Pulse Rate Pulse Rate [Right Ear Lobe] Pulse Rate from SpO2 Sensor 102 H 110 H 106 H Pulse Rhythm [Right Ear Lobe] Pulse Strength [Right Ear Lobe] Respiratory Rate 26 H 17 34 H Respiratory Effort / Characteristics Respiratory Depth Respiratory Pattern Blood Pressure 98/65 L 96/75 L Blood Pressure [Left Arm] Blood Pressure Mean 76 82 Blood Pressure Mean [Left Arm] Blood Pressure Position [Left Arm] Pulse Oximetry 92 85 L 86 L Pulse Oximetry [Forehead] Oxygen Delivery Method Oxygen Delivery Method [Forehead] Oxygen Flow Rate Oxygen Flow Rate [Forehead] 02/07/19 17:00 02/07/19 17:01 02/07/19 17:15 Temperature Temperature Source Sepsis Recent Fever Within 48 Hours Sepsis New/Unexplained Change in Mental Status Sepsis Action Taken by Nursing Pulse Rate 102 H 101 H 99 H Pulse Rate [Right Ear Lobe] Pulse Rate from SpO2 Sensor 100 H Pulse Rhythm [Right Ear Lobe] Pulse Strength [Right Ear Lobe] Respiratory Rate 23 23 22 Respiratory Effort / Characteristics Respiratory Depth Respiratory Pattern Blood Pressure 75/71 L Blood Pressure [Left Arm] Blood Pressure Mean 72 Blood Pressure Mean [Left Arm] Blood Pressure Position [Left Arm] Pulse Oximetry 92 Pulse Oximetry [Forehead] Oxygen Delivery Method Oxygen Delivery Method [Forehead] Oxygen Flow Rate Oxygen Flow Rate [Forehead] 02/07/19 17:16 02/07/19 17:59 02/07/19 18:00 Temperature Temperature Source Sepsis Recent Fever Within 48 Hours Sepsis New/Unexplained Change in Mental Status Sepsis Action Taken by Nursing Pulse Rate 98 H 83 83 Pulse Rate [Right Ear Lobe] Pulse Rate from SpO2 Sensor 99 H 84 83 Pulse Rhythm [Right Ear Lobe] Pulse Strength [Right Ear Lobe] Respiratory Rate 21 21 26 H Respiratory Effort / Characteristics Respiratory Depth Respiratory Pattern Blood Pressure 99/77 L Blood Pressure [Left Arm] Blood Pressure Mean 84 Blood Pressure Mean [Left Arm] Blood Pressure Position [Left Arm] Pulse Oximetry 89 L 92 94 Pulse Oximetry [Forehead] Oxygen Delivery Method Oxygen Delivery Method [Forehead] Oxygen Flow Rate Oxygen Flow Rate [Forehead] 02/07/19 18:15 02/07/19 18:30 02/07/19 18:32 Temperature Temperature Source Sepsis Recent Fever Within 48 Hours Sepsis New/Unexplained Change in Mental Status Sepsis Action Taken by Nursing Pulse Rate 83 85 86 Pulse Rate [Right Ear Lobe] Pulse Rate from SpO2 Sensor 84 84 86 Pulse Rhythm [Right Ear Lobe] Pulse Strength [Right Ear Lobe] Respiratory Rate 21 23 19 Respiratory Effort / Characteristics Respiratory Depth Respiratory Pattern Blood Pressure 136/78 Blood Pressure [Left Arm] Blood Pressure Mean 97 Blood Pressure Mean [Left Arm] Blood Pressure Position [Left Arm] Pulse Oximetry 92 89 L 91 Pulse Oximetry [Forehead] Oxygen Delivery Method Oxygen Delivery Method [Forehead] Oxygen Flow Rate Oxygen Flow Rate [Forehead] 02/07/19 18:45 02/07/19 18:50 02/07/19 19:00 Temperature Temperature Source Sepsis Recent Fever Within 48 Hours Sepsis New/Unexplained Change in Mental Status Sepsis Action Taken by Nursing Pulse Rate 85 83 85 Pulse Rate [Right Ear Lobe] Pulse Rate from SpO2 Sensor 84 84 86 Pulse Rhythm [Right Ear Lobe] Pulse Strength [Right Ear Lobe] Respiratory Rate 27 H 31 H 25 H Respiratory Effort / Characteristics Respiratory Depth Respiratory Pattern Blood Pressure 130/76 Blood Pressure [Left Arm] Blood Pressure Mean 94 Blood Pressure Mean [Left Arm] Blood Pressure Position [Left Arm] Pulse Oximetry 89 L 90 89 L Pulse Oximetry [Forehead] Oxygen Delivery Method Oxygen Delivery Method [Forehead] Oxygen Flow Rate Oxygen Flow Rate [Forehead] 02/07/19 19:15 02/07/19 19:30 02/07/19 19:45 Temperature Temperature Source Sepsis Recent Fever Within 48 Hours Sepsis New/Unexplained Change in Mental Status Sepsis Action Taken by Nursing Pulse Rate 84 80 81 Pulse Rate [Right Ear Lobe] 83 Pulse Rate from SpO2 Sensor 84 80 81 Pulse Rhythm [Right Ear Lobe] Pulse Strength [Right Ear Lobe] Respiratory Rate 20 17 20 Respiratory Effort / Characteristics Non-Labored Respiratory Depth Normal Respiratory Pattern Regular Blood Pressure 108/58 L 115/56 L Blood Pressure [Left Arm] 108/58 L Blood Pressure Mean 74 75 Blood Pressure Mean [Left Arm] 74 Blood Pressure Position [Left Arm] Lying Pulse Oximetry 91 78 L 91 Pulse Oximetry [Forehead] Oxygen Delivery Method Room Air Oxygen Delivery Method [Forehead] Oxygen Flow Rate Oxygen Flow Rate [Forehead] 02/07/19 20:00 02/07/19 20:15 02/07/19 20:30 Temperature Temperature Source Sepsis Recent Fever Within 48 Hours Sepsis New/Unexplained Change in Mental Status Sepsis Action Taken by Nursing Pulse Rate 81 81 81 Pulse Rate [Right Ear Lobe] Pulse Rate from SpO2 Sensor 81 81 81 Pulse Rhythm [Right Ear Lobe] Pulse Strength [Right Ear Lobe] Respiratory Rate 21 15 18 Respiratory Effort / Characteristics Respiratory Depth Respiratory Pattern Blood Pressure 114/58 L 118/62 122/65 Blood Pressure [Left Arm] Blood Pressure Mean 76 80 84 Blood Pressure Mean [Left Arm] Blood Pressure Position [Left Arm] Pulse Oximetry 92 93 90 Pulse Oximetry [Forehead] Oxygen Delivery Method Oxygen Delivery Method [Forehead] Oxygen Flow Rate Oxygen Flow Rate [Forehead] 02/07/19 20:45 02/07/19 21:00 02/07/19 21:15 Temperature Temperature Source Sepsis Recent Fever Within 48 Hours Sepsis New/Unexplained Change in Mental Status Sepsis Action Taken by Nursing Pulse Rate 79 81 81 Pulse Rate [Right Ear Lobe] Pulse Rate from SpO2 Sensor 80 81 81 Pulse Rhythm [Right Ear Lobe] Pulse Strength [Right Ear Lobe] Respiratory Rate 15 12 16 Respiratory Effort / Characteristics Respiratory Depth Respiratory Pattern Blood Pressure 119/62 99/58 L 90/50 L Blood Pressure [Left Arm] Blood Pressure Mean 81 71 63 Blood Pressure Mean [Left Arm] Blood Pressure Position [Left Arm] Pulse Oximetry 92 94 94 Pulse Oximetry [Forehead] Oxygen Delivery Method Oxygen Delivery Method [Forehead] Oxygen Flow Rate Oxygen Flow Rate [Forehead] 02/07/19 21:30 02/07/19 21:45 02/07/19 22:10 Temperature Temperature Source Sepsis Recent Fever Within 48 Hours Sepsis New/Unexplained Change in Mental Status Sepsis Action Taken by Nursing Pulse Rate 81 80 Pulse Rate [Right Ear Lobe] Pulse Rate from SpO2 Sensor 81 80 Pulse Rhythm [Right Ear Lobe] Pulse Strength [Right Ear Lobe] Respiratory Rate 14 14 Respiratory Effort / Characteristics Respiratory Depth Respiratory Pattern Blood Pressure 98/49 L 99/52 L Blood Pressure [Left Arm] Blood Pressure Mean 65 67 Blood Pressure Mean [Left Arm] Blood Pressure Position [Left Arm] Pulse Oximetry 92 93 Pulse Oximetry [Forehead] Oxygen Delivery Method Room Air Oxygen Delivery Method [Forehead] Oxygen Flow Rate Oxygen Flow Rate [Forehead] 02/07/19 22:16 02/07/19 23:10 02/07/19 23:16 Temperature 36.6 C 37.2 C Temperature Source Oral Oral Sepsis Recent Fever Within 48 Hours Sepsis New/Unexplained Change in Mental Status Sepsis Action Taken by Nursing Pulse Rate Pulse Rate [Right Ear Lobe] 84 81 Pulse Rate from SpO2 Sensor Pulse Rhythm [Right Ear Lobe] Regular Pulse Strength [Right Ear Lobe] Normal Respiratory Rate 28 H 22 Respiratory Effort / Characteristics Non-Labored Spontaneous Respiratory Depth Normal Respiratory Pattern Regular Blood Pressure Blood Pressure [Left Arm] 102/61 99/52 L Blood Pressure Mean Blood Pressure Mean [Left Arm] 74 67 Blood Pressure Position [Left Arm] Lying Pulse Oximetry 99 94 Pulse Oximetry [Forehead] 95 Oxygen Delivery Method Nasal Cannula Nasal Cannula Oxygen Delivery Method [Forehead] Nasal Cannula Oxygen Flow Rate 2 Oxygen Flow Rate [Forehead] 2 02/08/19 00:00 02/08/19 01:42 Temperature Temperature Source Sepsis Recent Fever Within 48 Hours Sepsis New/Unexplained Change in Mental Status Sepsis Action Taken by Nursing Pulse Rate 78 Pulse Rate [Right Ear Lobe] Pulse Rate from SpO2 Sensor Pulse Rhythm [Right Ear Lobe] Pulse Strength [Right Ear Lobe] Respiratory Rate Respiratory Effort / Characteristics Non-Labored Spontaneous Respiratory Depth Normal Respiratory Pattern Regular Blood Pressure Blood Pressure [Left Arm] Blood Pressure Mean Blood Pressure Mean [Left Arm] Blood Pressure Position [Left Arm] Pulse Oximetry Pulse Oximetry [Forehead] Oxygen Delivery Method Nasal Cannula Oxygen Delivery Method [Forehead] Oxygen Flow Rate 2 Oxygen Flow Rate [Forehead] GENERAL: Encephalopathic, chronically ill-appearing. HENT: Normocephalic, atraumatic. Mucous membranes dry. EYES: Normal conjunctiva. Sclera non-icteric. NECK: Supple. No nuchal rigidity. FROM. No JVD. RESPIRATORY: Clear to auscultation bilaterally. CARDIAC: Regular rate, normal rhythm. Extremities warm and well perfused. Pulses equal. ABDOMEN: Ecchymosis of the lower abdominal subcutaneous tissues, no gross hematoma. Soft, non-distended. No tenderness to palpation. No rebound or guarding. No masses. RECTAL: Deferred. MUSCULOSKELETAL: Chest examination reveals no tenderness. The back is symmetrical on inspection without obvious abnormality. There is no CVA tenderness to palpation. No joint edema. LOWER EXTREMITIES: Left metatarsal amputation with 1+ edema. No erythema, discharge, or foul odor. Calves are equal size bilaterally and non-tender. NEURO: Follows simple commands such as closing eyes. Moving all four extremities equally but with choreic movements. SKIN: Warm, dry. No jaundice noted. Course 1415: The patient was evaluated in room A10. A complete history and physical examination were performed. 1709: I updated the patients on current results. 1828: I consulted Dr. Freeman [facility] Hospitalist. He was updated on the patients case and negative CT results. The patient will be evaluated for hospitalization. Administered Medications Docusate Sodium (Colace) 100 mg PO BID JUDAH Stop: 03/09/19 22:15 Last Admin: 02/08/19 00:40 Dose: Not Given Documented by: [id number] Enoxaparin Sodium (Lovenox) 40 mg SQ HS JUDAH Stop: 03/09/19 22:44 Last Admin: 02/08/19 00:53 Dose: 40 mg Documented by: [id number] Sodium Chloride (Nss 1000ml) 1,000 mls @ 100 mls/hr IV .Q10H JUDAH Stop: 02/08/19 18:15 Last Admin: 02/08/19 00:39 Dose: 100 mls/hr Documented by: [id number] Labetalol HCl (Normodyne) 300 mg PO Q12 JUDAH Stop: 03/09/19 22:15 Last Admin: 02/08/19 00:40 Dose: Not Given Documented by: [id number] Miscellaneous (Fentanyl Patch Check Placement) 1 ea N/A QS JUDAH Stop: 03/10/19 00:00 Last Admin: 02/08/19 00:41 Dose: Not Given Documented by: [id number] Discontinued Medications Haloperidol Lactate (Haldol) 2 mg IV NOW STA Stop: 02/07/19 15:22 Last Admin: 02/07/19 15:25 Dose: 2 mg Documented by: [id number] Haloperidol Lactate (Haldol) 2 mg IV NOW STA Stop: 02/07/19 16:23 Last Admin: 02/07/19 18:26 Dose: Not Given Documented by: [id number] Haloperidol Lactate (Haldol) 4 mg IV NOW STA Stop: 02/07/19 17:19 Last Admin: 02/07/19 19:02 Dose: Not Given Documented by: [id number] Hydromorphone HCl (Dilaudid) 0.5 mg IV NOW STA Stop: 02/07/19 19:05 Last Admin: 02/07/19 19:08 Dose: 0.5 mg Documented by: [id number] Sodium Chloride (Nss) 500 mls @ 999 mls/hr IV .Q31M ONE Stop: 02/07/19 16:53 Last Infusion: 02/07/19 19:03 Dose: 0 mls/hr Documented by: [id number] Admin: 02/07/19 17:00 Dose: 999 mls/hr Documented by: [id number] Cefepime HCl 2,000 mg/ Syringe 20 mls @ 5 mls/min IV NOW STA Stop: 02/07/19 17:24 Last Admin: 02/07/19 18:05 Dose: 5 mls/min Documented by: [id number] Vancomycin HCl 2,000 mg/ (Sodium Chloride) 540 mls @ 200 mls/hr IV NOW STA Stop: 02/07/19 20:03 Last Infusion: 02/07/19 21:28 Dose: 0 mls/hr Documented by: [id number] Admin: 02/07/19 18:06 Dose: 200 mls/hr Documented by: [id number] Metronidazole (Flagyl) 500 mg in 100 mls @ 100 mls/hr IV NOW STA Stop: 02/07/19 18:21 Last Infusion: 02/07/19 19:31 Dose: 0 mls/hr Documented by: [id number] Admin: 02/07/19 18:15 Dose: 100 mls/hr Documented by: [id number] Sodium Chloride (Nss) 500 mls @ 125 mls/hr IV .Q4H JUDAH Stop: 03/09/19 18:29 Last Admin: 02/07/19 19:02 Dose: 125 mls/hr Documented by: [id number] Midazolam HCl (Versed) 2 mg IV NOW STA Stop: 02/07/19 18:10 Last Admin: 02/07/19 18:26 Dose: Not Given Documented by: [id number] Midazolam HCl (Versed) Confirm Administered Dose 2 mg .ROUTE .STK-MED ONE Stop: 02/07/19 18:22 Last Admin: 02/07/19 18:25 Dose: 2 mg Documented by: [id number] Medical Decision Making Differential Diagnosis Differential diagnosis includes: metabolic, infection, hypo/hyperglycemia, electrolyte abnormalities, cardiac sources, intracerebral event, toxicologic, neurologic, as well as others were entertained. Medical Records Attestation: I reviewed the patient's medical records. Home Medications Current Medication List: was personally reviewed by sd Laboratory Data Attestation: I reviewed the patient's lab results. Result diagrams: 02/07/19 15:08 02/07/19 15: Lab Results 02/07/19 02/07/19 02/07/19 Range/Units 15:08 15:08 15:08 WBC 12.71 H (4.8-10.8) K/uL RBC 3.55 L (4.7-6.1) M/uL Hgb 10.6 L (14.0-18.0) g/dL Hct 30.0 L (42-52) % MCV 84.5 (80-100) fL MCH 29.9 (25-34) pg MCHC 35.3 (32-36) g/dL RDW Std Deviation 45.7 (36.4-46.3) fL RDW Coeff of Argelia 14.6 H (11.5-14.5) % Plt Count 373 (130-400) K/uL MPV 7.6 (7.4-10.4) fL Immature Gran % (Auto) 0.2 % Neut % (Auto) 79.6 % Lymph % (Auto) 11.6 % [place] % (Auto) 8.3 % Eos % (Auto) 0.1 % Baso % (Auto) 0.2 % Immature Gran # (Auto) 0.03 H (0.00-0.02) K/uL Neut # (Auto) 10.13 H (1.4-6.5) K/uL Lymph # (Auto) 1.47 (1.2-3.4) K/uL [place] # (Auto) 1.05 H (0.11-0.59) K/uL Eos # (Auto) 0.01 (0-0.5) K/uL Baso # (Auto) 0.02 (0-0.2) K/uL ESR (0-14) mm/hr PT 12.6 H (9.0-12.0) Seconds INR 1.2 H (0.9-1.1) APTT 27.6 (21.0-31.0) Seconds PTT Ratio 1.0 VBG pH (7.36-7.41) VBG pCO2 (38-50) mmHg VBG pO2 mmHg VBG HCO3 mmol/L VBG O2 Saturation % VBG Base Excess mEq/L Barometric Pressure mm/Hg Sodium 134 L (136-145) mmol/L Potassium 5.4 H (3.5-5.1) mmol/L Chloride 103 (98-107) mmol/L Carbon Dioxide 25 (21-32) mmol/L Anion Gap 6.0 (3-11) BUN 41 H (7-18) mg/dl Creatinine 1.92 H (0.6-1.4) mg/dl Est Cr Clr Drug Dosing 43.2 ml/min Est GFR ( Amer) 41.4 Est GFR (Non-Af Amer) 35.7 BUN/Creatinine Ratio 21.2 H (10-20) Glucose 91 (70-99) mg/dl Lactate (0.4-2.0) mmol/L Calcium 8.9 (8.5-10.1) mg/dl Phosphorus 4.7 (2.5-4.9) mg/dl Magnesium 2.3 (1.8-2.4) mg/dl Total Bilirubin 0.4 (0.2-1) mg/dl Direct Bilirubin 0.1 (0-0.2) mg/dl AST 63 H (15-37) U/L ALT 45 (12-78) U/L Alkaline Phosphatase 159 H (45-117) U/L Ammonia (11-32) umol/L Total Creatine Kinase 413 H (39-308) U/L Troponin I (0-0.045) ng/ml C-Reactive Protein 4.28 H (0-0.29) mg/dl Total Protein 7.3 (6.4-8.2) gm/dl Albumin 2.7 L (3.4-5.0) gm/dl Globulin 4.6 H (2.5-4.0) gm/dl Albumin/Globulin Ratio 0.6 L (0.9-2) Folate (>5.38) ng/ml Procalcitonin (0-0.5) ng/ml TSH 1.440 (0.300-4.500) uIu/ml Urine Color Urine Appearance (Clear) Urine pH (4.5-7.5) Ur Specific [place] (1.000-1.030) Urine Protein (Negative) Urine Glucose (UA) (Negative) Urine Ketones (Negative) Urine Blood (Negative) Urine Nitrite (Negative) Urine Bilirubin (Negative) Urine Urobilinogen (Negative) Ur Leukocyte Esterase (Negative) Urine WBC (Auto) (0-5) /hpf Urine RBC (Auto) (0-4) /hpf U Hyaline Cast (Auto) (0-5) /lpf U Epithel Cells (Auto) (0-5) /lpf Urine Bacteria (Auto) (Negative) Granular Casts (0) /lpf Nasal Screen MRSA (PCR) (Negative) 02/07/19 02/07/19 02/07/19 Range/Units 15:08 15:08 15:08 WBC (4.8-10.8) K/uL RBC (4.7-6.1) M/uL Hgb (14.0-18.0) g/dL Hct (42-52) % MCV (80-100) fL MCH (25-34) pg MCHC (32-36) g/dL RDW Std Deviation (36.4-46.3) fL RDW Coeff of Argelia (11.5-14.5) % Plt Count (130-400) K/uL MPV (7.4-10.4) fL Immature Gran % (Auto) % Neut % (Auto) % Lymph % (Auto) % [place] % (Auto) % Eos % (Auto) % Baso % (Auto) % Immature Gran # (Auto) (0.00-0.02) K/uL Neut # (Auto) (1.4-6.5) K/uL Lymph # (Auto) (1.2-3.4) K/uL [place] # (Auto) (0.11-0.59) K/uL Eos # (Auto) (0-0.5) K/uL Baso # (Auto) (0-0.2) K/uL ESR (0-14) mm/hr PT (9.0-12.0) Seconds INR (0.9-1.1) APTT (21.0-31.0) Seconds PTT Ratio VBG pH (7.36-7.41) VBG pCO2 (38-50) mmHg VBG pO2 mmHg VBG HCO3 mmol/L VBG O2 Saturation % VBG Base Excess mEq/L Barometric Pressure mm/Hg Sodium (136-145) mmol/L Potassium (3.5-5.1) mmol/L Chloride (98-107) mmol/L Carbon Dioxide (21-32) mmol/L Anion Gap (3-11) BUN (7-18) mg/dl Creatinine (0.6-1.4) mg/dl Est Cr Clr Drug Dosing ml/min Est GFR ( Amer) Est GFR (Non-Af Amer) BUN/Creatinine Ratio (10-20) Glucose (70-99) mg/dl Lactate 2.5 H* (0.4-2.0) mmol/L Calcium (8.5-10.1) mg/dl Phosphorus (2.5-4.9) mg/dl Magnesium (1.8-2.4) mg/dl Total Bilirubin (0.2-1) mg/dl Direct Bilirubin (0-0.2) mg/dl AST (15-37) U/L ALT (12-78) U/L Alkaline Phosphatase (45-117) U/L Ammonia 23.8 (11-32) umol/L Total Creatine Kinase (39-308) U/L Troponin I (0-0.045) ng/ml C-Reactive Protein (0-0.29) mg/dl Total Protein (6.4-8.2) gm/dl Albumin (3.4-5.0) gm/dl Globulin (2.5-4.0) gm/dl Albumin/Globulin Ratio (0.9-2) Folate (>5.38) ng/ml Procalcitonin 0.10 (0-0.5) ng/ml TSH (0.300-4.500) uIu/ml Urine Color Urine Appearance (Clear) Urine pH (4.5-7.5) Ur Specific [place] (1.000-1.030) Urine Protein (Negative) Urine Glucose (UA) (Negative) Urine Ketones (Negative) Urine Blood (Negative) Urine Nitrite (Negative) Urine Bilirubin (Negative) Urine Urobilinogen (Negative) Ur Leukocyte Esterase (Negative) Urine WBC (Auto) (0-5) /hpf Urine RBC (Auto) (0-4) /hpf U Hyaline Cast (Auto) (0-5) /lpf U Epithel Cells (Auto) (0-5) /lpf Urine Bacteria (Auto) (Negative) Granular Casts (0) /lpf Nasal Screen MRSA (PCR) (Negative) 02/07/19 02/07/19 02/07/19 Range/Units 15:08 15:08 15:08 WBC (4.8-10.8) K/uL RBC (4.7-6.1) M/uL Hgb (14.0-18.0) g/dL Hct (42-52) % MCV (80-100) fL MCH (25-34) pg MCHC (32-36) g/dL RDW Std Deviation (36.4-46.3) fL RDW Coeff of Argelia (11.5-14.5) % Plt Count (130-400) K/uL MPV (7.4-10.4) fL Immature Gran % (Auto) % Neut % (Auto) % Lymph % (Auto) % [place] % (Auto) % Eos % (Auto) % Baso % (Auto) % Immature Gran # (Auto) (0.00-0.02) K/uL Neut # (Auto) (1.4-6.5) K/uL Lymph # (Auto) (1.2-3.4) K/uL [place] # (Auto) (0.11-0.59) K/uL Eos # (Auto) (0-0.5) K/uL Baso # (Auto) (0-0.2) K/uL ESR 81 H (0-14) mm/hr PT (9.0-12.0) Seconds INR (0.9-1.1) APTT (21.0-31.0) Seconds PTT Ratio VBG pH 7.42 H (7.36-7.41) VBG pCO2 37 L (38-50) mmHg VBG pO2 37 mmHg VBG HCO3 23 mmol/L VBG O2 Saturation 68.3 % VBG Base Excess -1.0 mEq/L Barometric Pressure 736.0 mm/Hg Sodium (136-145) mmol/L Potassium (3.5-5.1) mmol/L Chloride (98-107) mmol/L Carbon Dioxide (21-32) mmol/L Anion Gap (3-11) BUN (7-18) mg/dl Creatinine (0.6-1.4) mg/dl Est Cr Clr Drug Dosing ml/min Est GFR ( Amer) Est GFR (Non-Af Amer) BUN/Creatinine Ratio (10-20) Glucose (70-99) mg/dl Lactate (0.4-2.0) mmol/L Calcium (8.5-10.1) mg/dl Phosphorus (2.5-4.9) mg/dl Magnesium (1.8-2.4) mg/dl Total Bilirubin (0.2-1) mg/dl Direct Bilirubin (0-0.2) mg/dl AST (15-37) U/L ALT (12-78) U/L Alkaline Phosphatase (45-117) U/L Ammonia (11-32) umol/L Total Creatine Kinase (39-308) U/L Troponin I (0-0.045) ng/ml C-Reactive Protein (0-0.29) mg/dl Total Protein (6.4-8.2) gm/dl Albumin (3.4-5.0) gm/dl Globulin (2.5-4.0) gm/dl Albumin/Globulin Ratio (0.9-2) Folate 23.83 (>5.38) ng/ml Procalcitonin (0-0.5) ng/ml TSH (0.300-4.500) uIu/ml Urine Color Urine Appearance (Clear) Urine pH (4.5-7.5) Ur Specific [place] (1.000-1.030) Urine Protein (Negative) Urine Glucose (UA) (Negative) Urine Ketones (Negative) Urine Blood (Negative) Urine Nitrite (Negative) Urine Bilirubin (Negative) Urine Urobilinogen (Negative) Ur Leukocyte Esterase (Negative) Urine WBC (Auto) (0-5) /hpf Urine RBC (Auto) (0-4) /hpf U Hyaline Cast (Auto) (0-5) /lpf U Epithel Cells (Auto) (0-5) /lpf Urine Bacteria (Auto) (Negative) Granular Casts (0) /lpf Nasal Screen MRSA (PCR) (Negative) 02/07/19 02/07/19 02/07/19 Range/Units 15:08 17:28 22:59 WBC (4.8-10.8) K/uL RBC (4.7-6.1) M/uL Hgb (14.0-18.0) g/dL Hct (42-52) % MCV (80-100) fL MCH (25-34) pg MCHC (32-36) g/dL RDW Std Deviation (36.4-46.3) fL RDW Coeff of Argelia (11.5-14.5) % Plt Count (130-400) K/uL MPV (7.4-10.4) fL Immature Gran % (Auto) % Neut % (Auto) % Lymph % (Auto) % [place] % (Auto) % Eos % (Auto) % Baso % (Auto) % Immature Gran # (Auto) (0.00-0.02) K/uL Neut # (Auto) (1.4-6.5) K/uL Lymph # (Auto) (1.2-3.4) K/uL [place] # (Auto) (0.11-0.59) K/uL Eos # (Auto) (0-0.5) K/uL Baso # (Auto) (0-0.2) K/uL ESR (0-14) mm/hr PT (9.0-12.0) Seconds INR (0.9-1.1) APTT (21.0-31.0) Seconds PTT Ratio VBG pH (7.36-7.41) VBG pCO2 (38-50) mmHg VBG pO2 mmHg VBG HCO3 mmol/L VBG O2 Saturation % VBG Base Excess mEq/L Barometric Pressure mm/Hg Sodium (136-145) mmol/L Potassium (3.5-5.1) mmol/L Chloride (98-107) mmol/L Carbon Dioxide (21-32) mmol/L Anion Gap (3-11) BUN (7-18) mg/dl Creatinine (0.6-1.4) mg/dl Est Cr Clr Drug Dosing ml/min Est GFR ( Amer) Est GFR (Non-Af Amer) BUN/Creatinine Ratio (10-20) Glucose (70-99) mg/dl Lactate 0.8 (0.4-2.0) mmol/L Calcium (8.5-10.1) mg/dl Phosphorus (2.5-4.9) mg/dl Magnesium (1.8-2.4) mg/dl Total Bilirubin (0.2-1) mg/dl Direct Bilirubin (0-0.2) mg/dl AST (15-37) U/L ALT (12-78) U/L Alkaline Phosphatase (45-117) U/L Ammonia (11-32) umol/L Total Creatine Kinase (39-308) U/L Troponin I < 0.015 (0-0.045) ng/ml C-Reactive Protein (0-0.29) mg/dl Total Protein (6.4-8.2) gm/dl Albumin (3.4-5.0) gm/dl Globulin (2.5-4.0) gm/dl Albumin/Globulin Ratio (0.9-2) Folate (>5.38) ng/ml Procalcitonin (0-0.5) ng/ml TSH (0.300-4.500) uIu/ml Urine Color Dark Yellow Urine Appearance Cloudy A (Clear) Urine pH 5.5 (4.5-7.5) Ur Specific [place] 1.024 (1.000-1.030) Urine Protein Negative (Negative) Urine Glucose (UA) Negative (Negative) Urine Ketones Trace H (Negative) Urine Blood Negative (Negative) Urine Nitrite Negative (Negative) Urine Bilirubin Negative (Negative) Urine Urobilinogen Negative (Negative) Ur Leukocyte Esterase Negative (Negative) Urine WBC (Auto) 1-5 (0-5) /hpf Urine RBC (Auto) 0-4 (0-4) /hpf U Hyaline Cast (Auto) >30 H (0-5) /lpf U Epithel Cells (Auto) >30 H (0-5) /lpf Urine Bacteria (Auto) Negative (Negative) Granular Casts 1-5 H (0) /lpf Nasal Screen MRSA (PCR) (Negative) 02/07/19 Range/Units 23:42 WBC (4.8-10.8) K/uL RBC (4.7-6.1) M/uL Hgb (14.0-18.0) g/dL Hct (42-52) % MCV (80-100) fL MCH (25-34) pg MCHC (32-36) g/dL RDW Std Deviation (36.4-46.3) fL RDW Coeff of Argelia (11.5-14.5) % Plt Count (130-400) K/uL MPV (7.4-10.4) fL Immature Gran % (Auto) % Neut % (Auto) % Lymph % (Auto) % [place] % (Auto) % Eos % (Auto) % Baso % (Auto) % Immature Gran # (Auto) (0.00-0.02) K/uL Neut # (Auto) (1.4-6.5) K/uL Lymph # (Auto) (1.2-3.4) K/uL [place] # (Auto) (0.11-0.59) K/uL Eos # (Auto) (0-0.5) K/uL Baso # (Auto) (0-0.2) K/uL ESR (0-14) mm/hr PT (9.0-12.0) Seconds INR (0.9-1.1) APTT (21.0-31.0) Seconds PTT Ratio VBG pH (7.36-7.41) VBG pCO2 (38-50) mmHg VBG pO2 mmHg VBG HCO3 mmol/L VBG O2 Saturation % VBG Base Excess mEq/L Barometric Pressure mm/Hg Sodium (136-145) mmol/L Potassium (3.5-5.1) mmol/L Chloride (98-107) mmol/L Carbon Dioxide (21-32) mmol/L Anion Gap (3-11) BUN (7-18) mg/dl Creatinine (0.6-1.4) mg/dl Est Cr Clr Drug Dosing ml/min Est GFR ( Amer) Est GFR (Non-Af Amer) BUN/Creatinine Ratio (10-20) Glucose (70-99) mg/dl Lactate (0.4-2.0) mmol/L Calcium (8.5-10.1) mg/dl Phosphorus (2.5-4.9) mg/dl Magnesium (1.8-2.4) mg/dl Total Bilirubin (0.2-1) mg/dl Direct Bilirubin (0-0.2) mg/dl AST (15-37) U/L ALT (12-78) U/L Alkaline Phosphatase (45-117) U/L Ammonia (11-32) umol/L Total Creatine Kinase (39-308) U/L Troponin I (0-0.045) ng/ml C-Reactive Protein (0-0.29) mg/dl Total Protein (6.4-8.2) gm/dl Albumin (3.4-5.0) gm/dl Globulin (2.5-4.0) gm/dl Albumin/Globulin Ratio (0.9-2) Folate (>5.38) ng/ml Procalcitonin (0-0.5) ng/ml TSH (0.300-4.500) uIu/ml Urine Color Urine Appearance (Clear) Urine pH (4.5-7.5) Ur Specific [place] (1.000-1.030) Urine Protein (Negative) Urine Glucose (UA) (Negative) Urine Ketones (Negative) Urine Blood (Negative) Urine Nitrite (Negative) Urine Bilirubin (Negative) Urine Urobilinogen (Negative) Ur Leukocyte Esterase (Negative) Urine WBC (Auto) (0-5) /hpf Urine RBC (Auto) (0-4) /hpf U Hyaline Cast (Auto) (0-5) /lpf U Epithel Cells (Auto) (0-5) /lpf Urine Bacteria (Auto) (Negative) Granular Casts (0) /lpf Nasal Screen MRSA (PCR) Negative (Negative) Imaging Data Radiologist's Impression: Radiology results as stated below per my review and the radiologist's interpretation: CT SCAN OF THE ABDOMEN AND PELVIS WITHOUT IV CONTRAST CLINICAL HISTORY: Sepsis. Left lower extremity infection. COMPARISON STUDY: Abdominal CT dated 10/16/2018. TECHNIQUE: CT scan of the abdomen and pelvis is performed from the lung bases to the proximal femora. Images are reviewed in the axial, sagittal, and coronal planes. IV contrast was not administered for this examination as per the referring clinician. Note that the examination was performed in significant suboptimal fashion without oral and IV contrast. The examination is also degraded by motion artifact, and by streak artifact from the arms which cannot elevated above the abdomen. A dose lowering technique was utilized adhering to the principles of ALARA. FINDINGS: Lung bases: The heart is normal in size and without pericardial effusion. The coronary arteries are densely calcified. There is chronic elevation of the left hemidiaphragm and bibasilar atelectasis. Emphysematous change is suspected. No airspace consolidation or pleural effusion is identified. There is bibasilar scarring/atelectasis. Liver: The unenhanced liver is normal in size, contour, and attenuation. There is no intrahepatic biliary ductal dilatation. Gallbladder: Unremarkable. Spleen: Normal in size and attenuation. Pancreas: The unenhanced pancreas is moderately atrophic and grossly unremarkable. Adrenal glands: Unremarkable. Kidneys: The unenhanced kidneys demonstrate cortical atrophy and are without hydronephrosis. There are no renal calculi identified. There is no evidence of contour deforming renal mass lesion. Abdominal vasculature: The abdominal aorta is normal in course and caliber noting moderate to advanced atherosclerotic calcification. Bowel: There is no bowel obstruction. Colonic fecal retention is noted. The appendix is not visualized. Peritoneum: There is no intraperitoneal free air or abdominal ascites. Lymphadenopathy: Mildly enlarged left external iliac chain lymph nodes measure up to 1.5 cm in short axis. These are likely on a reactive basis given the history of left lower extremity infection. No additional enlarged lymph nodes are identified in either pelvis. Pelvic viscera: The bladder is decompressed around a Michael catheter and not well assessed. Intraluminal gas is nonspecific and likely related to instrumentat ion. The prostate and seminal vesicles are normal as imaged. Skeletal structures: The skeletal structures are osteopenic. Moderate lumbosacral spondylosis is observed. No lytic or blastic lesions are seen. IMPRESSION: 1. Suboptimal examination without oral and IV contrast. The examination is also significantly compromised by streak and motion. 2. No acute infectious or inflammatory findings are identified in the abdomen or pelvis. 3. Emphysema. 4. Additional findings as above. Electronically signed by: Gustavo Arriola M.D. 02/07/2019 6:[address] OF THE CHEST WITHOUT IV CONTRAST CLINICAL HISTORY: Altered mental status. Sepsis. COMPARISON STUDY: Chest CT October 22, 2018. Chest radiograph performed earlier today. TECHNIQUE: Axial images of the chest were obtained without IV contrast. Images were reviewed in the axial, sagittal, and coronal planes. IV contrast was not administered for this examination. Automated exposure control was utilized for the study. A dose lowering technique was utilized adhering to the principles of ALARA. FINDINGS: This exam is moderately compromised by respiratory motion. There is no consolidation to suggest pneumonia. Linear left basilar opacity reflects atelectasis. No pneumothorax or pleural effusion is noted. No thoracic lymphadenopathy is present. There is mild cardiomegaly with extensive coronary artery calcification. No acute fractures identified within the thorax although sensitivity is diminished. Elevation of the left hemidiaphragm is unchanged. The abdomen and pelvis will be reported separately. IMPRESSION: Exam moderately compromised by motion artifact however no acute in trathoracic findings. No change in appearance of the chest. Electronically signed by: Antonio Bermeo M.D. 02/07/2019 6:03 PM XR chest 1V portable CLINICAL HISTORY: Sepsis dyspnea COMPARISON STUDY: 10/18/2018 FINDINGS: Poor inspiratory volumes. No focal infiltrate. Mild tortuosity thoracic aorta. IMPRESSION: No acute process. The above report was generated using voice recognition software. It may contain grammatical, syntax or spelling errors. Electronically signed by: Moose Hdez M.D. 02/07/2019 3:42 PM LEFT FOOT 2 VIEWS CLINICAL HISTORY: Left foot swelling. Sepsis. Amputation. FINDINGS: AP and lateral views of the left foot are correlated with CT scan of the left lower extremity dated 01/23/2019. The skeletal structures are osteopenic. No acute fracture is identified. There has been amputation of the first toe at the level of the tarsometatarsal joint. There has been amputation of the second, third, fourth, and fifth toes through the proximal shafts of the metatarsals. Moderate arthritic change is present in the midfoot and at the tibiotalar articulation. No bony erosion or periostitis is clearly identified. There are dorsal and plantar calcaneal enthesophytes. Diffuse soft tissue edema is present throughout the foot, greatest distally. Small foci of some details gas are suggested. No radiodense foreign body is seen. IMPRESSION: 1. Osteopenia with postoperative and degenerative change as above. 2. There is diffuse soft tissue edema seen throughout the foot, greatest distally. The appearance is typical for cellulitis. Clinical correlation will required. 3. Subcutaneous gas in the distal foot is nonspecific and may be related to recent surgery. Clinical correlation will be required. 4. No acute osseous abnormality is clearly seen. Electronically signed by: Gustavo Arriola M.D. 02/07/2019 4:[address] SCAN OF THE BRAIN WITHOUT IV CONTRAST CLINICAL HISTORY: Change in mental status. Sepsis. COMPARISON STUDY: No priors. TECHNIQUE: Unenhanced axial CT scan of the brain is performed from the vertex to the skull base. A dose lowering technique was utilized adhering to the principles of ALARA. The patient was scanned twice due to motion artifact. The examination is motion compromised. CT DOSE: 2902.49 mGy.cm FINDINGS: Brain parenchyma: There is mild subcortical and periventricular microangiopathic disease. There is a chronic lacunar infarct identified in the right thalamus. There is no hemorrhage, mass effect, or evidence of acute territorial ischemia by CT criteria. Rhodes-white matter differentiation is preserved. No extra-axial fluid collection is seen. Ventricles, sulci, cisterns: Normal in configuration. Intracranial vasculature: There is atherosclerotic calcification of the cavernous carotid and vertebral arteries. Calvarium: Unremarkable. Sinuses and mastoids: The visualized paranasal sinuses are clear. There is a trace right mastoid effusion. The left mastoid air cells are well pneumatized. Orbits: The bony orbits are grossly intact. IMPRESSION: There is no hemorrhage, mass effect, or evidence of acute territorial ischemia by CT criteria noting a motion compromised examination. Electronically signed by: Gustavo Arriola M.D. 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 The patient was seen outpatient by [facility] neurology yesterday and per the patient's , was he mental status change is likely a toxic metabolic encephalopathy but had ordered an outpatient CT scan which had yet to be completed. The patient was most recently admitted to the hospital on 01/22-02/01 where they believed that there was osteomyelitis and was treated with IV antibiotics and transitioned to oral antibiotics per cultures. His leukocytosis was subsequently improved as was his delirium and the patient was discharged back to his facility. 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 On arrival patient is chronically ill-appearing, encephalopathic moving all extremities with choreic- like movements. He is able to follow some simple commands such as closing his eyes. Patient's left foot appears improved per the patient's . There is no discharge, crepitus, or foul order. Chest x-ray negative for acute cardiopulmonary process. WBC 12.7 that is neutrophil predominant which is increased from day of discharge. H/H 10.6/30 increased from prior. Platelets within normal limits. VBG unremarkable. Chemistry demonstrates acute renal failure with creatinine of 1.9 which is increased from normal range on day of discharge. Lactate is 2.5 however there is no acidosis. Procalcitonin within normal range. Troponin negative. CRP 4.2 and ESR 81, nonspecific. UA without overt evidence of infection. CT of the head, chest, abdomen pelvis unremarkable for acute process. Blood cultures drawn and pending. Unclear etiology to the patient's acute renal failure at this time, however, given the patient's increased leukocytosis will treat empirically for infection at this time. Possible source could be the patient's left lower extremity although the patient's reports that this is improved from prior. Plain film of foot demonstrates edema and small foci of gas but of unclear significance given his chronically open wound. Of note, the biggest challenge in managing this patient today has been trying to reach a appropriate level of comfort in this encephalopathic patient. herself is easily anxious and tearful when asking us to "make him comfortable". We explained repeatedly the concern for over sedation in this chronically ill patient and so he was initially given Haldol 2 mg with subsequent repeat dose, which did enable us to be able to get his CT scans with some redirection by the nurse. However the patient's was again requesting additional medication to help his agitation and so was given IV Versed but without much improvement. Of note, it is noticeable that when the patient's becomes more agitated and tearful that the patient becomes more agitated as well. Finally, the was requesting Dilaudid as she reports that this had helped with his discomfort in the past, though it is on his allergy list. Otherwise, given the patient's new renal failure which is likely contributing to the patient's change in his baseline encephalopathy, admission is approrpiate. Case was discussed with Dr. Freeman, [facility] hospitalist, who will evaluate the patient for admission. Impression & Plan Acute renal failure, Encephalopathy Critical Care Time I have personally spent greater than 75 minutes of critical care time in the direct management of this patient. This includes bedside care, interpretation of diagnostic studies, and testing, discussion with consultants, patient, and family members, and other required patient management activities. This 75 minutes is in excess of all separately billable procedures. Critical Care Time: Yes Total Critical Care Time: 75 Discharge Plan Visit Data *Final* Discharge Date/Time: 02/07/19 22:10 Chief Complaint: Confusion ED Provider: Austin Conway Discharge Problem: Acute renal failure, Encephalopathy Patient Disposition: Admitted As Inpatient Discharge Instructions Interventions: ED Discharge Assessment Last Done: 02/07/19 22:10 Discharge Problem: Acute renal failure Qualifiers: Acute renal failure type: unspecified Qualified Code(s): N17.9 - Acute kidney failure, unspecified The scribe's documentation has been prepared under my direction and personally reviewed by me in its entirety. I confirm that the note above accurately reflects all work, treatment, procedures, and medical decision making performed by me.
[2019-02-07] MEDS ORDERED: HALOPERIDOL LACTATE 5 MG/ML 1 ML VIAL IV STA ×3 (15:21→17:18)
[2019-02-07 15:25] LABS: Oxygen Saturation VBG 68.3 %; pH VBG 7.42 (7.36-7.41)
[2019-02-07 15:26] LABS: Basophils # (auto) 0.02 K/uL (0-0.2); Basophils % (auto) 0.2 %; Eosinophils # (auto) 0.01 K/uL (0-0.5); Eosinophils % (auto) 0.1 %; Hemoglobin 10.6 g/dL (14.0-18.0); Immature Granulocytes # (auto) 0.03 K/uL (0.00-0.02); Immature Granulocytes % (auto) 0.2 %; Lymphocytes # (auto) 1.47 K/uL (1.2-3.4); Lymphocytes % (auto) 11.6 %; Mean Corpuscular Hgb Conc 35.3 g/dL (32-36); Mean Corpuscular Volume 84.5 fL (80-100); Mean Platelet Volume 7.6 fL (7.4-10.4); Monocytes # (auto) 1.05 K/uL (0.11-0.59); Monocytes % (auto) 8.3 %; Neutrophils # (auto) 10.13 K/uL (1.4-6.5); Neutrophils % (auto) 79.6 %; Platelet Count 373 K/uL (130-400); RDW Coefficient of Variation 14.6 % (11.5-14.5); RDW Standard Deviation 45.7 fL (36.4-46.3); Red Blood Count 3.55 M/uL (4.7-6.1); White Blood Count 12.71 K/uL (4.8-10.8)
[2019-02-07 15:40] LABS: INR 1.2 (0.9-1.1); Partial Thromboplastin Time 27.6 Seconds (21.0-31.0); Prothrombin Time 12.6 Seconds (9.0-12.0)
--- NOTE | 2019-02-07 15:43 | XRay Report ---
XR chest 1V portable CLINICAL HISTORY: Sepsis dyspnea COMPARISON STUDY: 10/18/2018 FINDINGS: Poor inspiratory volumes. No focal infiltrate. Mild tortuosity thoracic aorta. IMPRESSION: No acute process. The above report was generated using voice recognition software. It may contain grammatical, syntax or spelling errors. Electronically signed by: Moose Hdez M.D. 02/07/2019 3:42 PM
[2019-02-07 15:47] LABS: Albumin Level 2.7 gm/dl (3.4-5.0); BUN Creatinine Ratio 21.2 (10-20); Bilirubin Direct 0.1 mg/dl (0-0.2); Calcium 8.9 mg/dl (8.5-10.1); Creatinine Clr Calc Pharmacy 43.2 ml/min; Est GFR (African American) 41.4; Est GFR (Non-African American) 35.7; Magnesium 2.3 mg/dl (1.8-2.4); Potassium 5.4 mmol/L (3.5-5.1)
[2019-02-07 15:56] LABS: Albumin Globulin Ratio 0.6 (0.9-2); Bilirubin,Total 0.4 mg/dl (0.2-1); C Reactive Protein 4.28 mg/dl (0-0.29); Globulin 4.6 gm/dl (2.5-4.0); Phosphorus 4.7 mg/dl (2.5-4.9); Total Protein 7.3 gm/dl (6.4-8.2)
[2019-02-07] MEDS ORDERED: SODIUM CHLORIDE 0.9% 500 ML IV ONE (16:23)
--- NOTE | 2019-02-07 16:57 | XRay Report ---
LEFT FOOT 2 VIEWS CLINICAL HISTORY: Left foot swelling. Sepsis. Amputation. FINDINGS: AP and lateral views of the left foot are correlated with CT scan of the left lower extremi ty dated 01/23/2019. The skeletal structures are osteopenic. No acute fracture is identified. There yanes s been amputation of the first toe at the level of the tarsometatarsal joint. There has been amputati on of the second, third, fourth, and fifth toes through the proximal shafts of the metatarsals. Moder ate arthritic change is present in the midfoot and at the tibiotalar articulation. No bony erosion or periostitis is clearly identified. There are dorsal and plantar calcaneal enthesophytes. Diffuse sof t tissue edema is present throughout the foot, greatest distally. Small foci of some details gas are suggested. No radiodense foreign body is seen. IMPRESSION: 1. Osteopenia with postoperative and degenerative change as above. 2. There is diffuse soft tissue edema seen throughout the foot, greatest distally. The appearance is typical for cellulitis. Clinical correlation will required. 3. Subcutaneous gas in the distal foot is nonspecific and may be related to recent surgery. Clinical correlation will be required. 4. No acute osseous abnormality is clearly seen. Electronically signed by: Gustavo Arriola M.D. 02/07/2019 4:56 PM
[2019-02-07] MEDS ORDERED: CEFEPIME 2,000 MG in SYRINGE 7.5 ML IV STA (17:21)
[2019-02-07] MEDS ORDERED: metroNIDAZOLE 500 MG/100 ML BAG IV STA (17:22)
[2019-02-07] MEDS ORDERED: VANCOMYCIN HCL 2,000 MG in SODIUM CHLORIDE 0.9% 500 ML IV STA (17:22)
--- NOTE | 2019-02-07 17:57 | CT Scan Report ---
CT SCAN OF THE BRAIN WITHOUT IV CONTRAST CLINICAL HISTORY: Change in mental status. Sepsis. COMPARISON STUDY: No priors. TECHNIQUE: Unenhanced axial CT scan of the brain is performed from the vertex to the skull base. A d ose lowering technique was utilized adhering to the principles of ALARA. The patient was scanned twic e due to motion artifact. The examination is motion compromised. CT DOSE: 2902.49 mGy.cm FINDINGS: Brain parenchyma: There is mild subcortical and periventricular microangiopathic disease. There is a chronic lacunar infarct identified in the right thalamus. There is no hemorrhage, mass effect, or alina dence of acute territorial ischemia by CT criteria. Rhodes-white matter differentiation is preserved. N o extra-axial fluid collection is seen. Ventricles, sulci, cisterns: Normal in configuration. Intracranial vasculature: There is atherosclerotic calcification of the cavernous carotid and vertebr al arteries. Calvarium: Unremarkable. Sinuses and mastoids: The visualized paranasal sinuses are clear. There is a trace right mastoid effu seth. The left mastoid air cells are well pneumatized. Orbits: The bony orbits are grossly intact. IMPRESSION: There is no hemorrhage, mass effect, or evidence of acute territorial ischemia by CT saúlt marleen noting a motion compromised examination. Electronically signed by: Gustavo Arriola M.D. 02/07/2019 5:55 PM
[2019-02-07 18:00] LABS: Appearance Urine Cloudy (Clear); Bacteria Urine Automated Negative (Negative); Blood Urine Negative (Negative); Color Urine Dark Yellow; Epithelial Cell Urine Auto >30 /lpf (0-5); Glucose Urine UA Negative (Negative); Ketones Urine Trace (Negative); Leukocyte Esterase Urine Negative (Negative); Nitrite Urine Negative (Negative); Protein Urine Negative (Negative); RBC Urine Automated 0-4 /hpf (0-4); Specific Gravity Urine 1.024 (1.000-1.030); Urobilinogen Urine Negative (Negative); pH Urine 5.5 (4.5-7.5)
--- NOTE | 2019-02-07 18:03 | CT Scan Report ---
CT SCAN OF THE ABDOMEN AND PELVIS WITHOUT IV CONTRAST CLINICAL HISTORY: Sepsis. Left lower extremity infection. COMPARISON STUDY: Abdominal CT dated 10/16/2018. TECHNIQUE: CT scan of the abdomen and pelvis is performed from the lung bases to the proximal femora. Images are reviewed in the axial, sagittal, and coronal planes. IV contrast was not administered for this examination as per the referring clinician. Note that the examination was performed in signific ant suboptimal fashion without oral and IV contrast. The examination is also degraded by motion artif act, and by streak artifact from the arms which cannot elevated above the abdomen. A dose lowering te chnique was utilized adhering to the principles of ALARA. FINDINGS: Lung bases: The heart is normal in size and without pericardial effusion. The coronary arteries are d ensely calcified. There is chronic elevation of the left hemidiaphragm and bibasilar atelectasis. Emp hysematous change is suspected. No airspace consolidation or pleural effusion is identified. There is bibasilar scarring/atelectasis. Liver: The unenhanced liver is normal in size, contour, and attenuation. There is no intrahepatic milad iary ductal dilatation. Gallbladder: Unremarkable. Spleen: Normal in size and attenuation. Pancreas: The unenhanced pancreas is moderately atrophic and grossly unremarkable. Adrenal glands: Unremarkable. Kidneys: The unenhanced kidneys demonstrate cortical atrophy and are without hydronephrosis. There ar e no renal calculi identified. There is no evidence of contour deforming renal mass lesion. Abdominal vasculature: The abdominal aorta is normal in course and caliber noting moderate to advance d atherosclerotic calcification. Bowel: There is no bowel obstruction. Colonic fecal retention is noted. The appendix is not visualiz ed. Peritoneum: There is no intraperitoneal free air or abdominal ascites. Lymphadenopathy: Mildly enlarged left external iliac chain lymph nodes measure up to 1.5 cm in short axis. These are likely on a reactive basis given the history of left lower extremity infection. No ad ditional enlarged lymph nodes are identified in either pelvis. Pelvic viscera: The bladder is decompressed around a Michael catheter and not well assessed. Intralumin al gas is nonspecific and likely related to instrumentation. The prostate and seminal vesicles are no rmal as imaged. Skeletal structures: The skeletal structures are osteopenic. Moderate lumbosacral spondylosis is obse rved. No lytic or blastic lesions are seen. IMPRESSION: 1. Suboptimal examination without oral and IV contrast. The examination is also significantly comprom ised by streak and motion. 2. No acute infectious or inflammatory findings are identified in the abdomen or pelvis. 3. Emphysema. 4. Additional findings as above. Electronically signed by: Gustavo Arriola M.D. 02/07/2019 6:02 PM
--- NOTE | 2019-02-07 18:04 | CT Scan Report ---
CT OF THE CHEST WITHOUT IV CONTRAST CLINICAL HISTORY: Altered mental status. Sepsis. COMPARISON STUDY: Chest CT October 22, 2018. Chest radiograph performed earlier today. TECHNIQUE: Axial images of the chest were obtained without IV contrast. Images were reviewed in the axial, sagittal, and coronal planes. IV contrast was not administered for this examination. Automat ed exposure control was utilized for the study. A dose lowering technique was utilized adhering to t he principles of ALARA. FINDINGS: This exam is moderately compromised by respiratory motion. There is no consolidation to fay ggest pneumonia. Linear left basilar opacity reflects atelectasis. No pneumothorax or pleural effusio n is noted. No thoracic lymphadenopathy is present. There is mild cardiomegaly with extensive coronar y artery calcification. No acute fractures identified within the thorax although sensitivity is dimin ished. Elevation of the left hemidiaphragm is unchanged. The abdomen and pelvis will be reported sepa rately. IMPRESSION: Exam moderately compromised by motion artifact however no acute intrathoracic findings. No change in appearance of the chest. Electronically signed by: Antonio Bermeo M.D. 02/07/2019 6:03 PM
[2019-02-07 18:09] LABS: Bilirubin Urine Negative (Negative); Ictotest Urine Negative (Negative)
[2019-02-07] MEDS ORDERED: MIDAZOLAM HCL 5 MG/ML 1 ML VIAL IV STA (18:09)
[2019-02-07 18:11] LABS: Cast Urine Automated >30 /lpf (0-5)
[2019-02-07] MEDS ORDERED: MIDAZOLAM HCL 1 MG/ML 2ML VIAL ONE (18:21)
[2019-02-07] MEDS ORDERED: SODIUM CHLORIDE 0.9% 500 ML IV SCH (18:30)
[2019-02-07] MEDS ORDERED: HYDROmorphone INJ 0.5 MG/0.5 ML SYR IV STA (19:04)
[2019-02-07] MEDS ORDERED: HYDROmorphone INJ 0.5 MG/0.5 ML SYR IV PRN (22:16)
[2019-02-07] MEDS ORDERED: ACETAMINOPHEN 325 MG TAB PO PRN (22:16)
[2019-02-07] MEDS ORDERED: BISACODYL 10 MG SUPP PR PRN (22:16)
[2019-02-07] MEDS ORDERED: DOCUSATE SODIUM/SENNA 50/8.6MG TAB PO PRN (22:16)
[2019-02-07] MEDS ORDERED: MAGNESIUM HYDROXIDE SUSP 30 ML UDC PO PRN (22:16)
[2019-02-07] MEDS ORDERED: SULFAMETHOXAZOLE/TRIMETHOPRIM DS 800/160MG TAB PO SCH (22:16)
[2019-02-07] MEDS ORDERED: ONDANSETRON INJ 2 MG/ML 2 ML VIAL IV PRN (22:16)
[2019-02-07] MEDS ORDERED: TRAMADOL HCL 50 MG TABLET PO PRN ×2 (22:16)
[2019-02-07] MEDS ORDERED: LORazepam 1 MG TAB PO PRN (22:50)
[2019-02-07] MEDS ORDERED: VANCOMYCIN HCL 1,000 MG in SODIUM CHLORIDE 0.9% 250 ML IV SCH (23:45)
[2019-02-07] MEDS ORDERED: VANCOMYCIN CONSULT ACTIVE PRN (23:56)
[2019-02-07] MEDS ORDERED: PIPERACILL/TAZOBAC CONSULT ACTIVE PRN (23:56)
[2019-02-08] MEDS ORDERED: LORazepam 1 MG/2 ML VIAL IV PRN (00:14)
[2019-02-08] MEDS ORDERED: PIPERACILLIN/TAZOBACTAM 3.375 GM in DEXTROSE 5% 100 ML IV ONE (00:15)
[2019-02-08] MEDS: SODIUM CHLORIDE 0.9% 1000ML 1,000 ML IV SCH ×2 (00:39→09:56)
[2019-02-08] MEDS: DOCUSATE SODIUM 100 MG CAP PO SCH ×3 (00:40→21:23)
[2019-02-08] MEDS: LABETALOL HCL 300 MG TAB PO SCH ×3 (00:40→21:23)
[2019-02-08] MEDS: CHECK FENTANYL PATCH PLACEMENT SCH ×3 (00:41→17:54)
[2019-02-08] MEDS: ENOXAPARIN INJ 40 MG/0.4 ML SYR SQ SCH ×2 (00:53→21:22)
--- NOTE | 2019-02-08 05:02 | History & Physical Report ---
Date of Service February 07, 2019 Assessment & Plan (1) Encephalopathy: Patient appears to be acutely delirious. reports that he does not sleep. Most likely multifactorial in nature- infection, pain, ?benzo withdrawal, medication effects, lack of sleep -Admit to medical floor -Delirium prevention strategies -Follow culture results -Check RPR, Heavy metals, B1 level, ceruloplasmin to complete AMS workup. Patient has had Ammonia, B12/Folate, TSH performed before -Psychiatry evaluation - appreciate assistance with this case -Pain control -Benzos TID -Thiamine daily Present on Admission?: Yes (2) Peripheral vascular disease: -Continue ASA, Plavix, Statin -Vascular surgery consult - appreciate assistance with this case -Wound care -Pain control, cautiously aggressive, may be contributing to undelrying delirium (3) Leukocytosis: ?underlying infection, ?osteo, cellulitis -Hold PO Levaquin and Bactrim -Vanco and Zosyn while inpatient -Continue to monitor - patient was seen by ID during his last admission. Will defer consultation to day team -Follow cultures (4) Cellulitis: As above -Vanc and Zosyn -Monitor for progression (5) DVT (deep venous thrombosis): No anticoagulation at present -Continue to montior (6) HTN (hypertension), benign: Bloodpressure well controlled at present. Continue Labetalol. Continue to monitor (7) Prediabetes: ISS Continue to monitor (8) GERD (gastroesophageal reflux disease): Continue Pepcid daily History of Present Illness Chief Complaint: delirium Primary Care Provider: Devonte Kemp Patient is a 63yo C male with history of peripheral vascular disease s/p popliteal-tibial bypass in October, s/p TMA of left foot. Patient was admitted to [facility] on 01/22 with concern for bleeding at the wound site as well as prolonged delirium. 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 Had debridement performed and was treated with IV antibiotics, Vanc and Levaquin. He was discharged to [facility] on 02/01/19 on Levaquin and Bactrim x 2 week course. reports persistent confusion/hallucinations/agitation which were present prior to the last hospital stay, improved briefly during hospital stay, symptoms now returned. She states that patient does not recognize her, also frequently speaks to relatives. Patient was started on Elavil and Gabapentin prior to discharge - both agents were discontinued by PCP. is mostly concerned that patient's mental state has been so altered for so long. She states that he has not been "normal" since November. ER Course: Cefepime, Haldol, Dilaudid, Flagyl, Vanc Allergies Allergy/AdvReac Type Severity Reaction Status Date / Time Penicillins Allergy Severe Rash Verified 02/08/19 03:05 oxycodone AdvReac Severe Hallucinati Verified 02/07/19 15:14 ng lorazepam [From Ativan] AdvReac Intermediate Confusion Verified 02/07/19 15:14 hydromorphone AdvReac Unknown CONFUSION Verified 02/08/19 03:12 FROM 1 DOSE Home Medications Home Medications Medication Instructions Recorded Confirmed Type aspirin [Aspirin Low Dose] 81 mg PO QAM 10/17/18 02/07/19 History enoxaparin 40 mg SUBCUT Q24H 30 Days #12 ml 02/01/19 02/07/19 Rx acetaminophen [Tylenol] 650 mg PO Q4 PRN 02/07/19 02/07/19 History atorvastatin 80 mg PO DAILY 02/07/19 02/07/19 History bisacodyl 10 mg ID DAILY PRN 02/07/19 02/07/19 History clopidogrel [Plavix] 75 mg PO DAILY 02/07/19 02/07/19 History docusate sodium 100 mg PO BID 02/07/19 02/07/19 History fentanyl 1 patch TRANSDERMAL Q72H 02/07/19 02/07/19 History ferrous sulfate 325 mg PO BID 02/07/19 02/07/19 History gabapentin 300 mg PO Q12 02/07/19 02/07/19 History labetalol 300 mg PO Q12 02/07/19 02/07/19 History levofloxacin [Levaquin] 750 mg PO DAILY 02/07/19 02/07/19 History lisinopril 40 mg PO DAILY 02/07/19 02/07/19 History lorazepam 1 mg PO Q8 PRN 02/07/19 02/07/19 History magnesium hydroxide [Milk of 30 ml PO DAILY PRN 02/07/19 02/07/19 History Magnesia] multivitamin 1 tab PO DAILY 02/07/19 02/07/19 History pantoprazole 40 mg PO DAILY 02/07/19 02/07/19 History polyethylene glycol 3350 [Miralax] 17 g PO DAILYBL 02/07/19 02/07/19 History sennosides-docusate sodium 1 tab PO DAILYBL PRN 02/07/19 02/07/19 History [Senokot-S] sodium hypochlorite 1 applic TOPICAL DAILY 02/07/19 02/07/19 History sulfamethoxazole-trimethoprim 1 tab PO Q12 02/07/19 02/07/19 History [Bactrim DS] thiamine HCl (vitamin B1) 100 mg PO DAILY 02/07/19 02/07/19 History tramadol [Ultram] 50 mg PO Q4 PRN 02/07/19 02/07/19 History tramadol [Ultram] 100 mg PO DAILY PRN 02/07/19 02/07/19 History Past Med/Surg History Medical History Osteoarthritis GERD (gastroesophageal reflux disease) Hand trauma AGE 17, MISSING PART OF LEFT HAND Ischemic ulcer of foot Popliteal aneurysm DVT (deep venous thrombosis) POPLITEAL VEIN HTN (hypertension), benign Prediabetes Elevated LFTs PVD (peripheral vascular disease) S/P femoral posterior tibial bypass with L embolization popliteal artery 10/20/18. On Eliquis. History of tobacco use STOPPED 10/05/18 Anxiety Pt specifically reports fear of doctors/hospitals GERD (gastroesophageal reflux disease) Osteoarthritis Hyponatremia (131) Stable at discharge from [facility] 11/02. 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 Will need to follow-up with pilot boat deckhand, will continue NaCl 1 g po BID, 2 L / day oral fluid restriction." per discharge summary 11/02. Anemia Surgical History S/P popliteal-tibial bypass 10/18/[address] Blunt at [facility]. MAC 3, ETT 8.0. Grade view I. "Smooth IV induction, atraumatic ET intubation" History of arthroscopy RIGHT KNEE CARTILAGE REPAIR H/O hand surgery FROM LEFT HAND TRAUMA AND PART OF HAND WAS CUT OFF. 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 None since October 2018 per reports.) Review of Systems Review of Systems: Unobtainable due to cognitive status denies additional complaints Physical Exam Physical Exam: General: patient sleeping deeply, NAD, chronically ill in appearance Skin: warm, dry, intact, left foot with dressing in place, left huynh with dressing in place, no bleeding or drainage HEENT: NC/AT, Pupils pinpoint, ERRL, anicteric sclera, conjunctiva without injection, external ear normal to inspection and nontender, nares patent, moist mucus membranes, dentures in place, no oropharyngeal lesions, neck supple, trachea midline, no LAD, no thyromegaly, no JVD Heart: +S1/S2, regular, +FANNY at LSB with radiation across the precordium Lungs: equal air entry bilaterally, no rales/rhonchi/wheezes Abd: +BS, soft, NT/ND, no masses/organomegaly/ascites Ext: cool, 1+ pulses in UE/LE bilaterally, traumatic amputation of left hand, LLE with dressing in place c/d/i Neuro: patient somnolent, moving all extremities spontaneously Results & Data Vital Signs (Past 12 Hours) Vital Signs Temp Pulse Pulse Resp BP BP Pulse Ox 02/08/19 04:13 36.5 C 124 H 24 122/76 97 02/08/19 01:42 78 02/07/19 23:16 37.2 C 81 22 99/52 L 94 02/07/19 23:10 36.6 C 84 28 H 102/61 99 02/07/19 22:16 02/07/19 21:45 80 14 99/52 L 93 02/07/19 21:30 81 14 98/49 L 92 02/07/19 21:15 81 16 90/50 L 94 02/07/19 21:00 81 12 99/58 L 94 02/07/19 20:45 79 15 119/62 92 02/07/19 20:30 81 18 122/65 90 02/07/19 20:15 81 15 118/62 93 02/07/19 20:00 81 21 114/58 L 92 02/07/19 19:45 81 20 115/56 L 91 02/07/19 19:30 80 83 17 108/58 L 108/58 L 78 L 02/07/19 19:15 84 20 91 02/07/19 19:00 85 25 H 89 L 02/07/19 18:50 83 31 H 130/76 90 02/07/19 18:45 85 27 H 89 L 02/07/19 18:32 86 19 136/78 91 02/07/19 18:30 85 23 89 L 02/07/19 18:15 83 21 92 02/07/19 18:00 83 26 H 94 02/07/19 17:59 83 21 92 02/07/19 17:16 98 H 21 99/77 L 89 L 02/07/19 17:15 99 H 22 92 02/07/19 17:01 101 H 23 75/71 L 02/07/19 17:00 102 H 23 02/07/19 16:46 34 H 96/75 L 86 L 02/07/19 16:45 17 85 L 02/07/19 16:32 26 H 98/65 L 92 Pulse Ox 02/08/19 04:13 02/08/19 01:42 02/07/19 23:16 02/07/19 23:10 02/07/19 22:16 95 02/07/19 21:45 02/07/19 21:30 02/07/19 21:15 02/07/19 21:00 02/07/19 20:45 02/07/19 20:30 02/07/19 20:15 02/07/19 20:00 02/07/19 19:45 02/07/19 19:30 02/07/19 19:15 02/07/19 19:00 02/07/19 18:50 02/07/19 18:45 02/07/19 18:32 02/07/19 18:30 02/07/19 18:15 02/07/19 18:00 02/07/19 17:59 02/07/19 17:16 02/07/19 17:15 02/07/19 17:01 02/07/19 17:00 02/07/19 16:46 02/07/19 16:45 02/07/19 16:32 Laboratory Results Lab Results 02/07/19 02/07/19 02/07/19 Range/Units 15:08 15:08 15:08 WBC 12.71 H (4.8-10.8) K/uL RBC 3.55 L (4.7-6.1) M/uL Hgb 10.6 L (14.0-18.0) g/dL Hct 30.0 L (42-52) % MCV 84.5 (80-100) fL MCH 29.9 (25-34) pg MCHC 35.3 (32-36) g/dL RDW Std Deviation 45.7 (36.4-46.3) fL RDW Coeff of [place] 14.6 H (11.5-14.5) % Plt Count 373 (130-400) K/uL MPV 7.6 (7.4-10.4) fL Immature Gran % (Auto) 0.2 % Neut % (Auto) 79.6 % Lymph % (Auto) 11.6 % [place] % (Auto) 8.3 % Eos % (Auto) 0.1 % Baso % (Auto) 0.2 % Immature Gran # (Auto) 0.03 H (0.00-0.02) K/uL Neut # (Auto) 10.13 H (1.4-6.5) K/uL Lymph # (Auto) 1.47 (1.2-3.4) K/uL [place] # (Auto) 1.05 H (0.11-0.59) K/uL Eos # (Auto) 0.01 (0-0.5) K/uL Baso # (Auto) 0.02 (0-0.2) K/uL ESR (0-14) mm/hr PT 12.6 H (9.0-12.0) Seconds INR 1.2 H (0.9-1.1) APTT 27.6 (21.0-31.0) Seconds PTT Ratio 1.0 VBG pH (7.36-7.41) VBG pCO2 (38-50) mmHg VBG pO2 mmHg VBG HCO3 mmol/L VBG O2 Saturation % VBG Base Excess mEq/L Barometric Pressure mm/Hg Sodium 134 L (136-145) mmol/L Potassium 5.4 H (3.5-5.1) mmol/L Chloride 103 (98-107) mmol/L Carbon Dioxide 25 (21-32) mmol/L Anion Gap 6.0 (3-11) BUN 41 H (7-18) mg/dl Creatinine 1.92 H (0.6-1.4) mg/dl Est Cr Clr Drug Dosing 43.2 ml/min Est GFR ( Amer) 41.4 Est GFR (Non-Af Amer) 35.7 BUN/Creatinine Ratio 21.2 H (10-20) Glucose 91 (70-99) mg/dl Lactate (0.4-2.0) mmol/L Calcium 8.9 (8.5-10.1) mg/dl Phosphorus 4.7 (2.5-4.9) mg/dl Magnesium 2.3 (1.8-2.4) mg/dl Total Bilirubin 0.4 (0.2-1) mg/dl Direct Bilirubin 0.1 (0-0.2) mg/dl AST 63 H (15-37) U/L ALT 45 (12-78) U/L Alkaline Phosphatase 159 H (45-117) U/L Ammonia (11-32) umol/L Total Creatine Kinase 413 H (39-308) U/L Troponin I (0-0.045) ng/ml C-Reactive Protein 4.28 H (0-0.29) mg/dl Total Protein 7.3 (6.4-8.2) gm/dl Albumin 2.7 L (3.4-5.0) gm/dl Globulin 4.6 H (2.5-4.0) gm/dl Albumin/Globulin Ratio 0.6 L (0.9-2) Folate (>5.38) ng/ml Procalcitonin (0-0.5) ng/ml TSH 1.440 (0.300-4.500) uIu/ml Urine Color Urine Appearance (Clear) Urine pH (4.5-7.5) Ur Specific [place] (1.000-1.030) Urine Protein (Negative) Urine Glucose (UA) (Negative) Urine Ketones (Negative) Urine Blood (Negative) Urine Nitrite (Negative) Urine Bilirubin (Negative) Urine Urobilinogen (Negative) Ur Leukocyte Esterase (Negative) Urine WBC (Auto) (0-5) /hpf Urine RBC (Auto) (0-4) /hpf U Hyaline Cast (Auto) (0-5) /lpf U Epithel Cells (Auto) (0-5) /lpf Urine Bacteria (Auto) (Negative) Granular Casts (0) /lpf Nasal Screen MRSA (PCR) (Negative) 02/07/19 02/07/19 02/07/19 Range/Units 15:08 15:08 15:08 WBC (4.8-10.8) K/uL RBC (4.7-6.1) M/uL Hgb (14.0-18.0) g/dL Hct (42-52) % MCV (80-100) fL MCH (25-34) pg MCHC (32-36) g/dL RDW Std Deviation (36.4-46.3) fL RDW Coeff of Argelia (11.5-14.5) % Plt Count (130-400) K/uL MPV (7.4-10.4) fL Immature Gran % (Auto) % Neut % (Auto) % Lymph % (Auto) % [place] % (Auto) % Eos % (Auto) % Baso % (Auto) % Immature Gran # (Auto) (0.00-0.02) K/uL Neut # (Auto) (1.4-6.5) K/uL Lymph # (Auto) (1.2-3.4) K/uL [place] # (Auto) (0.11-0.59) K/uL Eos # (Auto) (0-0.5) K/uL Baso # (Auto) (0-0.2) K/uL ESR (0-14) mm/hr PT (9.0-12.0) Seconds INR (0.9-1.1) APTT (21.0-31.0) Seconds PTT Ratio VBG pH (7.36-7.41) VBG pCO2 (38-50) mmHg VBG pO2 mmHg VBG HCO3 mmol/L VBG O2 Saturation % VBG Base Excess mEq/L Barometric Pressure mm/Hg Sodium (136-145) mmol/L Potassium (3.5-5.1) mmol/L Chloride (98-107) mmol/L Carbon Dioxide (21-32) mmol/L Anion Gap (3-11) BUN (7-18) mg/dl Creatinine (0.6-1.4) mg/dl Est Cr Clr Drug Dosing ml/min Est GFR ( Amer) Est GFR (Non-Af Amer) BUN/Creatinine Ratio (10-20) Glucose (70-99) mg/dl Lactate 2.5 H* (0.4-2.0) mmol/L Calcium (8.5-10.1) mg/dl Phosphorus (2.5-4.9) mg/dl Magnesium (1.8-2.4) mg/dl Total Bilirubin (0.2-1) mg/dl Direct Bilirubin (0-0.2) mg/dl AST (15-37) U/L ALT (12-78) U/L Alkaline Phosphatase (45-117) U/L Ammonia 23.8 (11-32) umol/L Total Creatine Kinase (39-308) U/L Troponin I (0-0.045) ng/ml C-Reactive Protein (0-0.29) mg/dl Total Protein (6.4-8.2) gm/dl Albumin (3.4-5.0) gm/dl Globulin (2.5-4.0) gm/dl Albumin/Globulin Ratio (0.9-2) Folate (>5.38) ng/ml Procalcitonin 0.10 (0-0.5) ng/ml TSH (0.300-4.500) uIu/ml Urine Color Urine Appearance (Clear) Urine pH (4.5-7.5) Ur Specific [place] (1.000-1.030) Urine Protein (Negative) Urine Glucose (UA) (Negative) Urine Ketones (Negative) Urine Blood (Negative) Urine Nitrite (Negative) Urine Bilirubin (Negative) Urine Urobilinogen (Negative) Ur Leukocyte Esterase (Negative) Urine WBC (Auto) (0-5) /hpf Urine RBC (Auto) (0-4) /hpf U Hyaline Cast (Auto) (0-5) /lpf U Epithel Cells (Auto) (0-5) /lpf Urine Bacteria (Auto) (Negative) Granular Casts (0) /lpf Nasal Screen MRSA (PCR) (Negative) 02/07/19 02/07/19 02/07/19 Range/Units 15:08 15:08 15:08 WBC (4.8-10.8) K/uL RBC (4.7-6.1) M/uL Hgb (14.0-18.0) g/dL Hct (42-52) % MCV (80-100) fL MCH (25-34) pg MCHC (32-36) g/dL RDW Std Deviation (36.4-46.3) fL RDW Coeff of Argelia (11.5-14.5) % Plt Count (130-400) K/uL MPV (7.4-10.4) fL Immature Gran % (Auto) % Neut % (Auto) % Lymph % (Auto) % [place] % (Auto) % Eos % (Auto) % Baso % (Auto) % Immature Gran # (Auto) (0.00-0.02) K/uL Neut # (Auto) (1.4-6.5) K/uL Lymph # (Auto) (1.2-3.4) K/uL [place] # (Auto) (0.11-0.59) K/uL Eos # (Auto) (0-0.5) K/uL Baso # (Auto) (0-0.2) K/uL ESR 81 H (0-14) mm/hr PT (9.0-12.0) Seconds INR (0.9-1.1) APTT (21.0-31.0) Seconds PTT Ratio VBG pH 7.42 H (7.36-7.41) VBG pCO2 37 L (38-50) mmHg VBG pO2 37 mmHg VBG HCO3 23 mmol/L VBG O2 Saturation 68.3 % VBG Base Excess -1.0 mEq/L Barometric Pressure 736.0 mm/Hg Sodium (136-145) mmol/L Potassium (3.5-5.1) mmol/L Chloride (98-107) mmol/L Carbon Dioxide (21-32) mmol/L Anion Gap (3-11) BUN (7-18) mg/dl Creatinine (0.6-1.4) mg/dl Est Cr Clr Drug Dosing ml/min Est GFR ( Amer) Est GFR (Non-Af Amer) BUN/Creatinine Ratio (10-20) Glucose (70-99) mg/dl Lactate (0.4-2.0) mmol/L Calcium (8.5-10.1) mg/dl Phosphorus (2.5-4.9) mg/dl Magnesium (1.8-2.4) mg/dl Total Bilirubin (0.2-1) mg/dl Direct Bilirubin (0-0.2) mg/dl AST (15-37) U/L ALT (12-78) U/L Alkaline Phosphatase (45-117) U/L Ammonia (11-32) umol/L Total Creatine Kinase (39-308) U/L Troponin I (0-0.045) ng/ml C-Reactive Protein (0-0.29) mg/dl Total Protein (6.4-8.2) gm/dl Albumin (3.4-5.0) gm/dl Globulin (2.5-4.0) gm/dl Albumin/Globulin Ratio (0.9-2) Folate 23.83 (>5.38) ng/ml Procalcitonin (0-0.5) ng/ml TSH (0.300-4.500) uIu/ml Urine Color Urine Appearance (Clear) Urine pH (4.5-7.5) Ur Specific [place] (1.000-1.030) Urine Protein (Negative) Urine Glucose (UA) (Negative) Urine Ketones (Negative) Urine Blood (Negative) Urine Nitrite (Negative) Urine Bilirubin (Negative) Urine Urobilinogen (Negative) Ur Leukocyte Esterase (Negative) Urine WBC (Auto) (0-5) /hpf Urine RBC (Auto) (0-4) /hpf U Hyaline Cast (Auto) (0-5) /lpf U Epithel Cells (Auto) (0-5) /lpf Urine Bacteria (Auto) (Negative) Granular Casts (0) /lpf Nasal Screen MRSA (PCR) (Negative) 02/07/19 02/07/19 02/07/19 Range/Units 15:08 17:28 22:59 WBC (4.8-10.8) K/uL RBC (4.7-6.1) M/uL Hgb (14.0-18.0) g/dL Hct (42-52) % MCV (80-100) fL MCH (25-34) pg MCHC (32-36) g/dL RDW Std Deviation (36.4-46.3) fL RDW Coeff of [place]gel[place] (11.5-14.5) % Plt Count (130-400) K/uL MPV (7.4-10.4) fL Immature Gran % (Auto) % Neut % (Auto) % Lymph % (Auto) % [place] % (Auto) % Eos % (Auto) % Baso % (Auto) % Immature Gran # (Auto) (0.00-0.02) K/uL Neut # (Auto) (1.4-6.5) K/uL Lymph # (Auto) (1.2-3.4) K/uL [place] # (Auto) (0.11-0.59) K/uL Eos # (Auto) (0-0.5) K/uL Baso # (Auto) (0-0.2) K/uL ESR (0-14) mm/hr PT (9.0-12.0) Seconds INR (0.9-1.1) APTT (21.0-31.0) Seconds PTT Ratio VBG pH (7.36-7.41) VBG pCO2 (38-50) mmHg VBG pO2 mmHg VBG HCO3 mmol/L VBG O2 Saturation % VBG Base Excess mEq/L Barometric Pressure mm/Hg Sodium (136-145) mmol/L Potassium (3.5-5.1) mmol/L Chloride (98-107) mmol/L Carbon Dioxide (21-32) mmol/L Anion Gap (3-11) BUN (7-18) mg/dl Creatinine (0.6-1.4) mg/dl Est Cr Clr Drug Dosing ml/min Est GFR ( Amer) Est GFR (Non-Af Amer) BUN/Creatinine Ratio (10-20) Glucose (70-99) mg/dl Lactate 0.8 (0.4-2.0) mmol/L Calcium (8.5-10.1) mg/dl Phosphorus (2.5-4.9) mg/dl Magnesium (1.8-2.4) mg/dl Total Bilirubin (0.2-1) mg/dl Direct Bilirubin (0-0.2) mg/dl AST (15-37) U/L ALT (12-78) U/L Alkaline Phosphatase (45-117) U/L Ammonia (11-32) umol/L Total Creatine Kinase (39-308) U/L Troponin I < 0.015 (0-0.045) ng/ml C-Reactive Protein (0-0.29) mg/dl Total Protein (6.4-8.2) gm/dl Albumin (3.4-5.0) gm/dl Globulin (2.5-4.0) gm/dl Albumin/Globulin Ratio (0.9-2) Folate (>5.38) ng/ml Procalcitonin (0-0.5) ng/ml TSH (0.300-4.500) uIu/ml Urine Color Dark Yellow Urine Appearance Cloudy A (Clear) Urine pH 5.5 (4.5-7.5) Ur Specific [place] 1.024 (1.000-1.030) Urine Protein Negative (Negative) Urine Glucose (UA) Negative (Negative) Urine Ketones Trace H (Negative) Urine Blood Negative (Negative) Urine Nitrite Negative (Negative) Urine Bilirubin Negative (Negative) Urine Urobilinogen Negative (Negative) Ur Leukocyte Esterase Negative (Negative) Urine WBC (Auto) 1-5 (0-5) /hpf Urine RBC (Auto) 0-4 (0-4) /hpf U Hyaline Cast (Auto) >30 H (0-5) /lpf U Epithel Cells (Auto) >30 H (0-5) /lpf Urine Bacteria (Auto) Negative (Negative) Granular Casts 1-5 H (0) /lpf Nasal Screen MRSA (PCR) (Negative) 02/07/19 Range/Units 23:42 WBC (4.8-10.8) K/uL RBC (4.7-6.1) M/uL Hgb (14.0-18.0) g/dL Hct (42-52) % MCV (80-100) fL MCH (25-34) pg MCHC (32-36) g/dL RDW Std Deviation (36.4-46.3) fL RDW Coeff of [place] (11.5-14.5) % Plt Count (130-400) K/uL MPV (7.4-10.4) fL Immature Gran % (Auto) % Neut % (Auto) % Lymph % (Auto) % [place] % (Auto) % Eos % (Auto) % Baso % (Auto) % Immature Gran # (Auto) (0.00-0.02) K/uL Neut # (Auto) (1.4-6.5) K/uL Lymph # (Auto) (1.2-3.4) K/uL [place] # (Auto) (0.11-0.59) K/uL Eos # (Auto) (0-0.5) K/uL Baso # (Auto) (0-0.2) K/uL ESR (0-14) mm/hr PT (9.0-12.0) Seconds INR (0.9-1.1) APTT (21.0-31.0) Seconds PTT Ratio VBG pH (7.36-7.41) VBG pCO2 (38-50) mmHg VBG pO2 mmHg VBG HCO3 mmol/L VBG O2 Saturation % VBG Base Excess mEq/L Barometric Pressure mm/Hg Sodium (136-145) mmol/L Potassium (3.5-5.1) mmol/L Chloride (98-107) mmol/L Carbon Dioxide (21-32) mmol/L Anion Gap (3-11) BUN (7-18) mg/dl Creatinine (0.6-1.4) mg/dl Est Cr Clr Drug Dosing ml/min Est GFR ( Amer) Est GFR (Non-Af Amer) BUN/Creatinine Ratio (10-20) Glucose (70-99) mg/dl Lactate (0.4-2.0) mmol/L Calcium (8.5-10.1) mg/dl Phosphorus (2.5-4.9) mg/dl Magnesium (1.8-2.4) mg/dl Total Bilirubin (0.2-1) mg/dl Direct Bilirubin (0-0.2) mg/dl AST (15-37) U/L ALT (12-78) U/L Alkaline Phosphatase (45-117) U/L Ammonia (11-32) umol/L Total Creatine Kinase (39-308) U/L Troponin I (0-0.045) ng/ml C-Reactive Protein (0-0.29) mg/dl Total Protein (6.4-8.2) gm/dl Albumin (3.4-5.0) gm/dl Globulin (2.5-4.0) gm/dl Albumin/Globulin Ratio (0.9-2) Folate (>5.38) ng/ml Procalcitonin (0-0.5) ng/ml TSH (0.300-4.500) uIu/ml Urine Color Urine Appearance (Clear) Urine pH (4.5-7.5) Ur Specific [place] (1.000-1.030) Urine Protein (Negative) Urine Glucose (UA) (Negative) Urine Ketones (Negative) Urine Blood (Negative) Urine Nitrite (Negative) Urine Bilirubin (Negative) Urine Urobilinogen (Negative) Ur Leukocyte Esterase (Negative) Urine WBC (Auto) (0-5) /hpf Urine RBC (Auto) (0-4) /hpf U Hyaline Cast (Auto) (0-5) /lpf U Epithel Cells (Auto) (0-5) /lpf Urine Bacteria (Auto) (Negative) Granular Casts (0) /lpf Nasal Screen MRSA (PCR) Negative (Negative) Diagnostic Findings LEFT FOOT 2 VIEWS CLINICAL HISTORY: Left foot swelling. Sepsis. Amputation. FINDINGS: AP and lateral views of the left foot are correlated with CT scan of the left lower extremity dated 01/23/2019. The skeletal structures are osteopenic. No acute fracture is identified. There has been amputation of the first toe at the level of the tarsometatarsal joint. There has been amputation of the second, third, fourth, and fifth toes through the proximal shafts of the metatarsals. Moderate arthritic change is present in the midfoot and at the tibiotalar articulation. No bony erosion or periostitis is clearly identified. There are dorsal and plantar calcaneal enthesophytes. Diffuse soft tissue edema is present throughout the foot, greatest distally. Small foci of some details gas are suggested. No radiodense foreign body is seen. IMPRESSION: 1. Osteopenia with postoperative and degenerative change as above. 2. There is diffuse soft tissue edema seen throughout the foot, greatest d istally. The appearance is typical for cellulitis. Clinical correlation will required. 3. Subcutaneous gas in the distal foot is nonspecific and may be related to recent surgery. Clinical correlation will be required. 4. No acute osseous abnormality is clearly seen. Electronically signed by: Gustavo Arriola M.D. 02/07/2019 4:56 PM Dictated: 02/07/191651 Transcribed: 02/07/191651 CT OF THE CHEST WITHOUT IV CONTRAST CLINICAL HISTORY: Altered mental status. Sepsis. COMPARISON STUDY: Chest CT October 22, 2018. Chest radiograph performed earlier today. TECHNIQUE: Axial images of the chest were obtained without IV contrast. Images were reviewed in the axial, sagittal, and coronal planes. IV contrast was not administered for this examination. Automated exposure control was utilized for the study. A dose lowering technique was utilized adhering to the principles of ALARA. FINDINGS: This exam is moderately compromised by respiratory motion. There is no consolidation to suggest pneumonia. Linear left basilar opacity reflects atelectasis. No pneumothorax or pleural effusion is noted. No thoracic lymphadenopathy is present. There is mild cardiomegaly with extensive coronary artery calcification. No acute fractures identified within the thorax although sensitivity is diminished. Elevation of the left hemidiaphragm is unchanged. The abdomen and pelvis will be reported separately. IMPRESSION: Exam moderately compromised by motion artifact however no acute intrathoracic findings. No change in appearance of the chest. Electronically signed by: Antonio Bermeo M.D. 02/07/2019 6:03 PM Dictated: 02/07/191753 Transcribed: 02/07/191753 CT SCAN OF THE ABDOMEN AND PELVIS WITHOUT IV CONTRAST CLINICAL HISTORY: Sepsis. Left lower extremity infection. COMPARISON STUDY: Abdominal CT dated 10/16/2018. TECHNIQUE: CT scan of the abdomen and pelvis is performed from the lung bases to the proximal femora. Images are reviewed in the axial, sagittal, and coronal planes. IV contrast was not administered for this examination as per the referring clinician. Note that the examination was performed in significant suboptimal fashion without oral and IV contrast. The examination is also degraded by motion artifact, and by streak artifact from the arms which cannot elevated above the abdomen. A dose lowering technique was utilized adhering to the principles of ALARA. FINDINGS: Lung bases: The heart is normal in size and without pericardial effusion. The coronary arteries are densely calcified. There is chronic elevation of the left hemidiaphragm and bibasilar atelectasis. Emphysematous change is suspected. No airspace consolidation or pleural effusion is identified. There is bibasilar scarring/atelectasis. Liver: The unenhanced liver is normal in size, contour, and attenuation. There is no intrahepatic biliary ductal dilatation. Gallbladder: Unremarkable. Spleen: Normal in size and attenuation. Pancreas: The unenhanced pancreas is moderately atrophic and grossly unremarkable. Adrenal glands: Unremarkable. Kidneys: The unenhanced kidneys demonstrate cortical atrophy and are without hydronephrosis. There are no renal calculi identified. There is no evidence of contour deforming renal mass lesion. Abdominal vasculature: The abdominal aorta is normal in course and caliber noting moderate to advanced atherosclerotic calcification. Bowel: There is no bowel obstruction. Colonic fecal retention is noted. The appendix is not visualized. Peritoneum: There is no intraperitoneal free air or abdominal ascites. Lymphadenopathy: Mildly enlarged left external iliac chain lymph nodes measure up to 1.5 cm in short axis. These are likely on a reactive basis given the history of left lower extremity infection. No additional enlarged lymph nodes are identified in either pelvis. Pelvic viscera: The bladder is decompressed around a Michael catheter and not well assessed. Intraluminal gas is nonspecific and likely related to instrumentation. The prostate and seminal vesicles are normal as imaged. Skeletal structures: The skeletal structures are osteopenic. Moderate lumbosacral spondylosis is observed. No lytic or blastic lesions are seen. IMPRESSION: 1. Suboptimal examination without oral and IV contrast. The examination is also significantly compromised by streak and motion. 2. No acute infectious or inflammatory findings are identified in the abdomen or pelvis. 3. Emphysema. 4. Additional findings as above. Electronically signed by: Gustavo Arriola M.D. 02/07/2019 6:02 PM Dictated: 02/07/191755 Transcribed: 02/07/191755 CT SCAN OF THE BRAIN WITHOUT IV CONTRAST CLINICAL HISTORY: Change in mental status. Sepsis. COMPARISON STUDY: No priors. TECHNIQUE: Unenhanced axial CT scan of the brain is performed from the vertex to the skull base. A dose lowering technique was utilized adhering to the princ ipljuan diego of NATHALY. The patient was scanned twice due to motion artifact. The examination is motion compromised. CT DOSE: 2902.49 mGy.cm FINDINGS: Brain parenchyma: There is mild subcortical and periventricular microangiopathic disease. There is a chronic lacunar infarct identified in the right thalamus. There is no hemorrhage, mass effect, or evidence of acute territorial ischemia by CT criteria. Rhodes-white matter differentiation is preserved. No extra-axial fluid collection is seen. Ventricles, sulci, cisterns: Normal in configuration. Intracranial vasculature: There is atherosclerotic calcification of the cavernous carotid and vertebral arteries. Calvarium: Unremarkable. Sinuses and mastoids: The visualized paranasal sinuses are clear. There is a trace right mastoid effusion. The left mastoid air cells are well pneumatized. Orbits: The bony orbits are grossly intact. IMPRESSION: There is no hemorrhage, mass effect, or evidence of acute territorial ischemia by CT criteria noting a motion compromised examination. Electronically signed by: Gustavo Arriola M.D. 02/07/2019 5:55 PM Dictated: 02/07/191751 Transcribed: 02/07/191751 XR chest 1V portable CLINICAL HISTORY: Sepsis dyspnea COMPARISON STUDY: 10/18/2018 FINDINGS: Poor inspiratory volumes. No focal infiltrate. Mild tortuosity thoracic aorta. IMPRESSION: No acute process. The above report was generated using voice recognition software. It may contain grammatical, syntax or spelling errors. Electronically signed by: Moose Hdez M.D. 02/07/2019 3:42 PM Dictated: 02/07/19 154 Transcribed: 02/07/191541 Code Status & VTE Plan Code Status No intubation Critical Care Time Critical Care Time: No (1) DVT (deep venous thrombosis) DVT location: lower extremity Affected thrombotic vein of extremity: femoral Chronicity: chronic Laterality: left Qualified Code(s): I82.512 - Chronic embolism and thrombosis of left femoral vein (2) GERD (gastroesophageal reflux disease) Esophagitis presence: without esophagitis Qualified Code(s): K21.9 - Gastro- esophageal reflux disease without esophagitis
[2019-02-08] MEDS: PIPERACILLIN/TAZOBACTAM 3.375 GM in DEXTROSE 5% 100 ML IV SCH ×3 (05:49→21:27)
[2019-02-08 07:02] LABS: Basophils # (auto) 0.04 K/uL (0-0.2); Basophils % (auto) 0.3 %; Eosinophils % (auto) 0.8 %; Hematocrit (blood only) 29.3 % (42-52); Hemoglobin 10.2 g/dL (14.0-18.0); Immature Granulocytes # (auto) 0.03 K/uL (0.00-0.02); Immature Granulocytes % (auto) 0.3 %; Lymphocytes % (auto) 13.4 %; Mean Corpuscular Hgb Conc 34.8 g/dL (32-36); Mean Corpuscular Volume 86.2 fL (80-100); Mean Platelet Volume 7.8 fL (7.4-10.4); Monocytes # (auto) 1.25 K/uL (0.11-0.59); Monocytes % (auto) 10.5 %; Neutrophils # (auto) 8.92 K/uL (1.4-6.5); Neutrophils % (auto) 74.7 %; Platelet Count 316 K/uL (130-400); RDW Coefficient of Variation 14.8 % (11.5-14.5); RDW Standard Deviation 46.7 fL (36.4-46.3); White Blood Count 11.94 K/uL (4.8-10.8)
[2019-02-08 07:33] LABS: BUN Creatinine Ratio 30.4 (10-20); Calcium 8.6 mg/dl (8.5-10.1); Creatinine Clr Calc Pharmacy 71.7 ml/min; Est GFR (African American) 84.9; Est GFR (Non-African American) 73.3; Potassium 4.3 mmol/L (3.5-5.1)
[2019-02-08] MEDS: FERROUS SULFATE 325 MG TAB PO SCH ×2 (08:42→17:55)
[2019-02-08] MEDS: MULTIVITAMIN TAB PO SCH (08:43)
[2019-02-08] MEDS: ATORVASTATIN 40 MG TAB PO SCH (08:43)
[2019-02-08] MEDS: THIAMINE HCL 100 MG TAB PO SCH (08:43)
[2019-02-08] MEDS: CLOPIDOGREL BISULFATE 75 MG TAB PO SCH (08:43)
[2019-02-08] MEDS: FAMOTIDINE 20 MG in SYRINGE 3 ML IV SCH (08:43)
[2019-02-08] MEDS: POLYETHYLENE (MIRALAX) 17 GM PACK PO SCH (08:43)
[2019-02-08] MEDS: ASPIRIN 81 MG ECTAB PO SCH (08:43)
[2019-02-08] MEDS ORDERED: PANTOprazole 40 MG TAB PO SCH (09:00)
[2019-02-08] MEDS ORDERED: fentaNYL 25 MCG/HR TDSY TD SCH (09:00)
[2019-02-08] MEDS: DAKIN'S SOLN 0.25% HALF STRENGTH 473ML BTL EXT SCH (09:57)
[2019-02-08] MEDS ORDERED: VANCOMYCIN HCL 1,250 MG in SODIUM CHLORIDE 0.9% 250 ML IV ONE ×2 (10:00→21:00)
--- NOTE | 2019-02-08 11:12 | Pharmacy Report ---
Pharmacy Abx Dose Short Note - Date of Service February 08, 2019 - Assessment & Plan Assessment * 63 year old M admitted for worsening encephalopathy * Patient has a h/o severe PAD, s/p fem-pop-tib bypass and most recently L foot TMA for osteomyelitis * He was recently hospitalized and discharged on PO abx (Levofloxacin + SMX/TMP); these abx have been stopped and Vanco + Zosyn have been ordered * Day # 2 of antimicrobial therapy * BLCX's ordered, no growth reported yet * Mild leukocytosis noted on labs, new vs discharge; afebrile * MILADIS present on admission (SCr 1.92) vs baseline of ~0.5-0.6; MILADIS improving as SCr down to 1.06 this AM Plan Vancomycin * 2000mg (~23mg/kg) IV x 1 given in ER yesterday ~1800 * On most recent admit, a maint dose of 1500mg IV Q 10-12 hrs was estimated to be appropriate for a goal trough 15-20 when SCr 0.5-0.6 * Maint dose this admission: 1250mg (~15mg/kg) IV Q 12 hrs * Goal trough level for osteomyelitis : 15 to 20 mcg/mL * Will not order a trough level just yet as I believe renal fxn may still be changing, however would check on in the next day or two. Zosyn * BMI < 35, eCrCl > 20cc/min: continue 3.375gm ext infusion Q 8 hrs Pharmacy will continue to follow and will adjust dose/frequency as necessary. Thank you.
[2019-02-08] MEDS: COLLAGENASE OINT 30 GM TUBE EXT SCH (13:54)
--- NOTE | 2019-02-08 14:21 | Psychiatric Consultation ---
Date of Consultation February 08, 2019 Impression / Recommendations Impression 63-year-old male admitted for worsening of delirium and concern for infection of his left foot related to ongoing PVD. Primary medical team believes delirium is likely multifactorial due to the following considerations: infection, severe pain, medication side effects/interactions, and irregular sleeping pattern for several weeks. This seems to be a reasonable initial diagnosis, and would suggest delirium protocol. This includes discontinuation of deliriogenic medications, correction and treatment for any contributing factors, and time for observation of mental status over course of admission. Recommending patient be frequently oriented to person, place and time, frequent exposure to familiar supports and comfort items, and protection of sleep cycle by keeping room well- lit with windows open during the day, and dark to encourage sleep at night. PRN medications for agitation should be limited, and used for significant behavioral disturbances only (attempting to remove IVs, combative behavior, or other actions suggesting potential for harm to self or others). Would suggest risperidone OTD 0.5mg as needed for agitation only, as excessive use of the prn may further contribute to confusion. QTc reviewed - Reviewed case with family and attending physician - who is planning to restart amitriptyline to assist the patient with sleep. We have also discussed discontinuation of pain medications, starting with fentanyl, in attempts to reduce medications which may be contributing to his condition. Will follow along with primary medical team and assist with treatment recommendations as necessary. Appreciate the opportunity to participate in the care of this patient. Dr. Heidi Iyer was directly involved in review and discussion of the patient's case and participated in medical decision making regarding treatment recommendations. Plan: - Risperidone ODT 0.5mg q4h prn - only to be used for agitated behavior - Discontinuation of medications which may be contributing to delirium, as appropriate - Delirium precautions: as outlined above CPT Code Initial Consultation: 05792 Psych History Identifying Data 63-year-old male admitted medically on 02/08/19 for worsening delirium and infection of left foot related to history of PVD. PMH significant for PVD s/p popliteal-tibeal bypass, GERD, osteoarthritis, and HTN. Psychiatric consultation requested to evaluate delirium. Information is gathered from hospital documentation, family, and the patient himself - the combination of the three are considered to be reliable. History of Present Illness Patric Ortega is a 63-year-old male admitted medically on 02/08/19 for delirium and infection of his left foot. 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 Primary medical team concerned about prolo nged delirium and patient's agitation. Psychiatric consultation is requested to evaluate delirium and for medication recommendations regarding agitation. Initially received history from the patient's and daughter. They report confusion began 5 months ago, following a surgery to amputation of his toe. The states he has had episodic worsening of mental status over the past 5 months, with frequent hospitalizations. He has been residing at [facility] in between admissions. Family states the patient has been increasingly confused over the past few days, sleeping poorly for several months. Medication adjustments have been made during his hospital admissions as well as at the rehab facility. Most recent medication initiation was amitriptyline to assist with sleep and gabapentin for pain - both medications discontinued after discharge from his last hospitalization. Pt states that multiple medications have assisted with his restlessness/agitation, but have also been known to cause him confusion as well. The family is concerned about the patient's condition and their feelings are validated. Initially during my observation of the patient, he is agitated and irritable. It is reported he has been telling his daughter and brother to "refill the oil drum" and "make sure you call and cancel that delivery" - as if at work, per family. He is reported to be displaying the actions of "feeding himself and handing off objects, but there is nothing in his hands." These movements are observed at the beginning of the encounter. As we discuss further, the patient begins sobbing, family believes due to pain. He eventually stops crying when engaged in conversation with this provider. He is somewhat able to participate in conversation - but is without his lower set of dentures, making it difficult to understand him. Pt's verbalizes primary concerns are related to patient's restlessness/discomfort and his sleep difficulties. Patient is a 63yo C male with history of peripheral vascular disease s/p popliteal-tibial bypass in October, s/p TMA of left foot. Patient was admitted to [facility] on 01/22 with concern for bleeding at the wound site as well as prolonged delirium. 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 Had debridement performed and was treated with IV antibiotics, Vanc and Levaquin. He was discharged to [facility] on 02/01/19 on Levaquin and Bactrim x 2 week course. reports persistent confusion/hallucinations/agitation which were present prior to the last hospital stay, improved briefly during hospital stay, symptoms now returned. She states that patient does not recognize her, also frequently speaks to relatives. Patient was started on Elavil and Gabapentin prior to discharge - both agents were discontinued by PCP. is mostly concerned that patient's mental state has been so altered for so long. She states that he has not been "normal" since November. ER Course: Cefepime, Haldol, Dilaudid, Flagyl, Vanc Past Psychiatric History Previous Psych History: Reported history of anxiety and depression. No previous inpatient mental health hospitalizations are reported. Past Medication Trials: - Lexapro - Cymbalta - for pain - Amitriptyline - for sleep - Ativan - increased confusion Allergies Allergy/AdvReac Type Severity Reaction Status Date / Time Penicillins Allergy Severe Rash Verified 02/08/19 03:05 oxycodone AdvReac Severe Hallucinati Verified 02/07/19 15:14 ng lorazepam [From Ativan] AdvReac Intermediate Confusion Verified 02/07/19 15:14 hydromorphone AdvReac Unknown CONFUSION Verified 02/08/19 03:12 FROM 1 DOSE Home Medications Home Medications Medication Instructions Recorded Confirmed Type aspirin [Aspirin Low Dose] 81 mg PO QAM 10/17/18 02/07/19 History enoxaparin 40 mg SUBCUT Q24H 30 Days #12 ml 02/01/19 02/07/19 Rx acetaminophen [Tylenol] 650 mg PO Q4 PRN 02/07/19 02/07/19 History atorvastatin 80 mg PO DAILY 02/07/19 02/07/19 History bisacodyl 10 mg OH DAILY PRN 02/07/19 02/07/19 History clopidogrel [Plavix] 75 mg PO DAILY 02/07/19 02/07/19 History docusate sodium 100 mg PO BID 02/07/19 02/07/19 History fentanyl 1 patch TRANSDERMAL Q72H 02/07/19 02/07/19 History ferrous sulfate 325 mg PO BID 02/07/19 02/07/19 History gabapentin 300 mg PO Q12 02/07/19 02/07/19 History labetalol 300 mg PO Q12 02/07/19 02/07/19 History levofloxacin [Levaquin] 750 mg PO DAILY 02/07/19 02/07/19 History lisinopril 40 mg PO DAILY 02/07/19 02/07/19 History lorazepam 1 mg PO Q8 PRN 02/07/19 02/07/19 History magnesium hydroxide [Milk of 30 ml PO DAILY PRN 02/07/19 02/07/19 History Magnesia] multivitamin 1 tab PO DAILY 02/07/19 02/07/19 History pantoprazole 40 mg PO DAILY 02/07/19 02/07/19 History polyethylene glycol 3350 [Miralax] 17 g PO DAILYBL 02/07/19 02/07/19 History sennosides-docusate sodium 1 tab PO DAILYBL PRN 02/07/19 02/07/19 History [Senokot-S] sodium hypochlorite 1 applic TOPICAL DAILY 02/07/19 02/07/19 History sulfamethoxazole-trimethoprim 1 tab PO Q12 02/07/19 02/07/19 History [Bactrim DS] thiamine HCl (vitamin B1) 100 mg PO DAILY 02/07/19 02/07/19 History tramadol [Ultram] 50 mg PO Q4 PRN 02/07/19 02/07/19 History tramadol [Ultram] 100 mg PO DAILY PRN 02/07/19 02/07/19 History Personal History Living Arrangements: Rehab ([facility] ) Beliefs That Will Affect Care: None Patient History Medical History Osteoarthritis GERD (gastroesophageal reflux disease) Hand trauma AGE 17, MISSING PART OF LEFT HAND Ischemic ulcer of foot Popliteal aneurysm DVT (deep venous thrombosis) POPLITEAL VEIN HTN (hypertension), benign Prediabetes Elevated LFTs PVD (peripheral vascular disease) S/P femoral posterior tibial bypass with L embolization popliteal artery 10/20/18. On Eliquis. History of tobacco use STOPPED 10/05/18 Anxiety Pt specifically reports fear of doctors/hospitals GERD (gastroesophageal reflux disease) Osteoarthritis Hyponatremia (131) Stable at discharge from [facility] 11/02. 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 Will need to follow-up with quality control analyst, will continue NaCl 1 g po BID, 2 L / day oral fluid restriction." per discharge summary 11/02. Anemia Surgical History S/P popliteal-tibial bypass 10/18/[address] Blunt at [facility]. MAC 3, ETT 8.0. Grade view I. "Smooth IV induction, atraumatic ET intubation" History of arthroscopy RIGHT KNEE CARTILAGE REPAIR H/O hand surgery FROM LEFT HAND TRAUMA AND PART OF HAND WAS CUT OFF. History of amputation ALL TOES AMPUTATED FROM LEFT FOOT Social History Preferred Language: Croatian Communication Ability: Unable Visual Impairment: Limited Tight Rope Walker Required: No Beliefs That Will Affect Care: None marital status: Current Living Situation: Rehab Current Living Situation Comment: Per reports has been at [facility] Other Information That Helps Us Care for You: No Feels Safe at Home: Yes Smoking Status: Former smoker Tobacco Type: cigarettes Do You Dip or Chew Tobacco: No Second Hand Exposure: No Hx Alcohol Use: No (Former drinker. None since October 2018 per reports.) Physical Exam Psychiatric: Orientation: alert, oriented to person, oriented to place (aside from brief belief that Rachel Soto is in [place]) and oriented to time Apperance: appropriately dressed (in hosptial gown) and + disheveled; + did not appear stated age (appears older than stated age) Eye Contact: + fair eye contact Motor Behavior: + psychomotor agitation (restlessness, frequently handing "objects" to his daughter) Speech is muffled secondary to patient not have lower set of dentures, soft speech, monotone Affect: + labile affect (initially - very tearful, then calm, then irritable) and + irritable affect (when discussing desire to not be in the hospital) Mood: + anxious mood and + irritable mood; no depressed mood At time of encounter, appeared to be linear and coherent Thought Content: + preoccupation (with discharge and pain) Suicidal Thoughts: denies suicidal thoughts Homicidal Thoughts: denies monster icidal thoughts Hallucinations: no auditory hallucinations Offers "objects" to his daughter frequent, he is not actually 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 - at times observed to be feeding himself Cognition: remote memory grossly intact, attention grossly intact and language grossly intact Estimated Intelligence: consistent with education level Insight: + impaired insight Judgement: + impaired judgement Vital Signs (Past 24 Hours): Last Vital Signs Temp 36.7 C 02/08/19 11:03 Pulse 88 02/08/19 11:03 Resp 16 02/08/19 11:03 BP 150/64 H 02/08/19 11:03 Pulse Ox 98 02/08/19 11:03 Review of Systems Constitutional: reports confusion, pain, and weakness Cardiovascular: denied Respiratory: reports shortness of breath Gastrointestinal: denied Neurological: denied Psychiatric: denies symptoms other than stated above Total of at least 10 systems reviewed, pertinent positives as above and in HPI. Results & Data Medications Administered Aspirin (Ecotrin Ectab) 81 mg PO QAM [facility] Stop: 03/10/19 08:59 Last Admin: 02/08/19 08:43 Dose: Not Given Documented by: [id number] Atorvastatin Calcium (Lipitor) 80 mg PO DAILY [facility] Stop: 03/10/19 08:59 Last Admin: 02/08/19 08:43 Dose: Not Given Documented by: [id number] Clopidogrel Bisulfate (Plavix) 75 mg PO DAILY [facility] Stop: 03/10/19 08:59 Last Admin: 02/08/19 08:43 Dose: Not Given Documented by: [id number] Collagenase (Santyl) 1 appln EXT DAILY [facility] Stop: 03/10/19 13:29 Last Admin: 02/08/19 13:54 Dose: 1 appln Documented by: [id number] Docusate Sodium (Colace) 100 mg PO BID [facility] Stop: 03/09/19 22:15 Last Admin: 02/08/19 08:43 Dose: Not Given Documented by: [id number] Admin: 02/08/19 00:40 Dose: Not Given Documented by: [id number] Enoxaparin Sodium (Lovenox) 40 mg SQ HS [facility] Stop: 03/09/19 22:44 Last Admin: 02/08/19 00:53 Dose: 40 mg Documented by: [id number] Fentanyl (Duragesic) 25 mcg TD Q3D@0900 [facility] Stop: 02/22/19 08:59 Last Admin: 02/08/19 08:41 Dose: 25 mcg Documented by: [id number] Ferrous Sulfate (Feosol) 325 mg PO BIDM [facility] Stop: 03/10/19 07:59 Last Admin: 02/08/19 08:42 Dose: Not Given Documented by: [id number] Sodium Chloride (Nss 1000ml) 1,000 mls @ 100 mls/hr IV .Q10H [facility] Stop: 02/08/19 18:15 Last Admin: 02/08/19 09:56 Dose: 100 mls/hr Documented by: [id number] Infusion: 02/08/19 09:56 Dose: 100 mls/hr Documented by: [id number] Admin: 02/08/19 00:39 Dose: 100 mls/hr Documented by: [id number] Piperacillin Sod/Tazobactam (Sod 3.375 gm/ Dextrose) 115 mls @ 28.75 mls/hr IV Q8H [facility]; Protocol Stop: 03/22/19 05:59 Last Admin: 02/08/19 13:56 Dose: 28.8 mls/hr Documented by: [id number] Infusion: 02/08/19 09:54 Dose: 0 mls/hr Documented by: [id number] Admin: 02/08/19 05:49 Dose: 28.8 mls/hr Documented by: [id number] Famotidine 20 mg/ Syringe 5 mls @ 2.5 mls/min IV DAILY [facility] Stop: 03/10/19 08:59 Last Admin: 02/08/19 08:43 Dose: 2.5 mls/min Documented by: [id number] Labetalol HCl (Normodyne) 300 mg PO Q12 [facility] Stop: 03/09/19 22:15 Last Admin: 02/08/19 08:43 Dose: Not Given Documented by: [id number] Admin: 02/08/19 00:40 Dose: Not Given Documented by: [id number] Miscellaneous (Fentanyl Patch Check Placement) 1 ea N/A QS [facility] Stop: 03/10/19 00:00 Last Admin: 02/08/19 08:40 Dose: Not Given Documented by: [id number] Admin: 02/08/19 00:41 Dose: Not Given Documented by: [id number] Miscellaneous (Fentanyl Patch Remove & Waste) 1 ea N/A Q3D@0859 [facility] Stop: 03/10/19 08:58 Last Admin: 02/08/19 08:41 Dose: Not Given Documented by: [id number] Multivitamins (Multivitamin Tab) 1 tab PO DAILY JUDAH Stop: 03/10/19 08:59 Last Admin: 02/08/19 08:43 Dose: Not Given Documented by: [id number] Polyethylene Glycol (Miralax Powder Packet) 17 gm PO DAILY@1030 [facility] Stop: 03/10/19 10:29 Last Admin: 02/08/19 08:43 Dose: Not Given Documented by: [id number] Sodium Hypochlorite (Dakin's Half Strength) 1 appln EXT DAILY [facility] Stop: 03/10/19 08:59 Last Admin: 02/08/19 09:57 Dose: Not Given Documented by: [id number] Thiamine HCl (Vitamin B-1) 100 mg PO DAILY JUDAH Stop: 03/10/19 08:59 Last Admin: 02/08/19 08:43 Dose: Not Given Documented by: [id number] Tramadol HCl (Ultram) 100 mg PO DAILY PRN PRN Reason: Pain Stop: 03/09/19 22:15 Last Admin: 02/08/19 13:51 Dose: 100 mg Documented by: [id number]
--- NOTE | 2019-02-08 14:21 | Consultation ---
Date of Consultation February 08, 2019 Assessment & Plan (1) History of transmetatarsal amputation of left foot: Pt with good granulation of wound, minimal surface necrosis. edges adhered and wound now dry, no longer with purulent drainage. mild periwound erythema and warmth, continuing abx is appropriate. No indications for vascular surgical intervention, however, will continue to monitor. Do not feel that delirium is related to his foot wound, as this has been going on intermittently for past few months. Dressings to be changed daily, santyl to TMA site, with adaptic in deeper portion, cover with 4x4 and kerlix. Would recommend 6 weeks of IV antibiotic and an ID consult if needed for the best choice for antibiotics ejs Present on Admission?: Yes History of Present Illness Reason for Consultation: LLE wound Attending Physician: Devonte Roldan History of Present Illness 63 yo m with hx of LLE fem-post tib bypass and LLE TMA with subsequent debridement x2 by Dr Blunt, admitted with acute worsening delirium and concern for worsening infection of LLE wound. Pt underwent LLE fem-post tib bypass and embolization of large LLE pop art aneurysm. Unfortunately, pt had already suffered distal toe/ foot embolization and required TMA d/t gangrene of the toes. He later underwent debridement x2, most recently 1-2 weeks ago, d/t osteomyelitis of his first metatarsal. He was d/c to [facility] with plans to follow up in office next week. Pt apparently has had worsening confusion and delirium while at [facility] and there was concern for further infection of his foot wound. Pt unable to give hx d/t confusion. Per , pt has been c/o pain in L foot intermittently, but has noted that he appears to tolerate dressing changes easier than before. Also, pt has been afebrile and has not been sleeping. xray imaging does not demonstrate further osteo. No vomiting or nausea per , but pt has had minimal appetite. Allergies Allergy/AdvReac Type Severity Reaction Status Date / Time Penicillins Allergy Severe Rash Verified 02/08/19 03:05 oxycodone AdvReac Severe Hallucinati Verified 02/07/19 15:14 ng lorazepam [From Ativan] AdvReac Intermediate Confusion Verified 02/07/19 15:14 hydromorphone AdvReac Unknown CONFUSION Verified 02/08/19 03:12 FROM 1 DOSE Home Medications Home Medications Medication Instructions Recorded Confirmed Type aspirin [Aspirin Low Dose] 81 mg PO QAM 10/17/18 02/07/19 History enoxaparin 40 mg SUBCUT Q24H 30 Days #12 ml 02/01/19 02/07/19 Rx acetaminophen [Tylenol] 650 mg PO Q4 PRN 02/07/19 02/07/19 History atorvastatin 80 mg PO DAILY 02/07/19 02/07/19 History bisacodyl 10 mg [place] DAILY PRN 02/07/19 02/07/19 History clopidogrel [Plavix] 75 mg PO DAILY 02/07/19 02/07/19 History docusate sodium 100 mg PO BID 02/07/19 02/07/19 History fentanyl 1 patch TRANSDERMAL Q72H 02/07/19 02/07/19 History ferrous sulfate 325 mg PO BID 02/07/19 02/07/19 History gabapentin 300 mg PO Q12 02/07/19 02/07/19 History labetalol 300 mg PO Q12 02/07/19 02/07/19 History levofloxacin [Levaquin] 750 mg PO DAILY 02/07/19 02/07/19 History lisinopril 40 mg PO DAILY 02/07/19 02/07/19 History lorazepam 1 mg PO Q8 PRN 02/07/19 02/07/19 History magnesium hydroxide [Milk of 30 ml PO DAILY PRN 02/07/19 02/07/19 History Magnesia] multivitamin 1 tab PO DAILY 02/07/19 02/07/19 History pantoprazole 40 mg PO DAILY 02/07/19 02/07/19 History polyethylene glycol 3350 [Miralax] 17 g PO DAILYBL 02/07/19 02/07/19 History sennosides-docusate sodium 1 tab PO DAILYBL PRN 02/07/19 02/07/19 History [Senokot-S] sodium hypochlorite 1 applic TOPICAL DAILY 02/07/19 02/07/19 History sulfamethoxazole-trimethoprim 1 tab PO Q12 02/07/19 02/07/19 History [Bactrim DS] thiamine HCl (vitamin B1) 100 mg PO DAILY 02/07/19 02/07/19 History tramadol [Ultram] 50 mg PO Q4 PRN 02/07/19 02/07/19 History tramadol [Ultram] 100 mg PO DAILY PRN 02/07/19 02/07/19 History Patient History Medical History Osteoarthritis GERD (gastroesophageal reflux disease) Hand trauma AGE 17, MISSING PART OF LEFT HAND Ischemic ulcer of foot Popliteal aneurysm DVT (deep venous thrombosis) POPLITEAL VEIN HTN (hypertension), benign Prediabetes Elevated LFTs PVD (peripheral vascular disease) S/P femoral posterior tibial bypass with L embolization popliteal artery 10/20/18. On Eliquis. History of tobacco use STOPPED 10/05/18 Anxiety Pt specifically reports fear of doctors/hospitals GERD (gastroesophageal reflux disease) Osteoarthritis Hyponatremia (131) Stable at discharge from [facility] 11/02. 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 Will need to follow-up with screen vent binder, will continue NaCl 1 g po BID, 2 L / day oral fluid restriction." per discharge summary 11/02. Anemia Surgical History S/P popliteal-tibial bypass 10/18/[address] Blunt at [facility]. MAC 3, ETT 8.0. Grade view I. "Smooth IV induction, atraumatic ET intubation" History of arthroscopy RIGHT KNEE CARTILAGE REPAIR H/O hand surgery FROM LEFT HAND TRAUMA AND PART OF HAND WAS CUT OFF. History of amputation ALL TOES AMPUTATED FROM LEFT FOOT Social History Preferred Language: Nigerien Communication Ability: Unable Visual Impairment: Limited City Manager Required: No Beliefs That Will Affect Care: None marital status: Current Living Situation: Rehab Current Living Situation Comment: Per reports has been at [facility] Other Information That Helps Us Care for You: No Feels Safe at Home: Yes Smoking Status: Former smoker Tobacco Type: cigarettes Do You Dip or Chew Tobacco: No Second Hand Exposure: No Hx Alcohol Use: No (Former drinker. None since October 2018 per reports.) Review of Systems Review of Systems: Unobtainable due to cognitive status Physical Exam Constitutional: WD/WN, vitals as above well developed, well nourished, + ill appearing (chronically), well groomed, + disheveled, cooperative and comfortable; not in distress and not combative Eyes: PERRL, conjunctivae normal, anicteric sclerae EOM intact bilaterally ENMT: external ear and nose normal, oropharynx normal Ears: no hearing impairment Nose: no nasal discharge Neck: trachea midline, no thyromegaly no tracheal deviation, no neck crepitus and neck nontender Respiratory: normal respiratory effort, lungs clear to auscultation able to speak in complete sentences; does not use accessory muscles and no cough Auscultation: lungs clear to auscultation bilaterally and + diminished lung sounds; no rhonchi and no wheezes Cardiovascular: RRR, no murmur, no edema Heart Sounds: no gallop and no murmur Vessels: normal peripheral pulses, femoral pulses present, posterior tibial pulses present (LLE nonpalpable), dorsalis pedis pulses present (LLE nonpalpable), brachial pulses present and radial pulses present; no carotid bruit and no femoral bruit Extremities: normal capillary refill; no pedal edema and no edema Chest (Breasts): Chest: normal inspection of chest Gastrointestinal (Abdomen): normal bowel sounds, soft, nontender, no hepatosplenomegaly Inspection/Auscultation: abdomen normal to inspection and normal bowel sounds; abdomen not distended Percussion/Palpation: abdomen soft; abdomen nontender, no guarding, abdomen not rigid and no abdominal mass Musculoskeletal: no cyanosis or clubbing, extremities motor strength 5/5 Head/Neck/Chest: normocephalic, head atraumatic and neck supple Extremities: extremities normal to inspection, strength 5/5 throughout and + amputation noted (L TMA); full ROM of extremities Skin: no rashes, warm and dry normal turgor, + wound (TMA dec edema, dry, some dark red/black, edges granulated), + dry skin and + erythema; no rashes and no mottling L heel wound to surface, granulating. L medial leg with dry scabs noted. Neurologic: moves all extremities, awake and + confused; no focal motor deficits Speech / Cognition: no expressive aphasia and no receptive aphasia Motor/Sensory: no tremor and no sensory deficit Cranial Nerves: EOM intact bilaterally and normal facial strength Psychiatric: Orientation: alert, oriented to person and cooperative; + not oriented x 3 Apperance: appropriately dressed Affect: + depressed affect and + irritable affect Thought Process: + thought process not goal directed, + thought process not linear or logical and + thought process not clear or coherent Cognition: attention grossly intact and language grossly intact; + recent memory not intact and + remote memory not intact Estimated Intelligence: average estimated intelligence Results & Data Vital Signs (Past 12 Hours) Vital Signs Temp Pulse Pulse Pulse Resp BP Pulse Ox 02/08/19 11:03 36.7 C 88 16 150/64 H 98 02/08/19 08:00 78 02/08/19 07:42 36.7 C 92 H 24 117/73 92 02/08/19 04:13 36.5 C 124 H 24 122/76 97
[2019-02-08] MEDS: risperiDONE ODT 0.5 MG SOLTAB PO PRN (21:23)
[2019-02-08] MEDS: VANCOMYCIN HCL 1,250 MG in SODIUM CHLORIDE 0.9% 250 ML IV SCH (21:28)
--- NOTE | 2019-02-08 21:55 | Hospitalist Progress Note ---
Date of Service February 08, 2019 Assessment & Plan (1) Encephalopathy: Patient appears to be acutely delirious. reports that he does not sleep. Most likely multifactorial in nature- infection, pain, ?benzo withdrawal, medication effects, lack of sleep -Admit to medical floor -This is likely to be metabolic encephalopathy -Delirium prevention strategies -Will stop benzos and decrease pain medicine. -will slowy taper medicine that may cause confusion. -doubt infectious cause. -Follow culture results -Check RPR, Heavy metals, B1 level, ceruloplasmin to complete AMS workup. Patient has had Ammonia, B12/Folate, TSH performed before -Psychiatry evaluation - appreciate assistance with this case -Pain control -Thiamine daily (2) Peripheral vascular disease: -Continue ASA, Plavix, Statin -Vascular surgery consult - appreciate assistance with this case -Wound care -Pain control, cautiously aggressive, may be contributing to undelrying delirium (3) Leukocytosis: ?underlying infection, ?osteo, cellulitis -Hold PO Levaquin and Bactrim -Vanco and Zosyn while inpatient -Continue to monitor - patient was seen by ID during his last admission. -Follow cultures (4) Cellulitis: As above -Vanc and Zosyn -Monitor for progression (5) DVT (deep venous thrombosis): No anticoagulation at present -Continue to montior (6) HTN (hypertension), benign: Bloodpressure well controlled at present. Continue Labetalol. Continue to monitor (7) Prediabetes: ISS Continue to monitor (8) GERD (gastroesophageal reflux disease): Continue Pepcid daily Spent 65 minutes in management of patient. From 9:30 to 10:35 This included extended discussion with family Subjective Patient remains confused. Patient is a poor historian. Patient has been trying to get out of bed. Review of Systems Review of Systems: Unobtainable due to mental health condition Physical Exam Physical Exam: General: NAD, chronically ill in appearance Skin: warm, dry, intact, left foot with dressing in place, left huynh with dressing in place, no bleeding or drainage HEENT: NC/AT, Pupils pinpoint, ERRL, anicteric sclera, conjunctiva without injection, external ear normal to inspection and nontender, nares patent, moist mucus membranes, dentures in place, no oropharyngeal lesions, neck supple, trachea midline, no LAD, no thyromegaly, no JVD Heart: +S1/S2, regular, +FANNY at LSB with radiation across the precordium Lungs: equal air entry bilaterally, no rales/rhonchi/wheezes Abd: +BS, soft, NT/ND, no masses/organomegaly/ascites Ext: cool, 1+ pulses in UE/LE bilaterally, traumatic amputation of left hand, LLE with dressing in place c/d/i Neuro: patient confused, moving all extremities spontaneously Results & Data Vital Signs (Past 12 Hours) Vital Signs Temp Pulse Resp BP Pulse Ox 02/08/19 20:00 36.7 C 87 20 161/87 H 94 02/08/19 15:32 36.7 C 78 16 123/65 93 02/08/19 11:03 36.7 C 88 16 150/64 H 98 (1) DVT (deep venous thrombosis) DVT location: lower extremity Affected thrombotic vein of extremity: femoral Chronicity: chronic Laterality: left Qualified Code(s): I82.512 - Chronic embolism and thrombosis of left femoral vein (2) GERD (gastroesophageal reflux disease) Esophagitis presence: without esophagitis Qualified Code(s): K21.9 - Gastro- esophageal reflux disease without esophagitis
[2019-02-09] MEDS: risperiDONE ODT 0.5 MG SOLTAB PO PRN ×3 (05:35→23:55)
[2019-02-09] MEDS: PIPERACILLIN/TAZOBACTAM 3.375 GM in DEXTROSE 5% 100 ML IV SCH ×3 (05:35→22:26)
[2019-02-09 07:12] LABS: Albumin Level 2.2 gm/dl (3.4-5.0); Bilirubin Direct 0.1 mg/dl (0-0.2); Creatinine Clr Calc Pharmacy 96.3 ml/min; Est GFR (African American) 109.2; Est GFR (Non-African American) 94.2
[2019-02-09 07:14] LABS: Bilirubin,Total 0.4 mg/dl (0.2-1); Total Protein 6.1 gm/dl (6.4-8.2)
[2019-02-09] MEDS: MULTIVITAMIN TAB PO SCH (09:32)
[2019-02-09] MEDS: THIAMINE HCL 100 MG TAB PO SCH (09:32)
[2019-02-09] MEDS: DOCUSATE SODIUM 100 MG CAP PO SCH ×2 (09:32→21:02)
[2019-02-09] MEDS: LABETALOL HCL 300 MG TAB PO SCH ×2 (09:32→21:02)
[2019-02-09] MEDS: ATORVASTATIN 40 MG TAB PO SCH (09:33)
[2019-02-09] MEDS: ASPIRIN 81 MG ECTAB PO SCH (09:33)
[2019-02-09] MEDS: FERROUS SULFATE 325 MG TAB PO SCH ×2 (09:33→18:05)
[2019-02-09] MEDS: CLOPIDOGREL BISULFATE 75 MG TAB PO SCH (09:33)
[2019-02-09] MEDS: COLLAGENASE OINT 30 GM TUBE EXT SCH (09:33)
[2019-02-09] MEDS: DAKIN'S SOLN 0.25% HALF STRENGTH 473ML BTL EXT SCH (09:34)
[2019-02-09] MEDS: FAMOTIDINE 20 MG in SYRINGE 3 ML IV SCH (09:34)
[2019-02-09] MEDS: CHECK FENTANYL PATCH PLACEMENT SCH ×3 (09:35→17:44)
[2019-02-09] MEDS: VANCOMYCIN HCL 1,250 MG in SODIUM CHLORIDE 0.9% 250 ML IV SCH ×2 (10:49→21:03)
[2019-02-09] MEDS ORDERED: levoFLOXacin 750 MG TAB PO SCH (11:00)
--- NOTE | 2019-02-09 11:15 | Surgery Progress Note ---
Date of Service February 09, 2019 Assessment & Plan (1) History of transmetatarsal amputation of left foot: Pt with good granulation of wound, improved since debriding agent placed. Less erythema. Wound now moist, not dry, with mostly healthy tissue noted. Pt also eval by Dr Blunt, recommends daily dressing changes, orders placed. Also recommends continuing IV abx per ID. Subjective 63 yo m admitted with delirium and seen in f/u regarding L foot wound. Pt denies any new complaints, but is somewhat confused and unreliable historian. Physical Exam Constitutional: WD/WN, vitals as above well developed, well nourished, + ill appearing (chronically), well groomed, + disheveled, cooperative and comfortable; not in distress and not combative Musculoskeletal: Extremities: extremities normal to inspection, strength 5/5 throughout and + amputation noted (L TMA); full ROM of extremities Skin: no rashes, warm and dry normal turgor, + wound (TMA dec edema, dry, some dark red/black at edges, remaining area red granul), + dry skin and + erythema; no rashes and no mottling Psychiatric: Orientation: alert, oriented to person and cooperative; + not oriented x 3 Results & Data Vital Signs (Past 12 Hours) Vital Signs Temp Pulse Resp BP Pulse Ox 02/09/19 10:30 36.8 C 64 16 112/66 96 02/09/19 07:47 36.7 C 78 18 137/66 96 02/08/19 23:44 37.4 C 71 16 138/69 94
[2019-02-09] MEDS: ACETAMINOPHEN 65 ML IV PRN (15:30)
[2019-02-09] MEDS: POLYETHYLENE (MIRALAX) 17 GM PACK PO SCH (15:35)
[2019-02-09] MEDS: ENOXAPARIN INJ 40 MG/0.4 ML SYR SQ SCH (21:01)
--- NOTE | 2019-02-09 23:50 | Hospitalist Progress Note ---
Date of Service February 09, 2019 Assessment & Plan (1) Encephalopathy: Patient appears to be acutely delirious. reports that he does not sleep. Most likely multifactorial in nature- infection, pain, ?benzo withdrawal, medication effects, lack of sleep -Admit to medical floor -This is likely to be metabolic encephalopathy -Delirium prevention strategies -Will stop benzos and decrease pain medicine. -will slowly taper medicine that may cause confusion. -Reviewed previous admission: will stop fentanyl -Patient placed on Amitriptyline in the evening. -doubt infectious cause. -Follow culture results -Check RPR, Heavy metals, B1 level, ceruloplasmin to complete AMS workup. Patient has had Ammonia, B12/Folate, TSH performed before -Psychiatry evaluation - appreciate assistance with this case -Pain control -Thiamine daily (2) Peripheral vascular disease: -Continue ASA, Plavix, Statin -Vascular surgery consult - appreciate assistance with this case -Wound care -tapering off narcoticsl, cautiously aggressive, may be contributing to und elrying delirium (3) Leukocytosis: ?underlying infection, ?osteo, cellulitis -Hold PO Levaquin and Bactrim -Vanco and Zosyn while inpatient -Continue to monitor - patient was seen by ID during his last admission. -Follow cultures (4) Cellulitis: As above -Vanc and Zosyn -Monitor for progression (5) DVT (deep venous thrombosis): No anticoagulation at present -Continue to montior (6) HTN (hypertension), benign: Blood pressure well controlled at present. Continue Labetalol. Continue to monitor (7) Prediabetes: ISS Continue to monitor (8) GERD (gastroesophageal reflux disease): Continue Pepcid daily Spent 35 minutes in management of patient. Subjective Family is not at bedside. Patient appears less confused as patient is not trying to get out of bed. Review of Systems Review of Systems: Unobtainable due to mental health condition Physical Exam Physical Exam: General: NAD, chronically ill in appearance Skin: warm, dry, intact, left foot with dressing in place, left huynh with dressing in place, no bleeding or drainage HEENT: NC/AT, Pupils pinpoint, ERRL, anicteric sclera, conjunctiva without injection, external ear normal to inspection and nontender, nares patent, moist mucus membranes, dentures in place, no oropharyngeal lesions, neck supple, trachea midline, no LAD, no thyromegaly, no JVD Heart: +S1/S2, regular, +FANNY at LSB with radiation across the precordium Lungs: equal air entry bilaterally, no rales/rhonchi/wheezes Abd: +BS, soft, NT/ND, no masses/organomegaly/ascites Ext: cool, 1+ pulses in UE/LE bilaterally, traumatic amputation of left hand, LLE with dressing in place c/d/i Neuro: patient appears less confused, moving all extremities spontaneously Results & Data Vital Signs (Past 12 Hours) Vital Signs Temp Pulse Resp BP Pulse Ox 02/09/19 23:38 37.0 C 73 16 156/85 H 95 02/09/19 23:05 36.4 C L 72 18 94 02/09/19 19:48 36.8 C 70 20 163/80 H 94 02/09/19 15:38 36.6 C 69 20 142/81 H 92 (1) DVT (deep venous thrombosis) DVT location: lower extremity Affected thrombotic vein of extremity: femoral Chronicity: chronic Laterality: left Qualified Code(s): I82.512 - Chronic embolism and thrombosis of left femoral vein (2) GERD (gastroesophageal reflux disease) Esophagitis presence: without esophagitis Qualified Code(s): K21.9 - Gastro- esophageal reflux disease without esophagitis
[2019-02-10] MEDS: PIPERACILLIN/TAZOBACTAM 3.375 GM in DEXTROSE 5% 100 ML IV SCH ×3 (06:19→21:41)
[2019-02-10] MEDS: LABETALOL HCL 300 MG TAB PO SCH ×2 (09:04→21:45)
[2019-02-10] MEDS: MULTIVITAMIN TAB PO SCH (09:05)
[2019-02-10] MEDS: FERROUS SULFATE 325 MG TAB PO SCH ×2 (09:05→18:06)
[2019-02-10] MEDS: ASPIRIN 81 MG ECTAB PO SCH (09:05)
[2019-02-10] MEDS: DOCUSATE SODIUM 100 MG CAP PO SCH ×2 (09:05→21:44)
[2019-02-10] MEDS: CLOPIDOGREL BISULFATE 75 MG TAB PO SCH (09:05)
[2019-02-10] MEDS: THIAMINE HCL 100 MG TAB PO SCH (09:05)
[2019-02-10] MEDS: ATORVASTATIN 40 MG TAB PO SCH (09:05)
[2019-02-10] MEDS: COLLAGENASE OINT 30 GM TUBE EXT SCH (09:06)
[2019-02-10] MEDS: FAMOTIDINE 20 MG in SYRINGE 3 ML IV SCH (09:07)
[2019-02-10] MEDS ORDERED: VANCOMYCIN TROUGH ONE (09:30)
[2019-02-10 10:05] LABS: Creatinine Clr Calc Pharmacy 135.8 ml/min; Est GFR (African American) 125.8; Est GFR (Non-African American) 108.5
[2019-02-10] MEDS: ACETAMINOPHEN 65 ML IV PRN (10:10)
[2019-02-10] MEDS: VANCOMYCIN HCL 1,250 MG in SODIUM CHLORIDE 0.9% 250 ML IV SCH (10:30)
[2019-02-10 10:36] LABS: Lyme Ab IgG w/WB Rflx Negative (Negative); Lyme Ab IgM w/WB Rflx Negative (Negative)
--- NOTE | 2019-02-10 10:54 | Pharmacy Report ---
Pharmacy Abx Dose Short Note - Date of Service February 10, 2019 - Assessment & Plan Assessment * 63 year old M receiving Vanc/Zosyn for treatment of osteomyelitis * Day #4 of antimicrobial therapy. Plan Vancomycin * Trough level of 12.9 mcg/mL is subtherapeutic * Change to 1500 mg IV every 12 hours based on recent admission data * Goal trough level for osteo : 15 to 20 mcg/mL * Trough ordered for: 02/12/19 @0930 Zosyn * BMI < 35, eCrCl > 20ml/min: continue 3.375gm ext infusion Q 8 hrs Pharmacy will continue to follow and will adjust dose/frequency as necessary. Thank you.
[2019-02-10] MEDS: POLYETHYLENE (MIRALAX) 17 GM PACK PO SCH (11:38)
[2019-02-10] MEDS ORDERED: IBUPROFEN 600 MG TAB PO STA (13:24)
[2019-02-10] MEDS: VANCOMYCIN HCL 1,500 MG in SODIUM CHLORIDE 0.9% 500 ML IV SCH (21:41)
[2019-02-10] MEDS: ENOXAPARIN INJ 40 MG/0.4 ML SYR SQ SCH (21:43)
[2019-02-10] MEDS ORDERED: VANCOMYCIN HCL 1,500 MG in SODIUM CHLORIDE 0.9% 250 ML IV SCH (22:00)
--- NOTE | 2019-02-10 22:25 | Hospitalist Progress Note ---
Date of Service February 10, 2019 Assessment & Plan (1) Encephalopathy: Patient appears to be acutely delirious. reports that he does not sleep. Most likely multifactorial in nature- infection, pain, ?benzo withdrawal, medication effects, lack of sleep -Admit to medical floor -This is likely to be metabolic encephalopathy -Delirium prevention strategies -Will stop benzos and decrease pain medicine. -will slowly taper medicine that may cause confusion. -Reviewed previous admission: will stop fentanyl. -Stopped tramadol as well. Now patient is only on NSAID. Will transfer him to med/surg as patient may improve with better window view as well as no longer having a monitor on his chest. -Patient placed on Amitriptyline in the evening. -doubt infectious cause. -Follow culture results -Psychiatry evaluation - appreciate assistance with this case -Pain control -Thiamine daily (2) Peripheral vascular disease: -Continue ASA, Plavix, Statin -Vascular surgery consult - appreciate assistance with this case -Wound care -stopped narcotics. cautiously aggressive, may be contributing to undelrying delirium (3) Leukocytosis: ?underlying infection, ?osteo, cellulitis -Hold PO Levaquin and Bactrim -Vanco and Zosyn while inpatient -Continue to monitor - patient was seen by ID during his last admission. -Follow cultures (4) Cellulitis: As above -Vanc and Zosyn -Monitor for progression (5) DVT (deep venous thrombosis): No anticoagulation at present -Continue to montior (6) HTN (hypertension), benign: Blood pressure well controlled at present. Continue Labetalol. Continue to monitor (7) Prediabetes: ISS Continue to monitor (8) GERD (gastroesophageal reflux disease): Continue Pepcid daily Spent 25 minutes in management of patient. Subjective Patient continues to be a poor histrian. Only oriented to person, does not know why he's here. He also becomes tearful during interview Review of Systems Review of Systems: Unobtainable due to mental health condition Physical Exam Physical Exam: General: NAD, chronically ill in appearance Skin: warm, dry, intact, left foot with dressing in place, left huynh with dressing in place, no bleeding or drainage HEENT: NC/AT, Pupils pinpoint, ERRL, anicteric sclera, conjunctiva without injection, external ear normal to inspection and nontender, nares patent, moist mucus membranes, dentures in place, no oropharyngeal lesions, neck supple, trachea midline, no LAD, no thyromegaly, no JVD Heart: +S1/S2, regular, +FANNY at LSB with radiation across the precordium Lungs: equal air entry bilaterally, no rales/rhonchi/wheezes Abd: +BS, soft, NT/ND, no masses/organomegaly/ascites Ext: cool, 1+ pulses in UE/LE bilaterally, traumatic amputation of left hand, LLE with dressing in place c/d/i Neuro: patient appears less confused, oriented to person, moving all extremities spontaneously Results & Data Vital Signs (Past 12 Hours) Vital Signs Temp Pulse Resp BP BP Pulse Ox 02/10/19 20:00 36.6 C 69 18 180/70 H 149/73 H 93 02/10/19 15:09 36.8 C 74 20 119/61 94 02/10/19 11:54 36.7 C 67 18 99/62 L 91 (1) DVT (deep venous thrombosis) Affected thrombotic vein of extremity: femoral Chronicity: chronic DVT location: lower extremity Laterality: left Qualified Code(s): I82.512 - Chronic embolism and thrombosis of left femoral vein (2) GERD (gastroesophageal reflux disease) Esophagitis presence: without esophagitis Qualified Code(s): K21.9 - Gastro- esophageal reflux disease without esophagitis
[2019-02-11] MEDS: PIPERACILLIN/TAZOBACTAM 3.375 GM in DEXTROSE 5% 100 ML IV SCH ×3 (05:29→22:06)
[2019-02-11] MEDS: IBUPROFEN 600 MG TAB PO PRN ×2 (05:36→18:08)
[2019-02-11 06:12] LABS: Hematocrit (blood only) 29.3 % (42-52); Hemoglobin 9.8 g/dL (14.0-18.0); Mean Corpuscular Hgb Conc 33.4 g/dL (32-36); Mean Corpuscular Volume 86.4 fL (80-100); Mean Platelet Volume 7.9 fL (7.4-10.4); Platelet Count 235 K/uL (130-400); RDW Standard Deviation 47.2 fL (36.4-46.3); Red Blood Count 3.39 M/uL (4.7-6.1); White Blood Count 7.05 K/uL (4.8-10.8)
[2019-02-11 06:45] LABS: Creatinine Clr Calc Pharmacy 128.9 ml/min; Est GFR (African American) 123.1; Est GFR (Non-African American) 106.2
[2019-02-11] MEDS: DOCUSATE SODIUM 100 MG CAP PO SCH ×2 (08:07→22:03)
[2019-02-11] MEDS: MULTIVITAMIN TAB PO SCH (08:07)
[2019-02-11] MEDS: FERROUS SULFATE 325 MG TAB PO SCH ×2 (08:07→17:14)
[2019-02-11] MEDS: CLOPIDOGREL BISULFATE 75 MG TAB PO SCH (08:08)
[2019-02-11] MEDS: THIAMINE HCL 100 MG TAB PO SCH (08:08)
[2019-02-11] MEDS: LABETALOL HCL 300 MG TAB PO SCH ×2 (08:08→19:25)
[2019-02-11] MEDS: ATORVASTATIN 40 MG TAB PO SCH (08:08)
[2019-02-11] MEDS: FAMOTIDINE 20 MG in SYRINGE 3 ML IV SCH (08:08)
[2019-02-11] MEDS: ASPIRIN 81 MG ECTAB PO SCH (08:09)
[2019-02-11] MEDS: COLLAGENASE OINT 30 GM TUBE EXT SCH (08:10)
[2019-02-11] MEDS: VANCOMYCIN HCL 1,500 MG in SODIUM CHLORIDE 0.9% 500 ML IV SCH ×2 (10:37→22:06)
[2019-02-11] MEDS: POLYETHYLENE (MIRALAX) 17 GM PACK PO SCH (10:38)
[2019-02-11] MEDS: ACETAMINOPHEN 65 ML IV PRN (12:52)
[2019-02-11] MEDS: risperiDONE ODT 0.5 MG SOLTAB PO PRN (19:25)
[2019-02-11] MEDS ORDERED: HydrALAZINE HCL 20 MG/ML VIAL IV ONE (20:02)
[2019-02-11] MEDS: ENOXAPARIN INJ 40 MG/0.4 ML SYR SQ SCH (22:03)
--- NOTE | 2019-02-11 23:08 | Hospitalist Progress Note ---
Date of Service February 11, 2019 Assessment & Plan (1) Encephalopathy: Patient appears to be acutely delirious. reports that he does not sleep. Most likely multifactorial in nature- infection, pain, ?benzo withdrawal, medication effects, lack of sleep -Admit to medical floor -This is likely to be metabolic encephalopathy -Delirium prevention strategies -Will stop benzos and decrease pain medicine. -will slowly taper medicine that may cause confusion. -Reviewed previous admission: will stop fentanyl. -Stopped tramadol as well. Now patient is only on NSAID. On 02/10 transferred him to med/surg as patient may improve with better window view as well as no longer having a monitor on his chest. -Patient placed on Amitriptyline in the evening. -doubt infectious cause. -Follow culture results -Psychiatry evaluation - appreciate assistance with this case -Pain control -Thiamine daily -Patient appears to be improving slowly each day. These appear to be baby steps, but he is more oriented today than he was when he came in. It is very likley that the narctics and benzos are playing a role. though feels like he is not at his baseline and would like a neurology consult. When I examined patient she was not at bedside. 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 Will hold off neuro consult. (2) Peripheral vascular disease: -Continue ASA, Plavix, Statin -Vascular surgery consult - appreciate assistance with this case -Wound care -stopped narcotics. cautiously aggressive, may be contributing to undelrying delirium (3) Leukocytosis: ?underlying infection, ?osteo, cellulitis -Hold PO Levaquin and Bactrim -Vanco and Zosyn while inpatient -Continue to monitor - patient was seen by ID during his last admission. -Follow cultures (4) Cellulitis: As above -Vanc and Zosyn -Monitor for progression (5) DVT (deep venous thrombosis): No anticoagulation at present -Continue to montior (6) HTN (hypertension), benign: Blood pressure well controlled at present. Continue Labetalol. Continue to monitor (7) Prediabetes: ISS Continue to monitor (8) GERD (gastroesophageal reflux disease): Continue Pepcid daily Spent 25 minutes in management of patient. Subjective Patient appears less confused today. He knows the year, knows where he is, knows that he has been confused but cannot elaborate. (But during interview asks if he has been arrested.) He continues to be oriented to person as well. Not complaining to pain No longer tearful Review of Systems Review of Systems: Unobtainable due to mental health condition Physical Exam Physical Exam: General: NAD, chronically ill in appearance Skin: warm, dry, intact, left foot with dressing in place, left huynh with dressing in place, no bleeding or drainage HEENT: NC/AT, Pupils pinpoint, ERRL, anicteric sclera, conjunctiva without injection, external ear normal to inspection and nontender, nares patent, moist mucus membranes, dentures in place, no oropharyngeal lesions, neck supple, trachea midline, no LAD, no thyromegaly, no JVD Heart: +S1/S2, regular, +FANNY at LSB with radiation across the precordium Lungs: equal air entry bilaterally, no rales/rhonchi/wheezes Abd: +BS, soft, NT/ND, no masses/organomegaly/ascites Ext: cool, 1+ pulses in UE/LE bilaterally, traumatic amputation of left hand, LLE with dressing in place c/d/i Neuro: patient appears less confused, knows who he is, knows the year, knows where he is, moving all extremities spontaneously Results & Data Vital Signs (Past 12 Hours) Vital Signs Temp Pulse Resp BP BP Pulse Ox 02/11/19 21:39 187/92 H 02/11/19 20:28 36.7 C 71 20 187/95 H 192/80 H 96 02/11/19 19:10 37.0 C 72 18 193/93 H 95 02/11/19 15:13 36.9 C 74 18 161/73 H 97 02/11/19 12:00 36.7 C 63 18 132/76 95 (1) DVT (deep venous thrombosis) Affected thrombotic vein of extremity: femoral Chronicity: chronic DVT location: lower extremity Laterality: left Qualified Code(s): I82.512 - Chronic embolism and thrombosis of left femoral vein (2) GERD (gastroesophageal reflux disease) Esophagitis presence: without esophagitis Qualified Code(s): K21.9 - Gastro- esophageal reflux disease without esophagitis
[2019-02-12 02:05] LABS: Arsenic Blood 3 mcg/L (<23); Ceruloplasmin 36 MG/DL (18-36); Lead Blood 3 mcg/dL (<5); Mercury, blood <4 mcg/L (<=10)
[2019-02-12] MEDS: IBUPROFEN 600 MG TAB PO PRN ×2 (03:01→14:36)
[2019-02-12] MEDS: ACETAMINOPHEN 65 ML IV PRN ×2 (03:56→19:31)
[2019-02-12] MEDS: PIPERACILLIN/TAZOBACTAM 3.375 GM in DEXTROSE 5% 100 ML IV SCH ×3 (05:59→21:42)
[2019-02-12] MEDS: LABETALOL HCL 300 MG TAB PO SCH ×3 (06:46→21:35)
[2019-02-12] MEDS ORDERED: VANCOMYCIN TROUGH ONE (09:30)
--- NOTE | 2019-02-12 09:43 | Surgery Progress Note ---
Date of Service February 12, 2019 Assessment & Plan (1) History of transmetatarsal amputation of left foot: Pt LLE TMA site healing well, no erythema, odor, or draiange noted. Continue daily dressing changes. Abx per medicine/ID. Recommend waffle boots to BLE to prevent pressure ulcer formation, as pt is very confused and remaining in bed. Subjective 63 yo m with multiple medical problems, seen in f/u regarding L foot wound. Pt currently somnolent and unable to answer questions or stay awake for exam. Physical Exam Constitutional: WD/WN, vitals as above Cardiovascular: Vessels: normal peripheral pulses, femoral pulses present, posterior tibial pulses present (LLE nonpalpable), dorsalis pedis pulses present (LLE nonpalpable) and radial pulses present; no femoral bruit Extremities: normal capillary refill; no pedal edema and no edema Musculoskeletal: Extremities: strength 5/5 throughout and + amputation noted (L TMA); full ROM of extremities Skin: normal turgor, + wound (TMA LLE with excellent granulation, minimal necrosis at wound edge, ), + dry skin and + erythema; no rashes and no mottling mild slough at wound edge. Medial ankle wound to surface, nearly healed. Medial leg wounds healed. Neurologic: moves all extremities, awake and + confused; no focal motor deficits Psychiatric: Orientation: alert, oriented to person and cooperative; + not oriented x 3 Results & Data Vital Signs (Past 12 Hours) Vital Signs Temp Pulse Resp BP Pulse Ox 02/12/19 06:57 36.6 C 62 16 164/85 H 95 02/11/19 23:00 36.5 C 77 19 151/80 H 95 02/11/19 21:39 187/92 H
[2019-02-12] MEDS: risperiDONE ODT 0.5 MG SOLTAB PO PRN (09:50)
[2019-02-12] MEDS: CLOPIDOGREL BISULFATE 75 MG TAB PO SCH (09:50)
[2019-02-12] MEDS: THIAMINE HCL 100 MG TAB PO SCH (09:50)
[2019-02-12] MEDS: VANCOMYCIN HCL 1,500 MG in SODIUM CHLORIDE 0.9% 500 ML IV SCH ×2 (09:50→21:41)
[2019-02-12] MEDS: ASPIRIN 81 MG ECTAB PO SCH (09:50)
[2019-02-12] MEDS: FAMOTIDINE 20 MG in SYRINGE 3 ML IV SCH (09:50)
[2019-02-12] MEDS: FERROUS SULFATE 325 MG TAB PO SCH ×2 (09:50→17:51)
[2019-02-12] MEDS: MULTIVITAMIN TAB PO SCH (09:50)
[2019-02-12] MEDS: POLYETHYLENE (MIRALAX) 17 GM PACK PO SCH (09:50)
[2019-02-12] MEDS: ATORVASTATIN 40 MG TAB PO SCH (09:51)
[2019-02-12] MEDS: COLLAGENASE OINT 30 GM TUBE EXT SCH (09:51)
[2019-02-12] MEDS: DOCUSATE SODIUM 100 MG CAP PO SCH ×2 (09:54→21:34)
--- NOTE | 2019-02-12 11:04 | Pharmacy Report ---
Pharmacy Abx Dose Short Note - Date of Service February 12, 2019 - Assessment & Plan Assessment 63 year old M receiving vancomycin and Zosyn for treatment of cellulitis with recent osteo diagnosis. Day # 6 of inpatient antimicrobial therapy. Patient was on Levaquin and Bactrim prior to admission. SCr pending for today - has been stable Plan Vancomycin * Trough level of 14.8 mcg/mL is near therapeutic for target of 15-20 with recent osteo. This is prior to 4th dose so may increase a little further as it reaches steady state. * Continue dose of 1500 mg IV every 12 hours * Can order a repeat trough in another 3-4 days as long as SCr remains stable Zosyn * Continue 3.375 gm q8h for CrCl > 20 mL/min Pharmacy will continue to follow and will adjust dose/frequency as necessary. Thank you.
[2019-02-12 11:32] LABS: BUN Creatinine Ratio 11.7 (10-20); Calcium 8.2 mg/dl (8.5-10.1); Creatinine Clr Calc Pharmacy 138.3 ml/min; Est GFR (African American) 126.7; Est GFR (Non-African American) 109.4; Potassium 3.4 mmol/L (3.5-5.1)
--- NOTE | 2019-02-12 19:05 | Family Medicine Progress Note ---
Date of Service February 12, 2019 Assessment & Plan (1) Encephalopathy: Metabolic Encephalopathy/Delirium -Improving. Likely multifactorial in nature- infection, pain, ?benzo withdrawal, medication effects, lack of sleep -Delirium prevention strategies -Will stop benzos and decrease pain medicine, tapered meds that contribute to confusion (fentanyl, tramadol, amitriptyline). -Will discuss case with [facility] to determine why certain meds were DCd -Unlikely infectious cause; wounds healing well. -Follow culture results -Risperdal 1mg qhs and .5mg q4h prn -Thiamine daily -Patient appears to be improving slowly each day. Peripheral vascular disease -Continue ASA, Plavix, Statin -Vascular surgery consult - appreciate assistance with this case -Wound care -stopped narcotics. cautiously aggressive, may be contributing to underlying delirium Leukocytosis -Resolved, continue to monitor -Will restart PO Levaquin and Bactrim 02/13 -Vanco and Zosyn DCd -Follow cultures Cellulitis -As above, appears to be healing well per vascular. -Resume PO abx HTN (hypertension), benign Blood pressure well controlled at present. Continue Labetalol. Continue to monitor GERD (gastroesophageal reflux disease): Continue Pepcid daily Code: FNMV Dispo: med/surg DVTP: non at present (2) Peripheral vascular disease: (3) Leukocytosis: (4) Delirium: (5) Cellulitis: (6) HTN (hypertension), benign: (7) GERD (gastroesophageal reflux disease): Supervising Physician Co-Signing Physician Notes I personally examined the patient and verified all abbasi points of history and exam, discussed case, and agree with decision making with Dr Yen. Seen twice today. Initially in the day somewhat fearful expressing a degree of concern about somebody needing to do something about money. Later a bit calmer still speaking a little bit slurred, but definitely more coherent and making more sense. Extensive discussion with patient and about delirium, etiologies, management. Vitals noted, in general he is awake and alert pleasant no distress. HEENT normocephalic atraumatic mucous membranes moist. Breathing unlabored no accessory muscle use. Skin shows no rashes no pallor or icterus no tracking erythema. Neuro shows no focal deficits. Extremities show his left lower extremity be dressed with no erythema, his left hand missing several digits. Deliriumthis appears likely to be multifactorial, some of it was medication related (he was in such severe pain during his last hospitalization that he would be screaming and crying even with dressing changes, and slowly but steadily we titrated up a multimodal pain management regimen in conjunction with him and his . At time of discharge she was totally lucid and his pain was under better control. Now he is off all of those medicines, and his pain is actually still good. Most likely his pain improved far faster than would be expected, and once the pain was abating, then the sedating effects of those medicines began to take effect). Changing environments and lack of sleep also appear to be playing a role. He does seem to be improving. Extensive discussion with patient and . Continue current cautious with holding of medications, except after discussion, given that he seems to be tolerating Risperdal well, will give a dose at bedtime to try to help with sleep, given that this appears to be driving the delirium to a degree as well. Otherwise continuing to show improvement. Follow. Dispo to be determined as he gets closer to discharge. First visit approximately 1130 to 11:40 AM, second visit approximately 330 to 4:15 PM. Well over 30 minutes [id number] today. Otherwise as above. Subjective Patient acutely disoriented this am; unable to stay awake; emotional, crying. Review of Systems Review of Systems: Unobtainable due to cognitive status Physical Exam Constitutional: WD/WN, vitals as above average body habitus, + altered mental status and + behavioral limitations Eyes: PERRL, conjunctivae normal, anicteric sclerae ENMT: external ear and nose normal, oropharynx normal Neck: normal visual inspection Respiratory: normal respiratory effort, lungs clear to auscultation Cardiovascular: RRR, no murmur, no edema Gastrointestinal (Abdomen): normal bowel sounds, soft, nontender, no hepatosplenomegaly Musculoskeletal: Extremities: + extremities dysmorphic, + amputation noted and + hand abnormality Left (3 digit amputation); + extremities abnormal to inspection Skin: + lesion and + wound Psychiatric: Orientation: alert; + not oriented x 3 Affect: + anxious affect Mood: + depressed mood and + irritable mood Insight: + limited insight Results & Data Vital Signs (Past 12 Hours) Vital Signs Temp Pulse Resp BP Pulse Ox 02/12/19 15:01 36.7 C 69 18 148/69 H 95 Laboratory Results 05/13/19 05/13/19 05/08/19 Range/Units 09:34 09:34 22:59 Sodium 137 (136-145) mmol/L Potassium 3.4 L (3.5-5.1) mmol/L Chloride 104 (98-107) mmol/L Carbon Dioxide 27 (21-32) mmol/L Anion Gap 6.0 (3-11) BUN 6 L (7-18) mg/dl Creatinine 0.55 L (0.6-1.4) mg/dl Est Cr Clr Drug Dosing 138.3 ml/min Est GFR ( Amer) 126.7 Est GFR (Non-Af Amer) 109.4 BUN/Creatinine Ratio 11.7 (10-20) Glucose 111 H (70-99) mg/dl Calcium 8.2 L (8.5-10.1) mg/dl Ceruloplasmin 36 (18-36) MG/DL Vancomycin Trough 14.8 (See Comment) mcg/ml Heavy Metal Source Venous Arsenic 3 (<23) mcg/L Lead 3 (<5) mcg/dL Mercury <4 (<=10) mcg/L Medications Administered Current Inpatient Medications Aspirin (Ecotrin Ectab) 81 mg PO QAM [facility] Stop: 03/10/19 08:59 Last Admin: 02/12/19 09:50 Dose: 81 mg Documented by: Atorvastatin Calcium (Lipitor) 80 mg PO DAILY [facility] Stop: 03/10/19 08:59 Last Admin: 02/12/19 09:51 Dose: 80 mg Documented by: Bisacodyl (Dulcolax) 10 mg [place] DAILY PRN PRN Reason: Constipation Stop: 03/09/19 22:15 Clopidogrel Bisulfate (Plavix) 75 mg PO DAILY [facility] Stop: 03/10/19 08:59 Last Admin: 02/12/19 09:50 Dose: 75 mg Documented by: Collagenase (Santyl) 1 appln EXT DAILY [facility] Stop: 03/10/19 13:29 Last Admin: 02/12/19 09:51 Dose: 1 appln Documented by: Docusate Sodium (Colace) 100 mg PO BID [facility] Stop: 03/09/19 22:15 Last Admin: 02/12/19 09:54 Dose: 100 mg Documented by: Enoxaparin Sodium (Lovenox) 40 mg SQ HS [facility] Stop: 03/09/19 22:44 Last Admin: 02/11/19 22:03 Dose: 40 mg Documented by: Ferrous Sulfate (Feosol) 325 mg PO BIDM [facility] Stop: 03/10/19 07:59 Last Admin: 02/12/19 17:51 Dose: 325 mg Documented by: Piperacillin Sod/Tazobactam (Sod 3.375 gm/ Dextrose) 115 mls @ 28.75 mls/hr IV Q8H [facility]; Protocol Stop: 03/22/19 05:59 Last Infusion: 02/12/19 17:50 Dose: Infused Documented by: Famotidine 20 mg/ Syringe 5 mls @ 2.5 mls/min IV DAILY [facility] Stop: 03/10/19 08:59 Last Admin: 02/12/19 09:50 Dose: 2.5 mls/min Documented by: Acetaminophen (Ofirmev) 65 mls @ 200 mls/hr IV Q8H PRN PRN Reason: pain or fever Stop: 03/10/19 00:14 Last Infusion: 02/12/19 04:18 Dose: Infused Documented by: Vancomycin HCl 1,500 mg/ (Sodium Chloride) 530 mls @ 200 mls/hr IV Q12H [facility] Stop: 03/23/19 21:59 Last Infusion: 02/12/19 12:30 Dose: Infused Documented by: Ibuprofen (Motrin) 600 mg PO Q8H PRN PRN Reason: Pain Stop: 03/12/19 17:46 Last Admin: 02/12/19 14:36 Dose: 600 mg Documented by: Labetalol HCl (Normodyne) 300 mg PO Q12 [facility] Stop: 03/09/19 22:15 Last Admin: 02/12/19 09:50 Dose: 300 mg Documented by: Magnesium Hydroxide (Milk Of Magnesia) 30 ml PO DAILY PRN PRN Reason: Constipation Stop: 03/09/19 22:15 Miscellaneous Information (Consult) 1 ea N/A UD PRN PRN Reason: Consult Stop: 03/09/19 23:55 Miscellaneous Information (Consult) 1 ea N/A UD PRN PRN Reason: Consult Stop: 03/09/19 23:55 Multivitamins (Multivitamin Tab) 1 tab PO DAILY [facility] Stop: 03/10/19 08:59 Last Admin: 02/12/19 09:50 Dose: 1 tab Documented by: Ondansetron HCl (Zofran) 4 mg IV Q6H PRN PRN Reason: Nausea Stop: 03/09/19 22:15 Polyethylene Glycol (Miralax Powder Packet) 17 gm PO DAILY@1030 [facility] Stop: 03/10/19 10:29 Last Admin: 02/12/19 09:50 Dose: 17 gm Documented by: Risperidone (Risperdal M) 0.5 mg PO Q4H PRN PRN Reason: Agitation Stop: 03/10/19 13:35 Last Admin: 02/12/19 09:50 Dose: 0.5 mg Documented by: Risperidone (Risperdal M) 1 mg PO HS [facility] Stop: 03/14/19 20:59 Senna/Docusate Sodium (Senokot S) 1 tab PO DAILYBL PRN PRN Reason: Constipation Stop: 03/09/19 22:15 Thiamine HCl (Vitamin B-1) 100 mg PO DAILY [facility] Stop: 03/10/19 08:59 Last Admin: 02/12/19 09:50 Dose: 100 mg Documented by: Resident Activity Tracking Resident Involvement: Resident Care Provided Care Provided: Adult Hospital Medicine (1) GERD (gastroesophageal reflux disease) Esophagitis presence: without esophagitis Qualified Code(s): K21.9 - Gastro- esophageal reflux disease without esophagitis
[2019-02-12] MEDS: RISPERIDONE ODT 1MG PO SCH (21:35)
[2019-02-12] MEDS: ENOXAPARIN INJ 40 MG/0.4 ML SYR SQ SCH (21:35)
[2019-02-13] MEDS ORDERED: OLANZapine 10 MG/2.1 ML SDV IM STA (01:46)
[2019-02-13] MEDS: COLLAGENASE OINT 30 GM TUBE EXT SCH (07:51)
[2019-02-13] MEDS: POLYETHYLENE (MIRALAX) 17 GM PACK PO SCH (07:51)
[2019-02-13] MEDS: DOCUSATE SODIUM 100 MG CAP PO SCH ×2 (07:52→21:17)
[2019-02-13] MEDS: SULFAMETHOXAZOLE/TRIMETHOPRIM DS 800/160MG TAB PO SCH ×2 (07:52→21:19)
[2019-02-13] MEDS: FERROUS SULFATE 325 MG TAB PO SCH ×2 (07:52→17:23)
[2019-02-13] MEDS: CLOPIDOGREL BISULFATE 75 MG TAB PO SCH (07:52)
[2019-02-13] MEDS: ATORVASTATIN 40 MG TAB PO SCH (07:52)
[2019-02-13] MEDS: MULTIVITAMIN TAB PO SCH (07:52)
[2019-02-13] MEDS: THIAMINE HCL 100 MG TAB PO SCH (07:52)
[2019-02-13] MEDS: ASPIRIN 81 MG ECTAB PO SCH (07:52)
[2019-02-13] MEDS: LABETALOL HCL 300 MG TAB PO SCH ×2 (07:52→21:18)
[2019-02-13] MEDS: FAMOTIDINE 20 MG in SYRINGE 3 ML IV SCH (08:38)
[2019-02-13 09:31] LABS: Basophils # (auto) 0.04 K/uL (0-0.2); Basophils % (auto) 0.6 %; Eosinophils % (auto) 4.4 %; Hematocrit (blood only) 33.7 % (42-52); Hemoglobin 11.2 g/dL (14.0-18.0); Immature Granulocytes # (auto) 0.01 K/uL (0.00-0.02); Immature Granulocytes % (auto) 0.1 %; Lymphocytes # (auto) 1.43 K/uL (1.2-3.4); Lymphocytes % (auto) 20.8 %; Mean Corpuscular Hgb Conc 33.2 g/dL (32-36); Mean Corpuscular Volume 86.6 fL (80-100); Mean Platelet Volume 8.1 fL (7.4-10.4); Monocytes % (auto) 5.8 %; Neutrophils # (auto) 4.69 K/uL (1.4-6.5); Neutrophils % (auto) 68.3 %; Platelet Count 238 K/uL (130-400); RDW Coefficient of Variation 15.1 % (11.5-14.5); RDW Standard Deviation 47.1 fL (36.4-46.3); Red Blood Count 3.89 M/uL (4.7-6.1); White Blood Count 6.87 K/uL (4.8-10.8)
--- NOTE | 2019-02-13 11:06 | Family Medicine Progress Note ---
Date of Service February 13, 2019 Assessment & Plan (1) Encephalopathy: Metabolic Encephalopathy/Delirium -Improving. Likely multifactorial in nature- infection, pain, ?benzo withdrawal, medication effects, lack of sleep -Delirium prevention strategies -Stopped benzos and decreased pain medicine, tapered meds that contribute to confusion (fentanyl, tramadol, amitriptyline). -Unlikely infectious cause; wounds healing well. -Follow culture results -Risperdal 1mg qhs and .5mg q4h prn -Thiamine daily -Patient appears to be improving slowly each day. Still becomes delirious at night () Peripheral vascular disease -Continue ASA, Plavix, Statin -Vascular surgery consult - appreciate assistance with this case -Wound care -stopped narcotics. cautiously aggressive, may be contributing to underlying delirium. tylenol/motrin for pain relief Leukocytosis -Resolved, continue to monitor -Will restart PO Levaquin and Bactrim 02/13 -Vanco and Zosyn DCd -Follow cultures Cellulitis -As above, appears to be healing well per vascular. -Resume PO abx HTN (hypertension), benign Blood pressure well controlled at present. Continue Labetalol. Continue to monitor GERD (gastroesophageal reflux disease): Continue Pepcid daily Code: FNMV Dispo: med/surg DVTP: none at present (2) Peripheral vascular disease: (3) Leukocytosis: (4) Delirium: (5) Cellulitis: (6) HTN (hypertension), benign: (7) GERD (gastroesophageal reflux disease): Supervising Physician Co-Signing Physician Notes I personally examined the patient and verified all abbasi points of history and exam, discussed case, and agree with decision making with Dr Yen. feeling better, talking more, making sense more, thinking more clearly. still sobbing at times Vitals noted, in general he is awake and alert pleasant no distress. HEENT normocephalic atraumatic mucous membranes moist. Breathing unlabored no accessory muscle use. Skin shows no rashes no pallor or icterus no tracking erythema. Neuro shows no focal deficits. Extremities show his left lower extremity be dressed with no erythema, his left hand missing several digits. Deliriumthis appears likely to be multifactorial, some of it was medication related (he was in such severe pain during his last hospitalization that he would be screaming and crying even with dressing changes, and slowly but steadily we titrated up a multimodal pain management regimen in conjunction with him and his . At time of discharge she was totally lucid and his pain was under better control. Now he is off all of those medicines, and his pain is actually still good. Most likely his pain improved far faster than would be expected, and once the pain was abating, then the sedating effects of those medicines began to take effect). Changing environments and lack of sleep also appear to be playing a role. He does seem to be improving. Extensive discussion again with patient and . Supportive care dispo - anticipate return to rehab in 24-48hrs Otherwise as above. Subjective Patient in much better spirits this morning. He is sitting upright, clearer stream of consciousness, not as emotional. Continues to report discomfort in L foot, however states it is better than yesterday. Review of Systems Constitutional: + weakness; no fever and no chills Respiratory: no cough and no dyspnea Cardiovascular: no chest pain Gastrointestinal: no abdominal pain Musculoskeletal: + joint pain Integumentary: + sores and + wounds Psychiatric: + anxiety and + confusion Physical Exam Constitutional: WD/WN, vitals as above average body habitus, + altered mental status and + behavioral limitations Eyes: PERRL, conjunctivae normal, anicteric sclerae ENMT: external ear and nose normal, oropharynx normal Neck: normal visual inspection Respiratory: normal respiratory effort, lungs clear to auscultation Cardiovascular: RRR, no murmur, no edema Gastrointestinal (Abdomen): normal bowel sounds, soft, nontender, no hepatosplenomegaly Musculoskeletal: Extremities: + extremities dysmorphic, + amputation noted and + hand abnormality; + extremities abnormal to inspection Skin: + lesion and + wound Psychiatric: Orientation: alert; + not oriented x 3 Affect: + anxious affect Mood: + depressed mood and + irritable mood Insight: + limited in sight Results & Data Vital Signs (Past 12 Hours) Vital Signs Temp Pulse Resp BP Pulse Ox 02/13/19 07:13 36.9 C 79 18 146/76 H 93 Laboratory Results 02/13/19 02/12/19 Range/Units 09:19 09:34 WBC 6.87 (4.8-10.8) K/uL RBC 3.89 L (4.7-6.1) M/uL Hgb 11.2 L (14.0-18.0) g/dL Hct 33.7 L (42-52) % MCV 86.6 (80-100) fL MCH 28.8 (25-34) pg MCHC 33.2 (32-36) g/dL RDW Std Deviation 47.1 H (36.4-46.3) fL RDW Coeff of Argelia 15.1 H (11.5-14.5) % Plt Count 238 (130-400) K/uL MPV 8.1 (7.4-10.4) fL Immature Gran % (Auto) 0.1 % Neut % (Auto) 68.3 % Lymph % (Auto) 20.8 % [place] % (Auto) 5.8 % Eos % (Auto) 4.4 % Baso % (Auto) 0.6 % Immature Gran # (Auto) 0.01 (0.00-0.02) K/uL Neut # (Auto) 4.69 (1.4-6.5) K/uL Lymph # (Auto) 1.43 (1.2-3.4) K/uL [place] # (Auto) 0.40 (0.11-0.59) K/uL Eos # (Auto) 0.30 (0-0.5) K/uL Baso # (Auto) 0.04 (0-0.2) K/uL Sodium 137 (136-145) mmol/L Potassium 3.4 L (3.5-5.1) mmol/L Chloride 104 (98-107) mmol/L Carbon Dioxide 27 (21-32) mmol/L Anion Gap 6.0 (3-11) BUN 6 L (7-18) mg/dl Creatinine 0.55 L (0.6-1.4) mg/dl Est Cr Clr Drug Dosing 138.3 ml/min Est GFR ( Amer) 126.7 Est GFR (Non-Af Amer) 109.4 BUN/Creatinine Ratio 11.7 (10-20) Glucose 111 H (70-99) mg/dl Calcium 8.2 L (8.5-10.1) mg/dl Medications Administered Current Inpatient Medications Aspirin (Ecotrin Ectab) 81 mg PO QA [facility] Stop: 03/10/19 08:59 Last Admin: 02/13/19 07:52 Dose: 81 mg Documented by: Atorvastatin Calcium (Lipitor) 80 mg PO DAILY [facility] Stop: 03/10/19 08:59 Last Admin: 02/13/19 07:52 Dose: 80 mg Documented by: Bisacodyl (Dulcolax) 10 mg PA DAILY PRN PRN Reason: Constipation Stop: 03/09/19 22:15 Clopidogrel Bisulfate (Plavix) 75 mg PO DAILY [facility] Stop: 03/10/19 08:59 Last Admin: 02/13/19 07:52 Dose: 75 mg Documented by: Collagenase (Santyl) 1 appln EXT DAILY [facility] Stop: 03/10/19 13:29 Last Admin: 02/13/19 07:51 Dose: 1 appln Documented by: Docusate Sodium (Colace) 100 mg PO BID [facility] Stop: 03/09/19 22:15 Last Admin: 02/13/19 07:52 Dose: 100 mg Documented by: Enoxaparin Sodium (Lovenox) 40 mg SQ HS [facility] Stop: 03/09/19 22:44 Last Admin: 02/12/19 21:35 Dose: 40 mg Documented by: Famotidine (Pepcid) 20 mg PO BID [facility] Stop: 03/15/19 20:59 Ferrous Sulfate (Feosol) 325 mg PO BIDM [facility] Stop: 03/10/19 07:59 Last Admin: 02/13/19 07:52 Dose: 325 mg Documented by: Acetaminophen (Ofirmev) 65 mls @ 200 mls/hr IV Q8H PRN PRN Reason: pain or fever Stop: 03/10/19 00:14 Last Infusion: 02/12/19 20:03 Dose: Infused Documented by: Ibuprofen (Motrin) 600 mg PO Q8H PRN PRN Reason: Pain Stop: 03/12/19 17:46 Last Admin: 02/12/19 14:36 Dose: 600 mg Documented by: Labetalol HCl (Normodyne) 300 mg PO Q12 [facility] Stop: 03/09/19 22:15 Last Admin: 02/13/19 07:52 Dose: 300 mg Documented by: Levofloxacin (Levaquin) 750 mg PO DAILY@1100 [facility] Stop: 03/27/19 10:59 Magnesium Hydroxide (Milk Of Magnesia) 30 ml PO DAILY PRN PRN Reason: Constipation Stop: 03/09/19 22:15 Multivitamins (Multivitamin Tab) 1 tab PO DAILY [facility] Stop: 03/10/19 08:59 Last Admin: 02/13/19 07:52 Dose: 1 tab Documented by: Ondansetron HCl (Zofran) 4 mg IV Q6H PRN PRN Reason: Nausea Stop: 03/09/19 22:15 Polyethylene Glycol (Miralax Powder Packet) 17 gm PO DAILY@1030 [facility] Stop: 03/10/19 10:29 Last Admin: 02/13/19 07:51 Dose: 17 gm Documented by: Risperidone (Risperdal M) 0.5 mg PO Q4H PRN PRN Reason: Agitation Stop: 03/10/19 13:35 Last Admin: 02/12/19 09:50 Dose: 0.5 mg Documented by: Risperidone (Risperdal M) 1 mg PO HS [facility] Stop: 03/14/19 20:59 Last Admin: 02/12/19 21:35 Dose: 1 mg Documented by: Senna/Docusate Sodium (Senokot S) 1 tab PO DAILYBL PRN PRN Reason: Constipation Stop: 03/09/19 22:15 Thiamine HCl (Vitamin B-1) 100 mg PO DAILY [facility] Stop: 03/10/19 08:59 Last Admin: 02/13/19 07:52 Dose: 100 mg Documented by: Trimethoprim/Sulfamethoxazole (Septra Ds 800/160mg Tab) 1 tab PO Q12 [facility] Stop: 03/27/19 08:59 Last Admin: 02/13/19 07:52 Dose: 1 tab Documented by: Resident Activity Tracking Resident Involvement: Resident Care Provided Care Provided: Adult Hospital Medicine (1) GERD (gastroesophageal reflux disease) Esophagitis presence: without esophagitis Qualified Code(s): K21.9 - Gastro- esophageal reflux disease without esophagitis
[2019-02-13] MEDS: levoFLOXacin 750 MG TAB PO SCH (11:28)
[2019-02-13] MEDS: IBUPROFEN 600 MG TAB PO PRN (13:50)
[2019-02-13] MEDS: ACETAMINOPHEN 65 ML IV PRN (17:21)
[2019-02-13] MEDS: RISPERIDONE ODT 1MG PO PRN ×2 (18:01→23:01)
[2019-02-13] MEDS: IBUPROFEN 600 MG TAB PO SCH (21:17)
[2019-02-13] MEDS: ENOXAPARIN INJ 40 MG/0.4 ML SYR SQ SCH (21:17)
[2019-02-13] MEDS: FAMOTIDINE 20 MG TAB PO SCH (21:19)
[2019-02-13] MEDS: RISPERIDONE ODT 1MG PO SCH (21:19)
[2019-02-13] MEDS: ACETAMINOPHEN 325 MG TAB PO SCH (23:01)
[2019-02-14] MEDS: IBUPROFEN 600 MG TAB PO SCH ×3 (04:40→20:22)
[2019-02-14 07:01] LABS: Hematocrit (blood only) 30.1 % (42-52); Mean Corpuscular Hgb Conc 33.2 g/dL (32-36); Mean Corpuscular Volume 86.5 fL (80-100); Mean Platelet Volume 7.9 fL (7.4-10.4); Platelet Count 214 K/uL (130-400); RDW Coefficient of Variation 15.2 % (11.5-14.5); Red Blood Count 3.48 M/uL (4.7-6.1); White Blood Count 6.59 K/uL (4.8-10.8)
[2019-02-14 07:36] LABS: Creatinine Clr Calc Pharmacy 102.8 ml/min; Est GFR (African American) 112.2; Est GFR (Non-African American) 96.8
[2019-02-14] MEDS: POLYETHYLENE (MIRALAX) 17 GM PACK PO SCH (07:44)
[2019-02-14] MEDS: CLOPIDOGREL BISULFATE 75 MG TAB PO SCH (07:45)
[2019-02-14] MEDS: COLLAGENASE OINT 30 GM TUBE EXT SCH (07:45)
[2019-02-14] MEDS: FERROUS SULFATE 325 MG TAB PO SCH ×2 (07:45→17:00)
[2019-02-14] MEDS: SULFAMETHOXAZOLE/TRIMETHOPRIM DS 800/160MG TAB PO SCH ×2 (07:45→20:22)
[2019-02-14] MEDS: THIAMINE HCL 100 MG TAB PO SCH (07:45)
[2019-02-14] MEDS: ACETAMINOPHEN 325 MG TAB PO SCH ×3 (07:45→23:52)
[2019-02-14] MEDS: LABETALOL HCL 300 MG TAB PO SCH ×2 (07:45→20:23)
[2019-02-14] MEDS: DOCUSATE SODIUM 100 MG CAP PO SCH ×2 (07:45→20:29)
[2019-02-14] MEDS: FAMOTIDINE 20 MG TAB PO SCH ×2 (07:45→20:22)
[2019-02-14] MEDS: ASPIRIN 81 MG ECTAB PO SCH (07:46)
[2019-02-14] MEDS: MULTIVITAMIN TAB PO SCH (07:46)
[2019-02-14] MEDS: ATORVASTATIN 40 MG TAB PO SCH (07:46)
[2019-02-14] MEDS: levoFLOXacin 750 MG TAB PO SCH (11:25)
--- NOTE | 2019-02-14 13:45 | Communication Note ---
Date of Service: February 14, 2019 Pt LLE wounds had appeared significantly improved as of 02/12/19. Per staff, wounds appear similar( new daily dressings just applied). Pt also appears more alert and communicative. OK for d/c from vascular standpoint. Would continue daily dressing changes and will see in office in 1-2 wks. Please call if needed.
--- NOTE | 2019-02-14 15:13 | Family Medicine Progress Note ---
Date of Service February 14, 2019 Assessment & Plan (1) Encephalopathy: Metabolic Encephalopathy/Delirium -Improving nicely. Likely multifactorial in nature- infection, pain, ?benzo withdrawal, medication effects, lack of sleep -Delirium prevention strategies -Stopped benzos and decreased pain medicine, tapered meds that contribute to confusion (fentanyl, tramadol, amitriptyline). -Unlikely infectious cause; wounds healing well. Blood cultures NGTD -Risperdal 1mg qhs and .5mg q4h prn. Med is intended as temporary; recommend this be weaned as tolerated over next 1-2 months. -Thiamine daily -Patient appears to be improving slowly each day. Still becomes delirious at night () but this too has improved. Peripheral vascular disease -Continue ASA, Plavix, Statin -Vascular surgery consult - appreciate assistance with this case -Wound care -Stopped narcotics. cautiously aggressive, may be contributing to underlying delirium. -SCHEDULED tylenol/motrin for pain relief Leukocytosis -Resolved, continue to monitor -Will restart PO Levaquin and Bactrim 02/13 -Vanco and Zosyn DCd -Follow cultures Cellulitis -As above, appears to be healing well per vascular. -Resume PO abx HTN (hypertension), benign Blood pressure well controlled at present. Continue Labetalol. Continue to monitor GERD (gastroesophageal reflux disease): Continue Pepcid daily Code: FNMERCEDES Dispo: med/surg DVTP: none at present, for rehab when insurance auth approved (2) Peripheral vascular disease: (3) Leukocytosis: (4) Delirium: (5) Cellulitis: (6) HTN (hypertension), benign: (7) GERD (gastroesophageal reflux disease): Supervising Physician Co-Signing Physician Notes I personally examined the patient and verified all abbasi points of history and exam, discussed case, and agree with decision making with Dr Yen. Overall feeling much better. Talking logically, holds a good long conversation. Even emotional outbursts seem to be much more related to his long drawn out course of illness. He asks very rational questions and comprehends the answer as well. present as well, answered all questions to the best my ability to her as well. Vitals noted, in general he is awake and alert pleasant no distress. HEENT normocephalic atraumatic mucous membranes moist. Breathing unlabored no accessory muscle use. Skin shows no rashes no pallor or icterus no tracking erythema. Neuro shows no focal deficits. Extremities show his left lower extremity be dressed with no erythema, his left hand missing several digits. Deliriumthis appears likely to be multifactorial, some of it was medication related (he was in such severe pain during his last hospitalization that he would be screaming and crying even with dressing changes, and slowly but steadily we titrated up a multimodal pain management regimen in conjunction with him and his . At time of discharge she was totally lucid and his pain was under better control. Now he is off all of those medicines, and his pain is actually still good. Most likely his pain improved far faster than would be expected, and once the pain was abating, then the sedating effects of those medicines began to take effect). Changing environments and lack of sleep also appear to be playing a role. Clearly improving. Hopefully back to rehab by tomorrow. dispo - anticipate return to rehab once approved Otherwise as above. Subjective patient continuing to improve. Fully oriented, states he had a better night. Frustrated by hospitalizations in last several months. Eager to return to rehab. Review of Systems Review of Systems: All systems reviewed & are unremarkable except as noted in HPI & below Constitutional: + weakness; no fever and no chills Musculoskeletal: + joint pain Integumentary: + sores and + wounds Physical Exam Constitutional: WD/WN, vitals as above average body habitus, + altered mental status and + behavioral limitations Eyes: PERRL, conjunctivae normal, anicteric sclerae ENMT: external ear and nose normal, oropharynx normal Neck: normal visual inspection Respiratory: normal respiratory effort, lungs clear to auscultation Cardiovascular: RRR, no murmur, no edema Gastrointestinal (Abdomen): normal bowel sounds, soft, nontender, no hepatosplenomegaly Musculoskeletal: Extremities: + extremities dysmorphic, + amputation noted and + hand abnormality; + extremities abnormal to inspection Skin: + lesion and + wound Psychiatric: Orientation: alert and oriented x 3 Eye Contact: good eye contact Thought Process: goal directed thought process Results & Data Vital Signs (Past 12 Hours) Vital Signs Temp Pulse Resp BP Pulse Ox 02/14/19 07:00 36.8 C 75 20 168/82 H 95 Laboratory Results 02/14/19 02/14/19 02/07/19 Range/Units 06:46 06:46 15:08 WBC 6.59 (4.8-10.8) K/uL RBC 3.48 L (4.7-6.1) M/uL Hgb 10.0 L (14.0-18.0) g/dL Hct 30.1 L (42-52) % MCV 86.5 (80-100) fL MCH 28.7 (25-34) pg MCHC 33.2 (32-36) g/dL RDW Std Deviation 48.0 H (36.4-46.3) fL RDW Coeff of Argelia 15.2 H (11.5-14.5) % Plt Count 214 (130-400) K/uL MPV 7.9 (7.4-10.4) fL Creatinine 0.74 (0.6-1.4) mg/dl Est Cr Clr Drug Dosing 102.8 ml/min Est GFR ( Amer) 112.2 Est GFR (Non-Af Amer) 96.8 Vitamin B1 326 H (8-30) nmol/L Medications Administered Current Inpatient Medications Acetaminophen (Tylenol) 650 mg PO Q8H [facility] Stop: 03/16/19 00:00 Last Admin: 02/14/19 07:45 Dose: 650 mg Documented by: Aspirin (Ecotrin Ectab) 81 mg PO QAM [facility] Stop: 03/10/19 08:59 Last Admin: 02/14/19 07:46 Dose: 81 mg Documented by: Atorvastatin Calcium (Lipitor) 80 mg PO DAILY [facility] Stop: 03/10/19 08:59 Last Admin: 02/14/19 07:46 Dose: 80 mg Documented by: Bisacodyl (Dulcolax) 10 mg [place] DAILY PRN PRN Reason: Constipation Stop: 03/09/19 22:15 Clopidogrel Bisulfate (Plavix) 75 mg PO DAILY [facility] Stop: 03/10/19 08:59 Last Admin: 02/14/19 07:45 Dose: 75 mg Documented by: Collagenase (Santyl) 1 appln EXT DAILY [facility] Stop: 03/10/19 13:29 Last Admin: 02/14/19 07:45 Dose: 1 appln Documented by: Docusate Sodium (Colace) 100 mg PO BID [facility] Stop: 03/09/19 22:15 Last Admin: 02/14/19 07:45 Dose: 100 mg Documented by: Enoxaparin Sodium (Lovenox) 40 mg SQ HS [facility] Stop: 03/09/19 22:44 Last Admin: 02/13/19 21:17 Dose: 40 mg Documented by: Famotidine (Pepcid) 20 mg PO BID [facility] Stop: 03/15/19 20:59 Last Admin: 02/14/19 07:45 Dose: 20 mg Documented by: Ferrous Sulfate (Feosol) 325 mg PO BIDM [facility] Stop: 03/10/19 07:59 Last Admin: 02/14/19 07:45 Dose: 325 mg Documented by: Ibuprofen (Motrin) 600 mg PO Q8H [facility] Stop: 03/15/19 19:59 Last Admin: 02/14/19 11:25 Dose: 600 mg Documented by: Labetalol HCl (Normodyne) 300 mg PO Q12 [facility] Stop: 03/09/19 22:15 Last Admin: 02/14/19 07:45 Dose: 300 mg Documented by: Levofloxacin (Levaquin) 750 mg PO DAILY@1100 [facility] Stop: 03/27/19 10:59 Last Admin: 02/14/19 11:25 Dose: 750 mg Documented by: Magnesium Hydroxide (Milk Of Magnesia) 30 ml PO DAILY PRN PRN Reason: Constipation Stop: 03/09/19 22:15 Multivitamins (Multivitamin Tab) 1 tab PO DAILY [facility] Stop: 03/10/19 08:59 Last Admin: 02/14/19 07:46 Dose: 1 tab Documented by: Ondansetron HCl (Zofran) 4 mg IV Q6H PRN PRN Reason: Nausea Stop: 03/09/19 22:15 Polyethylene Glycol (Miralax Powder Packet) 17 gm PO DAILY@1030 [facility] Stop: 03/10/19 10:29 Last Admin: 02/14/19 07:44 Dose: 17 gm Documented by: Risperidone (Risperdal M) 0.5 mg PO Q4H PRN PRN Reason: Agitation Stop: 03/10/19 13:35 Last Admin: 02/12/19 09:50 Dose: 0.5 mg Documented by: Risperidone (Risperdal M) 1 mg PO HS [facility] Stop: 03/14/19 20:59 Last Admin: 02/13/19 21:19 Dose: 1 mg Documented by: Senna/Docusate Sodium (Senokot S) 1 tab PO DAILYBL PRN PRN Reason: Constipation Stop: 03/09/19 22:15 Thiamine HCl (Vitamin B-1) 100 mg PO DAILY [facility] Stop: 03/10/19 08:59 Last Admin: 02/14/19 07:45 Dose: 100 mg Documented by: Trimethoprim/Sulfamethoxazole (Septra Ds 800/160mg Tab) 1 tab PO Q12 [facility] Stop: 03/27/19 08:59 Last Admin: 02/14/19 07:45 Dose: 1 tab Documented by: Resident Activity Tracking Resident Involvement: Resident Care Provided Care Provided: Adult Hospital Medicine (1) GERD (gastroesophageal reflux disease) Esophagitis presence: without esophagitis Qualified Code(s): K21.9 - Gastro- esophageal reflux disease without esophagitis
[2019-02-14] MEDS: risperiDONE ODT 0.5 MG SOLTAB PO PRN (19:33)
[2019-02-14] MEDS: RISPERIDONE ODT 1MG PO SCH (20:21)
[2019-02-14] MEDS: ENOXAPARIN INJ 40 MG/0.4 ML SYR SQ SCH (20:24)
[2019-02-15] MEDS: risperiDONE ODT 0.5 MG SOLTAB PO PRN (02:35)
[2019-02-15] MEDS: IBUPROFEN 600 MG TAB PO SCH ×2 (04:43→11:47)
[2019-02-15] MEDS: COLLAGENASE OINT 30 GM TUBE EXT SCH (08:14)
[2019-02-15] MEDS: ASPIRIN 81 MG ECTAB PO SCH (08:15)
[2019-02-15] MEDS: THIAMINE HCL 100 MG TAB PO SCH (08:15)
[2019-02-15] MEDS: DOCUSATE SODIUM 100 MG CAP PO SCH (08:15)
[2019-02-15] MEDS: LABETALOL HCL 300 MG TAB PO SCH (08:15)
[2019-02-15] MEDS: POLYETHYLENE (MIRALAX) 17 GM PACK PO SCH (08:15)
[2019-02-15] MEDS: ACETAMINOPHEN 325 MG TAB PO SCH (08:15)
[2019-02-15] MEDS: FAMOTIDINE 20 MG TAB PO SCH (08:15)
[2019-02-15] MEDS: CLOPIDOGREL BISULFATE 75 MG TAB PO SCH (08:15)
[2019-02-15] MEDS: SULFAMETHOXAZOLE/TRIMETHOPRIM DS 800/160MG TAB PO SCH (08:15)
[2019-02-15] MEDS: MULTIVITAMIN TAB PO SCH (08:16)
[2019-02-15] MEDS: ATORVASTATIN 40 MG TAB PO SCH (08:16)
[2019-02-15] MEDS: FERROUS SULFATE 325 MG TAB PO SCH (08:42)
[2019-02-15] MEDS ORDERED: TRAMADOL HCL 50 MG TABLET PO PRN (09:42)
[2019-02-15] MEDS: levoFLOXacin 750 MG TAB PO SCH (11:47)
--- NOTE | 2019-02-15 13:19 | Discharge Summary ---
Date of Service February 15, 2019 Admission HPI Per Admitting Provider Patric Ortega is a 63-year-old male admitted medically on 02/08/19 for delirium and infection of his left foot. 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 Primary medical team concerned about prolonged delirium and patient's agitation. Psychiatric consultation is requested to evaluate delirium and for medication recommendations regarding agitation. Initially received history from the patient's and daughter. They report confusion began 5 months ago, following a surgery to amputation of his toe. The states he has had episodic worsening of mental status over the past 5 months, with frequent hospitalizations. He has been residing at [facility] in between admissions. Family states the patient has been increasingly confused over the past few days, sleeping poorly for several months. Medication adjustments have been made during his hospital admissions as well as at the rehab facility. Most recent medication initiation was amitriptyline to assist with sleep and gabapentin for pain - both medications discontinued after discharge from his last hospitalization. Pt states that multiple medications have assisted with his restlessness/agitation, but have also been known to cause him confusion as well. The family is concerned about the patient's condition and their feelings are validated. Initially during my observation of the patient, he is agitated and irritable. It is reported he has been telling his daughter and brother to "refill the oil drum" and "make sure you call and cancel that delivery" - as if at work, per family. He is reported to be displaying the actions of "feeding himself and handing off objects, but there is nothing in his hands." These movements are observed at the beginning of the encounter. As we discuss further, the patient begins sobbing, family believes due to pain. He eventually stops crying when engaged in conversation with this provider. He is somewhat able to participate in conversation - but is without his lower set of dentures, making it difficult to understand him. Pt's verbalizes primary concerns are related to patient's restlessness/discomfort and his sleep difficulties. Patient is a 63yo C male with history of peripheral vascular disease s/p popliteal-tibial bypass in October, s/p TMA of left foot. Patient was admitted to [facility] on 01/22 with concern for bleeding at the wound site as well as prolonged delirium. 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 Had debridement performed and was treated with IV antibiotics, Vanc and Levaquin. He was discharged to [facility] on 02/01/19 on Levaquin and Bactrim x 2 week course. reports persistent confusion/hallucinations/agitation which were present prior to the last hospital stay, improved briefly during hospital stay, symptoms now returned. She states that patient does not recognize her, also frequently speaks to relatives. Patient was started on Elavil and Gabapentin prior to discharge - both agents were discontinued by PCP. is mostly concerned that patient's mental state has been so altered for so long. She states that he has not been "normal" since November. ER Course: Cefepime, Haldol, Dilaudid, Flagyl, Vanc Principal Diagnosis AMS, resolved Discharge Exam Constitutional WD/WN, vitals as above average body habitus, + altered mental status and + behavioral limitations Eyes PERRL, conjunctivae normal, anicteric sclerae ENMT external ear and nose normal, oropharynx normal Neck normal visual inspection Respiratory normal respiratory effort, lungs clear to auscultation Cardiovascular RRR, no murmur, no edema Gastrointestinal (Abdomen) normal bowel sounds, soft, nontender, no hepatosplenomegaly Musculoskeletal Extremities: + extremities dysmorphic, + amputation noted (L hand: 3,4,5th digits, L TMA) and + hand abnormality; + extremities abnormal to inspection Skin + lesion and + wound Psychiatric Orientation: alert and oriented x 3 Eye Contact: good eye contact Mood: + depressed mood Thought Process: goal directed thought process Discharge Data Allergies Allergy/AdvReac Type Severity Reaction Status Date / Time Penicillins Allergy Severe Rash Verified 02/08/19 03:05 oxycodone AdvReac Severe Hallucinati Verified 02/07/19 15:14 ng lorazepam [From Ativan] AdvReac Intermediate Confusion Verified 02/07/19 15:14 hydromorphone AdvReac Unknown CONFUSION Verified 02/08/19 03:12 FROM 1 DOSE Consultations 02/07/19 18:16 ED Decision to Admit Stat 02/07/19 22:16 Consult Case Management - Discharge Planning Routine Consult Psychiatry Routine 02/08/19 00:23 Consult Vascular Surgery Routine 02/11/19 14:04 Consult Health Information Management Routine Ordered Studies 02/07/19 14:36 CT head/brain wo con Stat 02/07/19 16:27 CT abd pelvis wo con Stat CT chest wo con Stat Hospital Course (1) Encephalopathy: Metabolic Encephalopathy/Delirium -Resolved. Likely multifactorial in nature- infection of foot wound?, pain, ?benzo withdrawal, medication effects, lack of sleep -Delirium prevention strategies, would recommend to continue -Stopped benzos and decreased pain medicine, tapered meds that contribute to confusion (fentanyl, tramadol, amitriptyline). -Unlikely infectious cause; wounds healing well. Blood cultures NGTD -Risperdal 1mg qhs and .5mg q4h prn. Med is intended as temporary; recommend this be weaned as tolerated over next 1-2 months. -Thiamine daily -Patient appears to be improving each day. Still becomes mildly delirious at night () but this too has improved. Peripheral vascular disease, s/p L TMA -Continue ASA, Plavix, Statin -Vascular surgery has been following; follow up per regular schedule -Wound care and dressing changes as needed -Stopped narcotics. cautiously aggressive, may be contributing to underlying delirium. -SCHEDULED tylenol/motrin for pain relief --- wean this as his pain improves -prn 25mg tramadol no more than TID prn severe/breakthrough pain only - most likely will only need at dressing changes Leukocytosis -Resolved -PATIENT REQUIRES ONE DOSE OF BACTRIM 5/16 PM TO COMPLETE 14 DAY COURSE OF ABX -Cultures show no growth Cellulitis -As above, appears to be healing well per vascular. -Complete PO abx HTN (hypertension), benign Blood pressure well controlled at present. Continue Labetalol. Continue to monitor GERD (gastroesophageal reflux disease): Continue Pepcid daily Code: Full no mechanical (2) Peripheral vascular disease: (3) Leukocytosis: (4) Delirium: (5) Cellulitis: (6) HTN (hypertension), benign: (7) GERD (gastroesophageal reflux disease): Total Time Total Time Spent Total Time Spent (In Minutes): <30 Discharge Plan Discharge Items Patient Disposition: Transfer Inpatient Rehab Fac Reason For Visit: AMS Discharge Diagnosis: Altered mental status, resolved Discharge Goals: Improve disease control, Improve function, Increase independence and Learn about illness Activity: Per 'Additional Instructions' section Non-emergency contact: Primary Care Provider and Surgeon Call non-emergency contact if: you have any medication questions, your pain is not controlled, your pain is worsening and your temperature is above 101.5 Follow-up/Referrals: Devonte Kemp [Primary Care Provider] - Diet: Carb Consistent or DM2 and Heart Healthy Addtl Provider Instructions: Metabolic Encephalopathy/Delirium -Resolved. Likely multifactorial in nature- infection of foot wound?, pain, ?benzo withdrawal, medication effects, lack of sleep -Delirium prevention strategies, would recommend to continue -Stopped benzos and decreased pain medicine, tapered meds that contribute to confusion (fentanyl, tramadol, amitriptyline). -Unlikely infectious cause; wounds healing well. Blood cultures NGTD -Risperdal 1mg qhs and .5mg q4h prn. Med is intended as temporary; recommend this be weaned as tolerated over next 1-2 months. -Thiamine daily -Patient appears to be improving each day. Still becomes mildly delirious at night () but this too has improved. Peripheral vascular disease, s/p L TMA -Continue ASA, Plavix, Statin -Vascular surgery has been following; follow up per regular schedule -Wound care and dressing changes as needed -Stopped narcotics. cautiously aggressive, may be contributing to underlying delirium. -SCHEDULED tylenol/motrin for pain relief --- wean this as his pain improves -prn 25mg tramadol no more than TID prn severe/breakthrough pain only - most likely will only need at dressing changes Leukocytosis -Resolved -PATIENT REQUIRES ONE DOSE OF BACTRIM 5/16 PM TO COMPLETE 14 DAY COURSE OF ABX -Cultures show no growth Cellulitis -As above, appears to be healing well per vascular. -Complete PO abx HTN (hypertension), benign Blood pressure well controlled at present. Continue Labetalol. Continue to monitor GERD (gastroesophageal reflux disease): Continue Pepcid daily Code: Full no mechanical Prescriptions: New acetaminophen [Mapap (acetaminophen)] 325 mg Tablet 650 mg PO Q8H Qty: 30 RF: 0 ibuprofen 600 mg Tablet 600 mg PO Q8H Qty: 30 RF: 0 risperidone 0.5 mg Tablet,Disintegrating 0.5 mg PO Q4H PRN (Reason: agitation) 14 Days Qty: 30 RF: 0 risperidone 1 mg Tablet,Disintegrating 1 mg PO HS Qty: 30 RF: 0 tramadol 50 mg tablet 25 mg PO Q8H PRN (Reason: pain, severe) Qty: 5 RF: 0 Continued aspirin [Aspirin Low Dose] 81 mg Tablet,Delayed Release (Dr/Ec) 81 mg PO QAM RF: 0 enoxaparin 40 mg/0.4 mL Syringe 40 mg subcut Q24H 30 Days Qty: 12 RF: 0 multivitamin Tablet 1 tab PO DAILY RF: 0 atorvastatin 40 mg Tablet 80 mg PO DAILY RF: 0 acetaminophen [Tylenol] 325 mg Tablet 650 mg PO Q4 PRN (Reason: PAIN 1-3) RF: 0 polyethylene glycol 3350 [Miralax] 17 gram Powder In Packet 17 g PO DAILYBL RF: 0 lisinopril 20 mg Tablet 40 mg PO DAILY RF: 0 sennosides-docusate sodium [Senokot-S] 8.6-50 mg Tablet 1 tab PO DAILYBL PRN (Reason: Constipation) RF: 0 thiamine HCl (vitamin B1) 100 mg Tablet 100 mg PO DAILY RF: 0 clopidogrel [Plavix] 75 mg tablet 75 mg PO DAILY RF: 0 magnesium hydroxide [Milk of Magnesia] 400 mg/5 mL Suspension 30 ml PO DAILY PRN (Reason: Constipation) RF: 0 bisacodyl 10 mg Suppository 10 mg GA DAILY PRN (Reason: Constipation) RF: 0 pantoprazole 40 mg Tablet,Delayed Release (Dr/Ec) 40 mg PO DAILY RF: 0 ferrous sulfate 325 mg (65 mg iron) Tablet 325 mg PO BID RF: 0 docusate sodium 100 mg Capsule 100 mg PO BID RF: 0 labetalol 100 mg tablet 300 mg PO Q12 RF: 0 sodium hypochlorite 0.25 % Solution 1 applic TOPICAL DAILY RF: 0 Discontinued sulfamethoxazole-trimethoprim [Bactrim DS] 800-160 mg tablet 1 tab PO Q12 RF: 0 tramadol [Ultram] 50 mg tablet 50 mg PO Q4 PRN (Reason: pain 4-10) RF: 0 tramadol [Ultram] 50 mg tablet 100 mg PO DAILY PRN (Reason: Pain) RF: 0 gabapentin 300 mg Capsule 300 mg PO Q12 RF: 0 lorazepam 1 mg Tablet 1 mg PO Q8 PRN (Reason: Anxiety) RF: 0 fentanyl 25 mcg/hr Patch 72 Hour 1 patch TRANSDERMAL Q72H RF: 0 levofloxacin [Levaquin] 750 mg tablet 750 mg PO DAILY RF: 0 Stand-Alone Forms: [facility] Discharge Orders: Discharge Order (Routine); Ordered 02/15/19 Ordered By: Shwetha Leggett Skilled Items Patient informed of condition?: Yes DNR: No Discharge Level of Care: Acute rehab Communicable Disease: No Discharge Prognosis: Improving Admission Data Admit Date/Time: 02/07/19 20:37 Attending Provider: Severo Alas Admit Provider: Ivon Harris Primary Care Provider: Devonte Kemp Other Providers: Thomas Freeman ; Heidi Iyer ; Carlos Blunt Service: Medical Other Interventions: Discharge Summary Assessment (RN) Last Done: 02/15/19 13:04 DC Date/Time DO NOT enter until pt leaves facility: 02/15/19 14:50 Supervising Physician Co-Signing Physician Notes I personally examined the patient and verified all abbasi points of history and exam, discussed case, and agree with decision making with Dr Yen. Feeling better and wants to go to rehab. arrived later, Dr. Yen updates her as well. Patient has no new complaints, and is happy about his progress. Vitals noted, in general he is awake and alert pleasant no distress. HEENT normocephalic atraumatic mucous membranes moist. Breathing unlabored no accessory muscle use. Skin shows no rashes no pallor or icterus no tracking erythema. Neuro shows no focal deficits. Extremities show his left lower extremity be dressed with no erythema, his left hand missing several digits. Deliriumthis appears likely to be multifactorial, some of it was medication related (he was in such severe pain during his last hospitalization that he would be screaming and crying even with dressing changes, and slowly but steadily we titrated up a multimodal pain management regimen in conjunction with him and his . At time of discharge she was totally lucid and his pain was under better control. Now he is off all of those medicines, and his pain is actually still showing overall good control.. Most likely his pain improved far faster than would be expected, and once the pain was abating, then the sedating effects of those medicines began to take effect). Changing environments and l ack of sleep also appear to be playing a role. Clearly improving. Stable for return to rehab. Pain control with Tylenol and Motrin scheduled for now wean as tolerated, very low-dose tramadol at dressing changes. He seems to respond well to Risperdal as a sedative, right now continue as needed as well as 1 mg at bedtime, but wean this as quickly as tolerable as well. dispo -[facility] for rehab Otherwise as above. Resident Activity Tracking Resident Involvement: Resident Care Provided Care Provided: [facility]
== END 2019-02-15 14:50 | DRG 602 ==
LOC: ED 13:45 → SUATTDRO 20:37 → 2E 20:37 → 2W 02-10 20:07 → 4W 02-11 20:06
DX: Z89.432 Acquired absence of left foot; R73.03 Prediabetes; L03.116 Cellulitis of left lower limb; Z79.899 Other long term (current) drug therapy; Z79.82 Long term (current) use of aspirin; Z79.02 Long term (current) use of antithrombotics/antiplatelets; I10 Essential (primary) hypertension; I73.9 Peripheral vascular disease, unspecified; K21.9 Gastro-esophageal reflux disease without esophagitis; G93.41 Metabolic encephalopathy